=== PATIENT | female | born 1955 | race Caucasian/White ===

== ENCOUNTER 2020-03-01 07:48 | Outpatient (REF) | payer MEDICARE, MEDICAID, SELFPAY ==
--- NOTE | 2020-03-01 07:56 | FL_ITS ---
EXAMINATION: FL BARIUM SWALLOW CLINICAL INFORMATION: Dysphagia. COMPARISON: None. TECHNIQUE: Barium swallow examination is performed using fluoroscopic evaluation in addition to multiple fluoroscopic spot views. The patient is imaged both upright and prone and using both thick and thin sulfate along with effervescent granules. Fluoroscopy time: 1 minute DAP: 4.107 Gycm2 Images: 30 FINDINGS: Following oral administration of thin and thick barium in AP semi-upright view, there is normal propagation of bolus from the oral cavity through the pharynx and into a large hiatal hernia. No contrast is seen extending from the hiatal hernia/stomach into the duodenum. Esophagus is well distended without any intraluminal filling defect or narrowing. The pharynx and the cervical esophagus are widely patent. FL/FL barium swallow IMPRESSION: Large retrocardiac incarcerated hiatal hernia. Esophagus and the pharynx are widely patent.
== END 2020-03-01 07:49 | disposition home or self-care (01) ==
LOC: HO.XRAY 07:48
PROVIDERS: PCP Internal Medicine; Visit Provider Otolaryngology
DX: R13.10 Dysphagia, unspecified (principal)
CPT/HCPCS: 74220

== ENCOUNTER → 2020-04-13 13:54 | Outpatient (BNVA) | payer MEDICARE, MEDICAID, SELFPAY | PROVIDERS: PCP Internal Medicine; Visit Provider Urology | DX: Z13.89 Encounter for screening for other disorder (principal) | CPT/HCPCS: Q3014 ==

== ENCOUNTER 2020-04-19 14:14 | Outpatient (REF) | payer MEDICARE, MEDICAID, SELFPAY ==
--- NOTE | 2020-04-19 14:18 | FL_ITS ---
EXAMINATION: XR BARIUM SWALLOW CLINICAL INFORMATION: Oropharyngeal dysphagia. COMPARISON: Barium swallow 03/01/2020 TECHNIQUE: Modified barium swallow was performed in presence of speech therapist. FINDINGS: Following oral administration of thin, thick barium and various consistency solid and cystic-appearing coated with barium there is normal propagation of bolus from the oral cavity through the pharynx into the esophagus. There is no laryngeal penetration and aspiration. No retention of barium seen in the valleculae piriform sinuses. FLUOROSCOPY TIME: 2.3 minutes DOSE AREA PRODUCT: 1.996 uGy-m2 (microgray-meter squared) FL/FL barium swallow modified IMPRESSION: Normal modified barium swallow exam.
== END 2020-04-19 14:15 | disposition home or self-care (01) ==
LOC: HO.XRAY 14:14
PROVIDERS: Visit Provider Internal Medicine Gastroenterology
DX: R13.12 Dysphagia, oropharyngeal phase (principal)
CPT/HCPCS: 74230; 92611

== ENCOUNTER → 2020-05-03 11:06 | Outpatient (BNVA) | payer MEDICARE, MEDICAID, SELFPAY | PROVIDERS: PCP Internal Medicine; Visit Provider Internal Medicine | DX: R07.2 Precordial pain (principal) | CPT/HCPCS: 99212 ==

== ENCOUNTER 2020-06-05 11:00 | Emergency (ER) | payer MEDICARE, MEDICAID, SELFPAY ==
--- NOTE | ~2020-06-05 | XR_ITS ---
EXAMINATION: RIGHT HIP AND AP PELVIS, BILATERAL FOOT, LEFT SHOULDER, LEFT ELBOW AND CHEST. CLINICAL INFORMATION: Fall, pain. COMPARISON: None TECHNIQUE: AP pelvis and right hip 2 views. Right foot 2 views. Left foot 2 views. Left shoulder 3 views, left elbow 3 views and chest 2 views. FINDINGS: CHEST: The lungs are well-expanded and clear of acute process. Heart size and pulmonary vascularity is normal. No gross bony abnormality seen. LEFT ELBOW: There is no visible acute fracture, dislocation. There is moderate left upper extremity edema. No joint effusion seen. LEFT SHOULDER: There is no visible acute fracture, dislocation. There is moderate periarticular spurring. The left AC joint is reduced with periapical spurring. No fracture or lytic process seen. LEFT FOOT: There is mild hallux valgus deformity left foot. There is diffuse osteopenia. No visible fracture seen. Patient has pes planus deformity with candelario from intertarsal fusion. There is minimal dorsal midfoot soft tissue swelling. RIGHT FOOT: There is mild hallux valgus deformity first MTP joint. No visible acute fracture, dislocation or lytic process seen. There is diffuse osteopenia. There is a solitary fusion nail along the calcaneus and tarsal bones. There is mild dorsal foot soft tissue swelling. XR/XR foot RT 2V IMPRESSION: Diffuse osteopenia of both feet with hallux valgus deformity. Unremarkable AP pelvis. Unremarkable right hip: No visible acute fracture or dislocation. Unremarkable left shoulder and left elbow joint except for moderate degenerative arthritic changes in the left shoulder joint. There is moderate edema in the left upper extremity.
--- NOTE | ~2020-06-05 | XR_ITS ---
EXAMINATION: RIGHT HIP AND AP PELVIS, BILATERAL FOOT, LEFT SHOULDER, LEFT ELBOW AND CHEST. CLINICAL INFORMATION: Fall, pain. COMPARISON: None TECHNIQUE: AP pelvis and right hip 2 views. Right foot 2 views. Left foot 2 views. Left shoulder 3 views, left elbow 3 views and chest 2 views. FINDINGS: CHEST: The lungs are well-expanded and clear of acute process. Heart size and pulmonary vascularity is normal. No gross bony abnormality seen. LEFT ELBOW: There is no visible acute fracture, dislocation. There is moderate left upper extremity edema. No joint effusion seen. LEFT SHOULDER: There is no visible acute fracture, dislocation. There is moderate periarticular spurring. The left AC joint is reduced with periapical spurring. No fracture or lytic process seen. LEFT FOOT: There is mild hallux valgus deformity left foot. There is diffuse osteopenia. No visible fracture seen. Patient has pes planus deformity with candelario from intertarsal fusion. There is minimal dorsal midfoot soft tissue swelling. RIGHT FOOT: There is mild hallux valgus deformity first MTP joint. No visible acute fracture, dislocation or lytic process seen. There is diffuse osteopenia. There is a solitary fusion nail along the calcaneus and tarsal bones. There is mild dorsal foot soft tissue swelling. XR/XR shoulder LT min 2V IMPRESSION: Diffuse osteopenia of both feet with hallux valgus deformity. Unremarkable AP pelvis. Unremarkable right hip: No visible acute fracture or dislocation. Unremarkable left shoulder and left elbow joint except for moderate degenerative arthritic changes in the left shoulder joint. There is moderate edema in the left upper extremity.
--- NOTE | ~2020-06-05 | XR_ITS ---
EXAMINATION: RIGHT HIP AND AP PELVIS, BILATERAL FOOT, LEFT SHOULDER, LEFT ELBOW AND CHEST. CLINICAL INFORMATION: Fall, pain. COMPARISON: None TECHNIQUE: AP pelvis and right hip 2 views. Right foot 2 views. Left foot 2 views. Left shoulder 3 views, left elbow 3 views and chest 2 views. FINDINGS: CHEST: The lungs are well-expanded and clear of acute process. Heart size and pulmonary vascularity is normal. No gross bony abnormality seen. LEFT ELBOW: There is no visible acute fracture, dislocation. There is moderate left upper extremity edema. No joint effusion seen. LEFT SHOULDER: There is no visible acute fracture, dislocation. There is moderate periarticular spurring. The left AC joint is reduced with periapical spurring. No fracture or lytic process seen. LEFT FOOT: There is mild hallux valgus deformity left foot. There is diffuse osteopenia. No visible fracture seen. Patient has pes planus deformity with candelario from intertarsal fusion. There is minimal dorsal midfoot soft tissue swelling. RIGHT FOOT: There is mild hallux valgus deformity first MTP joint. No visible acute fracture, dislocation or lytic process seen. There is diffuse osteopenia. There is a solitary fusion nail along the calcaneus and tarsal bones. There is mild dorsal foot soft tissue swelling. XR/XR chest 2V IMPRESSION: Diffuse osteopenia of both feet with hallux valgus deformity. Unremarkable AP pelvis. Unremarkable right hip: No visible acute fracture or dislocation. Unremarkable left shoulder and left elbow joint except for moderate degenerative arthritic changes in the left shoulder joint. There is moderate edema in the left upper extremity.
--- NOTE | ~2020-06-05 | XR_ITS ---
EXAMINATION: RIGHT HIP AND AP PELVIS, BILATERAL FOOT, LEFT SHOULDER, LEFT ELBOW AND CHEST. CLINICAL INFORMATION: Fall, pain. COMPARISON: None TECHNIQUE: AP pelvis and right hip 2 views. Right foot 2 views. Left foot 2 views. Left shoulder 3 views, left elbow 3 views and chest 2 views. FINDINGS: CHEST: The lungs are well-expanded and clear of acute process. Heart size and pulmonary vascularity is normal. No gross bony abnormality seen. LEFT ELBOW: There is no visible acute fracture, dislocation. There is moderate left upper extremity edema. No joint effusion seen. LEFT SHOULDER: There is no visible acute fracture, dislocation. There is moderate periarticular spurring. The left AC joint is reduced with periapical spurring. No fracture or lytic process seen. LEFT FOOT: There is mild hallux valgus deformity left foot. There is diffuse osteopenia. No visible fracture seen. Patient has pes planus deformity with candelario from intertarsal fusion. There is minimal dorsal midfoot soft tissue swelling. RIGHT FOOT: There is mild hallux valgus deformity first MTP joint. No visible acute fracture, dislocation or lytic process seen. There is diffuse osteopenia. There is a solitary fusion nail along the calcaneus and tarsal bones. There is mild dorsal foot soft tissue swelling. XR/XR elbow LT 2V IMPRESSION: Diffuse osteopenia of both feet with hallux valgus deformity. Unremarkable AP pelvis. Unremarkable right hip: No visible acute fracture or dislocation. Unremarkable left shoulder and left elbow joint except for moderate degenerative arthritic changes in the left shoulder joint. There is moderate edema in the left upper extremity.
--- NOTE | ~2020-06-05 | XR_ITS ---
EXAMINATION: RIGHT HIP AND AP PELVIS, BILATERAL FOOT, LEFT SHOULDER, LEFT ELBOW AND CHEST. CLINICAL INFORMATION: Fall, pain. COMPARISON: None TECHNIQUE: AP pelvis and right hip 2 views. Right foot 2 views. Left foot 2 views. Left shoulder 3 views, left elbow 3 views and chest 2 views. FINDINGS: CHEST: The lungs are well-expanded and clear of acute process. Heart size and pulmonary vascularity is normal. No gross bony abnormality seen. LEFT ELBOW: There is no visible acute fracture, dislocation. There is moderate left upper extremity edema. No joint effusion seen. LEFT SHOULDER: There is no visible acute fracture, dislocation. There is moderate periarticular spurring. The left AC joint is reduced with periapical spurring. No fracture or lytic process seen. LEFT FOOT: There is mild hallux valgus deformity left foot. There is diffuse osteopenia. No visible fracture seen. Patient has pes planus deformity with candelario from intertarsal fusion. There is minimal dorsal midfoot soft tissue swelling. RIGHT FOOT: There is mild hallux valgus deformity first MTP joint. No visible acute fracture, dislocation or lytic process seen. There is diffuse osteopenia. There is a solitary fusion nail along the calcaneus and tarsal bones. There is mild dorsal foot soft tissue swelling. XR/XR hip RT w PEL1V IMPRESSION: Diffuse osteopenia of both feet with hallux valgus deformity. Unremarkable AP pelvis. Unremarkable right hip: No visible acute fracture or dislocation. Unremarkable left shoulder and left elbow joint except for moderate degenerative arthritic changes in the left shoulder joint. There is moderate edema in the left upper extremity.
[2020-06-05 11:15] VITALS: BP 147/81; PULSE 83; RESP 16; TEMP 36.6; O2SAT 93; BMI 25.7
[2020-06-05 11:37] VITALS: BP 127/78; PULSE 77; RESP 18; O2SAT 97
--- NOTE | 2020-06-05 11:43 | PC.NURSE ---
Frequent falls at home lately with recent injuries to her left elbow and bilateral feet which has caused perceived swelling to feet bilaterally. This has made it difficult to ambulate with a walker which is her baseline. She has been using her wheelchair instead and is now unable to bear weight on her legs due to pain in her feet. She fell out of bed this morning when attempting to transfer to her wheelchair which is a skill that she is typically able to do.
--- NOTE | 2020-06-05 12:29 | ECG_ITS ---
Test Reason : SYNCOPE Blood Pressure : / mmHG Vent. Rate : 076 BPM Atrial Rate : 076 BPM P-R Int : 140 ms QRS Dur : 078 ms QT Int : 384 ms P-R-T Axes : 050 012 039 degrees QTc Int : 432 ms Normal sinus rhythm cannot exclude old Septal infarct , age undetermined , but could also be from body habitus, lead placement Borderline ECG When compared with ECG of 05-OCT-2019 20:19, No significant change was found Referred By: Zahraa Reyes Electronically Signed By:SIMONE JACKMAN
--- NOTE | 2020-06-05 12:50 | ED.FALL ---
HPI - Fall General Chief Complaint: Fall Stated Complaint: fall multiple times,feet and elbow,back pain Time Seen by Provider: 06/05/20 12:02 Source: patient Mode of arrival: wheelchair Limitations: no limitations History of Present Illness HPI Narrative: 64-year-old female with a past medical history arthritis, cerebal palsy, hiatal hernia, urinary incontinence here with complaints of multiple falls at home. Patient is here with her sister whom she lives with. She tells me that for the last week she has had 3 falls. She tells me that she does have poor balance d/t her cerebral palsy and occasionally falls secondary to this. Her 1st fall was a trip this week in which she struck her left upper arm. She denies hitting her head or loss of consciousness. She tells me her additional falls have been due to her having pain in her left upper extremity. She tells me she uses her upper extremities to transfer and due to the pain she has been unable to transfer independently. On the right upper extremity she has weakness which is baseline for her. She denies any weakness, fevers, chills, chest pain, shortness of breath, vomiting, diarrhea, abdominal pain, urinary issues. The sister is concerned that she has had a subjective fever this week. Related Data Home Medications Medication Instructions Recorded Confirmed acetaminophen 500 mg tablet 500 mg PO QIDWMHS 04/13/20 06/05/20 amantadine HCl 100 mg capsule 200 mg PO BEDTIME 04/13/20 06/05/20 baclofen 10 mg tablet 5 mg PO QIDWMHS tab 04/13/20 06/05/20 omeprazole 20 mg capsule,delayed 20 mg PO BID@0630,1630 cap 04/13/20 06/05/20 release latanoprost 0.005 % eye drops 1 drp OPHTHALMIC (EYE) BEDTIME ml 05/03/20 06/05/20 amantadine HCl 100 mg PO DAILY 06/05/20 06/05/20 ascorbic acid (vitamin C) 500 mg PO DAILY@06/05/20 06/05/20 cholecalciferol (vitamin D3) 10 mcg PO DAILY@06/05/20 06/05/20 pyridoxine (vitamin B6) [Vitamin 50 mg PO DAILY@06/05/20 06/05/20 B-6] solifenacin [Vesicare] 10 mg PO BEDTIME 06/05/20 06/05/20 Allergies Allergy/AdvReac Type Severity Reaction Status Date / Time tetracycline [TETRACYCLINE] Allergy Intermediate ALTERED Verified 06/05/20 11:18 MENTAL STATUS Erythromycin AdvReac Unknown NAUSEA/VOMI Verified 06/05/20 11:18 TING polyester Allergy Unknown contact Uncoded 06/05/20 11:18 dermatitis Review of Systems Review of Systems: Yes all other systems are reviewed and are negative Constitutional: Constitutional: Reports no additional constitutional complaints, Denies body ache(s), Denies chills, Denies fever(s), Denies headache(s) and Denies weakness Eyes: Eyes: Reports no additional eye complaints and Denies change in vision ENT: Reports system reviewed and no additional complaints, except as documented, Denies dizziness, Denies headache(s), Denies nasal congestion, Denies nasal discharge and Denies neck pain Cardiovascular: Cardiovascular: Reports no additional cardiovascular complaints, Denies chest pain, Denies leg edema and Denies dyspnea Respiratory: Respiratory: Reports no additional respiratory complaints, Denies cough and Denies dyspnea Gastrointestinal: Gastrointestinal: Reports no additional gastrointestinal complaints, Denies abdominal pain, Denies diarrhea, Denies nausea and Denies vomiting Genitourinary: Genitourinary: Reports no additional female genitourinary complaints and Denies urinary incontinence Musculoskeletal: Musculoskeletal: Reports no additional musculoskeletal complaints, Denies back pain, Reports arthralgias, Reports joint swelling, Reports limited range of motion, Denies neck pain, Denies numbness and Denies tingling Integumentary/Breasts: Skin/Breast: Reports system reviewed and no additional complaints, except as docu and Denies rash Neurologic: Reports system reviewed and no additional complaints, except as documented, Denies Abnormal speech present, Denies dizziness, Denies headache(s), Denies numbness, Denies tingling and Denies weakness [facility] Past Medical History Attestation statement: The following information was validated with the patient. Source: old records reviewed and nursing notes reviewed Medical History Arthritis Cerebral palsy Hiatal hernia Urge incontinence Urgency incontinence Uterine benign neoplasm Family History Family History Father No problems noted. Mother No problems noted. Social History Social History Smoking Status: Never smoker Use of substances other than those prescribed or required for medical reasons: No Advance Directives: No Advance Directives Information Provided: No Physical Exam Vital Signs: Vital Signs: Last Vital Signs Temp 97.8 F 06/05/20 11:15 Pulse 79 06/05/20 17:29 Resp 18 06/05/20 17:29 BP 156/81 H 06/05/20 17:29 Pulse Ox 97 06/05/20 17:29 Body Mass Index 25.7 Const: General: cooperative, healthy appearing, comfortable and no acute distress Orientation/consciousness: patient oriented x3 Limitations: no limitations HENMT: Head: Yes normal to inspection Ears: hearing grossly normal bilaterally General nose exam: Normal external nose present Face and sinus: Yes normal facial exam Mouth: Normal oral and palatal mucosa present Throat: Yes posterior oropharynx normal Eyes: General: appearance normal, both eyes and all related structures Pupils: Equal, round and reactive pupils present Neck: Neck: Yes normal visual inspection Chest: Chest palpation & inspection: normal inspection of the chest Resp: Effort & Inspection: normal respiratory effort Auscultation: clear to auscultation bilaterally Cardio: Rate: regular rate Rhythm: regular rhythm Peripheral pulses: Peripheral pulses 2+ throughout GI: Inspection: Yes normal to inspection Palpation (GI): Soft to palpation and nontender Auscultation: normal bowel sounds Back/Spine/Pelvis: Thoracic/Lumbar Spine: thoracic and lumbar spine normal to inspection Skin: General skin exam: no rashes or lesions noted Neuro: Other: spasticity noted in the lower extremities Limited range of motion left upper extremity due to pain. Right upper extremity 4/5 strength-patient says this is baseline General: patient oriented x3, normal sensation to monofilament and Unable to assess gait Cranial nerves: Yes Equal, round and reactive pupils present, Yes Bilaterally intact EOM present and Yes Midline tongue present Cognition (Neuro): normal cognition Speech: No Abnormal speech present Gait exam (Neuro): Unable to assess gait Sensory Exam: Normal double simultaneous stimulation for sensation Extrem: Other: To the left upper arm on the inner aspect there is ecchymosis and tenderness over the elbow with flexion and extension of the elbow. There is no warmth or redness. Patient has tenderness to the bilateral dorsal feet with no obvious swelling, ecchymosis or deformity. Limited range of motion due to spasticity. Palpable pulses present. Ecchymosis over the right hip with no obvious deformity or swelling. Full range of motion with no difficulty. General: Yes normal to inspection Course Course Course Narrative: 64-year-old female here with multiple falls at home for the last week. They appear to be mechanical. The sister however is concerned the patient may have had some subjective fevers this week. Patient is complaining of multiple orthopedic complaints but no systemic signs or symptoms. Will check x-rays, EKG, labs and UA. Patient will likely need case management and physical therapy evaluation. 1340- k6.0. Normal renal function. Likely hemolysis. We will order repeat. 1530-repeat potassium normal. All other labs are unremarkable. EKG and imaging unremarkable. UA is pending. Physical therapy consultation and case management consultation placed and they are aware. 1700-unfortunately physical therapy is going home for the day and so patient will be in the emergency department overnight pending their evaluation in the morning. Family is aware and agreeable 1845-medications reviewed and ordered. Patient placed in physician observation at this time as she is pending CM/STR placement. MDM - Fall Medical Records Attestation: I reviewed the patient's medical records. Lab Data Attestation: I reviewed the patient's lab results. Result diagrams: 06/05/20 12:43 06/05/20 14:36 Labs: Lab Results 06/05/20 06/05/20 06/05/20 Range/Units 12:43 12:43 12:43 WBC 9.1 (4.8-10.8) X10*3/uL RBC 4.37 (4.20-5.50) X10*6/uL Hgb 12.6 (12.0-16.0) g/dl Hct 38.8 (37-47) % MCV 88.8 (80-98) fL MCH 28.8 (27.0-33.0) pg MCHC 32.5 (31.0-35.0) g/dl RDW 12.4 (11.0-16.0) % Plt Count 252 (160-400) X10*3/uL MPV 10.3 (9.4-12.3) fL Immature Gran % (Auto) 0.2 (0.0-0.4) % Neut % (Auto) 74.5 H (45-73) % Lymph % (Auto) 15.1 L (20-40) % [place] % (Auto) 7.9 (2-11) % Eos % (Auto) 1.8 (0-4) % Baso % (Auto) 0.5 (0-2) % Lymph # (Auto) 1.4 (1.2-4.9) X10*3/uL [place] # (Auto) 0.7 (0.1-1.2) X10*3/uL Eos # (Auto) 0.2 (0.0-0.4) X10*3/uL Baso # (Auto) 0.1 (0.0-0.2) X10*3/uL Abs Immat Gran (auto) 0.02 (0.00-0.03) X10*3/uL Absolute Neuts (auto) 6.8 (2.0-8.3) X10*3/uL Absolute Nucleated RBC 0.000 (0.0-0.012) X10*3/uL Nucleated RBC % (auto) 0.0 (0.0-0.2) /100WBC PT 13.0 (10.8-13.0) SEC INR 1.1 (0.9-1.1) Sodium 139 (135-145) mmol/L Potassium 6.0 H* (3.3-5.1) mmol/L Chloride 103 (96-108) mmol/L Carbon Dioxide 27 (22-29) mmol/L Anion Gap 15 (12-20) BUN 18 H (9-16) mg/dL Creatinine 0.66 (0.5-1.4) mg/dL Estim Creat Clear Calc 71.6 Estimated GFR > 60 Random Glucose 100 (60-115) mg/dL Calcium 9.4 (8.4-10.2) mg/dL Magnesium 2.3 (1.6-2.6) mg/dL Total Bilirubin 0.5 (0.0-1.0) mg/dL Direct Bilirubin 0.2 (0.0-0.5) mg/dL AST 36 H (5-31) U/L ALT 27 (0-31) U/L Alkaline Phosphatase 92 (39-117) U/L Total Protein 6.6 (6.5-8.0) g/dL Albumin 4.1 (3.5-5.0) g/dL Urine Color Urine Appearance Urine pH (5.0-8.0) Ur Specific [place] (1.005-1.025) Urine Protein (NEG-TRACE) MG/DL Urine Glucose (UA) (NEG) MG/DL Urine Ketones (NEG) MG/DL Urine Blood (NEG) Urine Nitrite (NEG) Ur Leukocyte Esterase (NEG) COVID-19 (CLARY) (Negative) COVID-19 Clin Com 06/05/20 06/05/20 06/05/20 Range/Units 14:36 15:59 17:28 WBC (4.8-10.8) X10*3/uL RBC (4.20-5.50) X10*6/uL Hgb (12.0-16.0) g/dl Hct (37-47) % MCV (80-98) fL MCH (27.0-33.0) pg MCHC (31.0-35.0) g/dl RDW (11.0-16.0) % Plt Count (160-400) X10*3/uL MPV (9.4-12.3) fL Immature Gran % (Auto) (0.0-0.4) % Neut % (Auto) (45-73) % Lymph % (Auto) (20-40) % [place] % (Auto) (2-11) % Eos % (Auto) (0-4) % Baso % (Auto) (0-2) % Lymph # (Auto) (1.2-4.9) X10*3/uL [place] # (Auto) (0.1-1.2) X10*3/uL Eos # (Auto) (0.0-0.4) X10*3/uL Baso # (Auto) (0.0-0.2) X10*3/uL Abs Immat Gran (auto) (0.00-0.03) X10*3/uL Absolute Neuts (auto) (2.0-8.3) X10*3/uL Absolute Nucleated RBC (0.0-0.012) X10*3/uL Nucleated RBC % (auto) (0.0-0.2) /100WBC PT (10.8-13.0) SEC INR (0.9-1.1) Sodium (135-145) mmol/L Potassium 4.2 D (3.3-5.1) mmol/L Chloride (96-108) mmol/L Carbon Dioxide (22-29) mmol/L Anion Gap (12-20) BUN (9-16) mg/dL Creatinine (0.5-1.4) mg/dL Estim Creat Clear Calc Estimated GFR Random Glucose (60-115) mg/dL Calcium (8.4-10.2) mg/dL Magnesium (1.6-2.6) mg/dL Total Bilirubin (0.0-1.0) mg/dL Direct Bilirubin (0.0-0.5) mg/dL AST (5-31) U/L ALT (0-31) U/L Alkaline Phosphatase (39-117) U/L Total Protein (6.5-8.0) g/dL Albumin (3.5-5.0) g/dL Urine Color YELLOW Urine Appearance CLEAR Urine pH 6.0 (5.0-8.0) Ur Specific [place] >= 1.030 H (1.005-1.025) Urine Protein NEG (NEG-TRACE) MG/DL Urine Glucose (UA) NEG (NEG) MG/DL Urine Ketones NEG (NEG) MG/DL Urine Blood NEG (NEG) Urine Nitrite NEG (NEG) Ur Leukocyte Esterase NEG (NEG) COVID-19 (CLARY) Negative (Negative) COVID-19 Clin Com See Note Imaging Data Chest x-ray: Attestation: I personally reviewed and interpreted this imaging study as follows: Radiologist's impression: CHEST: The lungs are well-expanded and clear of acute process. Heart size and pulmonary vascularity is normal. No gross bony abnormality seen. Left elbow/shoulder xray: Attestation: I personally reviewed and interpreted this imaging study as follows: Radiologist's impression: LEFT ELBOW: There is no visible acute fracture, dislocation. There is moderate left upper extremity edema. No joint effusion seen. LEFT SHOULDER: There is no visible acute fracture, dislocation. There is moderate periarticular spurring. The left AC joint is reduced with periapical spurring. No fracture or lytic process seen. bilateral foot xray: Attestation: I personally reviewed and interpreted this imaging study as follows: Radiologist's impression: LEFT FOOT: There is mild hallux valgus deformity left foot. There is diffuse osteopenia. No visible fracture seen. Patient has pes planus deformity with candelario from intertarsal fusion. There is minimal dorsal midfoot soft tissue swelling. RIGHT FOOT: There is mild hallux valgus deformity first MTP joint. No visible acute fracture, dislocation or lytic process seen. There is diffuse osteopenia. There is a solitary fusion nail along the calcaneus and tarsal bones. There is mild dorsal foot soft tissue swelling. hip right x-ray: Attestation: I personally reviewed and interpreted this imaging study as follows: Radiologist's impression: Unremarkable AP pelvis. Unremarkable right hip: No visible acute fracture or dislocation. ECG Data ECG interpretation date: 06/05/20 ECG interpretation time: 12:50 Interpretation: NSR, normal pr, normal qrs, normal qtc Discharge Plan Discharge Clinical Impression: Multiple falls, Contusion Patient Disposition: er [facility] Prescriptions: No Action amantadine HCl 100 mg Capsule 100 mg PO DAILY RF: 0 ascorbic acid (vitamin C) 500 mg Tablet 500 mg PO DAILY@12 RF: 0 cholecalciferol (vitamin D3) 10 mcg (400 unit) Tablet 10 mcg PO DAILY@12 RF: 0 Vitamin B-6 50 mg Capsule 50 mg PO DAILY@12 RF: 0 solifenacin [Vesicare] 10 mg tablet 10 mg PO BEDTIME RF: 0 baclofen 10 mg tablet 5 mg PO QIDWMHS RF: 0 omeprazole 20 mg capsule,delayed release(DR/EC) 20 mg PO BID@0630,1630 RF: 0 acetaminophen 500 mg tablet 500 mg PO QIDWMHS RF: 0 amantadine HCl 100 mg capsule 200 mg PO BEDTIME RF: 0 latanoprost 0.005 % drops 1 drp ophthalmic (eye) BEDTIME RF: 0
[2020-06-05 12:54] LABS: MANUAL DIFF FLAG NO
[2020-06-05 12:56] LABS: Basophils Absolute Auto 0.1 X10*3/uL (0.0-0.2); Basophils Percent Auto 0.5 % (0-2); Eosinophils Absolute Auto 0.2 X10*3/uL (0.0-0.4); Eosinophils Percent Auto 1.8 % (0-4); Hematocrit 38.8 % (37-47); Hemoglobin 12.6 g/dl (12.0-16.0); Imm Gran Abs Auto 0.02 X10*3/uL (0.00-0.03); Imm Gran Pct Auto 0.2 % (0.0-0.4); Lymphocytes Absolute Auto 1.4 X10*3/uL (1.2-4.9); Lymphocytes Percent Auto 15.1 % (20-40); Mean Corpuscular HGB Conc 32.5 g/dl (31.0-35.0); Mean Corpuscular Hemoglobin 28.8 pg (27.0-33.0); Mean Corpuscular Volume 88.8 fL (80-98); Mean Platelet Volume 10.3 fL (9.4-12.3); Monocytes Absolute Auto 0.7 X10*3/uL (0.1-1.2); Monocytes Percent Auto 7.9 % (2-11); Neutrophils Absolute Auto 6.8 X10*3/uL (2.0-8.3); Neutrophils Percent Auto 74.5 % (45-73); Platelet Count 252 X10*3/uL (160-400); Red Blood Count 4.37 X10*6/uL (4.20-5.50); Red Cell Distribution Width 12.4 % (11.0-16.0); White Blood Count 9.1 X10*3/uL (4.8-10.8)
[2020-06-05 13:11] LABS: INTERNATIONAL NORM RATIO 1.1 (0.9-1.1)
[2020-06-05 13:35] LABS: Alanine Aminotransferase 27 U/L (0-31); Albumin Level 4.1 g/dL (3.5-5.0); Alkaline Phosphatase 92 U/L (39-117); Anion Gap 15 (12-20); Aspartate Amino Transferase 36 U/L (5-31); Bilirubin Direct 0.2 mg/dL (0.0-0.5); Bilirubin Total 0.5 mg/dL (0.0-1.0); Blood Urea Nitrogen 18 mg/dL (9-16); Calcium 9.4 mg/dL (8.4-10.2); Carbon Dioxide 27 mmol/L (22-29); Chloride 103 mmol/L (96-108); Creatinine Clr Calc Pharmacy 71.6; Estimated Glomerular Filt Rate > 60; Glucose Random 100 mg/dL (60-115); Magnesium 2.3 mg/dL (1.6-2.6); Sodium 139 mmol/L (135-145); Total Protein 6.6 g/dL (6.5-8.0)
--- NOTE | 2020-06-05 14:41 | PC.NURSE ---
Plan to reassess potassium level as it is elevated per last result. Re-draw necessary to assess validity of last result
[2020-06-05 15:11] LABS: Potassium 4.2 mmol/L (3.3-5.1)
[2020-06-05 15:31] VITALS: BP 146/72; PULSE 74; RESP 16; O2SAT 96
[2020-06-05 16:17] LABS: Glucose Urine UA NEG (NEG); Leukocyte Esterase Urine NEG (NEG); Nitrite Urine NEG (NEG); Specific Gravity - Urine >= 1.030 (1.005-1.025); Urine Blood NEG (NEG); Urine Ketones NEG (NEG); Urine Protein NEG (NEG-TRACE)
[2020-06-05 16:27] LABS: Appearance Urine CLEAR; Color Urine YELLOW
[2020-06-05 17:29] VITALS: BP 156/81; PULSE 79; RESP 18; O2SAT 97
--- NOTE | 2020-06-05 17:30 | PC.NURSE ---
Pt aware of plan to stay overnight for pt eval in am. Pt placed in hospital bed and covid swab obtained.
[2020-06-05 17:55] LABS: COVID-19 Test Negative (Negative)
[2020-06-05] MEDS: amantadine HCL 100 MG CAPSULE 200 MG PO (20:10)
[2020-06-05] MEDS: Baclofen 10 MG TABLET 5 MG PO (20:10)
[2020-06-05] MEDS: Acetaminophen 325 MG TABLET 650 MG PO (20:10)
[2020-06-05] MEDS: Latanoprost 0.005 % Ophth Sol 2.5 ML DROPS 1 DROP EYE-BOTH (20:11)
--- NOTE | 2020-06-05 21:55 | MHC.CM.ED ---
Addendum entered by Alma Cote 06/05/20 22:16: HCP completed and uploaded into [facility] and to [facility]. Original Note: CM met with pt at the request of Franchesca PALACIOS. Pt with hx of cerebral palsy, who fell 3 times in the past week. Pt has balance issues secondary to C.P., but does not usually fall. Both pt and sister/HCP Thu Escalera ([phone]) state she uses her arms to transfer from bed to her walker and has had increasing pain to her Left dominant arm, causing her to fall. Pt lives with her sister and her aunt, who has dementia. Her sister helps her to bathe, but otherwise, pt is very independent. Pt usually uses a walker, has a cane and a wheelchair if needed. Has a ramp to enter her home and her bedroom and bathroom are handicapped accessible. Pt is overnight in the ED, awaiting PT evaluation in the am. Hope is to be able to rest her L arm, so she will be able to use her walker without pain. No referrals yet placed pending PT recommendation. CM to follow for d/c needs.
[2020-06-05 22:30] VITALS: BP 150/88; PULSE 79; RESP 16; O2SAT 96
[2020-06-06 06:55] VITALS: BP 135/71; PULSE 76; RESP 16; TEMP 37; O2SAT 94
[2020-06-06] MEDS: Omeprazole 20 MG CAPSULE.DR PO ×2 (06:57→16:27)
--- NOTE | 2020-06-06 07:17 | PC.NURSE ---
PT EATING BKFST.
--- NOTE | 2020-06-06 08:03 | PC.NURSE ---
PT IN WITH PATIENT
[2020-06-06 08:25] VITALS: BP 135/71; PULSE 76; O2SAT 94
[2020-06-06] MEDS: Acetaminophen 325 MG TABLET 650 MG PO ×3 (08:36→16:28)
[2020-06-06] MEDS: amantadine HCL 100 MG CAPSULE PO (08:37)
[2020-06-06] MEDS: Baclofen 10 MG TABLET 5 MG PO ×3 (08:37→16:26)
[2020-06-06 11:35] VITALS: BP 149/77; PULSE 68; RESP 16; O2SAT 93
--- NOTE | 2020-06-06 12:28 | PC.NURSE ---
daughter at bedside updated as to plan of care. daughter states that it was her understanding that staff at assisted living heard pt fall and that she was not on floor for extended period of time. c-collar was removed at apporx [address] report was available and read by md vo. pt reports 9/10 pain again, order obtained for fentanyl.
--- NOTE | 2020-06-06 12:37 | MHC.CM.ED ---
Patient remains in ER. Physical therapy recommendeding short term rehab. Met with patient and sister Thu in regards to discharge planning. List of facilities provided from [facility]. They will pick 2 choices. Continue to monitor for d/c needs.
[2020-06-06] MEDS: Ascorbic Acid 500 MG TABLET PO (12:48)
[2020-06-06] MEDS: Cholecalciferol (Vitamin D3) 10 MCG TABLET PO (12:49)
[2020-06-06] MEDS: Pyridoxine HCl (Vitamin B6) 50 MG TABLET PO (12:49)
--- NOTE | 2020-06-06 13:58 | PC.NURSE ---
pt tolerated 50% meal tray, case mgt is with pt currently. pt resting comfortably, offers no complaint.
--- NOTE | 2020-06-06 15:01 | MHC.CM.ED ---
Met with patient and sister. Facility choices: 1)[facility] 2)[facility] 3)[facility]. Referrals made via allscripts. [facility] is able to offer a bed. Patient can leave at 4pm. [facility] BLS booked. [facility] rosita with chart. Patient, Edith BARCENAS and Anna PALACIOS aware. Spoke with patient's sister/HCP Thu via telephone at [phone]. Thu verbalizes understanding. Continue to monitor for d/c needs.
[2020-06-06 15:03] VITALS: BP 141/75; PULSE 88; RESP 20; TEMP 36.6; O2SAT 93
--- NOTE | 2020-06-06 15:29 | PC.NURSE ---
Pt had large formed bowel movement. +urine incontinent.
== END 2020-06-06 17:13 | disposition skilled nursing facility (03) ==
PROVIDERS: Nurse Practitioner Family; Emergency Provider Emergency Medicine; PCP Internal Medicine
DX: S59.902A Unspecified injury of left elbow, initial encounter (principal); M25.522 Pain in left elbow; M79.672 Pain in left foot; M79.671 Pain in right foot; R60.0 Localized edema; M54.5 Low back pain; M25.552 Pain in left hip; M25.551 Pain in right hip; W01.0XXA Fall on same level from slipping, tripping and stumbling without subsequent striking against object, initial encounter; Y93.9 Activity, unspecified; Y92.099 Unspecified place in other non-institutional residence as the place of occurrence of the external cause; Y99.9 Unspecified external cause status; Z91.81 History of falling; Z20.822 Contact with and (suspected) exposure to COVID-19; M25.512 Pain in left shoulder; R07.81 Pleurodynia
CPT/HCPCS: 36415; 71046; 73030; 73070; 73502; 73620; 80048; 80076; 81003; 83735; 84132; 85025; 85610; 87635; 93005; 97162; 99284

== ENCOUNTER → 2020-08-22 13:04 | Outpatient (BNVA) | payer MEDICARE, MEDICAID, SELFPAY | PROVIDERS: PCP Internal Medicine; Visit Provider Orthopaedic Surgery | DX: M77.02 Medial epicondylitis, left elbow (principal) | CPT/HCPCS: 99202 ==

== ENCOUNTER 2020-10-11 11:30 | Outpatient (RCR) | payer MEDICARE, MEDICAID, SELFPAY ==
--- NOTE | 2020-11-14 15:19 | MHC.OT.DC ---
[address] [phone] F: [phone] Occupational Therapy Discharge Note Provider: Enedina Billy Diagnosis: Left medial epicondylitis Date of Evaluation: 09/01/20 Date of Discharge: 11/14/20 Treatments to Date: 13 Cancellations to Date: 0 No Shows to Date: 0 Discharge Status: Improved Function Discharge Summary: MS POP WAS PROVIDED WITH A CFB AND CUSTOM NIGHT WRIST SPLINT. SHE WAS IMPROVING HER INDEPENDENCE WITH PERFORMING BED MOBILITY AND W/C TRANSFER. Pt HAD SOME ASSISTANCE FROM HER CAREGIVER FOR HER HEP PROGRAM. IT WAS RECOMMENDED Pt CONTINUE TO WEAR SPLINTS AND PERFORM HER HEP WITH THE HELP OF HER CAREGIVER TO IMPROVE CARRYOVER. 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 Electronically Signed By: CLIFFORD MCCLELLAND OTR/Juan M Reviewed/agree with student documentation: N/A Therapist: Please Sign and return to therapist, thank you for your referral.
== END 2020-11-14 15:00 | disposition home or self-care (01) ==
LOC: HO.OT 11:30
PROVIDERS: Visit Provider Orthopaedic Surgery
DX: M77.02 Medial epicondylitis, left elbow (principal)
CPT/HCPCS: 29125; 97033; 97035; 97110; 97140; 97166; 97760

== ENCOUNTER 2021-04-06 08:19 | Outpatient (REF) | payer MEDICARE, MEDICAID, SELFPAY ==
[2021-04-06 11:20] LABS: MANUAL DIFF FLAG NO
[2021-04-06 11:31] LABS: Basophils Percent Auto 0.7 % (0-2); Eosinophils Absolute Auto 0.1 X10*3/uL (0.0-0.4); Hematocrit 43.6 % (37.0-47.0); Imm Gran Abs Auto 0.02 X10*3/uL (0.00-0.03); Imm Gran Pct Auto 0.3 % (0.0-0.4); Lymphocytes Absolute Auto 1.2 X10*3/uL (1.2-4.9); Lymphocytes Percent Auto 20.4 % (20-40); Mean Corpuscular HGB Conc 32.1 g/dl (31.0-35.0); Mean Corpuscular Hemoglobin 28.7 pg (27.0-33.0); Mean Corpuscular Volume 89.5 fL (80.0-98.0); Monocytes Absolute Auto 0.4 X10*3/uL (0.1-1.2); Monocytes Percent Auto 6.8 % (2-11); Neutrophils Absolute Auto 4.2 x10*3/uL (2.0-8.3); Neutrophils Percent Auto 69.8 % (45-73); Platelet Count 237 X10*3/uL (160-400); Red Blood Count 4.87 X10*6/uL (4.20-5.50); Red Cell Distribution Width 12.3 % (11.0-16.0)
[2021-04-06 11:53] LABS: Alanine Aminotransferase 11 U/L (0-31); Albumin Level 4.5 g/dL (3.5-5.0); Alkaline Phosphatase 121 U/L (39-117); Anion Gap 14 (12-20); Aspartate Amino Transferase 13 U/L (5-31); Bilirubin Total 0.4 mg/dL (0.0-1.0); Blood Urea Nitrogen 11 mg/dL (9-16); Calcium 9.7 mg/dL (8.4-10.2); Carbon Dioxide 26 mmol/L (22-29); Chloride 102 mmol/L (96-108); Cholesterol 264 mg/dL; Estimated Glomerular Filt Rate > 60; Glucose Fasting 97 mg/dL (60-99); HDL Cholesterol 73 mg/dL; LDL Cholesterol Calculated 161 mg/dl; Potassium 4.7 mmol/L (3.3-5.1); Sodium 137 mmol/L (135-145); Total Protein 7.2 g/dL (6.5-8.0); Triglycerides 153 mg/dL
[2021-04-06 12:18] LABS: Thyroid Stimulating Hormone 0.54 uIU/mL (0.32-4.0); Vitamin D 25-OH Total 17.4 ng/mL (>30)
== END 2021-04-06 08:20 | disposition home or self-care (01) ==
LOC: HO.HMGCLDS 08:19
PROVIDERS: Visit Provider Internal Medicine
DX: G80.1 Spastic diplegic cerebral palsy (principal); K21.9 Gastro-esophageal reflux disease without esophagitis
CPT/HCPCS: 36415; 80053; 80061; 82306; 84443; 85025

== ENCOUNTER → 2021-07-03 10:35 | Outpatient (BNVA) | payer MEDICARE, MEDICAID, SELFPAY | PROVIDERS: PCP Internal Medicine | DX: N39.41 Urge incontinence (principal); G80.9 Cerebral palsy, unspecified | CPT/HCPCS: 99212 ==

== ENCOUNTER → 2022-06-27 11:30 | Outpatient (BNVA) | payer MEDICARE, MEDICAID, SELFPAY | PROVIDERS: PCP Internal Medicine; Visit Provider Nurse Practitioner Family | DX: N39.41 Urge incontinence (principal); Z79.899 Other long term (current) drug therapy | CPT/HCPCS: 51798; 99212 ==

== ENCOUNTER 2023-02-19 11:07 | Outpatient (REF) | payer MEDICARE, MEDICAID, SELFPAY ==
[2023-02-19 13:08] LABS: MANUAL DIFF FLAG NO
[2023-02-19 13:37] LABS: Basophils Absolute Auto 0.1 X10*3/uL (0.0-0.2); Basophils Percent Auto 0.8 % (0-2); Eosinophils Absolute Auto 0.1 X10*3/uL (0.0-0.4); Hematocrit 43.5 % (37.0-47.0); Hemoglobin 14.5 g/dl (12.0-16.0); Imm Gran Abs Auto 0.03 X10*3/uL (0.00-0.03); Imm Gran Pct Auto 0.5 % (0.0-0.4); Lymphocytes Absolute Auto 1.3 X10*3/uL (1.2-4.9); Lymphocytes Percent Auto 19.8 % (20-40); Mean Corpuscular HGB Conc 33.3 g/dl (31.0-35.0); Mean Corpuscular Hemoglobin 29.6 pg (27.0-33.0); Mean Corpuscular Volume 88.8 fL (80.0-98.0); Mean Platelet Volume 10.6 fL (9.4-12.3); Monocytes Absolute Auto 0.6 X10*3/uL (0.1-1.2); Monocytes Percent Auto 8.4 % (2-11); Neutrophils Absolute Auto 4.6 x10*3/uL (2.0-8.3); Neutrophils Percent Auto 68.5 % (45-73); Platelet Count 263 X10*3/uL (160-400); Red Cell Distribution Width 11.9 % (11.0-16.0); White Blood Count 6.7 X10*3/uL (4.8-10.8)
[2023-02-19 14:05] LABS: Alanine Aminotransferase 15 U/L (0-31); Albumin Level 4.6 g/dL (3.5-5.0); Alkaline Phosphatase 117 U/L (39-117); Anion Gap 13 (12-20); Aspartate Amino Transferase 14 U/L (5-31); Bilirubin Total 0.5 mg/dL (0.0-1.0); Blood Urea Nitrogen 16 mg/dL (9-16); Calcium 9.8 mg/dL (8.4-10.2); Carbon Dioxide 28 mmol/L (22-29); Chloride 99 mmol/L (96-108); Cholesterol 255 mg/dL (<200); Estimated Glomerular Filt Rate > 60; Glucose Fasting 98 mg/dL (60-99); HDL Cholesterol 73 mg/dL (>40); LDL Cholesterol Calculated 151 mg/dL (<100); Potassium 3.8 mmol/L (3.3-5.1); Sodium 136 mmol/L (135-145); Thyroid Stimulating Hormone 0.46 uIU/mL (0.32-4.0); Total Protein 7.5 g/dL (6.5-8.0); Triglycerides 159 mg/dL (<150); Vitamin D 25-OH Total 79.3 ng/mL (>30)
== END 2023-02-19 11:08 | disposition home or self-care (01) ==
LOC: HO.HMGCLDS 11:07
PROVIDERS: PCP Internal Medicine; Visit Provider Internal Medicine
DX: G80.1 Spastic diplegic cerebral palsy (principal); K21.9 Gastro-esophageal reflux disease without esophagitis; E78.00 Pure hypercholesterolemia, unspecified; E55.9 Vitamin D deficiency, unspecified; I10 Essential (primary) hypertension
CPT/HCPCS: 36415; 80053; 80061; 82306; 84443; 85025

== ENCOUNTER → 2023-06-27 11:00 | Outpatient (BNVA) | payer MEDICARE, MEDICAID, SELFPAY | PROVIDERS: Visit Provider Nurse Practitioner Family | DX: N39.41 Urge incontinence (principal) | CPT/HCPCS: 51798; 81003; 99212 ==

== ENCOUNTER 2023-11-20 10:52 | Outpatient (REF) | payer MEDICARE, MEDICAID, SELFPAY ==
--- NOTE | ~2023-11-20 | MM_ITS ---
EXAMINATION: MM SCREENING DIGITAL BREAST TOMOSYNTHESIS, BILATERAL CLINICAL INFORMATION: Screening. Asymptomatic. COMPARISON: Mammography: Comparison is made with available priors TECHNIQUE: Digital breast mammography with tomosynthesis is performed in both the craniocaudal and mediolateral oblique views along with computer-aided detection (CAD). FINDINGS: The breasts are heterogeneously dense, which may obscure small masses (ACR BI-RADS breast composition Category c). Images are limited due to patient's movement limitations. Within these limitations: There are no significant masses, abnormal calcifications, or other abnormalities. MM/MM tomosynthesis screening BI IMPRESSION: No mammographic evidence of malignancy. ASSESSMENT: BI-RADS BI-RADS 1 - Negative RECOMMENDATION: Routine annual mammography screening. 1 year F/U This examination should not preclude the clinical evaluation of a suspicious palpable abnormality. This patient's information was entered into a reminder system with a target due date for their next mammogram. Electronically signed by: Lili De Luna DO 12/07/2023 02:21 PM EDT
== END 2023-11-20 10:53 | disposition home or self-care (01) ==
LOC: HO.MAMMO 10:52
PROVIDERS: PCP Internal Medicine; Visit Provider Internal Medicine
DX: Z12.31 Encounter for screening mammogram for malignant neoplasm of breast (principal)
CPT/HCPCS: 77063; 77067

== ENCOUNTER → 2023-11-20 11:00 | Outpatient (BNV) | payer MEDICARE, MEDICAID, SELFPAY | PROVIDERS: PCP Internal Medicine; Visit Provider Internal Medicine | DX: Z12.31 Encounter for screening mammogram for malignant neoplasm of breast (principal) | CPT/HCPCS: 77063; 77067 ==

== ENCOUNTER 2024-01-27 11:00 | Outpatient (RCR) | payer MEDICARE, MEDICAID, SELFPAY ==
--- NOTE | 2023-12-11 13:10 | MHC.PT.EP ---
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 She is fairly sedentary but does exercise daily to tolerance. Patient past medical history includes CP, osteoporosis and seizure disorder among other co-morbidities. Current impairments include pain, posture, ROM, strength, activity tolerance and functional mobility. Functional limitations include decreased ability to stand, walk, transfer, sit and be active during the day. Patient is motivated with good rehab potential. Skilled PT will address impairments and functional limitations in order to achieve goals. Frequency and Duration: The patient will be seen 2x/week for 5 weeks Short Term Goals: I with HEP - 2 weeks I with sit <> stand transfers - 3 weeks Proper breathing techniques with ex - 3 weeks Fundraising Consultant Goals: Able to walk 100 feet without need for rest - 5 weeks Able to sit one hour without sliding in seat - 5 weeks Able to maintain posture without cues for 2 minutes - 5 weeks Treatment Plan: Modalities to reduce pain, spasms and effusion. Manual therapy to restore motion and function. Therapeutic exercise to improve strength and flexibility. Neuromuscular re-education for posture and balance. Therapeutic activities to return to functional activities of daily living. Electronically signed by: Montana Sánchez, PT Please sign and return to therapist. Thank you for your referral.
--- NOTE | 2024-06-04 08:43 | MHC.PT.DC ---
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 pt still requires MaxA for transfers. 01/23/24: pt having difficulty maintaining upright posture without modA/maxA. able to stand unsupported 5 seconds in DLS. 01/20/24: pt progressed with // activities. no adverse reactions. increased standing activity with reduced HH assist as able. 01/16/24: pt progressing well overall. good response to skilled PT. continue to progress as tolerated. 01/13/24: pt progressing well. good response so far. no increased s/s. good carryover and less fatigue. 01/09/24: pt continues to respond well to current program. still requires significant assist with STS and reportedly at home in and out of shower. 01/06/24: pt progressing well with skilled PT. motivation continues. fatigue noted at conclusion. 12/31/23: pt progressing well with skilled PT. increased amb in clinic today. requires SBA/Stephen/modA depending on functional movements. 12/26/23: pt requires significant cuing for breathing techniques during ex. tends to valsalva. responds well to cues and motivated. Patient is a 68 year old L handed female who presents with s/s consistent with spastic diplegic cerebral palsy. She is fairly sedentary but does exercise daily to tolerance. Patient past medical history includes CP, osteoporosis and seizure disorder among other co-morbidities. Current impairments include pain, posture, ROM, strength, activity tolerance and functional mobility. Functional limitations include decreased ability to stand, walk, transfer, sit and be active during the day. Patient is motivated with good rehab potential. Skilled PT will address impairments and functional limitations in order to achieve goals. Electronically signed by: Montana Sánchez, PT Please sign and return to therapist. Thank you for your referral.
== END 2024-06-04 08:44 | disposition home or self-care (01) ==
LOC: HO.PTCHIC 11:00
PROVIDERS: PCP Internal Medicine; Visit Provider Internal Medicine
DX: G80.1 Spastic diplegic cerebral palsy (principal)
CPT/HCPCS: 97110; 97163

== ENCOUNTER 2024-01-30 09:57 | Inpatient (IN) | payer MEDICARE, MEDICAID, SELFPAY ==
--- NOTE | ~2024-01-30 | CT_ITS ---
EXAMINATION: CT ABDOMEN AND PELVIS WITHOUT AND WITH CONTRAST CLINICAL INFORMATION: History of upper GI bleed. Hematemesis. COMPARISON: None available. TECHNIQUE: Multidetector volumetric imaging was performed of the abdomen and pelvis before and after the IV administration of 80 mL of Omnipaque 350 intravenous contrast. Sagittal and coronal reformatted images were obtained on the technologist's workstation. This CT examination was performed using dose optimization techniques as appropriate, variously including the following: *Automated exposure control *Adjustment of mA and/or kV according to patient size (this includes techniques or standardized protocols for targeted exams where dose is matched to indication/reason for exam; i.e. extremities or head) *Use of iterative reconstruction technique DLP: 1056 mGy-cm FINDINGS: LUNG BASES: Mild bibasilar chronic interstitial fibrotic changes with a peripheral predominance. Mild bilateral lower lobe dependent bronchiectasis. 1.0 cm left lower lobe lung nodule (image 94, series 17), unchanged compared with October 05, 2019, therefore benign. No further dedicated follow-up imaging of this nodule is indicated, per Fleischner Society guidelines. Heart normal in size. Partially imaged coronary arterial calcification. No pericardial effusion. LIVER, GALLBLADDER, AND BILIARY TREE: Approximately 2 cm, peripheral, segment 7 hepatic lesion demonstrating bright, nodular, peripheral enhancement, consistent with a benign hemangioma (image 20, series 11). The liver otherwise appears unremarkable in size, shape, and attenuation. No particularly suspicious focal hepatic lesion or biliary ductal dilatation is appreciated. Unremarkable appearance of the gallbladder. PANCREAS: Unremarkable SPLEEN: Unremarkable ADRENAL GLANDS: Unremarkable KIDNEYS AND URETERS: The kidneys appear unremarkable in size, shape, and attenuation. No hydronephrosis, hydroureter, or calculi seen. BLADDER: Unremarkable GASTROINTESTINAL TRACT: Limited by paucity of intra-abdominal fat and by beam hardening artifact. No acute GI bleed identified. Large hiatus hernia containing a large portion of the stomach and a short segment of transverse colon. Cannot confirm or exclude abnormal thickening of the wall of intrathoracic stomach. ABDOMINAL WALL: No significant hernia is appreciated. LYMPH NODES: No evidence of adenopathy by size criteria. VASCULAR: Unremarkable PELVIC VISCERA: Uterus not visualized, suggesting prior surgical removal. OSSEOUS STRUCTURES: Mildly decreased bone mineral density. Degenerative changes of the spine with S-shaped spinal curvature. Mild osteoarthritis of the hips. CT/CT gi bleed abd pel wo/w IVcon IMPRESSION: No acute GI bleed identified. Large hiatus hernia containing a large portion of the stomach and a short segment of transverse colon. Cannot confirm or exclude abnormal thickening of the wall of intrathoracic stomach. Additional findings as above. Electronically signed by: Juanito Spence MD 01/30/2024 02:26 PM EST
[2024-01-30 10:06] VITALS: BP 146/92; BP 160/128; PULSE 78; PULSE 80; RESP 18; TEMP 36.7; O2SAT 97; O2SAT 98; BMI 29.3
--- NOTE | 2024-01-30 10:11 | ECG_ITS ---
Test Reason : abd pain Blood Pressure : / mmHG Vent. Rate : 077 BPM Atrial Rate : 077 BPM P-R Int : 128 ms QRS Dur : 084 ms QT Int : 406 ms P-R-T Axes : 035 -01 016 degrees QTc Int : 459 ms Normal sinus rhythm Nonspecific ST abnormality Abnormal ECG When compared with ECG of 05-JUN-2020 12:50, No significant change was found Referred By: Vicky Shepard Electronically Signed By:Javi Matos
--- NOTE | 2024-01-30 10:30 | ED_ITS ---
HPI - General Adult General Chief complaint: GI Bleed Stated complaint: ABD PAIN, VOMITED BLOOD YESTERDAY Time Seen by Provider: 01/30/24 10:01 Source: patient Mode of arrival: EMS History of Present Illness ED Provider: Devyn GRANDE narrative: 68-year-old female who states that she has had multiple episodes of nausea and vomiting since early in the morning, she states she has had a previous bleeding ulcer which Dr. De La Fuente intervened on, she denies any bloody bowel movements to include no dark stools noted, she denies any fevers or chills and denies any shortness of breath or chest pain. She does report that since the onset of her nausea and vomiting she has had epigastric discomfort. Related Data Home Medications ?Medication ?Instructions ?Recorded ?Confirmed amantadine HCl 100 mg capsule 200 mg PO BEDTIME 04/13/20 01/30/24 baclofen 10 mg tablet 5 mg PO QIDWMHS 04/13/20 01/30/24 omeprazole 20 mg capsule,delayed 20 mg PO BID@0630,1630 04/13/20 01/30/24 release latanoprost 0.005 % eye drops 1 drp ophthalmic (eye) BEDTIME 05/03/20 01/30/24 amantadine HCl 100 mg capsule 100 mg PO DAILY 06/05/20 01/30/24 ascorbic acid (vitamin C) 500 mg 500 mg PO DAILY@12 06/05/20 01/30/24 tablet cholecalciferol (vitamin D3) 10 10 mcg PO DAILY@12 06/05/20 01/30/24 mcg (400 unit) tablet pyridoxine (vitamin B6) 50 mg 50 mg PO DAILY@12 06/05/20 01/30/24 capsule (Vitamin B-6) hydrochlorothiazide 25 mg tablet 25 mg PO DAILY 06/27/22 01/30/24 losartan 25 mg tablet 25 mg PO DAILY 06/27/22 01/30/24 acetaminophen 325 mg tablet 325 mg PO TID PRN Pain/Headaches 01/30/24 01/30/24 docusate sodium 100 mg tablet 100 mg PO DAILY@1200 01/30/24 01/30/24 loratadine 10 mg tablet (Claritin) 10 mg PO DAILY 01/30/24 01/30/24 Previous Rx's ?Medication ?Instructions ?Recorded solifenacin 10 mg tablet (Vesicare) 10 mg PO BEDTIME 90 days #90 tabs 05/19/23 Allergies Allergy/AdvReac Type Severity Reaction Status Date / Time tetracycline [TETRACYCLINE] Allergy Intermediate Altered Verified 01/30/24 10:10 Mental Status polyester fibers Allergy Unknown Contact Verified 06/28/23 22:39 Dermatitis erythromycin base AdvReac Unknown Nausea and Verified 06/28/23 22:39 Vomiting Review of Systems 2 Review of Systems: Pertinent positives and negatives as stated in HPI [facility] Past Medical History Medical History Hiatal hernia Uterine benign neoplasm Urge incontinence Urgency incontinence Arthritis Cerebral palsy Family History Family History Father No problems noted. Mother No problems noted. Social History Social History Smoked in Last 30 Days: No Use of substances other than those prescribed or required for medical reasons: No Advance Directives: Yes Advance Directives on File: Yes Advance Directives Date on File: 06/05/20 Physical Exam ED Vital Signs: Vital Signs - 24 hr 01/30/24 10:06 01/30/24 12:37 Temperature 98.0 F Pulse Rate 80 88 Respiratory Rate 18 16 Blood Pressure 160/128 H 169/94 H Pulse Oximetry 98 98 Oxygen Delivery Method Room Air Room Air BMI result Body Mass Index 29.3 VITAL SIGNS: Reviewed. GENERAL: Well developed, well nourished, in no acute distress. HEAD: Normocephalic/atraumatic EYES: PERRLA, EOMI EARS: Ext canals without abnormality NOSE: Nares patent bilateral OROPHARYNX: no oral lesions noted, posterior pharynx clear NECK: Supple, no adenopathy LUNGS: Normal breath sounds. No adventitious sounds or accessory muscle use. SpO2<98> CARDIOVASCULAR: Regular rate and rhythm without noted murmurs ABDOMEN: Soft, non-tender, non-distended with bowel sounds. MUSCULOSKELETAL: No tenderness, deformities, or effusions noted on gross inspection. EXTREMITIES: No cyanosis, clubbing or edema. SKIN: Inspection of the skin reveals no rashes NEUROLOGIC: Alert and oriented x 4. Strength and sensation to light touch were grossly intact x 4. Medications Administered Discontinued Medications Generic Name Dose Route Start Last Admin Trade Name Mehnaz PRN Reason Stop Dose Admin Iohexol 80 ml 01/30/24 11:27 01/30/24 11:28 Iohexol 350 Mg/Ml 75 Ml Infus..Btl IV 01/30/24 11:28 80 ml ONCE ONE Administration Ondansetron HCl 4 mg 01/30/24 10:32 01/30/24 10:57 Ondansetron Hcl 4 Mg/2 Ml Vial IVPUSH 01/30/24 10:33 4 mg ONCE ONE Administration Ondansetron HCl 4 mg 01/30/24 13:05 01/30/24 13:08 Ondansetron Hcl 4 Mg/2 Ml Vial IVPUSH 01/30/24 13:06 4 mg ONCE ONE Administration Pantoprazole Sodium 80 mg 01/30/24 10:35 01/30/24 10:52 Pantoprazole Sodium 40 Mg/10 Ml Vial IVPUSH 01/30/24 10:36 80 mg ONCE ONE Administration Medical Decision Making Medical Decision Making MDM Narrative: 1034: 68-year-old female with history and clinical presentation, DX: Gastritis, gastric ulcer, upper GI bleed, low clinical suspicion for intra-abdominal infection at this time. EKG: Normal sinus rhythm, HR-77, no STEMI, RI/QRS/QTC is within normal limits. I reviewed and interpreted all investigations there is no evidence of acute infection, anemia, or thrombocytopenia. There is no demonstrate ANNABELLA/electrolyte or liver enzyme derangements and lipase is undetectable. Urinalysis negative for UTI or hematuria. 1440: CT scan demonstrates large hiatal hernia that contains a large portion of the stomach and a short segment of the transverse colon, there is some suggestion of possible thickening of the wall of the intrathoracic stomach. Given these clinical findings and patient is continued complaints of nausea though otherwise no further episodes of vomiting will bring the patient in for further evaluation by GI. Reached out to inpatient hospitalist for admission and further workup/evaluation for large hiatal hernia and persistent nausea. 1507: Dr. Mathew was contacted, Gastroenterology, who recommends barium swallow when patient is able to tolerate oral intake. This recommendation was communicated with the inpatient hospitalist. 1524: I discussed all the results and findings with the patient and family member, she states that the nausea has somewhat sided but she is still experiencing some epigastric pain. Family member states that the vomitus did not smell like regular vomit and she thinks it may have been blood as well. Differential Diagnosis Differential Diagnoses: The differential diagnosis associated with the presentation includes See above Admission/Observation Consideration of admission/observation: Escalation of care including admission/observation considered See above Consult Healthcare Provider Management of the patient was discussed with: Hospitalist See above Lab Data MDM Lab Attestation statement: I reviewed the patient's lab results. See above 01/30/24 10:43 01/30/24 10:43 Labs: Lab Results 01/30/24 01/30/24 Range/Units 10:43 12:38 WBC 10.4 (4.8-10.8) X10*3/uL RBC 5.06 (4.20-5.50) X10*6/uL Hgb 14.7 (12.0-16.0) g/dl Hct 43.1 (37.0-47.0) % MCV 85.2 (80.0-98.0) fL MCH 29.1 (27.0-33.0) pg MCHC 34.1 (31.0-35.0) g/dl RDW 12.4 (11.0-16.0) % Plt Count 281 (160-400) X10*3/uL MPV 10.3 (9.4-12.3) fL Immature Gran % (Auto) 0.2 (0.0-0.4) % Neut % (Auto) 81.2 H (45-73) % Lymph % (Auto) 11.5 L (20-40) % [place] % (Auto) 6.4 (2-11) % Eos % (Auto) 0.4 (0-4) % Baso % (Auto) 0.3 (0-2) % Lymph # (Auto) 1.2 (1.2-4.9) X10*3/uL [place] # (Auto) 0.7 (0.1-1.2) X10*3/uL Eos # (Auto) 0.0 (0.0-0.4) X10*3/uL Baso # (Auto) 0.0 (0.0-0.2) X10*3/uL Abs Immat Gran (auto) 0.02 (0.00-0.03) X10*3/uL Absolute Neuts (auto) 8.4 H (2.0-8.3) x10*3/uL Absolute Nucleated RBC 0.000 (0.0-0.012) X10*3/uL Nucleated RBC % (auto) 0.0 (0.0-0.2) /100WBC Sodium 134 L (135-145) mmol/L Potassium 4.0 (3.3-5.1) mmol/L Chloride 97 (96-108) mmol/L Carbon Dioxide 26 (22-29) mmol/L Anion Gap 15 (12-20) BUN 17 H (9-16) mg/dL Creatinine 0.57 (0.5-1.4) mg/dL Estim Creat Clear Calc 80.1 Estimated GFR > 60 Random Glucose 120 H (60-115) mg/dL Calcium 10.1 (8.4-10.2) mg/dL Total Bilirubin 0.7 (0.0-1.0) mg/dL AST 31 (5-31) U/L ALT 24 (0-31) U/L Alkaline Phosphatase 110 (39-117) U/L Total Protein 7.6 (6.5-8.0) g/dL Albumin 4.6 (3.5-5.0) g/dL Lipase 5 L (8-78) U/L Urine Color Yellow Urine Appearance Clear Urine pH 8.5 (5.0-9.0) Ur Specific [place] >= 1.030 H (1.005-1.025) Urine Protein Negative (Neg-Trace) mg/dL Urine Glucose (UA) Negative (Negative) mg/dL Urine Ketones 15 (Negative) mg/dL Urine Blood Negative (Negative) Urine Nitrite Negative (Negative) Ur Leukocyte Esterase Negative (Negative) Independent Interpretation I performed an independent interpretation of an: EKG Interpretation: See above Radiology Impression Discussion of test interpretation with radiology: I have reviewed the radiologist's reading. Radiologist Impression: See above External Record Review External record reviewed: Inpatient record, Outpatient record and Outside ED record Critical Care Time Critical Care Time Critical Care Time: Yes Total Critical Care Time: 30 Attestation: I personally attest to this time spent taking care of the patient. Discharge Plan Discharge Clinical Impression: Nausea, Epigastric pain, Large hiatal hernia Patient Disposition: Admitted As Inpatient Print Language: Citizen Of [place]
[2024-01-30 10:52] LABS: MANUAL DIFF FLAG NO
[2024-01-30] MEDS: Pantoprazole Sodium 40 MG/10 ML VIAL 80 MG IVPUSH (10:52)
[2024-01-30 10:55] LABS: Basophils Percent Auto 0.3 % (0-2); Eosinophils Percent Auto 0.4 % (0-4); Hematocrit 43.1 % (37.0-47.0); Hemoglobin 14.7 g/dl (12.0-16.0); Imm Gran Abs Auto 0.02 X10*3/uL (0.00-0.03); Imm Gran Pct Auto 0.2 % (0.0-0.4); Lymphocytes Absolute Auto 1.2 X10*3/uL (1.2-4.9); Lymphocytes Percent Auto 11.5 % (20-40); Mean Corpuscular HGB Conc 34.1 g/dl (31.0-35.0); Mean Corpuscular Hemoglobin 29.1 pg (27.0-33.0); Mean Corpuscular Volume 85.2 fL (80.0-98.0); Mean Platelet Volume 10.3 fL (9.4-12.3); Monocytes Absolute Auto 0.7 X10*3/uL (0.1-1.2); Monocytes Percent Auto 6.4 % (2-11); Neutrophils Absolute Auto 8.4 x10*3/uL (2.0-8.3); Neutrophils Percent Auto 81.2 % (45-73); Platelet Count 281 X10*3/uL (160-400); Red Blood Count 5.06 X10*6/uL (4.20-5.50); Red Cell Distribution Width 12.4 % (11.0-16.0); White Blood Count 10.4 X10*3/uL (4.8-10.8)
[2024-01-30] MEDS: ondansetron HCL 4 MG/2 ML VIAL IVPUSH ×2 (10:57→13:08)
[2024-01-30 11:09] LABS: Alanine Aminotransferase 24 U/L (0-31); Albumin Level 4.6 g/dL (3.5-5.0); Alkaline Phosphatase 110 U/L (39-117); Anion Gap 15 (12-20); Aspartate Amino Transferase 31 U/L (5-31); Bilirubin Total 0.7 mg/dL (0.0-1.0); Blood Urea Nitrogen 17 mg/dL (9-16); Calcium 10.1 mg/dL (8.4-10.2); Carbon Dioxide 26 mmol/L (22-29); Chloride 97 mmol/L (96-108); Creatinine Clr Calc Pharmacy 80.1; Estimated Glomerular Filt Rate > 60; Glucose Random 120 mg/dL (60-115); Lipase 5 U/L (8-78); Sodium 134 mmol/L (135-145); Total Protein 7.6 g/dL (6.5-8.0)
[2024-01-30] MEDS: iohexoL 350 MG/ML 75 ML INFUS..BTL 80 ML IV (11:28)
--- NOTE | 2024-01-30 12:01 | PC.NURSE ---
pt reports that she vomited last night at midnight and again this morning at 0500. Per EMS report is looked like coffee grounds. Pt has a hx of GI bleed. Zofran given (pt reported nausea) no vomiting while in ED.
[2024-01-30 12:37] VITALS: BP 169/94; PULSE 88; RESP 16; O2SAT 98
[2024-01-30 12:47] LABS: Appearance Urine Clear; Color Urine Yellow; Glucose Urine UA Negative (Negative); Leukocyte Esterase Urine Negative (Negative); Nitrite Urine Negative (Negative); PH 8.5 (5.0-9.0); Specific Gravity - Urine >= 1.030 (1.005-1.025); Urine Blood Negative (Negative); Urine Ketones 15 mg/dL (Negative); Urine Protein Negative (Neg-Trace)
--- NOTE | 2024-01-30 15:20 | PHA.MEDREC ---
Addendum entered by Jamal Gray sarah 01/30/24 15:28: med rec reviewed Original Note: Pharmacy Consult ? Medication Reconciliation Pharmacy has completed the medication reconciliation. Confirmed medications with patient family member at bedside, list and patient confirmed when she took her medication. The patient confirmed she was able to take her Omeprazole 20mg tablet this morning and states she has not taken anything else since supper last night.
[2024-01-30 15:30] VITALS: BP 130/70; PULSE 78; RESP 16; TEMP 36.8; O2SAT 98
--- NOTE | 2024-01-30 16:21 | HO.THORCON_ITS ---
History of Present Illness Consult details Consult date: 01/30/24 Narrative: Thoracic surgical consultation for evaluation of paraesophageal hernia with significant amount of stomach and transverse colon in the chest. Patient is being evaluated for mid abdominal symptoms and had CT scan demonstrating be the above-mentioned findings. No gross evidence of volvulus demonstrated. Patient was evaluated with her sister who has her filenet architect for this patient who has among other issues cerebral palsy. Chart was reviewed and patient evaluated. Patient has a history of gastritis/upper GI bleed in the past. [facility] Past Medical History Medical History Hiatal hernia Uterine benign neoplasm Urge incontinence Urgency incontinence Arthritis Cerebral palsy Family History Family History Father No problems noted. Mother No problems noted. Social History Social History Smoked in Last 30 Days: No Use of substances other than those prescribed or required for medical reasons: No Advance Directives: Yes Advance Directives on File: Yes Advance Directives Date on File: 06/05/20 Meds Allergies Allergy/AdvReac Type Severity Reaction Status Date / Time tetracycline [TETRACYCLINE] Allergy Intermediate Altered Verified 01/30/24 10:10 Mental Status polyester fibers Allergy Unknown Contact Verified 06/28/23 22:39 Dermatitis erythromycin base AdvReac Unknown Nausea and Verified 06/28/23 22:39 Vomiting Home Medications ?Medication ?Instructions ?Recorded ?Confirmed ?Last Taken ?Type amantadine HCl 100 mg capsule 200 mg PO BEDTIME 04/13/20 01/30/24 01/29/24 History baclofen 10 mg tablet 5 mg PO QIDWMHS 04/13/20 01/30/24 01/29/24 History omeprazole 20 mg capsule,delayed 20 mg PO BID@0630,1630 04/13/20 01/30/24 01/30/24 History release latanoprost 0.005 % eye drops 1 drp ophthalmic (eye) BEDTIME 05/03/20 01/30/24 01/29/24 History amantadine HCl 100 mg capsule 100 mg PO DAILY 06/05/20 01/30/24 01/29/24 History ascorbic acid (vitamin C) 500 mg 500 mg PO DAILY@12 06/05/20 01/30/24 01/29/24 History tablet cholecalciferol (vitamin D3) 10 10 mcg PO DAILY@06/05/20 01/30/24 01/29/24 History mcg (400 unit) tablet pyridoxine (vitamin B6) 50 mg 50 mg PO DAILY@06/05/20 01/30/24 01/29/24 History capsule (Vitamin B-6) hydrochlorothiazide 25 mg tablet 25 mg PO DAILY 06/27/22 01/30/24 01/29/24 History losartan 25 mg tablet 25 mg PO DAILY 06/27/22 01/30/24 01/29/24 History acetaminophen 325 mg tablet 325 mg PO TID PRN Pain/Headaches 01/30/24 01/30/24 01/29/24 History docusate sodium 100 mg tablet 100 mg PO DAILY@1200 01/30/24 01/30/24 01/29/24 History loratadine 10 mg tablet (Claritin) 10 mg PO DAILY 01/30/24 01/30/24 01/29/24 History Physical Exam 2 Vital Signs: Vital Signs: Last Vital Signs Temp 98.3 F 01/30/24 15:30 Pulse 78 01/30/24 15:30 Resp 16 01/30/24 15:30 BP 130/70 01/30/24 15:30 Pulse Ox 98 01/30/24 15:30 O2 Del Method Room Air 01/30/24 15:30 BMI result Body Mass Index 29.3 Const: Other: Patient was sitting up very communicative and conversant. Sister was also present who offered collateral history as well. Patient was in no acute abdominal distress. Chest: Other: Chest breath sounds bilaterally. GI: Other: Abdominal exam demonstrates some mild left mid abdominal tenderness but no evidence of any guarding, rebound, or rigidity. Results Labs 01/30/24 10:43 01/30/24 10:43 Labs: Abnormal lab results 01/30/24 01/30/24 Range/Units 10:43 12:38 Neut % (Auto) 81.2 H (45-73) % Lymph % (Auto) 11.5 L (20-40) % Absolute Neuts (auto) 8.4 H (2.0-8.3) x10*3/uL Sodium 134 L (135-145) mmol/L BUN 17 H (9-16) mg/dL Random Glucose 120 H (60-115) mg/dL Lipase 5 L (8-78) U/L Ur Specific [place] >= 1.030 H (1.005-1.025) Short CBC 01/30/24 Range/Units 10:43 WBC 10.4 (4.8-10.8) X10*3/uL Hgb 14.7 (12.0-16.0) g/dl Hct 43.1 (37.0-47.0) % Plt Count 281 (160-400) X10*3/uL BMP 01/30/24 10:43 Sodium 134 L Potassium 4.0 Chloride 97 Carbon Dioxide 26 BUN 17 H Creatinine 0.57 Calcium 10.1 Liver Function 01/30/24 Range/Units 10:43 Total Bilirubin 0.7 (0.0-1.0) mg/dL AST 31 (5-31) U/L ALT 24 (0-31) U/L Alkaline Phosphatase 110 (39-117) U/L Albumin 4.6 (3.5-5.0) g/dL Urine 01/30/24 Range/Units 12:38 Urine Color Yellow Urine Appearance Clear Urine pH 8.5 (5.0-9.0) Ur Specific [place] >= 1.030 H (1.005-1.025) Urine Protein Negative (Neg-Trace) mg/dL Urine Glucose (UA) Negative (Negative) mg/dL All other labs normal. Assessment and Plan (1) Paraesophageal hiatal hernia: Status: Acute Plan At present, no clinical evidence of gastric volvulus. I did discuss with the patient and her sister that she has a significant paraesophageal hernia with the above-mentioned stomach and transverse colon in the chest. Although at this time no urgency, consideration should be made for surgical repair were this in fact to avoid any such volvulus or incarcerated hernia issues. At present, patient will be treated conservatively and further interventions and studies will be directed by the patient's clinical course. All questions answered. Procedures Date of Service Date of Service: 01/30/24
--- NOTE | 2024-01-30 17:28 | P.HPHOSP_ITS ---
History of Present Illness Date of Service: 01/30/24 Attending physician on admission: Enedina Walters Chief Complaint: nausea and vomiting This is a 68-year-old female with history cerebral palsy who presents to the emergency department with nausea and vomiting. Patient states early this morning she began having numerous episodes of vomiting. At some point it was dark in color. She called her PCP and was concerned that there could be bleeding and recommended she come to the emergency department for evaluation. In the emergency department she received multiple doses of antiemetics. CBC obtained showed normal H/H. No active bleeding noted. Was initially unable to tolerate any p.o.. Had a CT scan of the abdomen and pelvis which showed large hiatal hernia containing a large portion of the stomach and short segment of the transverse colon. As well as the possibility of thickening of the wall of the stomach. She was evaluated by thoracic surgery who did not feel that there was any evidence of volvulus or incarcerated hernia at this time. At this time her nausea has improved somewhat. Review of Systems 2 Review of Systems: Yes all other systems are reviewed and are negative Constitutional: Constitutional: Denies chills and Denies fever(s) Cardiovascular: Cardiovascular: Denies chest pain, Denies palpitations and Denies dyspnea Respiratory: Respiratory: Denies cough and Denies dyspnea Gastrointestinal: Gastrointestinal: Denies abdominal pain, Reports nausea and Reports vomiting Endocrine: Endocrine: Denies palpitations [facility] Medical History Hiatal hernia Uterine benign neoplasm Urge incontinence Urgency incontinence Arthritis Cerebral palsy Family History Father No problems noted. Mother No problems noted. Social History Smoked in Last 30 Days: No Use of substances other than those prescribed or required for medical reasons: No Advance Directives: Yes Advance Directives on File: Yes Advance Directives Date on File: 06/05/20 Meds Allergies Allergy/AdvReac Type Severity Reaction Status Date / Time tetracycline [TETRACYCLINE] Allergy Intermediate Altered Verified 01/30/24 10:10 Mental Status polyester fibers Allergy Unknown Contact Verified 06/28/23 22:39 Dermatitis erythromycin base AdvReac Unknown Nausea and Verified 06/28/23 22:39 Vomiting Home Medications ?Medication ?Instructions ?Recorded ?Confirmed ?Last Taken ?Type amantadine HCl 100 mg capsule 200 mg PO BEDTIME 04/13/20 01/30/24 01/29/24 History baclofen 10 mg tablet 5 mg PO QIDWMHS 04/13/20 01/30/24 01/29/24 History omeprazole 20 mg capsule,delayed 20 mg PO BID@0630,1630 04/13/20 01/30/24 01/30/24 History release latanoprost 0.005 % eye drops 1 drp ophthalmic (eye) BEDTIME 05/03/20 01/30/24 01/29/24 History amantadine HCl 100 mg capsule 100 mg PO DAILY 06/05/20 01/30/24 01/29/24 History ascorbic acid (vitamin C) 500 mg 500 mg PO DAILY@12 06/05/20 01/30/24 01/29/24 History tablet cholecalciferol (vitamin D3) 10 10 mcg PO DAILY@12 06/05/20 01/30/24 01/29/24 History mcg (400 unit) tablet pyridoxine (vitamin B6) 50 mg 50 mg PO DAILY@12 06/05/20 01/30/24 01/29/24 History capsule (Vitamin B-6) hydrochlorothiazide 25 mg tablet 25 mg PO DAILY 06/27/22 01/30/24 01/29/24 History losartan 25 mg tablet 25 mg PO DAILY 06/27/22 01/30/24 01/29/24 History acetaminophen 325 mg tablet 325 mg PO TID PRN Pain/Headaches 01/30/24 01/30/24 01/29/24 History docusate sodium 100 mg tablet 100 mg PO DAILY@1200 01/30/24 01/30/24 01/29/24 History loratadine 10 mg tablet (Claritin) 10 mg PO DAILY 01/30/24 01/30/24 01/29/24 History Physical Exam 2 Vital Signs and Narrative: Vital Signs: Last Vital Signs Temp 98.3 F 01/30/24 15:30 Pulse 78 01/30/24 15:30 Resp 16 01/30/24 15:30 BP 130/70 01/30/24 15:30 Pulse Ox 98 01/30/24 15:30 O2 Del Method Room Air 01/30/24 15:30 BMI result Body Mass Index 29.3 Const: General: cooperative, comfortable, no acute distress, alert and awake Nutritional Appearance: average body habitus Orientation/consciousness: p atient oriented x3 Resp: Effort & Inspection: normal respiratory effort, able to speak in complete sentences, no respiratory distress and no use of accessory muscles A uscultation: clear to auscultation bilaterally Cardio: Rate: regular rate GI: Inspection: No distended Palpation (GI): Soft to palpation and nontender Neuro: General: patient oriented x3, moves all extremities and CN's II-XI intact bilaterally Extrem: General: Yes no pedal edema Results Labs 01/30/24 10:43 01/30/24 10:43 Labs: Laboratory Results - last 24 hr 01/30/24 01/30/24 10:43 12:38 MCV 85.2 MCH 29.1 MCHC 34.1 RDW 12.4 Plt Count 281 MPV 10.3 Immature Gran % (Auto) 0.2 Neut % (Auto) 81.2 H Lymph % (Auto) 11.5 L [place] % (Auto) 6.4 Eos % (Auto) 0.4 Baso % (Auto) 0.3 Lymph # (Auto) 1.2 [place] # (Auto) 0.7 Eos # (Auto) 0.0 Baso # (Auto) 0.0 Abs Immat Gran (auto) 0.02 Absolute Neuts (auto) 8.4 H Absolute Nucleated RBC 0.000 Nucleated RBC % (auto) 0.0 Anion Gap 15 Estim Creat Clear Calc 80.1 Estimated GFR > 60 Random Glucose 120 H Calcium 10.1 Total Bilirubin 0.7 AST 31 ALT 24 Alkaline Phosphatase 110 Total Protein 7.6 Albumin 4.6 Lipase 5 L Urine Color Yellow Urine Appearance Clear Urine pH 8.5 Ur Specific [place] >= 1.030 H Urine Protein Negative Urine Glucose (UA) Negative Urine Ketones 15 Urine Blood Negative Urine Nitrite Negative Ur Leukocyte Esterase Negative Imaging Radiologist's Impressions: Impressions Abdomen/Pelvis CT 01/30/24 11:23 IMPRESSION: No acute GI bleed identified. Large hiatus hernia containing a large portion of the stomach and a short segment of transverse colon. Cannot confirm or exclude abnormal thickening of the wall of intrathoracic stomach. Additional findings as above. Electronically signed by: Juanito Spence MD 01/30/2024 02:26 PM EST RP Assessment and Plan (1) Paraesophageal hiatal hernia: Status: Acute (2) Nausea: Status: Acute Plan This is a 68-year-old female with history of cerebral palsy, hiatal hernia, osteoarthritis who presents to the emergency department with nausea and vomiting found to have CT scan evidence of large hiatal hernia nausea and vomiting likely due to large hiatal hernia h/o gerd/esophagitis/PUD, no evidence of active bleeding at this time IV PPI clear liquid diet antiemetics as needed follow H/H GI consult pending seen by thoracic surgery - no evidence of volvulus, no need for surgery at this time, conservative management for now. Likely outpatient surgical follow-up for consideration of elective repair HTN hold HCTZ, losartan follow blood pressure Incontinence Continue VESIcare History of cerebral palsy Continue baclofen, amantadine DVT prophylaxis - mechanical devices code status - DNR/DNI Patient will likely require 2 midnight stay in the hospital for management of nausea and vomiting due to hiatal hernia and specialist evaluation, unable to tolerate p.o. at this time Quality Stroke Does the patient have a stroke diagnosis?: No VTE Prior VTE?: No VTE Risk Level:: Medical - moderate - high VTE Device Contraindication: N/A - Device Ordered VTE Drug Contraindication: N/A - Med Ordered
--- NOTE | 2024-01-30 17:30 | PC.NURSE ---
pt reports that nausea has subsided after two doses of zofran. she reports that she is feeling better. Water and applesauce provided. No vomiting while in ED Pt is a stand and pivot to commode with two assists.
[2024-01-30 18:02] VITALS: BP 110/61; PULSE 77; RESP 16; TEMP 36.8; O2SAT 98
[2024-01-30 20:14] VITALS: BP 102/72; PULSE 73; RESP 19; TEMP 36.8; O2SAT 95
[2024-01-30 20:56] VITALS: BMI 29.3
[2024-01-30] MEDS: Tolterodine Tartrate LA 4 MG CAP.ER.24H PO (21:14)
[2024-01-30] MEDS: Baclofen 10 MG TABLET 5 MG PO (21:14)
[2024-01-30] MEDS: amantadine HCL 100 MG CAPSULE 200 MG PO (21:15)
[2024-01-31] MEDS: Acetaminophen 325 MG TABLET 650 MG PO ×3 (00:17→19:24)
[2024-01-31] MEDS: 0.9 % Sodium Chloride Flush 3 ML SYRINGE IVFLUSH ×4 (00:53→22:01)
[2024-01-31 04:00] VITALS: BP 136/67; PULSE 72; RESP 16; TEMP 36.8; O2SAT 94
[2024-01-31 05:49] LABS: MANUAL DIFF FLAG NO
[2024-01-31 05:54] LABS: Basophils Absolute Auto 0.1 X10*3/uL (0.0-0.2); Basophils Percent Auto 0.7 % (0-2); Eosinophils Absolute Auto 0.2 X10*3/uL (0.0-0.4); Eosinophils Percent Auto 2.4 % (0-4); Hematocrit 38.1 % (37.0-47.0); Imm Gran Abs Auto 0.02 X10*3/uL (0.00-0.03); Imm Gran Pct Auto 0.3 % (0.0-0.4); Lymphocytes Absolute Auto 1.5 X10*3/uL (1.2-4.9); Lymphocytes Percent Auto 20.6 % (20-40); Mean Corpuscular HGB Conc 34.1 g/dl (31.0-35.0); Mean Corpuscular Hemoglobin 29.3 pg (27.0-33.0); Mean Platelet Volume 10.3 fL (9.4-12.3); Monocytes Absolute Auto 0.6 X10*3/uL (0.1-1.2); Monocytes Percent Auto 7.7 % (2-11); Neutrophils Absolute Auto 4.9 x10*3/uL (2.0-8.3); Neutrophils Percent Auto 68.3 % (45-73); Platelet Count 226 X10*3/uL (160-400); Red Blood Count 4.43 X10*6/uL (4.20-5.50); Red Cell Distribution Width 12.6 % (11.0-16.0); White Blood Count 7.1 X10*3/uL (4.8-10.8)
[2024-01-31 06:16] LABS: Anion Gap 14 (12-20); Blood Urea Nitrogen 17 mg/dL (9-16); Calcium 8.8 mg/dL (8.4-10.2); Carbon Dioxide 26 mmol/L (22-29); Chloride 101 mmol/L (96-108); Creatinine Clr Calc Pharmacy 74.9; Estimated Glomerular Filt Rate > 60; Glucose Random 111 mg/dL (60-115); Potassium 3.6 mmol/L (3.3-5.1); Sodium 137 mmol/L (135-145)
[2024-01-31] MEDS: Pantoprazole Sodium 40 MG/10 ML VIAL IVPUSH (06:33)
[2024-01-31 07:25] VITALS: BP 122/70; PULSE 72; RESP 18; TEMP 36.4; O2SAT 94
[2024-01-31] MEDS: Baclofen 10 MG TABLET 5 MG PO ×4 (08:03→19:26)
[2024-01-31] MEDS: amantadine HCL 100 MG CAPSULE PO (08:03)
--- NOTE | 2024-01-31 09:46 | PM.PNGS ---
Subjective Subjective Date of Service: 01/31/24 Interval history: says she feels well denies abdl pain or chest pain no N/V Physical Exam Vital Signs: Vital Signs: Last Vital Signs Temp 97.5 F 01/31/24 07:25 Pulse 72 01/31/24 07:25 Resp 18 01/31/24 07:25 BP 122/70 01/31/24 07:25 Pulse Ox 94 01/31/24 07:25 O2 Del Method Room Air 01/31/24 07:25 BMI result Body Mass Index 29.3 Const: Other: looks well General: comfortable and no acute distress Resp: Effort & Inspection: normal respiratory effort Cardio: Rate: regular rate GI: Palpation (GI): Soft to palpation, not firm, nontender and no guarding Objective Data Active Medications Acetaminophen (Acetaminophen 325 Mg Tablet) 650 mg PO Q6H PRN PRN Reason: Pain, Mild (Pain Scale 1-3), fever or headache Last Admin: 01/31/24 00:17 Dose: 650 mg Documented By: LEONARD Amantadine HCl (Amantadine Hcl 100 Mg Capsule) 100 mg PO DAILY [facility] Last Admin: 01/31/24 08:03 Dose: 100 mg Documented By: MARIA ISABEL Amantadine HCl (Amantadine Hcl 100 Mg Capsule) 200 mg PO BEDTIME [facility] Last Admin: 01/30/24 21:15 Dose: 200 mg Documented By: LADONNA Baclofen (Baclofen 10 Mg Tablet) 5 mg PO QIDWMHS [facility] Last Admin: 01/31/24 08:03 Dose: 5 mg Documented By: MARIA ISABEL Comments: [id number] Calcium Carbonate (Calcium Carbonate 750 Mg Tab.Chew) 750 mg PO Q4H PRN PRN Reason: Heartburn Docusate Sodium (Docusate Sodium 100 Mg Capsule) 100 mg PO DAILY@1200 ALANA Latanoprost (Latanoprost 0.005 % Ophth [place] 2.5 Ml Drops) 1 drop EYE-BOTH BEDTIME [facility] Last Admin: 01/30/24 21:15 Dose: Not Given Documented By: LADONNA Non-Admin Reason: Med Not Available Magnesium Hydroxide (Milk Of Magnesia 30 Ml Oral.Susp) 30 ml PO DAILY PRN PRN Reason: Constipation Melatonin (Melatonin 3 Mg Tablet) 6 mg PO BEDTIME PRN PRN Reason: Insomnia Ondansetron HCl (Ondansetron Hcl 4 Mg/2 Ml Vial) 4 mg IVPUSH Q8H PRN PRN Reason: Nausea and Vomiting Pantoprazole Sodium (Pantoprazole Sodium 40 Mg/10 Ml Vial) 40 mg IVPUSH DAILY@0630 [facility] Last Admin: 01/31/24 06:33 Dose: 40 mg Documented By: ANNAMARIE Sodium Chloride (0.9 % Sodium Chloride Flush 3 Ml Syringe) 3 ml IVFLUSH QSHIFT [facility] Last Admin: 01/31/24 08:04 Dose: 3 ml Documented By: MARIA ISABEL Tolterodine Tartrate (Tolterodine Tartrate [place] 4 Mg Cap.Er.24h) 4 mg PO BEDTIME [facility] Last Admin: 01/30/24 21:14 Dose: 4 mg Documented By: LADONNA Labs 01/31/24 05:22 01/31/24 05:22 Labs: Laboratory Results - last 24 hr 01/30/24 01/30/24 01/31/24 10:43 12:38 05:22 MCV 85.2 86.0 MCH 29.1 29.3 MCHC 34.1 34.1 RDW 12.4 12.6 Plt Count 281 226 MPV 10.3 10.3 Immature Gran % (Auto) 0.2 0.3 Neut % (Auto) 81.2 H 68.3 Lymph % (Auto) 11.5 L 20.6 [place] % (Auto) 6.4 7.7 Eos % (Auto) 0.4 2.4 Baso % (Auto) 0.3 0.7 Lymph # (Auto) 1.2 1.5 [place] # (Auto) 0.7 0.6 Eos # (Auto) 0.0 0.2 Baso # (Auto) 0.0 0.1 Abs Immat Gran (auto) 0.02 0.02 Absolute Neuts (auto) 8.4 H 4.9 Absolute Nucleated RBC 0.000 0.000 Nucleated RBC % (auto) 0.0 0.0 Anion Gap 15 14 Estim Creat Clear Calc 80.1 74.9 Estimated GFR > 60 > 60 Random Glucose 120 H 111 Calcium 10.1 8.8 D Total Bilirubin 0.7 AST 31 ALT 24 Alkaline Phosphatase 110 Total Protein 7.6 Albumin 4.6 Lipase 5 L Urine Color Yellow Urine Appearance Clear Urine pH 8.5 Ur Specific [place] >= 1.030 H Urine Protein Negative Urine Glucose (UA) Negative Urine Ketones 15 Urine Blood Negative Urine Nitrite Negative Ur Leukocyte Esterase Negative Procedures Date of Service Date of Service: 01/31/24 Progress Note: A&P Assessment and plan (1) Large hiatal hernia: Status: Acute Assessment and Plan: likely chronic no clinical signs of obstruction/volvulus at this time abd benign looks well ok to try to advance diet slowly Time Spent With Patient Time: Total time managing care of this patient today ____ minutes. Quality Stroke Does the patient have a stroke diagnosis?: No VTE Prior VTE?: No VTE Risk Level:: Medical - moderate - high VTE Device Contraindication: N/A - Device Ordered VTE Drug Contraindication: N/A - Med Ordered
[2024-01-31] MEDS: Docusate Sodium 100 MG CAPSULE PO (12:18)
--- NOTE | 2024-01-31 13:26 | P.PNIM_ITS ---
Subjective Subjective Date of Service: 01/31/24 Interval History: Seen and examined this morning Follow-up for nausea/vomiting Was initially able to tolerate clear liquids but now with some nausea. no abdominal pain Review of Systems Review of Systems: Yes all other systems are reviewed and are negative Constitutional Constitutional: Denies chills and Denies fever(s) ENT Ears, Nose, Mouth, and Throat: Denies dysphagia Cardiovascular Cardiovascular: Denies chest pain, Denies palpitations and Denies dyspnea Respiratory Respiratory: Denies cough and Denies dyspnea Gastrointestinal Gastrointestinal: Denies abdominal pain, Denies dysphagia, Reports nausea and Denies vomiting Endocrine Endocrine: Denies palpitations Physical Exam 2 Vital Signs: Vital Signs: Last Vital Signs Temp 97.5 F 01/31/24 07:25 Pulse 72 01/31/24 07:25 Resp 18 01/31/24 07:25 BP 122/70 01/31/24 07:25 Pulse Ox 94 01/31/24 07:25 O2 Del Method Room Air 01/31/24 07:25 BMI result Body Mass Index 29.3 Const: General: cooperative, comfortable, no acute distress, alert and awake Nutritional Appearance: average body habitus Orientation/consciousness: p atient oriented x3 Resp: Effort & Inspection: normal respiratory effort, able to speak in complete sentences, no respiratory distress and no use of accessory muscles A uscultation: clear to auscultation bilaterally Cardio: Rate: regular rate GI: Inspection: No distended Palpation (GI): Soft to palpation and nontender Neuro: General: patient oriented x3, moves all extremities and CN's II-XI intact bilaterally Extrem: General: Yes no pedal edema Objective Data Active Medications Acetaminophen (Acetaminophen 325 Mg Tablet) 650 mg PO Q6H PRN PRN Reason: Pain, Mild (Pain Scale 1-3), fever or headache Last Admin: 01/31/24 12:23 Dose: 650 mg Documented By: MARIA ISABEL Amantadine HCl (Amantadine Hcl 100 Mg Capsule) 100 mg PO DAILY [facility] Last Admin: 01/31/24 08:03 Dose: 100 mg Documented By: MARIA ISABEL Amantadine HCl (Amantadine Hcl 100 Mg Capsule) 200 mg PO BEDTIME [facility] Last Admin: 01/30/24 21:15 Dose: 200 mg Documented By: LADONNA Baclofen (Baclofen 10 Mg Tablet) 5 mg PO QIDWMHS [facility] Last Admin: 01/31/24 12:18 Dose: 5 mg Documented By: MARIA ISABEL Calcium Carbonate (Calcium Carbonate 750 Mg Tab.Chew) 750 mg PO Q4H PRN PRN Reason: Heartburn Docusate Sodium (Docusate Sodium 100 Mg Capsule) 100 mg PO DAILY@1200 [facility] Last Admin: 01/31/24 12:18 Dose: 100 mg Documented By: MARIA ISABEL Latanoprost (Latanoprost 0.005 % Ophth Carrie 2.5 Ml Drops) 1 drop EYE-BOTH BEDTIME [facility] Last Admin: 01/30/24 21:15 Dose: Not Given Documented By: LADONNA Non-Admin Reason: Med Not Available Magnesium Hydroxide (Milk Of Magnesia 30 Ml Oral.Susp) 30 ml PO DAILY PRN PRN Reason: Constipation Melatonin (Melatonin 3 Mg Tablet) 6 mg PO BEDTIME PRN PRN Reason: Insomnia Ondansetron HCl (Ondansetron Hcl 4 Mg/2 Ml Vial) 4 mg IVPUSH Q8H PRN PRN Reason: Nausea and Vomiting Pantoprazole Sodium (Pantoprazole Sodium 40 Mg/10 Ml Vial) 40 mg IVPUSH DAILY@0630 [facility] Last Admin: 01/31/24 06:33 Dose: 40 mg Documented By: ANNAMARIE Sodium Chloride (0.9 % Sodium Chloride Flush 3 Ml Syringe) 3 ml IVFLUSH QSHIFT [facility] Last Admin: 01/31/24 08:04 Dose: 3 ml Documented By: MARIA ISABEL Tolterodine Tartrate (Tolterodine Tartrate La 4 Mg Cap.Er.24h) 4 mg PO BEDTIME [facility] Last Admin: 01/30/24 21:14 Dose: 4 mg Documented By: LADONNA Labs 01/31/24 05:22 01/31/24 05:22 Labs: Laboratory Results - last 24 hr 01/31/24 05:22 MCV 86.0 MCH 29.3 MCHC 34.1 RDW 12.6 Plt Count 226 MPV 10.3 Immature Gran % (Auto) 0.3 Neut % (Auto) 68.3 Lymph % (Auto) 20.6 [place] % (Auto) 7.7 Eos % (Auto) 2.4 Baso % (Auto) 0.7 Lymph # (Auto) 1.5 [place] # (Auto) 0.6 Eos # (Auto) 0.2 Baso # (Auto) 0.1 Abs Immat Gran (auto) 0.02 Absolute Neuts (auto) 4.9 Absolute Nucleated RBC 0.000 Nucleated RBC % (auto) 0.0 Anion Gap 14 Estim Creat Clear Calc 74.9 Estimated GFR > 60 Random Glucose 111 Calcium 8.8 D Assessment and Plan (1) Paraesophageal hiatal hernia: Status: Acute (2) Nausea: Status: Acute Plan This is a 68-year-old female with history of cerebral palsy, hiatal hernia, osteoarthritis who presents to the emergency department with nausea and vomiting found to have CT scan evidence of large hiatal hernia nausea and vomiting likely due to large hiatal hernia h/o gerd/esophagitis/PUD, but no evidence of active bleeding at this time continue IV PPI clear liquid diet until GI evaluation antiemetics as needed H/H has remained normal GI consult pending seen by thoracic surgery - no evidence of volvulus, no need for surgery at this time, conservative management for now. Likely outpatient surgical follow-up for consideration of elective repair HTN hold HCTZ, losartan follow blood pressure Incontinence Continue VESIcare History of cerebral palsy Continue baclofen, amantadine DVT prophylaxis - mechanical devices code status - DNR/DNI Patient requires ongoing inpatient stay for management of nausea and vomiting due to hiatal hernia and specialist evaluation, unable to tolerate p.o. at this time Quality Stroke Does the patient have a stroke diagnosis?: No VTE Prior VTE?: No VTE Risk Level:: Medical - moderate - high VTE Device Contraindication: N/A - Device Ordered VTE Drug Contraindication: N/A - Med Ordered
[2024-01-31 15:15] VITALS: BP 124/69; PULSE 69; RESP 18; TEMP 36.4; O2SAT 96
--- NOTE | 2024-01-31 15:29 | P.CNGI_ITS ---
History of Present Illness Data of Consult Service Date: 01/31/24 Requesting physician: Anabelle Munson Primary Care Provider: DO HARJINDER Torres Reason for consult: N/V, paraesophageal hernia This is a 68-year-old female with history cerebral palsy who was brought to the ER on 01/29 for nausea and vomiting. History obtained from patient and her sister at bedside. Report 2-3 weeks of intermittent low grade nausea and abd discomfort that acutely worsened in the middle of the night on . Pt had 3-4 episodes of vomiting which progressively turned dark/coffee grounds. In the morning when they reached out to the PCP she was advised to go to ER for concern of GIB. Initial H/H was normal and the repeat this morning is stable as well. A GI bleed protocol scan of the abdomen and pelvis which showed large hiatal hernia containing a large portion of the stomach and short segment of the transverse colon. As well as the possibility of thickening of the wall of the stomach. Has been seen by thoracic surgery and has been recommended to follow up as outpatient to discuss surgical reduction of large paraesophageal hernia. For GI, she is established with the good Dr De La Fuente. EGD 2018 - erosive esophagitis, 8 cm hiatal hernia, antral gastritis without HP. At the time of assessment, feels much better than yest. Feels ready to progress diet. Review of Systems 2 Review of Systems: Yes all other systems are reviewed and are negative [facility] Past Medical History Medical History Hiatal hernia Uterine benign neoplasm Urge incontinence Urgency incontinence Arthritis Cerebral palsy Family History Family History Father No problems noted. Mother No problems noted. Social History Social History Household Members: Family Housing: House Do you presently have visiting nurse or other home services: No Patient Tobacco Use Status: Never used Tobacco Advance Directives Date on File: 06/05/20 service: No Meds Allergies Allergy/AdvReac Type Severity Reaction Status Date / Time tetracycline [TETRACYCLINE] Allergy Intermediate Altered Verified 01/30/24 10:10 Mental Status polyester fibers Allergy Unknown Contact Verified 06/28/23 22:39 Dermatitis erythromycin base AdvReac Unknown Nausea and Verified 06/28/23 22:39 Vomiting Active Medications: Current Medications Acetaminophen (Acetaminophen 325 Mg Tablet) 650 mg PO Q6H PRN PRN Reason: Pain, Mild (Pain Scale 1-3), fever or headache Last Admin: 01/31/24 12:23 Dose: 650 mg Amantadine HCl (Amantadine Hcl 100 Mg Capsule) 100 mg PO DAILY [facility] Last Admin: 01/31/24 08:03 Dose: 100 mg Amantadine HCl (Amantadine Hcl 100 Mg Capsule) 200 mg PO BEDTIME [facility] Last Admin: 01/30/24 21:15 Dose: 200 mg Baclofen (Baclofen 10 Mg Tablet) 5 mg PO QIDWMHS [facility] Last Admin: 01/31/24 12:18 Dose: 5 mg Calcium Carbonate (Calcium Carbonate 750 Mg Tab.Chew) 750 mg PO Q4H PRN PRN Reason: Heartburn Docusate Sodium (Docusate Sodium 100 Mg Capsule) 100 mg PO DAILY@1200 [facility] Last Admin: 01/31/24 12:18 Dose: 100 mg Latanoprost (Latanoprost 0.005 % Ophth Carrie 2.5 Ml Drops) 1 drop EYE-BOTH BEDTIME [facility] Last Admin: 01/30/24 21:15 Dose: Not Given Magnesium Hydroxide (Milk Of Magnesia 30 Ml Oral.Susp) 30 ml PO DAILY PRN PRN Reason: Constipation Melatonin (Melatonin 3 Mg Tablet) 6 mg PO BEDTIME PRN PRN Reason: Insomnia Ondansetron HCl (Ondansetron Hcl 4 Mg/2 Ml Vial) 4 mg IVPUSH Q8H PRN PRN Reason: Nausea and Vomiting Pantoprazole Sodium (Pantoprazole Sodium 40 Mg/10 Ml Vial) 40 mg IVPUSH DAILY@0630 [facility] Last Admin: 01/31/24 06:33 Dose: 40 mg Sodium Chloride (0.9 % Sodium Chloride Flush 3 Ml Syringe) 3 ml IVFLUSH QSHIFT [facility] Last Admin: 01/31/24 08:04 Dose: 3 ml Tolterodine Tartrate (Tolterodine Tartrate La 4 Mg Cap.Er.24h) 4 mg PO BEDTIME [facility] Last Admin: 01/30/24 21:14 Dose: 4 mg Home Medications ?Medication ?Instructions ?Recorded ?Confirmed ?Last Taken ?Type amantadine HCl 100 mg capsule 200 mg PO BEDTIME 04/13/20 01/30/24 01/29/24 History baclofen 10 mg tablet 5 mg PO QIDWMHS 04/13/20 01/30/24 01/29/24 History omeprazole 20 mg capsule,delayed 20 mg PO BID@0630,1630 04/13/20 01/30/24 01/30/24 History release latanoprost 0.005 % eye drops 1 drp ophthalmic (eye) BEDTIME 05/03/20 01/30/24 01/29/24 History amantadine HCl 100 mg capsule 100 mg PO DAILY 06/05/20 01/30/24 01/29/24 History ascorbic acid (vitamin C) 500 mg 500 mg PO DAILY@12 06/05/20 01/30/24 01/29/24 History tablet cholecalciferol (vitamin D3) 10 10 mcg PO DAILY@12 06/05/20 01/30/24 01/29/24 History mcg (400 unit) tablet pyridoxine (vitamin B6) 50 mg 50 mg PO DAILY@12 06/05/20 01/30/24 01/29/24 History capsule (Vitamin B-6) hydrochlorothiazide 25 mg tablet 25 mg PO DAILY 06/27/22 01/30/24 01/29/24 History losartan 25 mg tablet 25 mg PO DAILY 06/27/22 01/30/24 01/29/24 History acetaminophen 325 mg tablet 325 mg PO TID PRN Pain/Headaches 01/30/24 01/30/24 01/29/24 History docusate sodium 100 mg tablet 100 mg PO DAILY@1200 01/30/24 01/30/24 01/29/24 History loratadine 10 mg tablet (Claritin) 10 mg PO DAILY 01/30/24 01/30/24 01/29/24 History Physical Exam 2 Vital Signs: Vital Signs: Last Vital Signs Temp 97.5 F 01/31/24 15:15 Pulse 69 01/31/24 15:15 Resp 18 01/31/24 15:15 BP 124/69 01/31/24 15:15 Pulse Ox 96 01/31/24 15:15 O2 Del Method Room Air 01/31/24 15:15 BMI result Body Mass Index 29.3 Elderly female NAD Able to answer appropriately Abd soft, nontender, nondistended Bilateral lower extremity weakness Results Labs 01/31/24 05:22 01/31/24 05:22 Labs: Short CBC 01/31/24 Range/Units 05:22 WBC 7.1 (4.8-10.8) X10*3/uL Hgb 13.0 (12.0-16.0) g/dl Hct 38.1 (37.0-47.0) % Plt Count 226 (160-400) X10*3/uL BMP 01/31/24 05:22 Sodium 137 Potassium 3.6 Chloride 101 Carbon Dioxide 26 BUN 17 H Creatinine 0.61 Calcium 8.8 D Assessment and Plan (1) Paraesophageal hiatal hernia: Status: Acute (2) Epigastric pain: Status: Acute (3) Nausea: Status: Acute (4) Coffee ground emesis: Status: Acute Plan Based on presentation, does not have clinically significant GI bleed. Likely had small MW tear vs gastritis as noted on CT. In terms of acute onset of N/V which has now resolved, suspicious for intermittent/partial gastric volvulus - that may also explain the thickening noted only in intra-thoracic stomach. Plan: - Advance diet as tolerated - If able to advance to baseline PO, can be discharged to follow up with her GI as outpatient - If unable to progress diet, can plan for diagnostic EGD - Pt and sister aware to follow up with thoracic surg as OP for definitive mgmt of large paraesophageal hernia Thank you for allowing me to participate in her care. Pls do not hesitate to reach out for questions or concerns. Procedures Date of Service Date of Service: 01/31/24
--- NOTE | 2024-01-31 16:33 | MHC.CM.PN ---
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
[2024-01-31 19:07] VITALS: BP 140/74; PULSE 80; RESP 18; TEMP 36.6; O2SAT 94
[2024-01-31] MEDS: amantadine HCL 100 MG CAPSULE 200 MG PO (19:25)
[2024-01-31] MEDS: Tolterodine Tartrate LA 4 MG CAP.ER.24H PO (19:26)
[2024-01-31] MEDS: Latanoprost 0.005 % Ophth Sol 2.5 ML DROPS 1 DROP EYE-BOTH (19:35)
--- NOTE | 2024-02-01 | ECG_ITS ---
Test Reason : CHEST PAIN Blood Pressure : / mmHG Vent. Rate : 075 BPM Atrial Rate : 075 BPM P-R Int : 140 ms QRS Dur : 082 ms QT Int : 380 ms P-R-T Axes : 046 016 035 degrees QTc Int : 424 ms Normal sinus rhythm Normal ECG When compared with ECG of 30-JAN-2024 10:34, No significant change was found Referred By: Anabelle Munson Electronically Signed By:YOANNA ZIEGLER MD
[2024-02-01 02:34] VITALS: BP 137/73; PULSE 67; RESP 18; TEMP 36.4; O2SAT 95
[2024-02-01] MEDS: Pantoprazole Sodium 40 MG/10 ML VIAL IVPUSH (05:43)
[2024-02-01] MEDS: Acetaminophen 325 MG TABLET 650 MG PO ×2 (05:49→16:32)
[2024-02-01 07:35] VITALS: BP 142/66; PULSE 65; RESP 18; TEMP 36.2; O2SAT 95
[2024-02-01] MEDS: amantadine HCL 100 MG CAPSULE PO (08:01)
[2024-02-01] MEDS: Baclofen 10 MG TABLET 5 MG PO ×4 (08:01→21:43)
[2024-02-01] MEDS: 0.9 % Sodium Chloride Flush 3 ML SYRINGE IVFLUSH ×2 (08:04→21:41)
--- NOTE | 2024-02-01 10:36 | PM.PNGS ---
Subjective Subjective Date of Service: 02/01/24 Interval history: Feels well Good oral intake Denies abdominal pain or chest pain Physical Exam Vital Signs: Vital Signs: Last Vital Signs Temp 97.2 F 02/01/24 07:35 Pulse 65 02/01/24 07:35 Resp 18 02/01/24 07:35 BP 142/66 H 02/01/24 07:35 Pulse Ox 95 02/01/24 07:35 O2 Del Method Room Air 02/01/24 07:35 BMI result Body Mass Index 29.3 Const: General: comfortable and no acute distress Resp: Effort & Inspection: normal respiratory effort Cardio: Rate: regular rate GI: Palpation (GI): Soft to palpation, not firm and nontender Objective Data Active Medications Acetaminophen (Acetaminophen 325 Mg Tablet) 650 mg PO Q6H PRN PRN Reason: Pain, Mild (Pain Scale 1-3), fever or headache Last Admin: 02/01/24 05:49 Dose: 650 mg Documented By: LEONARD Amantadine HCl (Amantadine Hcl 100 Mg Capsule) 100 mg PO DAILY [facility] Last Admin: 02/01/24 08:01 Dose: 100 mg Documented By: JEANIE Amantadine HCl (Amantadine Hcl 100 Mg Capsule) 200 mg PO BEDTIME [facility] Last Admin: 01/31/24 19:25 Dose: 200 mg Documented By: LEONARD Baclofen (Baclofen 10 Mg Tablet) 5 mg PO QIDWMHS [facility] Last Admin: 02/01/24 08:01 Dose: 5 mg Documented By: JEANIE Calcium Carbonate (Calcium Carbonate 750 Mg Tab.Chew) 750 mg PO Q4H PRN PRN Reason: Heartburn Docusate Sodium (Docusate Sodium 100 Mg Capsule) 100 mg PO DAILY@1200 [facility] Last Admin: 01/31/24 12:18 Dose: 100 mg Documented By: MARIA ISABEL Latanoprost (Latanoprost 0.005 % Ophth Carrie 2.5 Ml Drops) 1 drop EYE-BOTH BEDTIME [facility] Last Admin: 01/31/24 19:35 Dose: 1 drop Documented By: LEONARD Magnesium Hydroxide (Milk Of Magnesia 30 Ml Oral.Susp) 30 ml PO DAILY PRN PRN Reason: Constipation Melatonin (Melatonin 3 Mg Tablet) 6 mg PO BEDTIME PRN PRN Reason: Insomnia Ondansetron HCl (Ondansetron Hcl 4 Mg/2 Ml Vial) 4 mg IVPUSH Q8H PRN PRN Reason: Nausea and Vomiting Pantoprazole Sodium (Pantoprazole Sodium 40 Mg/10 Ml Vial) 40 mg IVPUSH DAILY@0630 [facility] Last Admin: 02/01/24 05:43 Dose: 40 mg Documented By: LEONARD Sodium Chloride (0.9 % Sodium Chloride Flush 3 Ml Syringe) 3 ml IVFLUSH QSHIFT [facility] Last Admin: 02/01/24 08:04 Dose: 3 ml Documented By: JEANIE Tolterodine Tartrate (Tolterodine Tartrate La 4 Mg Cap.Er.24h) 4 mg PO BEDTIME [facility] Last Admin: 01/31/24 19:26 Dose: 4 mg Documented By: LEONARD Labs 01/31/24 05:22 01/31/24 05:22 Procedures Date of Service Date of Service: 02/01/24 Progress Note: A&P Assessment and plan (1) Paraesophageal hiatal hernia: Status: Acute Assessment and Plan: Likely chronic No evidence of obstruction/volvulus Diet as tolerated Looks well overall Good GI function Time Spent With Patient Time: Total time managing care of this patient today ____ minutes. Quality Stroke Does the patient have a stroke diagnosis?: No VTE Prior VTE?: No VTE Risk Level:: Medical - moderate - high VTE Device Contraindication: N/A - Device Ordered VTE Drug Contraindication: N/A - Med Ordered
[2024-02-01] MEDS: Docusate Sodium 100 MG CAPSULE PO (11:12)
--- NOTE | 2024-02-01 12:45 | PM.DS ---
DS: Providers Provider Date of Service: 02/01/24 Date of admission: 01/30/24 17:23 Date of discharge: 02/01/24 Primary care physician: Esau Pike DO Consults: 01/30/24 17:22 Consult to Gastroenterology Routine Consulting Provider: Madina Mathew Reason for consultation: nausea/vomiting; large hiatal hernia Has provider been notified: No [facility] Discharging clinician: Anabelle Munson DS: Diagnosis Discharge Diagnosis (1) Paraesophageal hiatal hernia: Status: Acute DS: Summary Hospital Course Hospital Course: from H&P on the day of admission This is a 68-year-old female with history cerebral palsy who presents to the emergency department with nausea and vomiting. Patient states early this morning she began having numerous episodes of vomiting. At some point it was dark in color. She called her PCP and was concerned that there could be bleeding and recommended she come to the emergency department for evaluation. In the emergency department she received multiple doses of antiemetics. CBC obtained showed normal H/H. No active bleeding noted. Was initially unable to tolerate any p.o.. Had a CT scan of the abdomen and pelvis which showed large hiatal hernia containing a large portion of the stomach and short segment of the transverse colon. As well as the possibility of thickening of the wall of the stomach. She was evaluated by thoracic surgery who did not feel that there was any evidence of volvulus or incarcerated hernia at this time. At this time her nausea has improved somewhat. nausea and vomiting likely due to large hiatal hernia. h/o gerd/esophagitis/PUD, but no evidence of active bleeding at this time; treated empirically with IV ppi. No active bleeding noted, H/H remained normal. Seen by GI, recommended to gradually advance diet. No need for inpatient EGD unless unable to tolerate diet. seen by thoracic surgery - no evidence of volvulus, no need for surgery at this time, conservative management for now. Recommend outpatient surgical follow-up for consideration of elective repair of hiatal hernia. Patient's diet was slowly advanced and she was able to tolerate without nausea or vomiting. Time Attestation Discharge Coordination Time (in mins): 36 Quality: Safe Use of Opioids Does Pt have an Active Cancer Diagnosis on the Problem List?: No Quality: Stroke Does the patient have a stroke diagnosis?: No Physical Exam Vital Signs: Vital Signs: Last Vital Signs Temp 97.2 F 02/01/24 07:35 Pulse 65 02/01/24 07:35 Resp 18 02/01/24 07:35 BP 142/66 H 02/01/24 07:35 Pulse Ox 95 02/01/24 07:35 O2 Del Method Room Air 02/01/24 07:35 BMI result Body Mass Index 29.3 Const: General: cooperative, comfortable, no acute distress, alert and awake Nutritional Appearance: average body habitus Orientation/consciousness: patient oriented x3 Resp: Effort & Inspection: normal respiratory effort, able to speak in complete sentences, no respiratory distress and no use of accessory muscles Auscultation: clear to auscultation bilaterally Cardio: Rate: regular rate GI: Inspection: No distended Palpation (GI): Soft to palpation and nontender Neuro: General: patient oriented x3, moves all extremities and CN's II-XI intact bilaterally Extrem: General: Yes no pedal edema Discharge Plan Discharge Patient Disposition: Home, Self-Care Discharge Diagnosis: nausea/vomiting large hiatal hernia Referrals: Esau Pike DO [Primary Care Provider] - 1 Week Ronak Dodson MD [Physician] - 1 Week Discharge Medications: Continued solifenacin [Vesicare] 10 mg tablet 10 mg PO BEDTIME 90 Days Qty: 90 3RF amantadine HCl 100 mg Capsule 100 mg PO DAILY ascorbic acid (vitamin C) 500 mg Tablet 500 mg PO DAILY@12 cholecalciferol (vitamin D3) 10 mcg (400 unit) Tablet 10 mcg PO DAILY@12 Vitamin B-6 50 mg Capsule 50 mg PO DAILY@12 acetaminophen 325 mg Tablet 325 mg PO TID PRN (Reason: Pain/Headaches) docusate sodium 100 mg Tablet 100 mg PO DAILY@1200 loratadine [Claritin] 10 mg Tablet 10 mg PO DAILY baclofen 10 mg tablet 5 mg PO QIDWMHS omeprazole 20 mg capsule,delayed release(DR/EC) 20 mg PO BID@0630,1630 amantadine HCl 100 mg capsule 200 mg PO BEDTIME latanoprost 0.005 % drops 1 drp ophthalmic (eye) BEDTIME losartan 25 mg tablet 25 mg PO DAILY hydrochlorothiazide 25 mg tablet 25 mg PO DAILY Activity on Discharge: As tolerated Stand Alone Forms: Patient Portal Discharge page Print Language: Albanian Care Plan Goals: see below Health Concerns: Large hiatal hernia Plan of Treatment: see discharge summary recommend to call and schedule a follow up appointment with thoracic surgery for evaluation of elective repair of large hiatal hernia recommend small meals and GERD precautions Assessment: See discharge summary Patient Instructions: Gastroesophageal Reflux Disease (GEN)
--- NOTE | 2024-02-01 14:03 | P.PNIM_ITS ---
Subjective Subjective Date of Service: 02/01/24 Interval History: Seen and examined this morning Follow-up for nausea/vomiting Symptoms have resolved, no abdominal pain Review of Systems Review of Systems: Yes all other systems are reviewed and are negative Constitutional Constitutional: Denies chills and Denies fever(s) Physical Exam 2 Vital Signs: Vital Signs: Last Vital Signs Temp 97.2 F 02/01/24 07:35 Pulse 65 02/01/24 07:35 Resp 18 02/01/24 07:35 BP 142/66 H 02/01/24 07:35 Pulse Ox 95 02/01/24 07:35 O2 Del Method Room Air 02/01/24 07:35 BMI result Body Mass Index 29.3 Const: General: cooperative, comfortable, no acute distress, alert and awake Nutritional Appearance: average body habitus Orientation/consciousness: p atient oriented x3 Resp: Effort & Inspection: normal respiratory effort, able to speak in complete sentences, no respiratory distress and no use of accessory muscles A uscultation: clear to auscultation bilaterally Cardio: Rate: regular rate GI: Inspection: No distended Palpation (GI): Soft to palpation and nontender Neuro: General: patient oriented x3, moves all extremities and CN's II-XI intact bilaterally Extrem: General: Yes no pedal edema Objective Data Active Medications Acetaminophen (Acetaminophen 325 Mg Tablet) 650 mg PO Q6H PRN PRN Reason: Pain, Mild (Pain Scale 1-3), fever or headache Last Admin: 02/01/24 05:49 Dose: 650 mg Documented By: LEONARD Amantadine HCl (Amantadine Hcl 100 Mg Capsule) 100 mg PO DAILY [facility] Last Admin: 02/01/24 08:01 Dose: 100 mg Documented By: JEANIE Amantadine HCl (Amantadine Hcl 100 Mg Capsule) 200 mg PO BEDTIME [facility] Last Admin: 01/31/24 19:25 Dose: 200 mg Documented By: LEONARD Baclofen (Baclofen 10 Mg Tablet) 5 mg PO QIDWMHS [facility] Last Admin: 02/01/24 11:13 Dose: 5 mg Documented By: JEANIE Calcium Carbonate (Calcium Carbonate 750 Mg Tab.Chew) 750 mg PO Q4H PRN PRN Reason: Heartburn Docusate Sodium (Docusate Sodium 100 Mg Capsule) 100 mg PO DAILY@1200 [facility] Last Admin: 02/01/24 11:12 Dose: 100 mg Documented By: JEANIE Latanoprost (Latanoprost 0.005 % Ophth Carrie 2.5 Ml Drops) 1 drop EYE-BOTH BEDTIME [facility] Last Admin: 01/31/24 19:35 Dose: 1 drop Documented By: LEONARD Magnesium Hydroxide (Milk Of Magnesia 30 Ml Oral.Susp) 30 ml PO DAILY PRN PRN Reason: Constipation Melatonin (Melatonin 3 Mg Tablet) 6 mg PO BEDTIME PRN PRN Reason: Insomnia Ondansetron HCl (Ondansetron Hcl 4 Mg/2 Ml Vial) 4 mg IVPUSH Q8H PRN PRN Reason: Nausea and Vomiting Pantoprazole Sodium (Pantoprazole Sodium 40 Mg/10 Ml Vial) 40 mg IVPUSH DAILY@0630 [facility] Last Admin: 02/01/24 05:43 Dose: 40 mg Documented By: LEONARD Sodium Chloride (0.9 % Sodium Chloride Flush 3 Ml Syringe) 3 ml IVFLUSH QSHIFT [facility] Last Admin: 02/01/24 08:04 Dose: 3 ml Documented By: JEANIE Tolterodine Tartrate (Tolterodine Tartrate La 4 Mg Cap.Er.24h) 4 mg PO BEDTIME [facility] Last Admin: 01/31/24 19:26 Dose: 4 mg Documented By: LEONARD Labs 01/31/24 05:22 01/31/24 05:22 Assessment and Plan (1) Paraesophageal hiatal hernia: Status: Acute Plan This is a 68-year-old female with history of cerebral palsy, hiatal hernia, osteoarthritis who presents to the emergency department with nausea and vomiting found to have CT scan evidence of large hiatal hernia nausea and vomiting likely due to large hiatal hernia h/o gerd/esophagitis/PUD, but no evidence of active bleeding at this time. some question about an episode of dark emesis - likely ángel garcia tear. seen by GI - no need for EGD unless unable to tolerate food. transition PPI back to PO H/H has remained normal seen by thoracic surgery - no evidence of volvulus, no need for surgery at this time, conservative management for now. Will need outpatient surgical follow-up for consideration of elective repair HTN hold HCTZ resume losartan follow blood pressure Incontinence Continue VESIcare History of cerebral palsy Continue baclofen, amantadine DVT prophylaxis - mechanical devices code status - DNR/DNI dispo - TBD, PT evaluation pending Requires ongoing inpatient stay for advancement of diet, safe disposition Quality Stroke Does the patient have a stroke diagnosis?: No VTE Prior VTE?: No VTE Risk Level:: Medical - moderate - high VTE Device Contraindication: N/A - Device Ordered VTE Drug Contraindication: N/A - Med Ordered
--- NOTE | 2024-02-01 16:26 | PC.NURSE ---
c/o midsternal pain, sharp, radiating to R jaw, 5/10. states she experiences this a lot, per pt not acute. informed
[2024-02-01] MEDS: Omeprazole 20 MG CAPSULE.DR PO (16:32)
[2024-02-01 17:27] LABS: Troponin-I High Sensitivity 2.8 ng/L (<3.5-17.0)
[2024-02-01 19:31] VITALS: BP 138/67; PULSE 77; RESP 18; TEMP 36.5; O2SAT 93
[2024-02-01] MEDS: amantadine HCL 100 MG CAPSULE 200 MG PO (21:42)
[2024-02-01] MEDS: Tolterodine Tartrate LA 4 MG CAP.ER.24H PO (21:43)
[2024-02-01] MEDS: Latanoprost 0.005 % Ophth Sol 2.5 ML DROPS 1 DROP EYE-BOTH (21:43)
[2024-02-02] VITALS (7 sets, daily range): BP systolic 135–154; BP diastolic 70–84; PULSE 68–85; RESP 14–18; TEMP 36.3–37.1; O2SAT 93–96
[2024-02-02] MEDS: Acetaminophen 325 MG TABLET 650 MG PO ×3 (02:40→23:39)
[2024-02-02] MEDS: Omeprazole 20 MG CAPSULE.DR PO ×2 (05:32→16:12)
[2024-02-02] MEDS: Baclofen 10 MG TABLET 5 MG PO ×4 (08:39→20:29)
[2024-02-02] MEDS: amantadine HCL 100 MG CAPSULE PO (08:39)
[2024-02-02] MEDS: Losartan Potassium 25 MG TABLET PO (08:39)
[2024-02-02] MEDS: 0.9 % Sodium Chloride Flush 3 ML SYRINGE IVFLUSH ×3 (08:42→20:30)
--- NOTE | 2024-02-02 10:23 | P.PNIM_ITS ---
Subjective Subjective Date of Service: 02/02/24 Interval History: Seen and examined this morning Follow-up for nausea/vomiting Symptoms have resolved, no abdominal pain Review of Systems Review of Systems: Yes all other systems are reviewed and are negative Constitutional Constitutional: Denies chills and Denies fever(s) Physical Exam 2 Vital Signs: Vital Signs: Last Vital Signs Temp 98.2 F 02/02/24 08:00 Pulse 70 02/02/24 08:00 Resp 14 02/02/24 08:00 BP 154/73 H 02/02/24 08:00 Pulse Ox 96 02/02/24 08:00 O2 Del Method Room Air 02/02/24 08:00 BMI result Body Mass Index 29.3 Appearing in no acute distress lung sounds are clear to auscultation heart regular rate rhythm, clear S1, S2 positive bowel sounds, abdomen is soft, nontender neuro patient is alert x3, no focal deficits Objective Data Active Medications Acetaminophen (Acetaminophen 325 Mg Tablet) 650 mg PO Q6H PRN PRN Reason: Pain, Mild (Pain Scale 1-3), fever or headache Last Admin: 02/02/24 02:40 Dose: 650 mg Documented By: LAZARUS Comments: per pt request Amantadine HCl (Amantadine Hcl 100 Mg Capsule) 100 mg PO DAILY [facility] Last Admin: 02/02/24 08:39 Dose: 100 mg Documented By: BRIGETTE Amantadine HCl (Amantadine Hcl 100 Mg Capsule) 200 mg PO BEDTIME [facility] Last Admin: 02/01/24 21:42 Dose: 200 mg Documented By: LAZARUS Baclofen (Baclofen 10 Mg Tablet) 5 mg PO QIDWMHS [facility] Last Admin: 02/02/24 08:39 Dose: 5 mg Documented By: BRIGETTE Calcium Carbonate (Calcium Carbonate 750 Mg Tab.Chew) 750 mg PO Q4H PRN PRN Reason: Heartburn Docusate Sodium (Docusate Sodium 100 Mg Capsule) 100 mg PO DAILY@1200 [facility] Last Admin: 02/01/24 11:12 Dose: 100 mg Documented By: JEANIE Latanoprost (Latanoprost 0.005 % Ophth Carrie 2.5 Ml Drops) 1 drop EYE-BOTH BEDTIME [facility] Last Admin: 02/01/24 21:43 Dose: 1 drop Documented By: LAZARUS Losartan Potassium (Losartan Potassium 25 Mg Tablet) 25 mg PO DAILY [facility]; Protocol Last Admin: 02/02/24 08:39 Dose: 25 mg Documented By: BRIGETTE Magnesium Hydroxide (Milk Of Magnesia 30 Ml Oral.Susp) 30 ml PO DAILY PRN PRN Reason: Constipation Melatonin (Melatonin 3 Mg Tablet) 6 mg PO BEDTIME PRN PRN Reason: Insomnia Omeprazole (Omeprazole 20 Mg Capsule.Dr) 20 mg PO BID@0630,1630 [facility] Last Admin: 02/02/24 05:32 Dose: 20 mg Documented By: LAZARUS Ondansetron HCl (Ondansetron Hcl 4 Mg/2 Ml Vial) 4 mg IVPUSH Q8H PRN PRN Reason: Nausea and Vomiting Sodium Chloride (0.9 % Sodium Chloride Flush 3 Ml Syringe) 3 ml IVFLUSH QSHIFT [facility] Last Admin: 02/02/24 08:42 Dose: 3 ml Documented By: BRIGETTE Tolterodine Tartrate (Tolterodine Tartrate La 4 Mg Cap.Er.24h) 4 mg PO BEDTIME [facility] Last Admin: 02/01/24 21:43 Dose: 4 mg Documented By: LAZARUS Labs 01/31/24 05:22 01/31/24 05:22 Labs: Laboratory Results - last 24 hr 02/01/24 16:47 Troponin I High Sens 2.8 Assessment and Plan (1) Paraesophageal hiatal hernia: Status: Acute Plan 68-year-old female with history of cerebral palsy, hiatal hernia, osteoarthritis who presents to the emergency department with nausea and vomiting found to have CT scan evidence of large hiatal hernia nausea and vomiting. Resolved likely due to large hiatal hernia h/o gerd/esophagitis/PUD, but no evidence of active bleeding at this time. some question about an episode of dark emesis - likely ángel garcia tear. seen by GI - no need for EGD unless unable to tolerate food. transition PPI back to PO H/H has remained normal seen by thoracic surgery - no evidence of volvulus, no need for surgery at this time, conservative management for now. Will need outpatient surgical follow-up for consideration of elective repair HTN hold HCTZ resume losartan follow blood pressure Incontinence Continue VESIcare History of cerebral palsy Continue baclofen, amantadine DVT prophylaxis - mechanical devices code status - DNR/DNI dispo - TBD, PT evaluation pending Requires ongoing inpatient stay for advancement of diet, safe disposition Quality Stroke Does the patient have a stroke diagnosis?: No VTE Prior VTE?: No VTE Risk Level:: Medical - moderate - high VTE Device Contraindication: N/A - Device Ordered VTE Drug Contraindication: N/A - Med Ordered
[2024-02-02] MEDS: Docusate Sodium 100 MG CAPSULE PO (12:26)
--- NOTE | 2024-02-02 16:14 | MHC.CM.PN ---
PT WILL NEED STR CM MET WITH PT AND SISTER, JOSE CARLOS. THEY PREFER [facility], FOLLOWED BY [facility], AND THEN [facility] LAST AWAITING RESPONSE FROM [facility], [facility] HAS DECLINED, [facility] ARE OFFERING
[2024-02-02] MEDS: amantadine HCL 100 MG CAPSULE 200 MG PO (20:28)
[2024-02-02] MEDS: Tolterodine Tartrate LA 4 MG CAP.ER.24H PO (20:28)
[2024-02-02] MEDS: Latanoprost 0.005 % Ophth Sol 2.5 ML DROPS 1 DROP EYE-BOTH (20:30)
[2024-02-03] MEDS: Omeprazole 20 MG CAPSULE.DR PO (06:21)
[2024-02-03 07:36] VITALS: BP 147/81; PULSE 78; RESP 16; TEMP 36.6; O2SAT 94
[2024-02-03] MEDS: Baclofen 10 MG TABLET 5 MG PO ×2 (08:36→11:43)
[2024-02-03] MEDS: Losartan Potassium 25 MG TABLET PO (08:37)
[2024-02-03] MEDS: amantadine HCL 100 MG CAPSULE PO (08:37)
[2024-02-03] MEDS: 0.9 % Sodium Chloride Flush 3 ML SYRINGE IVFLUSH (08:38)
--- NOTE | 2024-02-03 10:59 | P.DS_ITS ---
DS: Providers Provider Date of Service: 02/03/24 Date of admission: 01/30/24 17:23 Primary care physician: Esau Pike DO Consults: 01/30/24 17:22 Consult to Gastroenterology Routine Consulting Provider: Madina Mathew Reason for consultation: nausea/vomiting; large hiatal hernia Has provider been notified: No DS: Diagnosis Discharge Diagnosis (1) Paraesophageal hiatal hernia: Status: Acute DS: Summary Hospital Course Hospital Course: from H&P on the day of admission This is a 68-year-old female with history cerebral palsy who presents to the emergency department with nausea and vomiting. Patient states early this morning she began having numerous episodes of vomiting. At some point it was dark in color. She called her PCP and was concerned that there could be bleeding and recommended she come to the emergency department for evaluation. In the emergency department she received multiple doses of antiemetics. CBC obtained showed normal H/H. No active bleeding noted. Was initially unable to tolerate any p.o.. Had a CT scan of the abdomen and pelvis which showed large hiatal hernia containing a large portion of the stomach and short segment of the transverse colon. As well as the possibility of thickening of the wall of the stomach. She was evaluated by thoracic surgery who did not feel that there was any evidence of volvulus or incarcerated hernia at this time. At this time her nausea has improved somewhat. nausea and vomiting likely due to large hiatal hernia. h/o gerd/esophagitis/PUD, but no evidence of active bleeding at this time; treated empirically with IV ppi. No active bleeding noted, H/H remained normal. Seen by GI, recommended to gradually advance diet. No need for inpatient EGD unless unable to tolerate diet. seen by thoracic surgery - no evidence of volvulus, no need for surgery at this time, conservative management for now. Recommend outpatient surgical follow-up for consideration of elective repair of hiatal hernia. Patient's diet was slowly advanced and she was able to tolerate without nausea or vomiting. HTN Continue home medications follow blood pressure Incontinence Continue VESIcare History of cerebral palsy Continue baclofen, amantadine Time Attestation Discharge Coordination Time (in mins): 38 Quality: Safe Use of Opioids Does Pt have an Active Cancer Diagnosis on the Problem List?: No Quality: Stroke Does the patient have a stroke diagnosis?: No Physical Exam Vital Signs: Vital Signs: Last Vital Signs Temp 97.9 F 02/03/24 07:36 Pulse 78 02/03/24 07:36 Resp 16 02/03/24 07:36 BP 147/81 H 02/03/24 07:36 Pulse Ox 94 02/03/24 07:36 O2 Del Method Room Air 02/03/24 07:36 BMI result Body Mass Index 29.3 Appearing in no acute distress head is normocephalic atraumatic eyes pupils are PERRLA sclera is anicteric mouth throat mucous membranes are intact and moist neck is supple no lymphadenopathy, no JVD noted lung sounds are clear to auscultation heart regular rate rhythm, clear S1, S2 positive bowel sounds, abdomen is soft, nontender neuro patient is alert x3, no focal deficits Discharge Plan Discharge Anticipated Discharge Date/Time: 02/03/24 10:56 Patient Disposition: Xfer SNF Discharge Diagnosis: Large hiatal hernia Nausea and vomiting Sara-Hicks tear Referrals: John Vasquez At [] - 1 Week (TRANSFER FOR SHORT TERM REHAB) Esau Pike DO [Primary Care Provider] - 1 Week Ronak Dodson MD [Physician] - 1 Week Discharge Medications: Continued solifenacin [Vesicare] 10 mg tablet 10 mg PO BEDTIME 90 Days Qty: 90 3RF amantadine HCl 100 mg Capsule 100 mg PO DAILY ascorbic acid (vitamin C) 500 mg Tablet 500 mg PO DAILY@12 cholecalciferol (vitamin D3) 10 mcg (400 unit) Tablet 10 mcg PO DAILY@12 Vitamin B-6 50 mg Capsule 50 mg PO DAILY@12 acetaminophen 325 mg Tablet 325 mg PO TID PRN (Reason: Pain/Headaches) docusate sodium 100 mg Tablet 100 mg PO DAILY@1200 loratadine [Claritin] 10 mg Tablet 10 mg PO DAILY baclofen 10 mg tablet 5 mg PO QIDWMHS omeprazole 20 mg capsule,delayed release(DR/EC) 20 mg PO BID@0630,1630 amantadine HCl 100 mg capsule 200 mg PO BEDTIME latanoprost 0.005 % drops 1 drp ophthalmic (eye) BEDTIME losartan 25 mg tablet 25 mg PO DAILY hydrochlorothiazide 25 mg tablet 25 mg PO DAILY Discharge Orders: Discharge Order (Routine); Ordered 02/03/24 Ordered By: Ernestine Salmon Diet: Advance to usual diet Activity on Discharge: As tolerated Stand Alone Forms: Patient Portal Discharge page Print Language: Welsh Care Plan Goals: see below Health Concerns: Large hiatal hernia Nausea and vomiting Sara-Hicks tear Plan of Treatment: see discharge summary recommend to call and schedule a follow up appointment with thoracic surgery for evaluation of elective repair of large hiatal hernia recommend small meals and GERD precautions Assessment: See discharge summary Patient Instructions: Gastroesophageal Reflux Disease (GEN)
[2024-02-03] MEDS: Acetaminophen 325 MG TABLET 650 MG PO (11:23)
--- NOTE | 2024-02-03 11:25 | MHC.CM.PN ---
DP: PT HAS BEEN MEDICALLY CLEARED FOR DC TO [facility]. BLS TRANSPORT BOOKED FOR 3 PM [facility]IA [facility]. RN AWARE. HCP/SISTER JOSE CARLOS NOTIFIED. CENTER UPDATED ON DC TIME.
== END 2024-02-03 15:29 | disposition skilled nursing facility (03) | DRG 391 ==
LOC: HO.ED 14:46 → HO.EDOVER 17:39 → HO.S3 19:04
PROVIDERS: Admitting Provider Physician Assistant Medical; Emergency Provider Student in an Organized Health Care Education/Training Program; PCP Internal Medicine; Visit Provider Nurse Practitioner Acute Care
DX: K44.9 Diaphragmatic hernia without obstruction or gangrene (principal); K22.6 Gastro-esophageal laceration-hemorrhage syndrome; G80.9 Cerebral palsy, unspecified; Z66 Do not resuscitate; I10 Essential (primary) hypertension; N39.41 Urge incontinence; Z87.11 Personal history of peptic ulcer disease; Z79.899 Other long term (current) drug therapy
CPT/HCPCS: 36415; 74178; 80048; 80053; 81003; 83690; 84484; 85025; 93005; 97162; 99285; J2405; J2470; Q9967

== ENCOUNTER → 2024-01-30 10:11 | Outpatient (BNV) | payer MEDICARE, MEDICAID, SELFPAY | PROVIDERS: Admitting Provider Physician Assistant Medical; Emergency Provider Student in an Organized Health Care Education/Training Program; PCP Internal Medicine; Visit Provider Internal Medicine Cardiovascular Disease | DX: R10.9 Unspecified abdominal pain (principal) | CPT/HCPCS: 93010 ==

== ENCOUNTER → 2024-01-30 10:24 | Outpatient (BNV) | payer MEDICARE, MEDICAID, SELFPAY | PROVIDERS: Emergency Provider Student in an Organized Health Care Education/Training Program; PCP Internal Medicine; Visit Provider Surgery | DX: K44.9 Diaphragmatic hernia without obstruction or gangrene (principal) | CPT/HCPCS: 99232 ==

== ENCOUNTER 2024-01-30 17:23 | Outpatient (BNV) | payer MEDICARE, MEDICAID, SELFPAY | END 2024-02-01 16:34 | PROVIDERS: Admitting Provider Physician Assistant Medical; Emergency Provider Student in an Organized Health Care Education/Training Program; PCP Internal Medicine; Visit Provider Internal Medicine Cardiovascular Disease | DX: R07.9 Chest pain, unspecified (principal) | CPT/HCPCS: 93010 ==

== ENCOUNTER → 2024-01-30 17:23 | Outpatient (BNV) | payer MEDICARE, MEDICAID, SELFPAY | PROVIDERS: Admitting Provider Physician Assistant Medical; Emergency Provider Student in an Organized Health Care Education/Training Program; PCP Internal Medicine; Visit Provider Physician Assistant Medical | DX: K44.9 Diaphragmatic hernia without obstruction or gangrene (principal) | CPT/HCPCS: 99222; 99232; 99239 ==

== ENCOUNTER → 2024-01-30 17:23 | Outpatient (BNV) | payer MEDICARE, MEDICAID, SELFPAY | PROVIDERS: Admitting Provider Physician Assistant Medical; Emergency Provider Student in an Organized Health Care Education/Training Program; PCP Internal Medicine; Visit Provider Internal Medicine | DX: K44.9 Diaphragmatic hernia without obstruction or gangrene (principal); K92.0 Hematemesis | CPT/HCPCS: 99222 ==

== ENCOUNTER 2024-03-30 11:40 | Outpatient (AMB) | payer MEDICARE, MEDICAID, SELFPAY ==
--- NOTE | 2024-03-30 11:54 | MHC.PC.OV ---
Vital Signs 03/30/24 12:02 BP 140/60 H Blood Pressure Location Lt brachial Pulse 76 Pulse Source Pulse Oximeter Temp 97.5 F Pulse Oximetry (%) 99 Comment weight was taken at [facility] in [place] last week and it was 127 Intake Visit Reasons: follow up appointment Intake Note: here for follow up after hospital stay and they suggest surgery and would like to discuss that, and also needs a referral to Dr. De La Fuente Allergies tetracycline [TETRACYCLINE] Allergy (Intermediate, Verified 03/30/24 12:49) Altered Mental Status polyester fibers Allergy (Unknown, Verified 03/30/24 12:49) Contact Dermatitis erythromycin base Adverse Reaction (Unknown, Verified 03/30/24 12:49) Nausea and Vomiting Medication List - Last Reconciled 03/30/24 by Yuni Justice PA-C acetaminophen 325 mg PO TID PRN amantadine HCl 100 mg PO DAILY amantadine HCl 200 mg PO BEDTIME ascorbic acid (vitamin C) 500 mg PO DAILY@12 baclofen 10 mg PO .daily 800 1000 90 days baclofen 5 mg PO .daily 1200 cholecalciferol (vitamin D3) 10 mcg PO DAILY@12 docusate sodium 100 mg PO DAILY@1200 hydrochlorothiazide 25 mg PO DAILY latanoprost 0.005% 1 drp ophthalmic (eye) BEDTIME loratadine (Claritin) 10 mg PO DAILY losartan 25 mg PO DAILY omeprazole 20 mg PO BID@0630,1630 pyridoxine (vitamin B6) (Vitamin B-6) 50 mg PO DAILY@12 solifenacin (Vesicare) 10 mg PO BEDTIME [address] [facility] Medical History Hiatal hernia Uterine benign neoplasm Urge incontinence Urgency incontinence Arthritis Cerebral palsy Surgical History History of hysterectomy Family History Father No problems noted. Mother No problems noted. Social History Household Members: Family Housing: House Do you presently have visiting nurse or other home services: No Patient Tobacco Use Status: Never used Tobacco Advance Directives Date on File: 06/05/20 service: No Questionnaire Thrive Questionnaire Date Thrive assessed: 01/31/24 Review of Systems Const All systems reviewed & are unremarkable except as noted in HPI and below Physical exam (Primary Care) Vital Signs: Last Vital Signs Temp 97.5 F 03/30/24 12:02 Pulse 76 03/30/24 12:02 BP 140/60 H 03/30/24 12:02 Pulse Ox 99 03/30/24 12:02 Tobacco/Smoking Status: Tobacco use Status Patient Tobacco Use Status Never used Tobacco 03/30/24 11:55 Thrive Assessment: Date of Thrive Assessment Date Thrive assessed 01/31/24 03/30/24 11:55 Coding Level of Care Code New Pt Level 4 (84257) Complex EM visit Add On G2211 Diagnoses Hospital discharge follow-up Z09 Cerebral palsy G80.9 Nausea R11.0 Paraesophageal hiatal hernia K44.9 Passage of loose stools R19.5 Colon cancer screening Z12.11 Assessment & Plan Assessment & Plan (1) Hospital discharge follow-up: Code(s): Z09 - Encounter for follow-up examination after completed treatment for conditions other than malignant neoplasm Category: Medical Plan: Patient was discharged to [facility] facility in January of 2024 and discharged from [facility] facility 03/08/2024. Currently residing with sister who is healthcare proxy and caregiver. Here for follow-up and referral to GI Dr. De La Fuente. (2) Cerebral palsy: Code(s): G80.9 - Cerebral palsy, unspecified Category: Medical Plan: This condition is chronic and stable. Patient has all medical needs that she needs at her house. Her house is handicap accessible. Her sister is her healthcare proxy. Patient is DNR should be in our system. Will continue to monitor. (3) Nausea: Code(s): R11.0 - Nausea Category: Medical Plan: This condition has resolved. Will continue to monitor. (4) Paraesophageal hiatal hernia: Code(s): K44.9 - Diaphragmatic hernia without obstruction or gangrene Category: Medical Plan: This condition is chronic and stable. Patient denies any nausea, vomiting or any abdominal pain at this time. Condition is stable. Patient will be referred to Dr. De La Fuente Gastroenterology. (5) Passage of loose stools: Code(s): R19.5 - Other fecal abnormalities Category: Medical Plan: Condition has improved. Patient will be referred to Dr. De La Fuente Gastroenterology. (6) Colon cancer screening: Code(s): Z12.11 - Encounter for screening for malignant neoplasm of colon Category: Medical Plan: Patient had a endoscopy and colonoscopy in 2011 will need repeat will refer to gastroenterology. Plan Plan - Evaluate potential anemia with a complete blood count to assess blood loss via stools. - Refer to GI to assess stool occult blood test to identify any undetected bleeding as a cause of dark stool color. - Renew the prescription for baclofen: 10 mg AM, 5 mg noon, 10 mg PM for symptomatic control. - Recommend specialist consultation with Dr. De La Fuente for further assessment of the hiatal hernia. - Plan follow-up visit in 3 months for monitoring of gastrointestinal and systemic health, ensuring any preoperative requirements are met. - Examine stool collection options based on practicality for the patient?s condition and coordination with specialist recommendations. Orders: Orders Comprehensive [facility]. Panel Fast Today G80.9 - Cerebral palsy, unspecified, K44.9 - Diaphragmatic hernia without obstruction or gangrene, R11.0 - Nausea, R19.5 - Other fecal abnormalities, Z09 - Encounter for follow-up examination after completed treatment for conditions other than malignant neoplasm, Z12.11 - Encounter for screening for malignant neoplasm of colon Liver Panel Today G80.9 - Cerebral palsy, unspecified, K44.9 - Diaphragmatic hernia without obstruction or gangrene, R11.0 - Nausea, R19.5 - Other fecal abnormalities, Z09 - Encounter for follow-up examination after completed treatment for conditions other than malignant neoplasm, Z12.11 - Encounter for screening for malignant neoplasm of colon Lipid Panel Today G80.9 - Cerebral palsy, unspecified, K44.9 - Diaphragmatic hernia without obstruction or gangrene, R11.0 - Nausea, R19.5 - Other fecal abnormalities, Z09 - Encounter for follow-up examination after completed treatment for conditions other than malignant neoplasm, Z12.11 - Encounter for screening for malignant neoplasm of colon TSH reflex Free T4 Today G80.9 - Cerebral palsy, unspecified, K44.9 - Diaphragmatic hernia without obstruction or gangrene, R11.0 - Nausea, R19.5 - Other fecal abnormalities, Z09 - Encounter for follow-up examination after completed treatment for conditions other than malignant neoplasm, Z12.11 - Encounter for screening for malignant neoplasm of colon Vitamin B12 and Folate Today G80.9 - Cerebral palsy, unspecified, K44.9 - Diaphragmatic hernia without obstruction or gangrene, R11.0 - Nausea, R19.5 - Other fecal abnormalities, Z09 - Encounter for follow-up examination after completed treatment for conditions other than malignant neoplasm, Z12.11 - Encounter for screening for malignant neoplasm of colon Complete Blood Count Auto Diff Today G80.9 - Cerebral palsy, unspecified, K44.9 - Diaphragmatic hernia without obstruction or gangrene, R11.0 - Nausea, R19.5 - Other fecal abnormalities, Z09 - Encounter for follow-up examination after completed treatment for conditions other than malignant neoplasm, Z12.11 - Encounter for screening for malignant neoplasm of colon Hemoglobin A1c Today G80.9 - Cerebral palsy, unspecified, K44.9 - Diaphragmatic hernia without obstruction or gangrene, R11.0 - Nausea, R19.5 - Other fecal abnormalities, Z09 - Encounter for follow-up examination after completed treatment for conditions other than malignant neoplasm, Z12.11 - Encounter for screening for malignant neoplasm of colon Vitamin D 25-OH Total Today G80.9 - Cerebral palsy, unspecified, K44.9 - Diaphragmatic hernia without obstruction or gangrene, R11.0 - Nausea, R19.5 - Other fecal abnormalities, Z09 - Encounter for follow-up examination after completed treatment for conditions other than malignant neoplasm, Z12.11 - Encounter for screening for malignant neoplasm of colon Magnesium Today G80.9 - Cerebral palsy, unspecified, K44.9 - Diaphragmatic hernia without obstruction or gangrene, R11.0 - Nausea, R19.5 - Other fecal abnormalities, Z09 - Encounter for follow-up examination after completed treatment for conditions other than malignant neoplasm, Z12.11 - Encounter for screening for malignant neoplasm of colon Referrals Gastroenterology Referral G80.9 - Cerebral palsy, unspecified, K44.9 - Diaphragmatic hernia without obstruction or gangrene, R11.0 - Nausea, R19.5 - Other fecal abnormalities, Z09 - Encounter for follow-up examination after completed treatment for conditions other than malignant neoplasm, Z12.11 - Encounter for screening for malignant neoplasm of colon Medications: New baclofen 10 mg PO .daily 800 1000 180 tabs 1RF 90 days baclofen 5 mg PO .daily 1200 90 tabs 1RF Patient Instructions: Patient Instructions - Attend laboratory for stool blood test and complete blood count as advised. - Maintain follow-up appointments with Dr. De La Fuente for potential surgical or endoscopic evaluation. - Report any new or worsening symptoms, such as increased fatigue, paleness, or gastrointestinal discomfort. - Continue with adapted home care routines and prescribed therapies. - Monitor and record stool changes to provide details at the next consultation. Scribe Plan - Not visible on output: History of Present Illness The patient is a 68-year-old female presenting with issues related to gastrointestinal symptoms post-hospitalization. She was previously evaluated in the ER at [place] in January of 2024 for gastrointestinal bleeding, identified by coffee ground emesis, and a hiatal hernia was detected via CAT scan. The patient was weak and required outpatient treatment in a fdc facility. She was then discharged from the fdc facility on March 08 and is currently living with her sister who is her highway safety engineer and healthcare proxy. Patient is wheelchair-bound with a history of cerebral palsy. Post-discharge, she experienced persistent loose stools with a dark blackish-brown coloration, concerning since it began on March 08. Originally described as diarrhea, her stools are now softer than normal. Though nausea resolved, she continues to monitor symptoms closely. Past medical history is significant for a serious gastrointestinal bleed in 2010 that required three blood transfusions. She also has a known history of a hiatal hernia, discovered 20 years ago, which exacerbated to involve both stomach and colon in the chest cavity leading to persistent nausea. No current vomiting, shortness of breath, chest pains, or similar symptoms are reported since the hospital discharge. Nausea has resolved sufficiently to allow normal eating patterns again. While she was recently hospitalized for her hiatal hernia and possible GI bleed she was seen by gastroenterology and they recommended outpatient surgery if patient decided on this. Patient is now deciding that she would like outpatient surgery and would like a referral to Dr. De La Fuente the executive administrative assistant. Sister at bedside reports she had endoscopy and colonoscopy in 2010 when she had a prior GI bleed and received blood transfusions. Her sister is her main caregiver and she lives with her sister. They have OT and PT coming to the house. The patient has a commode, a hospital bed, a bath Lift and all handicap accessible apartment/house. Her sister and patient are not interested in any [employer] services at this time. Her sister reports that patient is taking all her medications as prescribed. They deny any recent falls. They report they do not any need any outpatient services. She will need a medication update for baclofen she has been giving her 10 mg in the a.m., 5 mg at noon and 10 mg at night. This was discussed with Dr. Pike in a prior visit and prescription was never updated to represent what the patient was given. Otherwise they deny any other complaints or concerns at this time. Sister reports that the patient is DNR and we should have the records in our system. Social History - The patient lives with her sister, who is her healthcare proxy and caregiver at home. - The house is wheelchair-accessible, with adaptations such as a bath lift, hospital bed, and Komodo over the toilet. - Occupational and physical therapy services are utilized at home, which are sufficient for her needs. Review of Systems - Gastrointestinal: Reports loose stools, denies ongoing nausea or vomiting. - General: Denies recent falls. - Cardiology: Denies chest pains or shortness of breath. - Neurology: Denial of sustained immobility. Physical Exam Appearance: Alert. Oriented X3. No acute distress. Appears slightly pale. Head: Normal external exam. Normocephalic. Atraumatic. Eyes: Pupils are equal, round, and reactive to light. Extraocular movements intact. Conjunctiva and sclera normal. Eyelids normal. Ears: External auditory canal normal. Throat: Pharynx normal. Uvula midline. Moist mucous membranes. Neck: Normal inspection. Neck supple. Full range of motion. No meningeal signs. Cardiovascular: Normal heart rate and rhythm. Heart sound normal. No murmurs noted. Pulses normal throughout. Respiratory: No respiratory distress. Painless inspiration. Breath sounds normal. No wheezes/rales/rhonchi noted. Chest nontender. No accessory muscle usage noted or decreased air movement noted. Abdomen: Soft and nontender. Bowel sounds present but slightly slow. No distention noted. No organomegaly noted. No visible injury noted. Skin: Skin warm and dry. Normal skin color. Normal skin turgor. No rashes/lesions/lacerations noted. Extremities: No lower extremity edema. Extremities nontender. Neuro: History of cerebral palsy at baseline. Sitting in wheelchair. Moving upper extremities without any difficulties. No obvious joint swelling. Good range of motion to extremities. Plan - Evaluate potential anemia with a complete blood count to assess blood loss via stools. - Refer to GI to assess stool occult blood test to identify any undetected bleeding as a cause of dark stool color. - Renew the prescription for baclofen: 10 mg AM, 5 mg noon, 10 mg PM for symptomatic control. - Recommend specialist consultation with Dr. De La Fuente for further assessment of the hiatal hernia. - Plan follow-up visit in 3 months for monitoring of gastrointestinal and systemic health, ensuring any preoperative requirements are met. - Examine stool collection options based on practicality for the patient?s condition and coordination with specialist recommendations. Patient was informed and verbally consented to the use of an ambient scribe for clinic note documentation during this visit. Discussion Notes I discussed with the patient and her healthcare proxy the concern of potential anemia due to ongoing dark stools since returning home in February. The possibility of gastrointestinal bleeding warrants stool occult blood testing; a complete blood count will verify if anemia is present. The importance of reassessment with the executive administrative assistant, Dr. De La Fuente, was highlighted, especially given the historical variability in hernia status and prioritized consultation options. For medication management, we agreed on the current adjustment for baclofen dosing, acknowledging prior usage guidance. Patient Instructions - Attend laboratory for stool blood test and complete blood count as advised. - Maintain follow-up appointments with Dr. De La Fuente for potential surgical or endoscopic evaluation. - Report any new or worsening symptoms, such as increased fatigue, paleness, or gastrointestinal discomfort. - Continue with adapted home care routines and prescribed therapies. - Monitor and record stool changes to provide details at the next consultation.
[2024-03-30 12:02] VITALS: BP 140/60; PULSE 76; TEMP 36.4; O2SAT 99
--- OUTSIDE RECORDS SUMMARY | 2024-03-30 13:54 | XMS_ITS | Data Portability ---
Author Organization [facility] [employer] [facility], Main Office Address [address], [address] [place] [address] Care Team Providers Care Benefits Coordinator Name Role Phone [facility] OTHER Assessment No assessment recorded. Plan of Treatment Reminders Order Date Submit Date Provider Last Modified By Organization Details Last Modified Time Details Appointments None record ed. Lab None record ed. Referral None record ed. Procedures None record ed. Surgeries None record ed. Imaging None record ed. Medication Orders None record ed. Patient TargetsNo targets recorded. Patient InstructionsNo instructions recorded. Reason for Referral None Reported. Problems Name Problem SNOMED Code Status Onset Date Resolution Date Notes Provider Name and Address Organization Details Recorded Time Hiatal hernia 41765812 Active 2023 A_Salbadora guero-Aroldo [address], [address], [place], [address], [facility] [employer] 4 10:12:27 Benign neoplasm of uterus 96778535 Active 2023 A_Salbadora guero-Aroldo [address], [address], [place], [address], [facility] [employer] 4 10:12:35 Urge incontinence of urine 89884094 Active 2023 A_Tremannemariea y-Aroldo [address], [address], [place], [address], [facility] [employer] 4 10:12:41 Arthritis 0891266 Active 2023 A_Trembla y-Aroldo [address], [address], [place], [address], [employer] 4 10:12:49 Cerebral palsy 221121217 Active 2023 A_Trembla y-Aroldo [address], [address], [place], [address], [facility] 4 10:12:59 Glaucoma 50406394 Active 2023 Cisco White [address], [address], [place], [address], [facility] 4 12:10:34 Essential hypertension 97065487 Active 2023 Jarek Valenzuela MD [address], [address], [place], [address], [facility] 4 13:57:05 Problem Notes None recorded. Procedures Surgical History Date Name Laterality Status Provider Name and Address Organization Details Recorded Time total hysterectomy with removal of both tubes and ovaries completed Yves rolle [address], [address], [place], [address], [facility] 02/04/2024 12:14:37 Imaging Results None recorded. Procedure Notes None recorded. Medical Equipment None Reported. Allergies Allergen ID Allergen Name Allergen Category Reaction Reaction Severity Criticality Documentation Date Start Date Code Code System Note Provider Name and Address Organization Details Recorded Time [id number] 2824e polyester fibers Not available Not available Not available Not available 02/04/2024 18960 UNK Not Available Not Available Not Available [id number] 2824e tetracycl ine medicatio n Not available Not available Not available 02/04/2024 76053 RxNorm Not Available Not Available Not Available [id number] 2824e erythromy sonia medicatio n Not available Not available Not available 02/04/2024 4053 RxNorm Not Available Not Available Not Available Medications Not known to be on any medication Vitals None Recorded Social History Question Answer Notes LastModified by Organizat ion Details LastModified Time Tobacco Smoking Status Never Smoker Shaun [address], [address], [place], [address], [facility] 02/04/2024 12:14:11 What Is Your Level Of Alcohol Consumption? None Information not available 02/04/2024 What Is Your Level Of Caffeine Consumption? None Information not available 02/04/2024 What Was The Date Of Your Most Recent Tobacco Screening? 02/04/2024 Information not available 02/04/2024 Do You Use Any Illicit Or Recreational Drugs? No Information not available 02/04/2024 Sex: Unknown Functional Status None recorded. Mental Status None recorded. Family History Nothing Reported Notes:N/C Medical History No medical history recorded. Gynecological HistoryNo gynecological history recorded. Obstetrics History GPAL:G 0 P 0 0 0 0 Immunizations Vaccine Type Date Status Note Provider Nam e and Address Organization Details Recorded Time SARS-COV-2 (COVID-19) vaccine, UNSPECIFIED 06/22/2020 completed Miriam Lynch [facility] 02/04/2024 12:23:21 SARS-COV-2 (COVID-19) vaccine, UNSPECIFIED 01/23/2021 completed Miriam Lynch [facility] 02/04/2024 12:23:28 Past Encounters Encounter ID Performer Location Encounter Start Date Encounter Closed Date Diagnosis/Indication Diagnosis SNOMED-CT Code Diagnosis ICD10 Code Diagnosis Note [id number] Rivka_Makayla Alarcon [facility] [address] [address] 02/04/2024 10:11:58 02/05/2024 14:13:21 Urge incontinence of urine 46886615 N39.41 continue solifenaci n 10mg qHS Cerebral palsy 492848325 G80.9 very deconditio nedcontinu e baclofen 5mg QID and amantadine 100mg qd and 200mg qHSAdmit to services for PT/OT for strengthen ing, balance, gait training, safety and function.C ontinue fall precaution s.Monitor for safety. 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 Moderate c ognitive impairment 233853192 R41.9 BIMS 10monitor insight and need to invoke HCP [id number] Jarek Valenzuela MD [place] [facility] [address] [address] 02/05/2024 13:51:35 02/06/2024 10:41:38 Asthenia 74304200 R53.1 PT OT eval and treatmonit or fall risk and need for increased support in community Essential hypertension 04596061 I10 HCTZ 25 mg qdlosartan 25 mg qdmonitor bp and need to titrate Urge incon tinence of urine 84225070 N39.41 vesicare 10 mg qdmonitor for sx relief Cerebral palsy 868794232 G80.9 maintained onbaclofen and amantadine monitor for change in conditioni ng with above therapy Hiatal hernia 69822519 K 44.9 see HPIN/V secondary to hiatal herniato f/u with surgery out patient to consider surgical repairmoni tor for sxomeprazo le 20 mg bid Hypertensive disorder 38 349673 I10 continue losartan 25mg qd and HCTZ 25mg qdmonitor BP and labs Arthritis 4849085 M19.90 Continue APAP 325mg TID prn Benign dona plasm of uterus 57788722 D26.9 carrying dx Nausea and vomiting 1693 1999 R11.2 start zofran 4mg q6h prn Glaucoma 60901332 H40.9 Continue latanopros t 0.005% both eyes qhs 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 Moderate c ognitive impairment 909229915 R41.9 BIMS 10monitor insight and need to invoke HCP [id number] Gucci SALGAD[facility] AT [address] [address] 02/09/2024 07:27:03 02/10/2024 10:19:01 Hiatal hernia 84309476 K44.9 no need for EGD inpatientf /u thoracic today to discuss elective repaircont inue omeprazole 20mg BIDmonitor for recurrent N/V Cerebral palsy 610058131 G80.9 very deconditio nedcontinu e baclofen 5mg QID and amantadine 100mg qd and 200mg qHSContinu e PT/OT for strengthen ing, balance, gait training, safety and function.C ontinue fall precaution s.Monitor for safety. [id number] Gucci SALGADO AT [address] [address] 02/11/2024 07:20:07 02/16/2024 14:42:52 Hiatal hernia 97277267 K44.9 no need for EGD inpatients ister to reschedule thoracic surgery f/ucontinu e omeprazole 20mg BIDmonitor for recurrent N/V Cerebral palsy 407706429 G80.9 very deconditio nedcontinu e baclofen 5mg QID and amantadine 100mg qd and 200mg qHSschedul e APAP 975mg TIDContinu e PT/OT for strengthen ing, balance, gait training, safety and function.C ontinue fall precaution s.Monitor for safety. Near syncope 519500688 R 55 high risk of orthostati c intoleranc e, which can begin to appear within 3-4 days of commencing bed rest and is likely to appear more rapidly in individual s with underlying cardiovasc ular disease and in the elderlyAdv ising rising from seated position slowly and report any recurrent sxs to staff [id number] Gucci [facility] AT [address] [address] 02/17/2024 07:18:09 02/18/2024 11:11:46 Hiatal hernia 80662260 K44.9 no N/Vsister to reschedule thoracic surgery f/ucontinu e omeprazole 20mg BID Cerebral palsy 865689539 G80.9 very deconditio nedcontinu e baclofen 5mg QID and amantadine 100mg qd and 200mg qhs, APAP 975mg TIDContinu e PT/OT for strengthen ing, balance, gait training, safety and function.C ontinue fall precaution s.Monitor for safety. Near syncope 718735950 R 55 no acute sxsAdvisin g rising from seated position slowly and report any recurrent sxs to staff Constipation 13630636 K5 9.00 LBM 02/06start miralax 17g BID and senna 8.6mg qdgive MOM x 1 nowmonitor bowels [id number] Gucci SALG[facility] AT [address] [place] [address] 02/19/2024 07:36:51 02/20/2024 11:20:35 Constipation 41833484 K59.00 LBM 12/4Contin ue miralax 17g BID and senna 8.6mg qdmonitor bowels Hiatal hernia 98625014 K 44.9 no N/Vsister to reschedule thoracic surgery f/ucontinu e omeprazole 20mg BID [id number] Gucci [facility] [address] [place] [address] 02/24/2024 07:33:59 02/25/2024 12:23:01 Constipation 15875829 K59.00 LBM 12/9Contin ue miralax 17g BID and senna 8.6mg qdmonitor bowels Hiatal hernia 82143213 K 44.9 no N/V reportedsi ster to reschedule thoracic surgery f/u once discharged continue omeprazole 20mg BID Cerebral palsy 765628187 G80.9 very deconditio nedcontinu e baclofen 5mg QID and amantadine 100mg qd and 200mg qhs, APAP 975mg TIDContinu e PT/OT for strengthen ing, balance, gait training, safety and function.C ontinue fall precaution s.Monitor for safety. Near syncope 368535770 R 55 no acute sxsAdvisin g rising from seated position slowly and report any recurrent sxs to staff Urge incon tinence of urine 18109680 N39.41 continue solifenaci n 10mg qHS Hypertensive disorder 38 081258 I10 Well-contr olledconti nue losartan 25mg qd and HCTZ 25mg qdmonitor BP and labs Arthritis 8807364 M19.90 Continue APAP 325mg TID prn Nausea and vomiting 1693 2000 R11.2 no reported episodesco ntinue zofran 4mg q6h prn Glaucoma 67299485 H40.9 Continue latanopros t 0.005% both eyes qhs [id number] Gucci SALGADO AT [address] [address] 02/27/2024 07:31:04 03/01/2024 14:17:51 Constipation 86047953 K59.00 IMprovedCo ntinue miralax 17g BID and senna 8.6mg qdmonitor bowels Hiatal hernia 18518510 K 44.9 no N/V reportedsi ster to reschedule thoracic surgery f/u once discharged continue omeprazole 20mg BID Cerebral palsy 142408411 G80.9 very deconditio nedcontinu e baclofen 5mg QID and amantadine 100mg qd and 200mg qhs, APAP 975mg TIDContinu e PT/OT for strengthen ing, balance, gait training, safety and function.C ontinue fall precaution s.Monitor for safety. [id number] Gucci [facility] AT [address] [address] 03/08/2024 07:34:44 03/09/2024 10:28:50 Constipation 88867667 K59.00 Continue miralax 17g BID and senna 8.6mg qdmonitor bowels Hiatal hernia 59493951 K 44.9 no N/V reportedsi ster to reschedule thoracic surgery f/u once discharged continue omeprazole 20mg BID Cerebral palsy 451962740 G80.9 Continue baclofen 5mg QID and amantadine 100mg qd and 200mg qhs, APAP 975mg TIDComplet ed PT/OT for strengthen ing, balance, gait training, safety and function.C ontinue fall precaution s.Monitor for safety. Near syncope 771951184 R 55 resolved Urge incon tinence of urine 65363112 N39.41 continue solifenaci n 10mg qHS Hypertensive disorder 38 707898 I10 Well-contr olledconti nue losartan 25mg qd and HCTZ 25mg qdmonitor BP and labs Arthritis 4797218 M19.90 Continue APAP 325mg TID prn Nausea and vomiting 1693 2000 R11.2 no reported episodesco ntinue zofran 4mg q6h prn Glaucoma 39741561 H40.9 Continue latanopros t 0.005% both eyes qhs Health Concerns Section Related Observation LastModified by Organization Detai ls LastModified Time None Recorded Concern Status LastModified by Organization Details LastModified Time None Recorded Advance Directives Directive None Recorded Payers Encounter Date Sequence Insurance Name Policy Number Policy Rod Covered Member ID Rod Member ID Guarantor Name 02/17/2024 1 [place] [employer] Nereyda Gagei [id number] Nereyda Hodnicki 02/17/2024 2 [place] [facility] Nereydarivka Gagei [id number] Nereyda Hodnicki 02/19/2024 1 [place] [employer] Nereyda M Hodnicki [id number] Nereyda Hodnicki 02/19/2024 2 [place] [facility] Nereydarivka Gagei [id number] Nereyda Hodnicki 02/24/2024 1 [place] [employer] Nereyda M Hodnicki [id number] Nereyda Hodnicki 02/24/2024 2 [place] [facility] Nereyda Gagei [id number] Nereyda Hodnicki 02/27/2024 1 [place] [employer] Nereyda M Hodnicki [id number] Nereyda Hodnicki 02/27/2024 2 [place] [facility] Nereyda Hodnicki [id number] Nereyda Hodnicki 03/08/2024 1 [place] [employer] Nereyda M Hodnicki [id number] Nereyda Hodnicki 03/08/2024 2 [place] [facility] Nereyda Hodnicki [id number] Nereyda Hodnicki Notes Date Note Type Note Provider Name and Address Organization Details Recorded Time 02/17/2024 text/html Patient is a 68 yo female who presents for acute rounding visit PMH remarkable for hiatal hernia, cerebral palsy, urge incontinence, arthritis and benign uterine neoplasm Patient is actively participating in therapycurrent modA assist x 2 for most tasksNo acute nursing concernsShe tells me her LBM was close to 2 weeks ago. Chart review reveals LBM 02/06She reports dark chocolate and cashews help her to go A_Tremblay-Da vis [address], [address], [place], [address], [facility] 02/17/2024 11:14:56 02/19/2024 text/html Patient is a 68 yo female who presents for telehealth acute rounding visit PMH remarkable for hiatal hernia, cerebral palsy, urge incontinence, arthritis and benign uterine neoplasm Bowel regimen started this week for no documented BM in 11 dayseffective with medium stool yesterday A_Tremblay-Da vis [address], [address], [place], [address], [facility] 02/19/2024 13:18:19 02/24/2024 text/html Patient is a 68 yo female who presents for [employer] 30 day routine rounding visit PMH remarkable for hiatal hernia, cerebral palsy, urge incontinence, arthritis and benign uterine neoplasm Patient adjusting well to facilityActively participating in therapySister/HCP cancelled f/u thoracic surgery apt. She plans to reschedule once discharged homeShe was seen by Dr. Kahn with PMR 02/15 with recs to monitor for constipation, sleep hygiene, signs of UTIHer bowel regimen was adjusted last week for constipation with improvement. LBM 02/22 Patient seen sitting in w/c working with therapy in [facility]. She denies any complaints today A_Tremblay-Da vis [address], [address], [place], [address], [facility] 02/24/2024 10:16:50 02/27/2024 text/html Patient is a 68 yo female who presents for acute rounding visit PMH remarkable for hiatal hernia, cerebral palsy, urge incontinence, arthritis and benign uterine neoplasm Actively participating in therapyIMprovement in bowels with med adjustmentNursing denies any acute concerns Patient seen sitting in w/c in room in [facility]. She denies any concerns today A_Tremblay-Da vis [address], [address], [place], [address], [facility] 02/27/2024 11:15:20 03/08/2024 text/html Patient is a 68 yo female who presents for discharge summary visit PMH remarkable for hiatal hernia, cerebral palsy, urge incontinence, arthritis and benign uterine neoplasm Presented to ED with N/V and found to be likely due to hiatal hernia. No evidence of active bleeding and treated with IV PPI. H/H remained normalEval by GI with no need for inpatient EGD unless unable to tolerate diet which can be gradually advanced as toleratedCT abdomen large hiatal hernia containing a large portion of the stomach and short segment of the transverse colon. As well as the possibility of thickening of xiomy wall of the stomach. Evaluated by thoracic surgery who felt no evidence of volvulus or incarcerated hernia at that time.Recs outpatient surgical f/u for consideration of elective repair of hiatal hernia.She has tolerated advancement of dietShe was transferred to SNF for rehab services Patient adjusted well to facilityActively participated in therapySister/HCP cancelled f/u thoracic surgery apt. She plans to reschedule once discharged homeShe was seen by Dr. Kahn with PMR 02/15 with recs to monitor for constipation, sleep hygiene, signs of UTIHer bowel regimen was adjusted last week for constipation with improvement.She has been medically stable and okay for discharge home today with meds and services Patient seen lying in bed in [facility]. She tells me she is excited to be going home today. She denies any concerns or complaints today [facility] [address], [place], [address], [facility] 03/08/2024 09:42:08 OBGyn Episode No OBEpisode recorded.
--- OUTSIDE RECORDS SUMMARY | 2024-03-30 13:55 | XMS_ITS ---
Author Organization [facility] Address [address] [place] [address] Care Team Providers Care Visor Installer Name Role Phone Esau Pike MD Primary Care Provider Unavail able May [place] Unavailable [phone] Petrona Aguila Unavailable [phone] Allergies Allergen (clinical drug ingredient) Drug/Non Drug Allergy documented on EMR Reaction Allergy Type Onset Date Status tetracycline Tetracycline HCl Unknown Drug Allergy Active erythromycin Erythromycin Stomach Upsets Drug Allergy Active REASON FOR VISIT At Risk Footcare Medications Medication SIG (Take, Route, Frequency, Duration) Notes Start Date End Date Status Jennifer PRN Active Claritin PRN Active Latanoprost Active Amantadine HCl 100 MG Orally Active Baclofen 10 MG Orally Activ e Docusate Sodium Acti ve Claritin Not-Taking ZyrTEC 10 MG Orally Not-Mac ing hydrochlorothiazide once a day Active Losartan Potassium A ctive Tylenol 500 MG/15ML Orally Active VESIcare 10 MG Orally Activ e ZyrTEC Allergy PRN Activ e Jennifer Not-Taking Omeprazole 20 MG Orally Act larry Social History Tobacco Use: Social History Observation Description Date Details (start date - stop date) Never Smoker NA - NA Tobacco Use/Smoking Question Answer Notes Are you a: nonsmoker Additional Findings: Tobacco Non-User Current no n-smoker Tobacco use other than smoking: Question Answer Notes Are you an other tobacco user? 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 ; Pain in toe of right foot M79.674 ; Tinea unguium B35.1 and Pain in toe of left foot M79.675 Assessments Encounter Date Diagnosis (ICD Code) Assessment Notes Treatment Notes Treatment Clinical Notes Section Notes 12/02/2023 Neuropathy associated with hereditary ataxia (ICD-10 - 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) 12/02/2023 Pain in toe of right foot (ICD-10 - M79.674) 12/02/2023 Tinea unguium (ICD-10 - B35.1) 12/02/2023 Pain in toe of left foot (ICD-10 - M79.675) Plan Of Treatment Next Appt Details Follow Up: 2 Months, Reason: Provider Name:Petrona tineo, 04/20/2024 03:30:00 PM, [address] [place] [address], [address], Procedure Notes * Category Sub-Category Detail Notes Debride Nails 1-5 Procedure: Nail debrideme nt performed extensively to reduce/remove overall nail length and girth, subungual debris, and necrotic tissue, by manual and electrical means by use of a nail nipper and/or dremel, to more viable healthy nail plate or bed tissue 1-5. Silver nitrate used for any petechial bleeding as necessary. Patient chooses, no pharmaceutical tx (10065) Nail Reduction Nail Reduction Trimming of non- dystrophic nails performed to reduce/remove overall nail length and girth, by manual and electrical means with use of a nail nipper and/or dremel, to more viable healthy nail plate or bed tissue 6-10 (96429) Progress Notes * Nereyda POP MDOB:[birth year] (68 yo F)Acc No.[id number]:12/02/2023 Progress Note Patient:?Nereyda Pop Provider:?Petrona Aguila DPM :1955???Age:68 Y???Sex:Female D ate:12/02/2023 Address:[address] [place], [place] [id number] Pcp:Esau Pike MD Subjective: * Chief Complaints: * ???At Risk Footcare * HPI: ???At Risk footcare:?Pt States Last PCP Visit:?Date?11/19/2023 * ROS:?General/Constitutional:?Nausea?denies, denies, denies.?Vomiting?denies, denies, denies.?Hunger Thirst?denies, denies, denies.?Loss appetite?denies, denies, denies.?Chills?denies, denies, denies.?Fatigue?denies, denies, denies.?Fever?denies, denies, denies.?Night Sweats?denies, denies, denies.?Unexplained weight loss?denies, denies, denies.?Unexplained weight gain?denies, denies, denies.?HEENTM:?Dentures?denies, denies, denies.?Dizziness?denies, denies, denies.?Glasses/contacts?admits, admits, admits.?Retinopathy?denies, denies, denies.?Blurred/double vision?denies, denies, denies.?TMJ?denies, denies, denies.?Discharge/drainage?denies, denies, denies.?Implants?denies, denies, denies.?Sore throat?denies, denies, denies.?Dental implants?denies, denies, denies.?Hard of hearing ?denies, denies, denies.?Difficulty chewing/swallowing/speaking denies, denies, denies.?Nose bleeds?denies, denies, denies.?Sore mouth?denies, denies, denies.?Respiratory:?On Oxygen?denies, denies, denies.?Pneumonia/pleurisy?denies, denies, denies.?Bronchitis?denies, denies, denies.?Emphysema?denies, denies, denies.?Coughing?denies, denies, denies.?Cough blood?denies, denies, denies.?Shortness of breath?denies, denies, denies.?Wheezing?denies, denies, denies.?Cardiovascular:?Pacemaker?denies, denies, denies.?MVP?denies, denies, denies.?WPW?denies, denies, denies.?CHF?denies, denies, denies.?Heart attack?denies, denies, denies.?Septal defect?denies, denies, denies.?Rapid beat denies, denies, denies.?Chest pain ?denies, denies, denies.?Atrial Fib.?denies, denies, denies.?Murmur/Palpitations?denies, denies, denies.?Gastrointestinal:?Hemorrhoids?denies, denies, denies.?Stomach/Abdominal pain?denies, denies, denies.?Dark blood stool?denies, denies, denies.?Irritable bowel ?denies, denies, denies.?Constipation?denies, denies, denies.?Diarrhea?denies, denies, denies.?Hematology:?Swelling?denies, denies, denies.?Clots?denies, denies, denies.?Varicose Veins?denies, denies, denies.?Bruising?denies, denies, denies.?Bleeding problem?denies, denies, denies.?Genitourinary:?Blood urine?denies, denies, denies.?Frequent/Painfu/urination/bladder control?denies, denies, denies.?Kidney stones?denies, denies, denies.?Infection (UTI)?denies, denies, denies.?Nephropathy?denies, denies, denies. sex trans dis (STD)?denies, denies, denies.?Prostate?denies, denies, denies.?Musculoskeletal:?Hammertoes?denies, denies, denies.?Bunions?denies, denies, denies.?Back Pain?admits, admits, admits.?Muscle Cramps/ Resting?denies, denies, denies.?Muscle cramps / walking?denies, denies, denies.?Generalized aches and pains?admits, admits, admits.?Weakness?denies, denies, denies.?Integ.:?Benson?denies, denies, denies.?Scars?denies, denies, denies.?Corns/calluses?admits, admits, admits.?Ingrown nails?denies, denies, denies.?Painful nails?denies, denies, denies.?Open Sores?denies, denies, denies.?Rashes?denies, denies, denies.?Neurologic:?Difficulty sleeping?denies, denies, denies.?Brain disorder?denies, denies, denies.?Numbness?denies, denies, denies.?Balance trouble?denies, denies, denies.?Confusion?denies, denies, denies.?Fainting/blackouts?denies, denies, denies.?Tingling?denies, denies, denies.?Tremors?denies, denies, denies.? * Medical History:? * Surgical History:?bone surge ry 1961,1963,1966,1971wisdom teeth extraction 1979oral surgery 2008hysterectomy 01/12/21 * Hospitalization/Major Diagno stic Procedure:?[facility]- Unresponsive for five minutes 09/2019[facility]- fell 4 x in three days then 30 days in rehab [facility] after hysterectomy 01/12/21 * Family History:?Mother: dece ased, diagnosed with Unspecified heart disease.?Father: .?Siblings: diagnosed with Unspecified essential hypertension.? * Social History:?Tobacco Use:?Tobacco Use/Smoking?Are you a:?nonsmoker ?Additional Findings: Tobacco Non-User?Current non-smoker ?Tobacco use other than smoking?Are you an other tobacco user??No ???Miscellaneous:?Caffeine: yes, 1-2 cups per day. ?no Children. ?Exercise: yes, walking, physcial therapy. ?Marital status: single. 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 * Medications:?Takinghydrochlo rothiazide , Notes: once a dayLosartan Potassium Docusate Sodium Jennifer , Notes: PRNAmantadine HCl 100 MG Capsule Orally Baclofen 10 MG Tablet Orally Claritin , Notes: PRNLatanoprost Omeprazole 20 MG Capsule Delayed Release Orally Tylenol 500 MG/15ML Liquid Orally VESIcare 10 MG Tablet Orally ZyrTEC Allergy , Notes: PRNTaking hydrochlorothiazide , Notes: once a dayTaking Losartan Potassium Taking Docusate Sodium Taking Jennifer , Notes: PRNTaking Amantadine HCl 100 MG Capsule Orally Taking Baclofen 10 MG Tablet Orally Taking Claritin , Notes: PRNTaking Latanoprost Taking Omeprazole 20 MG Capsule Delayed Release Orally Taking Tylenol 500 MG/15ML Liquid Orally Taking VESIcare 10 MG Tablet Orally Taking ZyrTEC Allergy , Notes: PRNNot-Taking/PRNAllegra Claritin ZyrTEC 10 MG Tablet Orally Medication List reviewed and reconciled with the patientNot-Taking/PRN Jennifer Not-Taking/PRN Claritin Not-Taking/PRN ZyrTEC 10 MG Tablet Orally Medication List reviewed and reconciled with the patient * Allergies:?Tetracycline HClE rythromycin: Stomach Upsetsyes[Allergies Verified] Objective: * Vitals:?Ht: 5ft, Wt:126, BMI :24.61, Shoe size: 7, BP:134/68 mm Hg, Ht-cm: 152.4 cm, Wt-k.15 kg. * Examination: ???Vascular: ?DP PULSES(B):?2/4, B/L.?PT PULSES(B):?2/4, B/L.?CAPILLARY FILL TIME:?3 secs. per digit, B/L.?TROPHIC CONDITION-TEXTURE/ELASTICITY/TURGOR/HAIR GROWTH(B):?normal, B/L.?TEMPERTURE GRADIENT(C):?warm to cool, proximal to distal, B/L.?PIGMENTATION:?normal, B/L.?EDEMA(C):?absent, B/L.?Neurological: ?SENSORY:?Neurological exam demonstrates, reduced sharp/dull discrimination , reduced proprioception sensation, 5.07 monofilament test performed at plantar aspects of 5 varied sites per foot shows sensation, reduced, at Forefoot, at Midfoot, at Rearfoot, B/L, Pt relates, CONT. anesthesia, burning, pins and needles sensation.?Nails: ?NAILS are:?Elongated, overgrown, nondystrophic, 1-4 B/L, Elongated, overgrown, dystrophic, lytic, greater than 3mm thick, discolored and friable with crumbly malodorous subungual debris, with pain on palpation, T4, T9.? 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 Plan: * Treatment: * Procedures:?Debride Nails 1-5:?Procedure:?Nail debridement performed extensively to reduce/remove overall nail length and girth, subungual debris, and necrotic tissue, by manual and electrical means by use of a nail nipper and/or dremel, to more viable healthy nail plate or bed tissue 1-5. Silver nitrate used for any petechial bleeding as necessary. Patient chooses, no pharmaceutical tx (00080).?Nail Reduction:?Nail Reduction?Trimming of non-dystrophic nails performed to reduce/remove overall nail length and girth, by manual and electrical means with use of a nail nipper and/or dremel, to more viable healthy nail plate or bed tissue 6-10 (28550).? * Procedure Codes:?G0127 JENNIFER ING DYSTROPHIC NAILS ANY #, Modifiers: XS 81787 DEBRIDE NAIL, 1-5, Modifiers: XS * Follow Up:?2 Months * Images: * Sign off status: Completed true * Provider:?Petrona Aguila DPM Date:? Generated for Vale benítez/Juliette/Lissettitting on:?03/30/2024 01:55 PM EST History and Physical Notes * HPI (History of Present Illness) Category Sub-Category Detail Notes Category Not es At Risk footcare Pt States Last PCP Visit: Date: 4 Examination Category Sub-Category Detail Notes Category Not es Neurological SENSORY: Neurological exa m demonstrates, reduced sharp/dull discrimination , reduced proprioception sensation, 5.07 monofilament test performed at plantar aspects of 5 varied sites per foot shows sensation, reduced, at Forefoot, at Midfoot, at Rearfoot, B/L, Pt relates, CONT. anesthesia, burning, pins and needles sensation Vascular DP PULSES (B): 2/4, B/L PT PULSES (B): 2/4, B/L CAPILLARY FILL TIME: 3 secs. per digit, B/L TEMPERTURE GRADIENT (C): warm to cool, p roximal to distal, B/L TROPHIC CONDITION-TEXTURE/ELASTICITY/TURGOR/HAIR GROWTH (B): normal, B/L EDEMA (C): absent, B/L PIGMENTATION: normal, B/L Nails NAILS are: Elongated, overg rown, nondystrophic, 1-4 B/L, Elongated, overgrown, dystrophic, lytic, greater than 3mm thick, discolored and friable with crumbly malodorous subungual debris, with pain on palpation, T4, T9
--- OUTSIDE RECORDS SUMMARY | 2024-03-30 13:55 | XMS_ITS | Continuity of Care Document ---
Author Organization [facility] Address [address] [place] [address] Care Team Providers Care Cryogenics Repairer Name Role Phone [facility] OTHER Assessment No assessment recorded. Plan [...] Address Organization Details Recorded Time Hiatal hernia 14778275 Active 2023 A_Salbadora guero-Aroldo [address], [address], [place], [address], [facility] Invarium [facility] 4 10:12:27 Benign neoplasm of uterus 79098239 Active 2023 A_Salbadora guero-Aroldo [address], [address], [place], [address], [facility] [employer] 4 10:12:35 Urge incontinence of urine 00785149 Active 2023 A_Trembla y-Aroldo [address], [address], [place], [address], [employer] 4 10:12:41 Arthritis 8261751 Active 2023 A_Trembla y-Aroldo [address], [address], [place], [address], [facility] [employer] 4 10:12:49 Cerebral palsy 339833550 Active 2023 A_Trembla y-Aroldo [address], [address], [place], [address], [facility] 4 10:12:59 Glaucoma 13656569 Active 2023 Cisco White [address] [facility], [address], [place], [address], [facility] 4 12:10:34 Essential hypertension 44651909 Active 2023 Jarek Valenzuela MD [address] [facility], [address], [place], [address], [facility] 4 13:57:05 Problem Notes None recorded. Procedures Surgical History Date Name Laterality Status Provider Name and Address Organization Details Recorded Time total hysterectomy with removal of both tubes and ovaries completed Yves rolle [address] [facility], [address], [place], [address], [facility] 02/04/2024 12:14:37 Imaging Results None recorded. Procedure Notes None recorded. Medical Equipment None Reported. Allergies Allergen ID Allergen Name Allergen Category Reaction Reaction Severity Criticality Documentation Date Start Date Code Code System Note Provider Name and Address Organization Details Recorded Time [id number] 2824e polyester fibers Not available Not available Not available Not available 02/04/2024 52906 UNK Not Available Not Available Not Available [id number] 2824e tetracycl ine medicatio n Not available Not available Not available 02/04/2024 59544 RxNorm Not Available Not Available Not Available [id number] 2824e erythromy sonia medicatio n Not available Not available Not available 02/04/2024 4053 RxNorm Not Available Not Available Not Available Medications Not known to be on any medication Vitals None Recorded Social History Question Answer Notes LastModified by Organizat ion Details LastModified Time Tobacco Smoking Status Never Smoker Shaun [address] [facility], [address], [place], [address], [facility] 02/04/2024 12:14:11 What Is Your Level [...] Time SARS-COV-2 (COVID-19) vaccine, UNSPECIFIED 06/22/2020 completed Miriammarko [facility] 02/04/2024 12:23:21 SARS-COV-2 (COVID-19) vaccine, UNSPECIFIED 01/23/2021 completed Miriam [facility] 02/04/2024 12:23:28 Past Encounters Encounter ID Performer Location Encounter Start Date Encounter Closed Date Diagnosis/Indication Diagnosis SNOMED-CT Code Diagnosis ICD10 Code Diagnosis Note [id number] Iván_Makayla Alarcon [facility] [address] [address] 02/04/2024 10:11:58 02/05/2024 14:13:21 Urge incontinence of urine 97334851 N39.41 continue solifenaci n 10mg qHS Cerebral palsy 954201555 G80.9 very deconditio nedcontinu e baclofen 5mg QID and amantadine 100mg qd and 200mg qHSAdmit to services for PT/OT for strengthen ing, balance, gait training, safety and function.C ontinue fall precaution s.Monitor for safety. 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 Moderate c ognitive impairment 361035746 R41.9 BIMS 10monitor insight and need to invoke [facility] [id number] Jarek Valenzuela MD [place] [facility] [facility] [address] [address] 02/05/2024 13:51:35 02/06/2024 10:41:38 Asthenia 20325315 R53.1 PT OT eval and treatmonit or fall risk and need for increased support in community Essential hypertension 40661614 I10 HCTZ 25 mg qdlosartan 25 mg qdmonitor bp and need to titrate Urge incon tinence of urine 91461011 N39.41 vesicare 10 mg qdmonitor for sx relief Cerebral palsy 316178588 G80.9 maintained onbaclofen and amantadine monitor for change in conditioni ng with above therapy Hiatal hernia 97610910 K 44.9 see HPIN/V secondary to hiatal herniato f/u with surgery out patient to consider surgical repairmoni tor for sxomeprazo le 20 mg bid Hypertensive disorder 38 281986 I10 continue losartan 25mg qd and HCTZ 25mg qdmonitor BP and labs Arthritis 0063727 M19.90 Continue APAP 325mg TID prn Benign dona plasm of uterus 88359636 D26.9 carrying dx Nausea and vomiting 1693 1999 R11.2 start zofran 4mg q6h prn Glaucoma 14022486 H40.9 Continue latanopros t 0.005% both eyes qhs Asthenia d ue to disease 9790094871 106 R53.1 Admit to services for PT/OT for strengthen ing, balance, gait training, safety and function.C ontinue fall precaution s.Monitor for safety. Moderate c ognitive impairment 711304054 R41.9 BIMS 10monitor insight and need to invoke HCP [id number] [facility] [address] [address] 02/09/2024 07:27:03 02/10/2024 10:19:01 Hiatal hernia 30381547 K44.9 no need for EGD inpatientf /u thoracic today to discuss elective repaircont inue omeprazole 20mg BIDmonitor for recurrent N/V Cerebral palsy 496571503 G80.9 very deconditio nedcontinu e baclofen 5mg QID and amantadine 100mg qd and 200mg qHSContinu e PT/OT for strengthen ing, balance, gait training, safety and function.C ontinue fall precaution s.Monitor for safety. [id number] [facility] AT [address] [address] 02/11/2024 07:20:07 02/16/2024 14:42:52 Hiatal hernia 16494001 K44.9 no need for EGD inpatients ister to reschedule thoracic surgery f/ucontinu e omeprazole 20mg BIDmonitor for recurrent N/V Cerebral palsy 366490366 G80.9 very deconditio nedcontinu e baclofen 5mg QID and amantadine 100mg qd and 200mg qHSschedul e APAP 975mg TIDContinu e PT/OT for strengthen ing, balance, gait training, safety and function.C ontinue fall precaution s.Monitor for safety. Near syncope 849680386 R 55 high risk of orthostati c intoleranc e, which can begin to appear within 3-4 days of commencing bed rest and is likely to appear more rapidly in individual s with underlying cardiovasc ular disease and in the elderlyAdv ising rising from seated position slowly and report any recurrent sxs to staff [id number] [facility] AT [address] [address] 02/17/2024 07:18:09 02/18/2024 11:11:46 Hiatal hernia 04573309 K44.9 no N/Vsister to reschedule thoracic surgery f/ucontinu e omeprazole 20mg BID Cerebral palsy 637808615 G80.9 very deconditio nedcontinu e baclofen 5mg QID and amantadine 100mg qd and 200mg qhs, APAP 975mg TIDContinu e PT/OT for strengthen ing, balance, gait training, safety and function.C ontinue fall precaution s.Monitor for safety. Near syncope 415216266 R 55 no acute sxsAdvisin g rising from seated position slowly and report any recurrent sxs to staff Constipation 30338663 K5 9.00 LBM 02/06start miralax 17g BID and senna 8.6mg qdgive MOM x 1 nowmullins bowels Health Concerns Section Related Observation LastModified by Organization Detai ls LastModified Time None Recorded Concern Status LastModified by Organization Details LastModified Time None Recorded Payers Encounter Date Sequence Insurance Name Policy Number Policy Rod Covered Member ID Rod Member ID Guarantor Name 02/17/2024 1 [place] [employer] Nereyda Escalera [id number] Nereyda Escalera 02/17/2024 2 [place] [employer] Nereyda Escalera [id number] Nereyda Escalera Notes Date Note Type Note Provider Name [...] chocolate and cashews help her to go A_Tremblay-Justin is [address] [facility], [address], [place], [address], [facility] 02/17/2024 11:14:56 OBGyn Episode No OBEpisode recorded.
--- OUTSIDE RECORDS SUMMARY | 2024-03-30 13:55 | XMS_ITS ---
Author Organization [facility] Address [address] [place] [address] Care Team Providers Care Diaphragm Builder Name Role Phone Shahzad BARRAZA, Esau Primary Care Provider Unavail able Black, May Unavailable [phone] REASON FOR VISIT rs from 02/06/24 Encounters Encounter Location Date Provider Diagnosis [address] [address] 02/04/2024 [place] Plan Of Treatment Next Appt Details Provider Name:Petrona tineo, 04/20/2024 03:30:00 PM, [address] [place], [address], Progress Notes * Nereyda POP MDOB:[birth year] (68 yo F)Acc No.[id number]:02/04/2024 Patient:?Nereyda POP :1955???Age:68 Y???Sex:Female Address:[address] [place] [address], [address] * true * Date:? Generated for Printi jeyson/Juliette/eTransmitting on:?03/30/2024 01:55 PM EST
--- OUTSIDE RECORDS SUMMARY | 2024-03-30 13:55 | XMS_ITS | Continuity of Care Document ---
Author Organization [facility] [place] Address [address] [place] [address] Care Team Providers Care Millinery Designer Name Role Phone [facility] [facility] OTHER Assessment No assessment recorded. Plan [...] Address Organization Details Recorded Time Hiatal hernia 03301884 Active 2023 A_Salbadora guero-Aroldo [address], [address], [place], [address], [facility] [employer] [facility] 4 10:12:27 Benign neoplasm of uterus 09762956 Active 2023 A_Salbadora guero-Aroldo [address], [address], [place], [address], [facility] [employer] 4 10:12:35 Urge incontinence of urine 51824277 Active 2023 A_Trembla y-Raoldo [address], [address], [place], [address], [employer] 4 10:12:41 Arthritis 5465420 Active 2023 A_Trembla y-Aroldo [address], [address], [place], [address], [facility] [employer] 4 10:12:49 Cerebral palsy 692303174 Active 2023 A_Trembla y-Aroldo [address], [address], [place], [address], [facility] [employer] [facility] 4 10:12:59 Glaucoma 12220617 Active 2023 Cisco White [address] [facility] [address] [facility], [address], [place], [address], [facility] [employer] 4 12:10:34 Essential hypertension 25880644 Active 2023 Jarek Valenzuela MD [address] [facility], [address], [place], [address], [facility] 4 13:57:05 Problem Notes None recorded. Procedures Surgical History Date Name Laterality Status Provider Name and Address Organization Details Recorded Time total hysterectomy with removal of both tubes and ovaries completed Yves rolle [address] [facility], [address], [place], [address], [facility] [employer] [facility] 02/04/2024 12:14:37 Imaging Results None recorded. Procedure Notes None recorded. Medical Equipment None Reported. Allergies Allergen ID Allergen Name Allergen Category Reaction Reaction Severity Criticality Documentation Date Start Date Code Code System Note Provider Name and Address Organization Details Recorded Time [id number] 2824e polyester fibers Not available Not available Not available Not available 02/04/2024 95276 UNK Not Available Not Available Not Available [id number] 2824e tetracycl ine medicatio n Not available Not available Not available 02/04/2024 80845 RxNorm Not Available Not Available Not Available [id number] 2824e erythromy sonia medicatio n Not available Not available Not available 02/04/2024 4053 RxNorm Not Available Not Available Not Available Medications Not known to be on any medication Vitals None Recorded Social History Question Answer Notes LastModified by Organizat ion Details LastModified Time Tobacco Smoking Status Never Smoker Shaun [address] [facility] [address] [facility], [address], [place], [address], [facility] [facility] 02/04/2024 12:14:11 What Is Your Level [...] (COVID-19) vaccine, UNSPECIFIED 06/22/2020 completed Miriammarko [facility] 02/04/2024 12:23:21 SARS-COV-2 (COVID-19) vaccine, UNSPECIFIED 01/23/2021 completed Miriam [facility] 02/04/2024 12:23:28 Past Encounters Encounter ID Performer Location Encounter Start Date Encounter Closed Date Diagnosis/Indication Diagnosis SNOMED-CT Code Diagnosis ICD10 Code Diagnosis Note [id number] Iván_Makayla Alarcon [place] AT [address] [address] 02/04/2024 10:11:58 02/05/2024 14:13:21 Urge incontinence of urine 96242571 N39.41 continue solifenaci n 10mg qHS Cerebral palsy 342939680 G80.9 very deconditio nedcontinu e baclofen 5mg QID and amantadine 100mg qd and 200mg qHSAdmit to services for PT/OT for strengthen ing, balance, gait training, safety and function.C ontinue fall precaution s.Monitor for safety. 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 Moderate c ognitive impairment 119091902 R41.9 BIMS 10monitor insight and need to invoke [facility] [id number] Jarek Valenzuela MD [place] [facility] [address] [address] 02/05/2024 13:51:35 02/06/2024 10:41:38 Asthenia 04119228 R53.1 PT OT eval and treatmonit or fall risk and need for increased support in community Essential hypertension 39103000 I10 HCTZ 25 mg qdlosartan 25 mg qdmonitor bp and need to titrate Urge incon tinence of urine 63237623 N39.41 vesicare 10 mg qdmonitor for sx relief Cerebral palsy 931869871 G80.9 maintained onbaclofen and amantadine monitor for change in conditioni ng with above therapy Hiatal hernia 06912082 K 44.9 see HPIN/V secondary to hiatal herniato f/u with surgery out patient to consider surgical repairmoni tor for sxomeprazo le 20 mg bid Hypertensive disorder 38 748884 I10 continue losartan 25mg qd and HCTZ 25mg qdmonitor BP and labs Arthritis 5583414 M19.90 Continue APAP 325mg TID prn Benign dona plasm of uterus 19130738 D26.9 carrying dx Nausea and vomiting 1693 1999 R11.2 start zofran 4mg q6h prn Glaucoma 77559022 H40.9 Continue latanopros t 0.005% both eyes qhs 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 Moderate c ognitive impairment 368648665 R41.9 BIMS 10monitor insight and need to invoke HCP [id number] Gucci [place]G[facility] AT [address] [address] 02/09/2024 07:27:03 02/10/2024 10:19:01 Hiatal hernia 77304414 K44.9 no need for EGD inpatientf /u thoracic today to discuss elective repaircont inue omeprazole 20mg BIDmonitor for recurrent N/V Cerebral palsy 599378173 G80.9 very deconditio nedcontinu e baclofen 5mg QID and amantadine 100mg qd and 200mg qHSContinu e PT/OT for strengthen ing, balance, gait training, safety and function.C ontinue fall precaution s.Monitor for safety. [id number] Gucci SALGADO AT [address] [address] 02/11/2024 07:20:07 02/16/2024 14:42:52 Hiatal hernia 02708859 K44.9 no need for EGD inpatients ister to reschedule thoracic surgery f/ucontinu e omeprazole 20mg BIDmonitor for recurrent N/V Cerebral palsy 698471229 G80.9 very deconditio nedcontinu e baclofen 5mg QID and amantadine 100mg qd and 200mg qHSschedul e APAP 975mg TIDContinu e PT/OT for strengthen ing, balance, gait training, safety and function.C ontinue fall precaution s.Monitor for safety. Near syncope 926022071 R 55 high risk of orthostati c intoleranc e, which can begin to appear within 3-4 days of commencing bed rest and is likely to appear more rapidly in individual s with underlying cardiovasc ular disease and in the elderlyAdv ising rising from seated position slowly and report any recurrent sxs to staff [id number] Gucci SALGADO AT [address] [address] 02/17/2024 07:18:09 02/18/2024 11:11:46 Hiatal hernia 17101491 K44.9 no N/Vsister to reschedule thoracic surgery f/ucontinu e omeprazole 20mg BID Cerebral palsy 494026643 G80.9 very deconditio nedcontinu e baclofen 5mg QID and amantadine 100mg qd and 200mg qhs, APAP 975mg TIDContinu e PT/OT for strengthen ing, balance, gait training, safety and function.C ontinue fall precaution s.Monitor for safety. Near syncope 061671576 R 55 no acute sxsAdvisin g rising from seated position slowly and report any recurrent sxs to staff Constipation 46012495 K5 9.00 LBM 02/06start miralax 17g BID and senna 8.6mg qdgive MOM x 1 nowmonitor bowels [id number] [facility] [place] [address] [place] [address] 02/19/2024 07:36:51 02/20/2024 11:20:35 Constipation 39140007 K59.00 LBM 12/4Contin ue miralax 17g BID and senna 8.6mg qdmonitor bowels Hiatal hernia 93388625 K 44.9 no N/Vsister to reschedule thoracic surgery f/ucontinu e omeprazole 20mg BID [id number] [facility] [place] [address] [place] [address] 02/24/2024 07:33:59 02/25/2024 12:23:01 Constipation 11649075 K59.00 LBM 12/9Contin ue miralax 17g BID and senna 8.6mg qdmonitor bowels Hiatal hernia 29214549 K 44.9 no N/V reportedsi ster to reschedule thoracic surgery f/u once discharged continue omeprazole 20mg BID Cerebral palsy 340024030 G80.9 very deconditio nedcontinu e baclofen 5mg QID and amantadine 100mg qd and 200mg qhs, APAP 975mg TIDContinu e PT/OT for strengthen ing, balance, gait training, safety and function.C ontinue fall precaution s.Monitor for safety. Near syncope 901425191 R 55 no acute sxsAdvisin g rising from seated position slowly and report any recurrent sxs to staff Urge incon tinence of urine 63476339 N39.41 continue solifenaci n 10mg qHS Hypertensive disorder 38 999786 I10 Well-contr olledconti nue losartan 25mg qd and HCTZ 25mg qdmonitor BP and labs Arthritis 5513195 M19.90 Continue APAP 325mg TID prn Nausea and vomiting 1693 2000 R11.2 no reported episodesco ntinue zofran 4mg q6h prn Glaucoma 24532919 H40.9 Continue latanopros t 0.005% both eyes qhs Health Concerns Section Related Observation LastModified by Organization Detai ls LastModified Time None Recorded Concern Status LastModified by Organization Details LastModified Time None Recorded Payers Encounter Date Sequence Insurance Name Policy Number Policy Rod Covered Member ID Rod Member ID Guarantor Name 02/24/2024 1 [place] [employer] Nereyda Escalera [id number] Nereyda Escalera 02/24/2024 2 [place] [facility] Nereyda Escalera [id number] Nereyda Escalera Notes Date Note Type Note Provider Name and Address Organization Details Recorded Time 02/24/2024 text/html Patient is a 68 yo female who presents for 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 She denies any complaints today A_Tremblay-Da vis [address] [facility] [address] [facility], [address], [place], [address], [facility] 02/24/2024 10:16:50 OBGyn Episode No OBEpisode recorded.
--- OUTSIDE RECORDS SUMMARY | 2024-03-30 13:55 | XMS_ITS | Continuity of Care Document ---
Author Organization [facility] [place] Address [address] [place] [address] Care Team Providers Care Eye Specialist Name Role Phone [facility] [facility] OTHER Assessment No assessment recorded. Plan [...] Address Organization Details Recorded Time Hiatal hernia 92776131 Active 2023 A_Salbadora guero-Aroldo [address], [address], [place], [address], [facility] [employer] [facility] 4 10:12:27 Benign neoplasm of uterus 16484918 Active 2023 A_Salbadora guero-Aroldo [address], [address], [place], [address], [facility] [employer] 4 10:12:35 Urge incontinence of urine 43940627 Active 2023 A_Trembla y-Aroldo [address], [address], [place], [address], [employer] 4 10:12:41 Arthritis 7219472 Active 2023 A_Trembla y-Aroldo [address], [address], [place], [address], [facility] [employer] 4 10:12:49 Cerebral palsy 144516224 Active 2023 A_Trembla y-Aroldo [address], [address], [place], [address], [facility] [employer] [facility] 4 10:12:59 Glaucoma 95075048 Active 2023 Cisco White [address] [facility], [address], [place], [address], [facility] [employer] [facility] 4 12:10:34 Essential hypertension 84150148 Active 2023 Jarek Valeznuela MD [address] [facility], [address], [place], [address], [facility] [employer] [facility] 4 13:57:05 Problem Notes None recorded. Procedures Surgical History Date Name Laterality Status Provider Name and Address Organization Details Recorded Time total hysterectomy with removal of both tubes and ovaries completed Yves rolle [address] [facility], [address], [place], [address], [facility] [employer] [facility] 02/04/2024 12:14:37 Imaging Results None recorded. Procedure Notes None recorded. Medical Equipment None Reported. Allergies Allergen ID Allergen Name Allergen Category Reaction Reaction Severity Criticality Documentation Date Start Date Code Code System Note Provider Name and Address Organization Details Recorded Time [id number] 4358767u8 2824e polyester fibers Not available Not available Not available Not available 02/04/2024 08900 UNK Not Available Not Available Not Available [id number] 464274491 [id number] 2824e tetracycl ine medicatio n Not available Not available Not available 02/04/2024 80945 RxNorm Not Available Not Available Not Available [id number] [id number] 2824e erythromy sonia medicatio n Not available Not available Not available 02/04/2024 4053 RxNorm Not Available Not Available Not Available Medications Not known to be on any medication Vitals None Recorded Social History Question Answer Notes LastModified by Organizat ion Details LastModified Time Tobacco Smoking Status Never Smoker Shaun [address] [facility], [address], [place], [address], [facility] [employer] [facility] 02/04/2024 12:14:11 What Is Your Level [...] (COVID-19) vaccine, UNSPECIFIED 06/22/2020 completed Miriammarko [facility] 02/04/2024 12:23:21 SARS-COV-2 (COVID-19) vaccine, UNSPECIFIED 01/23/2021 completed Miriam [facility] 02/04/2024 12:23:28 Past Encounters Encounter ID Performer Location Encounter Start Date Encounter Closed Date Diagnosis/Indication Diagnosis SNOMED-CT Code Diagnosis ICD10 Code Diagnosis Note [id number] Iván_Makayla Alarcon [place] AT [address] [address] 02/04/2024 10:11:58 02/05/2024 14:13:21 Urge incontinence of urine 58728955 N39.41 continue solifenaci n 10mg qHS Cerebral palsy 399230162 G80.9 very deconditio nedcontinu e baclofen 5mg QID and amantadine 100mg qd and 200mg qHSAdmit to services for PT/OT for strengthen ing, balance, gait training, safety and function.C ontinue fall precaution s.Monitor for safety. 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 Moderate c ognitive impairment 179111265 R41.9 BIMS 10monitor insight and need to invoke [facility] [id number] Jarek Valenzuela MD [place] AT [address] [address] 02/05/2024 13:51:35 02/06/2024 10:41:38 Asthenia 74875999 R53.1 PT OT eval and treatmonit or fall risk and need for increased support in community Essential hypertension 32948630 I10 HCTZ 25 mg qdlosartan 25 mg qdmonitor bp and need to titrate Urge incon tinence of urine 73245921 N39.41 vesicare 10 mg qdmonitor for sx relief Cerebral palsy 076638339 G80.9 maintained onbaclofen and amantadine monitor for change in conditioni ng with above therapy Hiatal hernia 89007376 K 44.9 see HPIN/V secondary to hiatal herniato f/u with surgery out patient to consider surgical repairmoni tor for sxomeprazo le 20 mg bid Hypertensive disorder 38 334628 I10 continue losartan 25mg qd and HCTZ 25mg qdmonitor BP and labs Arthritis 0340249 M19.90 Continue APAP 325mg TID prn Benign dona plasm of uterus 07155241 D26.9 carrying dx Nausea and vomiting 1693 1999 R11.2 start zofran 4mg q6h prn Glaucoma 90717524 H40.9 Continue latanopros t 0.005% both eyes qhs 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 Moderate c ognitive impairment 100373481 R41.9 BIMS 10monitor insight and need to invoke HCP [id number] Gucci SALGADO AT [address] [address] 02/09/2024 07:27:03 02/10/2024 10:19:01 Hiatal hernia 50220936 K44.9 no need for EGD inpatientf /u thoracic today to discuss elective repaircont inue omeprazole 20mg BIDmonitor for recurrent N/V Cerebral palsy 338541366 G80.9 very deconditio nedcontinu e baclofen 5mg QID and amantadine 100mg qd and 200mg qHSContinu e PT/OT for strengthen ing, balance, gait training, safety and function.C ontinue fall precaution s.Monitor for safety. [id number] Gucci SALGADO AT [address] [address] 02/11/2024 07:20:07 02/16/2024 14:42:52 Hiatal hernia 38644098 K44.9 no need for EGD inpatients ister to reschedule thoracic surgery f/ucontinu e omeprazole 20mg BIDmonitor for recurrent N/V Cerebral palsy 678773728 G80.9 very deconditio nedcontinu e baclofen 5mg QID and amantadine 100mg qd and 200mg qHSschedul e APAP 975mg TIDContinu e PT/OT for strengthen ing, balance, gait training, safety and function.C ontinue fall precaution s.Monitor for safety. Near syncope 063427199 R 55 high risk of orthostati c intoleranc e, which can begin to appear within 3-4 days of commencing bed rest and is likely to appear more rapidly in individual s with underlying cardiovasc ular disease and in the elderlyAdv ising rising from seated position slowly and report any recurrent sxs to staff [id number] Gucci SALGADO AT [address] [address] 02/17/2024 07:18:09 02/18/2024 11:11:46 Hiatal hernia 21596378 K44.9 no N/Vsister to reschedule thoracic surgery f/ucontinu e omeprazole 20mg BID Cerebral palsy 994165933 G80.9 very deconditio nedcontinu e baclofen 5mg QID and amantadine 100mg qd and 200mg qhs, APAP 975mg TIDContinu e PT/OT for strengthen ing, balance, gait training, safety and function.C ontinue fall precaution s.Monitor for safety. Near syncope 075414957 R 55 no acute sxsAdvisin g rising from seated position slowly and report any recurrent sxs to staff Constipation 82980826 K5 9.00 LBM 02/06start miralax 17g BID and senna 8.6mg qdgive MOM x 1 nowmonitor bowels [id number] [facility] [place] [address] [place] [address] 02/19/2024 07:36:51 02/20/2024 11:20:35 Constipation 00923557 K59.00 LBM 12/4Contin ue miralax 17g BID and senna 8.6mg qdmonitor bowels Hiatal hernia 28443210 K 44.9 no N/Vsister to reschedule thoracic surgery f/ucontinu e omeprazole 20mg BID [id number] [facility] [place] [address] [place] [address] 02/24/2024 07:33:59 02/25/2024 12:23:01 Constipation 58367307 K59.00 LBM 12/9Contin ue miralax 17g BID and senna 8.6mg qdmonitor bowels Hiatal hernia 63328744 K 44.9 no N/V reportedsi ster to reschedule thoracic surgery f/u once discharged continue omeprazole 20mg BID Cerebral palsy 408180566 G80.9 very deconditio nedcontinu e baclofen 5mg QID and amantadine 100mg qd and 200mg qhs, APAP 975mg TIDContinu e PT/OT for strengthen ing, balance, gait training, safety and function.C ontinue fall precaution s.Monitor for safety. Near syncope 742684324 R 55 no acute sxsAdvisin g rising from seated position slowly and report any recurrent sxs to staff Urge incon tinence of urine 62478524 N39.41 continue solifenaci n 10mg qHS Hypertensive disorder 38 933906 I10 Well-contr olledconti nue losartan 25mg qd and HCTZ 25mg qdmonitor BP and labs Arthritis 4336599 M19.90 Continue APAP 325mg TID prn Nausea and vomiting 1693 2000 R11.2 no reported episodesco ntinue zofran 4mg q6h prn Glaucoma 03781764 H40.9 Continue latanopros t 0.005% both eyes qhs [id number] Iván_Makayla [place] [facility] [place] [address] [place] [address] 02/27/2024 07:31:04 03/01/2024 14:17:51 Constipation 78930454 K59.00 [employer] ntinue miralax 17g BID and senna 8.6mg qdmonitor bowels Hiatal hernia 85914350 K 44.9 no N/V reportedsi ster to reschedule thoracic surgery f/u once discharged continue omeprazole 20mg BID Cerebral palsy 905888957 G80.9 very deconditio nedcontinu e baclofen 5mg QID and amantadine 100mg qd and 200mg qhs, APAP 975mg TIDContinu e PT/OT for strengthen ing, balance, gait training, safety and function.C ontinue fall precaution s.Monitor for safety. Health Concerns Section Related Observation LastModified by Organization Detai ls LastModified Time None Recorded Concern Status LastModified by Organization Details LastModified Time None Recorded Payers Encounter Date Sequence Insurance Name Policy Number Policy Rod Covered Member ID Rod Member ID Guarantor Name 02/27/2024 1 [place] [employer] Nereyda Escalera [id number] Nereyda Escalera 02/27/2024 2 [place] [facility] Nereyda Escalera [id number] Nereyda Escalera Notes Date Note Type Note Provider Name and Address Organization Details Recorded Time 02/27/2024 text/html Patient is a 68 yo female who presents for acute rounding visit PMH remarkable for hiatal hernia, cerebral palsy, urge incontinence, arthritis and benign uterine neoplasm Actively participating in therapyIMprovement in bowels with med adjustmentNursing denies any acute concerns Patient seen sitting in w/c in room in [facility]. She denies any concerns today A_Parris vis [address], [address], [place], [address], [facility] [employer] 02/27/2024 11:15:20 OBGyn Episode No OBEpisode recorded.
--- OUTSIDE RECORDS SUMMARY | 2024-03-30 13:55 | XMS_ITS | Continuity of Care Document ---
Author Organization [facility] [address] [facility] Address [address] [place] [address] Care Team Providers Care Water Plumber Name Role Phone [facility] OTHER Assessment No assessment recorded. 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 [employer] 4 10:12:49 Cerebral palsy 339749836 Active 2023 A_Trembla y-Aroldo [address], [address], [place], [address], [facility] [employer] 4 10:12:59 Glaucoma 33050284 Active 2023 Cisco White [address] [facility], [address], [place], [address], [facility] [employer] 4 12:10:34 Essential hypertension 68134561 Active 2023 Jarek Valenzuela MD [address] [facility], [address], [place], [address], [facility] [employer] 4 13:57:05 Problem Notes None recorded. Procedures Surgical History Date Name Laterality Status Provider Name and Address Organization Details Recorded Time total hysterectomy with removal of both tubes and ovaries completed Yves rolle [address] [facility], [address], [place], [address], [facility] [employer] 02/04/2024 12:14:37 Imaging Results None recorded. Procedure Notes None recorded. Medical Equipment None Reported. Allergies Allergen ID Allergen Name Allergen Category Reaction Reaction Severity Criticality Documentation Date Start Date Code Code System Note Provider Name and Address Organization Details Recorded Time [id number] [id number] 2824e polyester fibers Not available Not available Not available Not available 02/04/2024 37503 UNK Not Available Not Available Not Available [id number] 4203281s0 2824e tetracycl ine medicatio n Not available Not available Not available 02/04/2024 28108 RxNorm Not Available Not Available Not Available [id number] [id number] 2824e erythromy sonia medicatio n Not available Not available Not available 02/04/2024 4053 RxNorm Not Available Not Available Not Available Medications Not known to be on any medication Vitals None Recorded Social History Question Answer Notes LastModified by Organizat ion Details LastModified Time Tobacco Smoking Status Never Smoker Shaun [address] [facility], [address], [place], [address], [facility] [employer] 02/04/2024 12:14:11 What Is Your Level [...] (COVID-19) vaccine, UNSPECIFIED 06/22/2020 completed Miriam Lynch [facility] 02/04/2024 12:23:21 SARS-COV-2 (COVID-19) vaccine, UNSPECIFIED 01/23/2021 completed Miriam Lynch [facility] 02/04/2024 12:23:28 Past Encounters Encounter ID Performer Location Encounter Start Date Encounter Closed Date Diagnosis/Indication Diagnosis SNOMED-CT Code Diagnosis ICD10 Code Diagnosis Note [id number] ErnieMakayla SALGADO AT [address] [address] 02/09/2024 07:27:03 02/10/2024 10:19:01 Hiatal hernia 84226710 K44.9 no need for EGD inpatientf /u thoracic today to discuss elective repaircont inue omeprazole 20mg BIDmonitor for recurrent N/V Cerebral palsy 441028184 G80.9 very deconditio nedcontinu e baclofen 5mg QID and amantadine 100mg qd and 200mg qHSContinu e PT/OT for strengthen ing, balance, gait training, safety and function.C ontinue fall precaution s.Monitor for safety. [id number] ErnieMakayla SALGADO AT [address] [address] 02/11/2024 07:20:07 02/16/2024 14:42:52 Hiatal hernia 25250000 K44.9 no need for EGD inpatients ister to reschedule thoracic surgery f/ucontinu e omeprazole 20mg BIDmonitor for recurrent N/V Cerebral palsy 043360820 G80.9 very deconditio nedcontinu e baclofen 5mg QID and amantadine 100mg qd and 200mg qHSschedul e APAP 975mg TIDContinu e PT/OT for strengthen ing, balance, gait training, safety and function.C ontinue fall precaution s.Monitor for safety. Near syncope 752513443 R 55 high risk of orthostati c intoleranc e, which can begin to appear within 3-4 days of commencing bed rest and is likely to appear more rapidly in individual s with underlying cardiovasc ular disease and in the elderlyAdv ising rising from seated position slowly and report any recurrent sxs to staff [id number] Gucci Alarcon NAOMI AT [address] [address] 02/17/2024 07:18:09 02/18/2024 11:11:46 Hiatal hernia 18816028 K44.9 no N/Vsister to reschedule thoracic surgery f/ucontinu e omeprazole 20mg BID Cerebral palsy 863994649 G80.9 very deconditio nedcontinu e baclofen 5mg QID and amantadine 100mg qd and 200mg qhs, APAP 975mg TIDContinu e PT/OT for strengthen ing, balance, gait training, safety and function.C ontinue fall precaution s.Monitor for safety. Near syncope 307904457 R 55 no acute sxsAdvisin g rising from seated position slowly and report any recurrent sxs to staff Constipation 60845705 K5 9.00 LBM 02/06start miralax 17g BID and senna 8.6mg qdgive MOM x 1 nowmonitor bowels [id number] Gucci Alarcon NAOMI AT [address] [address] 02/19/2024 07:36:51 02/20/2024 11:20:35 Constipation 58908072 K59.00 LBM ontin ue miralax 17g BID and senna 8.6mg qdmonitor bowels Hiatal hernia 02027238 K 44.9 no N/Vsister to reschedule thoracic surgery f/ucontinu e omeprazole 20mg BID [id number] Gucci SALGADO AT [address] [address] 02/24/2024 07:33:59 02/25/2024 12:23:01 Constipation 25544343 K59.00 LBM 12/9Contin ue miralax 17g BID and senna 8.6mg qdmonitor bowels Hiatal hernia 20751231 K 44.9 no N/V reportedsi ster to reschedule thoracic surgery f/u once discharged continue omeprazole 20mg BID Cerebral palsy 390207253 G80.9 very deconditio nedcontinu e baclofen 5mg QID and amantadine 100mg qd and 200mg qhs, APAP 975mg TIDContinu e PT/OT for strengthen ing, balance, gait training, safety and function.C ontinue fall precaution s.Monitor for safety. Near syncope 972739436 R 55 no acute sxsAdvisin g rising from seated position slowly and report any recurrent sxs to staff Urge incon tinence of urine 37597784 N39.41 continue solifenaci n 10mg qHS Hypertensive disorder 38 845452 I10 Well-contr olledconti nue losartan 25mg qd and HCTZ 25mg qdmonitor BP and labs Arthritis 4843633 M19.90 Continue APAP 325mg TID prn Nausea and vomiting 1693 2000 R11.2 no reported episodesco ntinue zofran 4mg q6h prn Glaucoma 34977459 H40.9 Continue latanopros t 0.005% both eyes qhs [id number] Gucci SALGADO AT [address] [address] 02/27/2024 07:31:04 03/01/2024 14:17:51 Constipation 19198457 K59.00 IMprovedCo ntinue miralax 17g BID and senna 8.6mg qdmonitor bowels Hiatal hernia 43045392 K 44.9 no N/V reportedsi ster to reschedule thoracic surgery f/u once discharged continue omeprazole 20mg BID Cerebral palsy 064473907 G80.9 very deconditio nedcontinu e baclofen 5mg QID and amantadine 100mg qd and 200mg qhs, APAP 975mg TIDContinu e PT/OT for strengthen ing, balance, gait training, safety and function.C prateekinue fall precaution s.Monitor for safety. [id number] Gucci SALGADO AT [facility] [address] [place] [address] 03/08/2024 07:34:44 03/09/2024 10:28:50 Constipation 69608550 K59.00 Continue miralax 17g BID and senna 8.6mg qdmonitor bowels Hiatal hernia 77339084 K 44.9 no N/V reportedsi ster to reschedule thoracic surgery f/u once discharged continue omeprazole 20mg BID Cerebral palsy 644785974 G80.9 Continue baclofen 5mg QID and amantadine 100mg qd and 200mg qhs, APAP 975mg TIDComplet ed PT/OT for strengthen ing, balance, gait training, safety and function.C prateekinue fall precaution s.Monitor for safety. Near syncope 569008402 R 55 resolved Urge incon tinence of urine 04233458 N39.41 continue solifenaci n 10mg qHS Hypertensive disorder 38 727343 I10 Well-contr olledconti nue losartan 25mg qd and HCTZ 25mg qdmonitor BP and labs Arthritis 9655231 M19.90 Continue APAP 325mg TID prn Nausea and vomiting 1693 2000 R11.2 no reported episodesco ntinue zofran 4mg q6h prn Glaucoma 64222308 H40.9 Continue latanopros t 0.005% both eyes qhs Health Concerns Section Related Observation LastModified by Organization Detai ls LastModified Time None Recorded Concern Status LastModified by Organization Details LastModified Time None Recorded Payers Encounter Date Sequence Insurance Name Policy Number Policy Rod Covered Member ID Rod Member ID Guarantor Name 03/08/2024 1 [place] [employer] Nereyda Escalera [id number] Nereyda Escalera 03/08/2024 2 [place] [facility] Nereyda Ecsalera [id number] Nereyda Escalera Notes Date Note Type Note Provider Name and Address Organization Details Recorded Time 03/08/2024 text/html Patient is a 68 yo [...] services Patient seen lying in bed in [facility]. She tells me she is excited to be going home today. She denies any concerns or complaints today A_Makayla-Da vis [address] [facility], [address], [place], [address], [facility] [employer] 03/08/2024 09:42:08 OBGyn Episode No OBEpisode recorded.
--- OUTSIDE RECORDS SUMMARY | 2024-03-30 13:55 | XMS_ITS | Continuity of Care Document ---
Author Organization [facility] Address [address] [place] [address] Care Team Providers Care Dining Host Name Role Phone [facility] [facility] OTHER Assessment No assessment recorded. Plan [...] Address Organization Details Recorded Time Hiatal hernia 55590539 Active 2023 A_Salbadora guero-Aroldo [address], [address], [place], [address], [facility] [employer] [facility] 4 10:12:27 Benign neoplasm of uterus 82440737 Active 2023 A_Salbadora guero-Aroldo [address], [address], [place], [address], [facility] [employer] 4 10:12:35 Urge incontinence of urine 09004989 Active 2023 A_Trembla y-Aroldo [address], [address], [place], [address], [employer] 4 10:12:41 Arthritis 0735267 Active 2023 A_Trembla y-Aroldo [address], [address], [place], [address], [facility] [employer] 4 10:12:49 Cerebral palsy 075289022 Active 2023 A_Trembla y-Aroldo [address], [address], [place], [address], [facility] [employer] 4 10:12:59 Glaucoma 39499135 Active 2023 Cisco White [address] [facility], [address], [place], [address], [facility] [employer] [facility] 4 12:10:34 Essential hypertension 18577816 Active 2023 Jarek Valenzuela MD [address] [facility], [address], [place], [address], [facility] [employer] [facility] 4 13:57:05 Problem Notes None recorded. Procedures Surgical History Date Name Laterality Status Provider Name and Address Organization Details Recorded Time total hysterectomy with removal of both tubes and ovaries completed Yves rolle [address] [facility], [address], [place], [address], [facility] [employer] 02/04/2024 12:14:37 Imaging Results None recorded. Procedure Notes None recorded. Medical Equipment None Reported. Allergies Allergen ID Allergen Name Allergen Category Reaction Reaction Severity Criticality Documentation Date Start Date Code Code System Note Provider Name and Address Organization Details Recorded Time [id number] 7056413d0 2824e polyester fibers Not available Not available Not available Not available 02/04/2024 40975 UNK Not Available Not Available Not Available [id number] 236830832 5773739v2 2824e tetracycl ine medicatio n Not available Not available Not available 02/04/2024 04970 RxNorm Not Available Not Available Not Available [id number] 201998805 9901227d8 2824e erythromy sonia medicatio n Not available Not available Not available 02/04/2024 4053 RxNorm Not Available Not Available Not Available Medications Not known to be on any medication Vitals None Recorded Social History Question Answer Notes LastModified by Organizat ion Details LastModified Time Tobacco Smoking Status Never Smoker Shaun [address] [facility], [address], [place], [address], [facility] [employer] 02/04/2024 12:14:11 What Is Your Level [...] (COVID-19) vaccine, UNSPECIFIED 06/22/2020 completed Miriammarko Lynch [facility] 02/04/2024 12:23:21 SARS-COV-2 (COVID-19) vaccine, UNSPECIFIED 01/23/2021 completed Miriam Lynch [facility] 02/04/2024 12:23:28 Past Encounters Encounter ID Performer Location Encounter Start Date Encounter Closed Date Diagnosis/Indication Diagnosis SNOMED-CT Code Diagnosis ICD10 Code Diagnosis Note [id number] Iván_Makayla Alarcon [place] AT [address] [address] 02/04/2024 10:11:58 02/05/2024 14:13:21 Urge incontinence of urine 09449485 N39.41 continue solifenaci n 10mg qHS Cerebral palsy 444778061 G80.9 very deconditio nedcontinu e baclofen 5mg QID and amantadine 100mg qd and 200mg qHSAdmit to services for PT/OT for strengthen ing, balance, gait training, safety and function.C ontinue fall precaution s.Monitor for safety. 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 Moderate c ognitive impairment 007612544 R41.9 BIMS 10monitor insight and need to invoke [facility] [id number] Jarek Valenzuela MD [place] AT [address] [address] 02/05/2024 13:51:35 02/06/2024 10:41:38 Asthenia 45952299 R53.1 PT OT eval and treatmonit or fall risk and need for increased support in community Essential hypertension 97795624 I10 HCTZ 25 mg qdlosartan 25 mg qdmonitor bp and need to titrate Urge incon tinence of urine 04484638 N39.41 vesicare 10 mg qdmonitor for sx relief Cerebral palsy 379105907 G80.9 maintained onbaclofen and amantadine monitor for change in conditioni ng with above therapy Hiatal hernia 35653211 K 44.9 see HPIN/V secondary to hiatal herniato f/u with surgery out patient to consider surgical repairmoni tor for sxomeprazo le 20 mg bid Hypertensive disorder 38 593340 I10 continue losartan 25mg qd and HCTZ 25mg qdmonitor BP and labs Arthritis 3189626 M19.90 Continue APAP 325mg TID prn Benign dona plasm of uterus 83454195 D26.9 carrying dx Nausea and vomiting 1693 1999 R11.2 start zofran 4mg q6h prn Glaucoma 16859756 H40.9 Continue latanopros t 0.005% both eyes qhs 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 Moderate c ognitive impairment 898481882 R41.9 BIMS 10monitor insight and need to invoke HCP [id number] Gucci SALGADO AT [address] [address] 02/09/2024 07:27:03 02/10/2024 10:19:01 Hiatal hernia 51267385 K44.9 no need for EGD inpatientf /u thoracic today to discuss elective repaircont inue omeprazole 20mg BIDmonitor for recurrent N/V Cerebral palsy 834442196 G80.9 very deconditio nedcontinu e baclofen 5mg QID and amantadine 100mg qd and 200mg qHSContinu e PT/OT for strengthen ing, balance, gait training, safety and function.C ontinue fall precaution s.Monitor for safety. [id number] Gucci SALGADO AT [address] [address] 02/11/2024 07:20:07 02/16/2024 14:42:52 Hiatal hernia 20893857 K44.9 no need for EGD inpatients ister to reschedule thoracic surgery f/ucontinu e omeprazole 20mg BIDmonitor for recurrent N/V Cerebral palsy 678743704 G80.9 very deconditio nedcontinu e baclofen 5mg QID and amantadine 100mg qd and 200mg qHSschedul e APAP 975mg TIDContinu e PT/OT for strengthen ing, balance, gait training, safety and function.C ontinue fall precaution s.Monitor for safety. Near syncope 545780473 R 55 high risk of orthostati c intoleranc e, which can begin to appear within 3-4 days of commencing bed rest and is likely to appear more rapidly in individual s with underlying cardiovasc ular disease and in the elderlyAdv ising rising from seated position slowly and report any recurrent sxs to staff Health Concerns Section Related Observation LastModified by Organization Detai ls LastModified Time None Recorded Concern Status LastModified by Organization Details LastModified Time None Recorded Payers Encounter Date Sequence Insurance Name Policy Number Policy Rod Covered Member ID Rod Member ID Guarantor Name 02/11/2024 1 [place] [employer] Nereyda Escalera [id number] Nereyda Escalera 02/11/2024 2 [place] [facility] Nereyda Gagenura [id number] Nereyda Camar[employer] Notes Date Note Type Note Provider Name and Address Organization Details Recorded Time 02/11/2024 text/html Patient is a 68 yo female who presents for acute rounding visit PMH remarkable for hiatal hernia, cerebral palsy, urge incontinence, arthritis and benign uterine neoplasm No N/V reported over the weekend. She has f/u thoracic surgery this week to discuss elective repair but sister cancelled with plans to reschedule visit She was seen by Dr. Kahn with PMR yesterday with recs to monitor for constipation, sleep hygiene, signs of UTI Patient seen sitting in w/c in room in [facility]/ She tells me she felt like she was going to pass out while getting OOB. She has pain and spastic LE. She reports taking tylenol TID at home and would like that started here. She otherwise denies N/V/D Iván_Zac s [address] [facility], [address], [place], [address], [facility] [employer] 02/11/2024 10:20:30 OBGyn Episode No OBEpisode recorded.
--- OUTSIDE RECORDS SUMMARY | 2024-03-30 13:55 | XMS_ITS | Continuity of Care Document ---
Author Organization [facility] Address [address] [place] [address] Care Team Providers Care Ground Crew Linesman Name Role Phone [facility] OTHER Assessment No assessment recorded. Plan [...] Address Organization Details Recorded Time Hiatal hernia 00607502 Active 2023 A_Salbadora guero-Aroldo [address], [address], [place], [address], [facility] 4 10:12:27 Benign neoplasm of uterus 72506655 Active 2023 A_Salbadora guero-Aroldo [address], [address], [place], [address], [facility] [employer] 4 10:12:35 Urge incontinence of urine 21411846 Active 2023 A_Trembla y-Aroldo [address], [address], [place], [address], [facility] 4 10:12:41 Arthritis 8564420 Active 2023 A_Trembla y-Aroldo [address], [address], [place], [address], [facility] [employer] 4 10:12:49 Cerebral palsy 027604725 Active 2023 A_Trembla y-Aroldo [address], [address], [place], [address], [facility] 4 10:12:59 Glaucoma 79651360 Active 2023 Cisco White [address] [facility], [address], [place], [address], [facility] 4 12:10:34 Essential hypertension 71966933 Active 2023 Jarek Valenzuela MD [address] [facility], [address], [place], [address], [facility] 4 13:57:05 Problem Notes None recorded. Procedures Surgical History Date Name Laterality Status Provider Name and Address Organization Details Recorded Time total hysterectomy with removal of both tubes and ovaries completed Yves rolle [address] [facility], [address], [place], [address], [facility] 02/04/2024 12:14:37 Imaging Results None recorded. Procedure Notes None recorded. Medical Equipment None Reported. Allergies Allergen ID Allergen Name Allergen Category Reaction Reaction Severity Criticality Documentation Date Start Date Code Code System Note Provider Name and Address Organization Details Recorded Time [id number] 2824e polyester fibers Not available Not available Not available Not available 02/04/2024 91265 UNK Not Available Not Available Not Available [id number] 4827020f0 2824e tetracycl ine medicatio n Not available Not available Not available 02/04/2024 52074 RxNorm Not Available Not Available Not Available [id number] 1405918q2 2824e erythromy sonia medicatio n Not available Not available Not available 02/04/2024 4053 RxNorm Not Available Not Available Not Available Medications Not known to be on any medication Vitals Date Recorded Systolic blood pressure Diastolic blood pressure Provider Name and Address Organization Details Last Updated DateTime 02/05/2024 120 mm[Hg] 72 mm[Hg] Jarek Valenzuela MD [address] [facility], [address], [place], [address], [employer] [facility] 02/05/2024 13:52:16 Social History Question Answer Notes LastModified by Organizat ion Details LastModified Time Tobacco Smoking Status Never Smoker A_Tremblay-Aroldo [address] [facility], [address], [place], [address], [facility] [employer] 02/04/2024 12:14:11 What Is Your Level Of [...] SARS-COV-2 (COVID-19) vaccine, UNSPECIFIED 06/22/2020 [facility] 02/04/2024 12:23:21 SARS-COV-2 (COVID-19) vaccine, UNSPECIFIED 01/23/2021 [facility] 02/04/2024 12:23:28 Past Encounters Encounter ID Performer Location Encounter Start Date Encounter Closed Date Diagnosis/Indication Diagnosis SNOMED-CT Code Diagnosis ICD10 Code Diagnosis Note [id number] [facility] [address] [place] [address] 02/04/2024 10:11:58 02/05/2024 14:13:21 Urge incontinence of urine 84473758 N39.41 continue solifenaci n 10mg qHS Cerebral palsy 191471352 G80.9 very deconditio nedcontinu e baclofen 5mg QID and amantadine 100mg qd and 200mg qHSAdmit to services for PT/OT for strengthen ing, balance, gait training, safety and function.C ontinue fall precaution s.Monitor for safety. Hiatal hernia 24532826 K 44.9 no need for EGD inpatientc onsider surgical f/u for elective repaircont inue omeprazole 20mg BIDmonitor for recurrent N/Vschedul e f/u thoracic surgery for elective repair Hypertensive disorder 38 976809 I10 continue losartan 25mg qd and HCTZ 25mg qdmonitor BP and labs Arthritis 0751031 M19.90 Continue APAP 325mg TID prn Benign dona plasm of uterus 31326087 D26.9 carrying dx Nausea and vomiting 1693 1999 R11.2 start zofran 4mg q6h prn Glaucoma 18234011 H40.9 Continue latanopros t 0.005% both eyes qhs Asthenia d ue to disease 5029526037 106 R53.1 Admit to services for PT/OT for strengthen ing, balance, gait training, safety and function.C ontinue fall precaution s.Monitor for safety. Moderate c ognitive impairment 368466450 R41.9 BIMS 10monitor insight and need to invoke HCP [id number] Jarek Valenzuela MD [place] [facility] [address] [address] 02/05/2024 13:51:35 02/06/2024 10:41:38 Asthenia 30704560 R53.1 PT OT eval and treatmonit or fall risk and need for increased support in community Essential hypertension 77304322 I10 HCTZ 25 mg qdlosartan 25 mg qdmonitor bp and need to titrate Urge incon tinence of urine 07422898 N39.41 vesicare 10 mg qdmonitor for sx relief Cerebral palsy 178036588 G80.9 maintained onbaclofen and amantadine monitor for change in conditioni ng with above therapy Hiatal hernia 48372540 K 44.9 see HPIN/V secondary to hiatal herniato f/u with surgery out patient to consider surgical repairmoni tor for sxomeprazo le 20 mg bid Hypertensive disorder 38 621380 I10 continue losartan 25mg qd and HCTZ 25mg qdmonitor BP and labs Arthritis 5412686 M19.90 Continue APAP 325mg TID prn Benign dona plasm of uterus 84269512 D26.9 carrying dx Nausea and vomiting 1693 1999 R11.2 start zofran 4mg q6h prn Glaucoma 40213695 H40.9 Continue latanopros t 0.005% both eyes qhs Asthenia d ue to disease 5463561215 106 R53.1 Admit to services for PT/OT for strengthen ing, balance, gait training, safety and function.C ontinue fall precaution s.Monitor for safety. Moderate c ognitive impairment 852571951 R41.9 BIMS 10monitor insight and need to invoke HCP Health Concerns Section Related Observation LastModified by Organization Detai ls LastModified Time None Recorded Concern Status LastModified by Organization Details LastModified Time None Recorded Payers Encounter Date Sequence Insurance Name Policy Number Policy Rod Covered Member ID Rod Member ID Guarantor Name 02/05/2024 1 [place] [employer] Nereyda Escalera [id number] Nereyda Escalera 02/05/2024 2 [place] [facility] Nereyda Escalera [id number] Nereyda Escalera Notes Date Note Type Note Provider Name and Address Organization Details Recorded Time 02/05/2024 text/html Patient is a 68 yo female admit from hospital after presenting with nausea and vomiting. Eval by GI felt to be secondary to hiatal hernia. CT abd positive for this hernia was eval by surgery to f/u out patient to consider surgical repair. Patient not felt safe to return home at that time PMH significant forcerebral palsyurinary incontinenceOAhtn admit to facility for continued care and therapy Jarek Valenzuela MD [address] [place] [address], [address], [place], [address], [facility] [employer] 02/05/2024 14:08:30 OBGyn Episode No OBEpisode recorded.
--- OUTSIDE RECORDS SUMMARY | 2024-03-30 13:55 | XMS_ITS ---
Author Organization [facility] Address [address] [place] [address] Care Team Providers Care Flavorer Name Role Phone Shahzad BARRAZA, Esau Primary Care Provider Unavail able Black, May Unavailable [phone] Petrona Aguila [phone] Encounters Encounter Location Date Provider Diagnosis [address] [address] 02/06/2024 Petrona Aguila Plan Of Treatment Next Appt Details Provider Name:Petrona tineo, 04/20/2024 03:30:00 PM, [address] [place] [address], [address], Progress Notes * Nereyda POP MDOB:[birth year] (68 yo F)Acc No.[id number]:02/06/2024 Progress Note Patient:?Nereyda POP Provider:?Petrona Aguila DPM :1955???Age:68 Y???Sex:Female D ate:02/06/2024 Address:[address] [place] [address] Pcp:Esau Pike MD Subjective: * Chief Complaints: * ??? * Medical History:? Objective: * Vitals:? Assessment: Plan: * Treatment: * Images: * The named appointment provid er may or may not be the originator of this progress note, and it is not deemed complete until electronically signed by the appointment provider. Sign off status: Pending * Provider:?Petrona Aguila DPM Date:? Generated for Vale benítez/Juliette/Zulema on:?03/30/2024 01:55 PM EST
--- OUTSIDE RECORDS SUMMARY | 2024-03-30 13:56 | XMS_ITS | Patient Health Record ---
Author Organization [facility] Address [address] [place] [address] Care Team Providers Care Runner Worker Name Role Phone Esau Pike MD Primary Care Provider Unavail able May Carolina Unavailable [phone] BarryPetrona tineo Unavailable [phone] Allergies Allergen (clinical drug ingredient) Drug/Non Drug Allergy documented on EMR Reaction Allergy Type Onset Date Status tetracycline Tetracycline HCl Unknown Drug Allergy Active erythromycin Erythromycin Stomach Upsets Drug Allergy Active Reason For Referral No Information Medications Medication SIG (Take, Route, Frequency, Duration) Notes Start Date End Date Status Tylenol 500 MG/15ML Orally Active VESIcare 10 MG Orally Activ e Docusate Sodium Acti ve Claritin Not-Taking Jennifer PRN Active ZyrTEC 10 MG Orally Not-Mac ing hydrochlorothiazide once a day Active ZyrTEC Allergy PRN Activ e Losartan Potassium A ctive Jennifer Not-Taking Claritin PRN Active Latanoprost Active Amantadine HCl 100 MG Orally Active Baclofen 10 MG Orally Activ e Omeprazole 20 MG Orally Act larry Immunizations Vaccine Route Administration Date Status Comme nts COVID-19 Cl & Cl/Jacob Unknown 01/23/2021 Administered First Dose:06/22/20 Second Dose:01/23/21 Social History Tobacco Use: Social History Observation Description Date Details (start date - stop date) Never Smoker NA - NA Tobacco Use/Smoking Question Answer Notes Are you a: nonsmoker Additional Findings: Tobacco Non-User Current no n-smoker Alcohol Screen Question Answer Notes Did you have a drink contain ing alcohol in the past year? Yes How often did you have a dri nk containing alcohol in the past year? Monthly or less (1 point) Points 1 Interpretation Negative Tobacco use other than smoking: Question Answer Notes Are you an other tobacco user? 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 Vital Signs Blood pressure diastolic 68 mm Hg 12/02/2023 Height 5ft in 12/02/2023 Blood pressure systolic 134 mm Hg 12/02/2023 Weight 126 lbs 12/02/2023 BMI 24.61 kg/m2 12/02/2023 Encounters Encounter Location Date Provider Diagnosis [address] [address] 05/07/2023 Petrona Perica Neuropathy associated with hereditary ataxia G60.2 ; Pain in toe of right foot M79.674 ; Tinea unguium B35.1 and Pain in toe of left foot M79.[address] [address] 07/09/2023 Petrona Perica Neuropathy associated with hereditary ataxia G60.2 ; Pain in toe of right foot M79.674 ; Tinea unguium B35.1 and Pain in toe of left foot M79.[address] [address] 12/02/2023 Petrona Perica Neuropathy associated with hereditary ataxia G60.2 ; Pain in toe of right foot M79.674 ; Tinea unguium B35.1 and Pain in toe of left foot M79.[address] [address] 07/09/2023 May Carolina [address] [address] 02/04/2024 May Carolina Assessments Encounter Date Diagnosis (ICD Code) Assessment Notes Treatment Notes Treatment Clinical Notes Section Notes 05/07/2023 Neuropathy associated with hereditary ataxia (ICD-10 - G60.2) 07/09/2023 Neuropathy associated with hereditary ataxia (ICD-10 - G60.2) 12/02/2023 Neuropathy associated with hereditary ataxia (ICD-10 - G60.2) 12/02/2023 Pain in toe of right foot (ICD-10 - M79.674) 05/07/2023 Pain in toe of right foot (ICD-10 - M79.674) 07/09/2023 Pain in toe of right foot (ICD-10 - M79.674) 12/02/2023 Tinea unguium (ICD-10 - B35.1) 07/09/2023 Tinea unguium (ICD-10 - B35.1) 05/07/2023 Tinea unguium (ICD-10 - B35.1) 05/07/2023 Pain in toe of left foot (ICD-10 - M79.675) 07/09/2023 Pain in toe of left foot (ICD-10 - M79.675) 12/02/2023 Pain in toe of left foot (ICD-10 - M79.675) Plan Of Treatment Pending Test Test Name Order Date 13259-Arvkevyk Plate 08/22/2016 65076-Rlzguceq Plate 07/07/2017 67641-Llpsoaew Plate 01/05/2018 70047-Hqmjksna Plate 05/18/2018 38290-Oamgwchs Plate 01/07/2019 76771- Debride <25 sq cm 01/05/2018 45866-PBBZ SKIN LESIONS, 2 TO 4 01/06/20 18 60679-FLAR SKIN LESIONS, 2 TO 4 10/07/19 18 96560-NZBW SKIN LESIONS, 2 TO 4 05/19/19 19 24083-EYGQ SKIN LESIONS, 2 TO 4 07/28/19 19 48367-FGJS SKIN LESIONS, 2 TO 4 10/16/19 19 27932-LFYY SKIN LESIONS, 2 TO 4 01/08/20 19 63573-LUOR SKIN LESIONS, 2 TO 4 11/15/19 17 31719-SNBS SKIN LESIONS, 2 TO 4 01/24/20 17 32412-KMOJ SKIN LESIONS, 2 TO 4 04/14/19 18 46545-AJBV SKIN LESIONS, 2 TO 4 07/08/19 18 72116-VPMA SKIN LESIONS, 2 TO 4 08/23/19 17 24433-ETEI SKIN LESIONS, 2 TO 4 04/01/19 37963-XLZY SKIN LESION 05/23/2016 21450-RPUC SKIN LESION 12/04/2015 40080-ZRKM SKIN LESION 02/22/2016 26286-IPIZ NAIL(S) 02/22/2016 38498-TKOI NAIL(S) 12/04/2015 07304-IJWH NAIL(S) 05/23/2016 26076-RNYJ NAIL(S) 08/22/2016 72478-PWPA NAIL(S) 07/07/2017 06267-NTEN NAIL(S) 04/14/2017 42847-HEZF NAIL(S) 01/23/2017 70615-DHYG NAIL(S) 11/14/2016 29516-WCNJ NAIL(S) 01/07/2019 38314-HJCL NAIL(S) 10/15/2018 78700-KZKG NAIL(S) 07/27/2018 41858-LQYO NAIL(S) 05/18/2018 50804-NMYL NAIL(S) 09/11/2015 33025-QKYK NAIL(S) 01/05/2018 83823-YRVJ NAIL(S) 10/06/2017 38848-GKZC NAIL(S) 04/01/2019 Next Appt Details Provider Name:Petrona tineo, 04/20/2024 03:30:00 PM, [address] [facility], [place], [address], Insurance Providers Payer Name Payer Address Payer Phone Subscriber Number Group Number Insured Name Patient Relationship to Insured Coverage Start Date Coverage End Date Medicare National [employer] [address] [place] [address] [id number] Nereyda Escalera Self - patient is the insured Medical (General) History Medical History History ICD Code Arthritis Back,Hip,and Knee pain Broken bones Cholesterol Epilepsy Seizures Hiatal hernia Neuropathy Osteoporosis Poor circulation Psoriasis Psoriasis/eczema Reflux Sciatica chronic sinusitis Measles Mumps Chicken pox Bone implants/screws Transfusions Cerebral palsy Surgical History Surgery Date(Month/Year) bone surgery 1961,1963,1966,1971 wisdom teeth extraction 1979 oral surgery 2007 hysterectomy 01/12/21 Hospitalization History Reason Date(Month/Year) [facility] after hysterectomy 01/12 [facility]- fell 4 x in three days then 30 days in rehab 05/2020 [facility]- Unresponsive for five minutes
--- OUTSIDE RECORDS SUMMARY | 2024-03-30 13:56 | XMS_ITS ---
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 Referral Priority Routine REASON FOR VISIT 6 month f/u, Follow up cerebral palsy, spastic paraparesis MEDICATIONS Medication SIG (Take, Route, Frequency, Duration) Notes Start Date End Date Status ZyrTEC Allergy 10 MG 1 tablet Orally Onc e a day Active Vitamin D 1000 UNIT 2 capsules Orally On ce a day Active Vitron-C 200-125 MG 1 tablet Orally Once a day 03/20/2011 Active Amantadine HCl 100 MG 1 capsule Orally T hree times a day Active VESIcare 10 MG 1 tablet Orally Once a day Active Losartan Potassium 25 MG 1 tablet Orally Once a day Active hydroCHLOROthiazide 25 MG 1 tablet in th e morning Orally Once a day Active Docusate Sodium 100 MG 1 capsule Orally Once a day Active Omeprazole 20 MG 1 capsule Orally Twi ce a day 03/04/2011 Active Baclofen 10 MG 0.5 tablet Orally Fo ur times a day Active Latanoprost 0.005 % 1 drop into affected eye in the evening Ophthalmic Once a day Active Acetaminophen 500 MG 1 capsule as needed Orally Four times a day Active Fluocinolone Acetonide 0.01 % 5 applicat ions into affected ear Externally Once a day as needed Active SOCIAL HISTORY Tobacco Use: Social History Observation Description Date Details (start date - stop date) Never Smoker NA - NA Sex Assigned At : Social History Observation Description Sex Assigned At Unknown Tobacco Use/Smoking Question Answer Notes Patient is a nonsmoker Additional Findings: Tobacco Non-User Cu rrent non-smoker, currently using no form of tobacco Alcohol Screen Question Answer Notes Did you have a drink contain ing alcohol in the past year? Yes How often did you have a dri nk containing alcohol in the past year? Monthly or less (1 point) How many drinks did you have on a typical day when you were drinking in the past year? 1 or 2 drinks (0 point) How often did you have 6 or more drinks on one occasion in the past year? Never (0 point) Points 1 Interpretation Negative VITAL SIGNS Blood pressure systolic 132 mm Hg 11/19/19 24 Blood pressure diastolic 68 mm Hg 024 Height 61 in 11/19/2023 Encounters Encounter Location Date Provider Diagnosis Esau Pike DO, [address] [phone] 11/19/2023 Esau Thomsonman Cerebral palsy with spastic/ataxic diplegia G80.1 ; Primary hypertension I10 ; Gastroesophageal reflux disease without esophagitis K21.9 and Vitamin D deficiency E55.9 ASSESSMENTS Encounter Date Diagnosis Assessment Notes Treatment Notes Treatment Clinical Notes 11/19/2023 Cerebral palsy with spastic/ataxic diplegia (ICD-10 - G80.1) 11/19/2023 Primary hypertension (ICD-10 - I10) 11/19/2023 Gastroesophageal ref lux disease without esophagitis (ICD-10 - K21.9) 11/19/2023 Vitamin D deficiency (ICD-10 - E55.9) PLAN OF TREATMENT Medication Medication Name Sig Start Date Stop Date Notes ZyrTEC Allergy 10 MG 1 tablet Orally Once a day Vitamin D 1000 UNIT 2 capsules Orally Once a day Vitron-C 200-125 MG 1 tablet Orally Once a day 03/20/2011 Amantadine HCl 100 MG 1 capsule Orally T hree times a day VESIcare 10 MG 1 tablet Orally Once a day Losartan Potassium 25 MG 1 tablet Orally Once a day hydroCHLOROthiazide 25 MG 1 tablet in th e morning Orally Once a day Docusate Sodium 100 MG 1 capsule Orally Once a day Omeprazole 20 MG 1 capsule Orally Twice a day 03/04/2011 Baclofen 10 MG 0.5 tablet Orally Fo ur times a day Latanoprost 0.005 % 1 drop into affected eye in the evening Ophthalmic Once a day Acetaminophen 500 MG 1 capsule as needed Orally Four times a day Fluocinolone Acetonide 0.01 % 5 applicat ions into affected ear Externally Once a day as needed Referrals Referral Date Details Cerebral palsy/spast ic paraparesis, Physical Therapy [facility] Next Appt Details Follow Up: 6 Months, Reason: follow up visit Progress Notes * Examination Category Sub-Category Detail Notes General Examination GENERAL APPEARANCE: in no ac te-moak distress, well developed, well nourished HEAD: normocephalic, atrau matic HEART: no murmurs, regular rate and rhythm, S1, S2 normal LUNGS: clear to auscultatio n bilaterally ABDOMEN: normal, bowel sounds present, soft, nontender, nondistended SKIN: warm and dry EXTREMITIES: no edema PSYCH: alert, oriented, cog nitive function intact Consultation Request Notes Referral Date Referring Provider Referred Provider Not shailesh 11/19/2023 Esau Pike [facility], Physical Therapy Cer ebral palsy/spastic paraparesis
--- OUTSIDE RECORDS SUMMARY | 2024-03-30 13:56 | XMS_ITS ---
Author Organization Esau Pike DO, FACP Address [address] [place], [place] [id number] Care Team Providers Care Seismology Technical Officer Name Role Phone Esau Pike Primary Care Provider REASON FOR VISIT FYI Encounters Encounter Location Date Provider Diagnosis Esau Pike DO, FACP [address] [place] [phone] 01/30/2024 Esau Pike PLAN OF TREATMENT No Information
--- OUTSIDE RECORDS SUMMARY | 2024-03-30 13:56 | XMS_ITS ---
Author Organization Esau Pike DO, FACP Address [address] [place], [place] [id number] Care Team Providers Care Whanau Support Worker Name Role Phone Esau Pike Primary Care Provider Encounters Encounter Location Date Provider Diagnosis Esau Pike DO, [facility] [address] [place] [phone] 03/30/2024 Esau Pike PLAN OF TREATMENT No Information
--- OUTSIDE RECORDS SUMMARY | 2024-03-30 13:57 | XMS_ITS | Patient Health Record ---
Author Organization [facility] Address [address] [place] [address] Care Team Providers Care Metal Fitters And Machinists Name Role Phone Esau Pike DO Primary Care Provider Unavail able Idris De La Fuente Jr Unavailable ALLERGIES Allergen (clinical drug ingredient) Drug/Non Drug Allergy documented on EMR Reaction Allergy Type Onset Date Status tetracycline Tetracycline HCl Unknown Drug Allergy Active erythromycin Erythromycin Unknown Drug Allergy A ctive REASON FOR REFERRAL No Information MEDICATIONS Medication SIG (Take, Route, Frequency, Duration) Notes Start Date End Date Status VESIcare 10 MG 1 tablet Orally Once a day Active Amantadine HCl 100 MG 1 tablet am/2 in p m Orally daily Active Tylenol 500 MG/15ML 1 tablet as needed Orally 3-4 x daily/prn Active Vitron-C 65-125 MG 1 tablet Orally Once a day for 30 day(s) Active Latanoprost Not-Taki ng Vitamin D-3 25 MCG (1000 UT) 1 capsule O rally Once a day for 30 day(s) Active Claritin PRN Active Docusate Sodium 100 MG 1 capsule as need ed Orally Once a day for 30 day(s) Active Baclofen 10 MG 1 tablet with food or milk Orally 3-4 times a day Active Losartan Potassium 25 MG 1 tablet Orally Once a day for 30 day(s) Active Omeprazole 20 MG TAKE 1 CAPSULE BY MOUTH TWICE DAILY for 30 Active hydroCHLOROthiazide 25 MG 1 tablet in th e morning Orally Once a day for 30 day(s) Active IMMUNIZATIONS Vaccine Route Administration Date Status Comme nts Influenza Unknown 08/06/2018 Refused Influenza Unknown 04/14/2019 Refused Influenza Unknown 04/12/2020 Refused Influenza Unknown 03/26/2023 Refused SOCIAL HISTORY Sex Assigned At : Social History Observation Description Sex Assigned At Unknown PROBLEMS Problem Type ICD Code Onset Dates Problem Status W/U Status Risk SNOMED Code Notes Problem Colon cancer screening (Z12.11) Active confirmed 898743570 Problem Gastroesophageal reflux disease with esophagitis (K21.0) Active confirmed 807372747 Problem Hiatal hernia (K44.9) Active confirmed 54299254 Problem Oropharyngeal dysphagia (R13.12) Active confirmed 84586274 Problem Hypertension, unspecified type (I10) Active confirmed 64296757 Problem Gastroesophageal reflux disease with esophagitis, unspecified whether hemorrhage (K21.00) Active confirmed Gastroes ophageal reflux disease with esophagitis (disorder) (263535757) Encounters Encounter Location Date Provider Diagnosis [facility] [address] [place] [address] 03/30/2024 Idris De La Fuente Jr PLAN OF TREATMENT Future Test Test Name Order Date UPPER GI ENDOSCOPY 08/06/2018 Insurance Providers Payer Name Payer Address Payer Phone Subscriber Number Group Number Insured Name Patient Relationship to Insured Coverage Start Date Coverage End Date MEDICARE OF [place] [address] [place] [address] [id number] LUDIN POP Self - patient is the insured MEDICAID OF [facility] [address] [place] [address] [id number] LUDIN POP Self - patient is the insured MEDICAL (GENERAL) HISTORY Medical History History ICD Code hemorrhoids gerd cerebral palsy with spasticity degenerative joint disease glaucoma Colonoscopy February 2011. Ten-year foll owup, deferred per patient wishes EGD 01/08/19 distal esophagitis Ovarian cysts Surgical History Surgery Date(Month/Year) multiple tendon and joint sherman rgeries including ankle fixations secondary to cerebral palsy. oral surgery Benign skin lesions resected hysterectomy, endometrial carcinoma 12/16 1
--- OUTSIDE RECORDS SUMMARY | 2024-03-30 13:57 | XMS_ITS ---
Author Organization [facility] Address [address] [place] [address] Care Team Providers Care Thermostat Mechanic Name Role Phone Esau Pike DO Primary Care Provider Unavail able Idris De La Fuente Jr Unavailable [phone] REASON FOR VISIT f/u hiatal hernia. soon appt? Encounters Encounter Location Date Provider Diagnosis [facility] [address] [place] [address] 03/30/2024 Idris De La Fuente Jr PLAN OF TREATMENT No Information
--- OUTSIDE RECORDS SUMMARY | 2024-03-30 13:57 | XMS_ITS | Patient Health Record ---
Author Organization Esau Pike DO, FACP Address [address], [place] [id number] Care Team Providers Care Lubrication Worker Name Role Phone Esau Pike Primary Care Provider ALLERGIES Allergen (clinical drug ingredient) Drug/Non Drug Allergy documented on EMR Reaction Allergy Type Onset Date Status tetracycline Tetracycline HCl nausea, mental status changes Drug Allergy Active erythromycin Erythromycin vomiting Drug Allergy A ctive lisinopril Lisinopril cough Drug Allergy Activ e RESULTS Component Value Reference Range Notes MM tomosynthesis screening B I Reviewed date:12/08/2023 10:55:41 AM Interpretation:Negative Performing Lab: Notes/Report: [facility] [address] [place] [address] Mammography Report Signed Patient: Nereyda Escalera MR#: [id number] 173 : 1955 Acct:[id number] Age/Sex: 68 / F ADM Date: 11/20/23 Loc: HO.MAMMO Attending Dr: Esau Pike DO Ordering Physician: Esau Pike DO Results: 1Negat larry Date of Service: 11/20/23 Follow Up: 1 Year From Orig ina Mammogram Procedure(s): MM tomosynthesis screening BI Accession Number(s): [id number] cc: Esau Pike DO EXAMINATION: MM SCREENING DIGITAL BREAST TOMOSYNTHESIS, BILATERAL CLINICAL INFORMATION: Screening. Asymptomatic. COMPARISON: Mammography: Comparison is made with available priors TECHNIQUE: Digital breast mammography with tomosynthesis is performed in both the craniocaudal and mediolateral oblique views along with computer-aided detection (CAD). FINDINGS: The breasts are heterogeneously dense, which may obscure small masses (ACR BI-RADS breast composition Category c). Images are limited due to patient's movement limitations. Within these limitations: There are no significant masses, abnormal calcifications, or other abnormalities. MM/MM tomosynthesis screening BI IMPRESSION: No mammographic evidence of malignancy. ASSESSMENT: BI-RADS BI-RADS 1 - Negative RECOMMENDATION: Routine annual mammography screening. 1 year F/U This examination should not preclude the clinical evaluation of a suspicious palpable abnormality. This patient's information was entered into a reminder system with a target due date for their next mammogram. Electronically signed by: Lili De Luna DO 12/07/2023 02:21 PM EDT Dictated By: Lili De Luna DO Signed By: <Electronically signed by Lili De Luna DO in OV> 12/07/23 1421 DD/ 1100 TD/TT: 11/20/23 1140 Traffic Engineer: IVORY MONTES DE OCA w/rflx Micro + Cult Reviewed date:01/30/2024 01:10:17 PM Interpretation:Abnormal Performing Lab:[facility], [address] [place] [phone] Notes/Report: Urine, Clean Catch Color Urine Yellow Appearance Urine Clear PH 8.5 5.0-9.0 Glucose Urine UA Negative Negative mg/dL Urine Blood Negative Negative Specific [place] - Urine >= 1.030 1.005-1.025 Urine Protein Negative Neg-Trace mg/dL Urine Ketones 15 Negative mg/dL Nitrite Urine Negative Negative Leukocyte Esterase Urine Negative Negative CT gi bleed abd pel wo/w con Reviewed date:01/30/2024 04:54:01 PM Interpretation:Abnormal Performing Lab: Notes/Report: [address] [address] [address] Scan Report Signed Patient: Nereyda Escalera MR#: [id number] 173 : 1955 Acct:[id number] Age/Sex: 68 / F ADM Date: 01/30/24 Loc: .ED Attending Dr: Ordering Physician: Vicky Shepard MD Date of Service: 01/30/24 Procedure(s): CT gi bleed abd pel wo/w IVcon Accession Number(s): [id number] cc: Vicky Shepard MD; Esau Pike DO EXAMINATION: CT ABDOMEN AND PELVIS WITHOUT AND WITH CONTRAST CLINICAL INFORMATION: History of upper GI bleed. Hematemesis. COMPARISON: None available. TECHNIQUE: Multidetector volumetric imaging was performed of the abdomen and pelvis before and after the IV administration of 80 mL of Omnipaque 350 intravenous contrast. Sagittal and coronal reformatted images were obtained on the technologist's workstation. This CT examination was performed using dose optimization techniques as appropriate, variously including the following: *Automated exposure control *Adjustment of mA and/or kV according to patient size (this includes techniques or standardized protocols for targeted exams where dose is matched to indication/reason for exam; i.e. extremities or head) *Use of iterative reconstruction technique DLP: 1056 mGy-cm FINDINGS: LUNG BASES: Mild bibasilar chronic interstitial fibrotic changes with a peripheral predominance. Mild bilateral lower lobe dependent bronchiectasis. 1.0 cm left lower lobe lung nodule (image 94, series 17), unchanged compared with October 05, 2019, therefore benign. No further dedicated follow-up imaging of this nodule is indicated, per Fleischner Society guidelines. Heart normal in size. Partially imaged coronary arterial calcification. No pericardial effusion. LIVER, GALLBLADDER, AND BILIARY TREE: Approximately 2 cm, peripheral, segment 7 hepatic lesion demonstrating bright, nodular, peripheral enhancement, consistent with a benign hemangioma (image 20, series 11). The liver otherwise appears unremarkable in size, shape, and attenuation. No particularly suspicious focal hepatic lesion or biliary ductal dilatation is appreciated. Unremarkable appearance of the gallbladder. PANCREAS: Unremarkable SPLEEN: Unremarkable ADRENAL GLANDS: Unremarkable KIDNEYS AND URETERS: The kidneys appear unremarkable in size, shape, and attenuation. No hydronephrosis, hydroureter, or calculi seen. BLADDER: Unremarkable GASTROINTESTINAL TRACT: Limited by paucity of intra-abdominal fat and by beam hardening artifact. No acute GI bleed identified. Large hiatus hernia containing a large portion of the stomach and a short segment of transverse colon. Cannot confirm or exclude abnormal thickening of the wall of intrathoracic stomach. ABDOMINAL WALL: No significant hernia is appreciated. LYMPH NODES: No evidence of adenopathy by size criteria. VASCULAR: Unremarkable PELVIC VISCERA: Uterus not visualized, suggesting prior surgical removal. OSSEOUS STRUCTURES: Mildly decreased bone mineral density. Degenerative changes of the spine with S-shaped spinal curvature. Mild osteoarthritis of the hips. CT/CT gi bleed abd pel wo/w IVcon IMPRESSION: No acute GI bleed identified. Large hiatus hernia containing a large portion of the stomach and a short segment of transverse colon. Cannot confirm or exclude abnormal thickening of the wall of intrathoracic stomach. Additional findings as above. Electronically signed by: Juanito Spence MD 01/30/2024 02:26 PM [facility] Dictated By: Juanito Spence Signed By: <Electronically signed by Juanito Spence in OV> 01/30/24 1426 DD/ 1123 TD/TT: 01/30/24 1205 Traffic Engineer: Complete Blood Count Auto Di ff Reviewed date:01/31/2024 11:28:58 AM Interpretation:Normal Performing Lab:[facility], [address] [place] [phone] Notes/Report: White Blood Count 7.1 4.8-10.8 X10*3/uL Red Blood Count 4.43 4.20-5.50 X10*6/uL Hemoglobin 13.0 12.0-16.0 g/dl Hematocrit 38.1 37.0-47.0 % Mean Corpuscular Volume 86.0 80.0-98.0 fL Mean Corpuscular Hemoglobin 29.3 27.0-33.0 pg Mean Corpuscular HGB Conc 34.1 31.0-35.0 g/dl Red Cell Distribution Width 12.6 11.0-16.0 % Platelet Count 226 160-400 X10*3/uL Mean Platelet Volume 10.3 9.4-12.3 fL Neutrophils Percent Auto 68.3 45-73 % Imm Gran Pct Auto 0.3 0.0-0.4 % Lymphocytes Percent Auto 20.6 20-40 % Monocytes Percent Auto 7.7 2-11 % Eosinophils Percent Auto 2.4 0-4 % Basophils Percent Auto 0.7 0-2 % NRBC Pct Auto 0.0 0.0-0.2 /100WBC Neutrophils Absolute Auto 4.9 2.0-8.3 x10*3/u L Imm Gran Abs Auto 0.02 0.00-0.03 X10*3/uL Lymphocytes Absolute Auto 1.5 1.2-4.9 X10*3/u L Monocytes Absolute Auto 0.6 0.1-1.2 X10*3/uL Eosinophils Absolute Auto 0.2 0.0-0.4 X10*3/u L Basophils Absolute Auto 0.1 0.0-0.2 X10*3/uL NRBC Abs Auto 0.000 0.0-0.012 X10*3/uL Basic Metabolic Panel Reviewed date:01/31/2024 11:29:45 AM Interpretation:Normal Performing Lab:[facility], [address] [place] [phone] Notes/Report: Sodium 137 135-145 mmol/L Potassium 3.6 3.3-5.1 mmol/L Chloride 101 96-108 mmol/L Carbon Dioxide 26 22-29 mmol/L Anion Gap 14 12-20 Blood Urea Nitrogen 17 9-16 mg/dL Creatinine 0.61 0.5-1.4 mg/dL Creatinine Clr Calc Pharmacy 74.9 Provided height and weight: 152.4 cm, 68 kg. eGFR (calculated from the MDRD study equation) and eCrCl (calculated from the Cockcroft-Gault equation) are based on different parameters and may not yield comparable results. If eCrCl result is absurd, please check patient's height/weight. Estimated Glomerular Filt Rate > 60 Chronic Kidney Disease: Estimated GFR < 60 mL/min/1.73m2 Severe Kidney Disease: Estimated GFR < 15 mL/min/1.73m2 Glucose Random 111 60-115 mg/dL Calcium 8.8 8.4-10.2 mg/dL Troponin-I High Sensitivity Reviewed date:02/01/2024 06:23:25 PM Interpretation:Normal Performing Lab:[facility], [address] [place] [phone] Notes/Report: Troponin-I High Sensitivity 2.8 <3.5-17.0 ng/ L The Blue high sensitivity Troponin-I results should be used in conjunction with other diagnostic information such as ECG, clinical observations and information, and patient symptoms to aid in the diagnosis of [place]. REASON FOR REFERRAL Reason Cerebral palsy/spast ic [...] schedule appointment; patient aware. Referral Priority Routine MEDICATIONS Medication SIG (Take, Route, Frequency, Duration) Notes Start Date End Date Status Docusate Sodium 100 MG 1 capsule Orally Once a day Active Latanoprost 0.005 % 1 drop into affected eye in the evening Ophthalmic Once a day Active Acetaminophen 500 MG 1 capsule as needed Orally Four times a day Active Amantadine HCl 100 MG 1 capsule Orally T hree times a day for 90 days Active hydroCHLOROthiazide 25 MG 1 tablet in th e morning Orally Once a day for 90 days Active Losartan Potassium 25 MG 1 tablet Orally Once a day Active ZyrTEC Allergy 10 MG 1 tablet Orally Onc e a day Active Fluocinolone Acetonide 0.01 % 5 applicat ions into affected ear Externally Once a day as needed Active Vitamin D 1000 UNIT 2 capsules Orally On ce a day Active Vitron-C 200-125 MG 1 tablet Orally Once a day 03/20/2011 Active VESIcare 10 MG 1 tablet Orally Once a day Active Omeprazole 20 MG 1 capsule Orally Twi ce a day 03/04/2011 Active Baclofen 10 MG 0.5 tablet Orally Fo ur times a day Active IMMUNIZATIONS Vaccine Route Administration Date Status Comme nts DECLINE: Pneumococcal Unknown 08/26/2012 Administered DECLINE: Influenza Unknown 02/16/2013 Administered COVID-19 Moderna Vaccine Unknown 01/23/2021 Administere d COVID-19 Jacob (J/J) Unknown 06/22/2020 Administered Influenza Unknown 02/15/2014 Refused Pneumococcal - PPSV23 Unknown 02/15/2014 Refused Influenza Unknown 03/03/2015 Refused Pneumococcal - PPSV23 Unknown 03/03/2015 Refused Influenza Unknown 12/05/2015 Refused Pneumococcal - PPSV23 Unknown 12/05/2015 Refused Influenza Unknown 01/06/2018 Refused Influenza Unknown 01/06/2019 Refused Pneumococcal - PPSV23 Unknown 01/04/2020 Refused Influenza Unknown 01/04/2020 Refused Influenza Unknown 12/12/2020 Refused Influenza Unknown 02/06/2021 Refused Influenza Unknown 11/20/2021 Refused Influenza Unknown 11/19/2022 Refused SOCIAL HISTORY Tobacco Use: Social History Observation [...] Never (0 point) Points 1 Interpretation Negative PROBLEMS Problem Type ICD Code Onset Dates Problem Status W/U Status Risk SNOMED Code Notes Problem Vitamin D deficiency (E55.9) Active confirmed 45854292 Problem Gastroesophageal reflux disease without esophagitis (K21.9) Active confirmed 323361557 Problem Multiple thyroid nodules (E04.2) Active confirmed 502883383 Problem 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) Active confirmed 250183789 Problem Hypercholesterolemia (E78.00) Active confirmed 32166816 Problem Adnexal cyst (N94.9) Active confirmed 9 [id number] Problem Primary hypertension (I10) Active confirmed 91534215 Problem Malignant neoplasm o f body of uterus, unspecified site (C54.9) Active confirmed 078928161 VITAL SIGNS Blood pressure diastolic 68 mm Hg 11/19/2023 Height 61 in 11/19/2023 Blood pressure systolic 132 mm Hg 11/19/2023 Weight 122 lbs 05/28/2023 BMI 23.05 kg/m2 05/28/2023 Encounters Encounter Location Date Provider Diagnosis Esau Pike DO [facility] [address], [place] [phone] 05/21/2023 Esau Pike DO, [facility] [address], [place] [phone] 05/28/2023 Esau Pike Cerebral palsy with spastic/ataxic diplegia G80.1 ; Primary hypertension I10 ; Hypercholesterolemia E78.00 ; Vitamin D deficiency E55.9 ; Gastroesophageal reflux disease without esophagitis K21.9 and Encounter for screening mammogram for malignant neoplasm of breast Z12.31 Esau Pike DO, [facility] [address], [place] [phone] 11/19/2023 Esau Pike Cerebral palsy with spastic/ataxic diplegia G80.1 ; Primary hypertension I10 ; Gastroesophageal reflux disease without esophagitis K21.9 and Vitamin D deficiency E55.9 Esau Pike , [facility] [address], [place] [phone] 03/30/2024 Esau Thomsonman Esau Pike , [facility] [address], [place] [phone] 01/30/2024 Esau Shahzad ASSESSMENTS Encounter Date Diagnosis Assessment Notes Treatment Notes Treatment Clinical Notes 05/28/2023 Cerebral palsy with spastic/ataxic diplegia (ICD-10 - G80.1) 05/28/2023 Primary hypertension (ICD-10 - I10) 11/19/2023 Cerebral palsy with spastic/ataxic diplegia (ICD-10 - G80.1) 11/19/2023 Primary hypertension (ICD-10 - I10) 05/28/2023 Hypercholesterolemia (ICD-10 - E78.00) 11/19/2023 Gastroesophageal ref lux disease without esophagitis (ICD-10 - K21.9) 05/28/2023 Vitamin D deficiency (ICD-10 - E55.9) 11/19/2023 Vitamin D deficiency (ICD-10 - E55.9) 05/28/2023 Gastroesophageal ref lux disease without esophagitis (ICD-10 - K21.9) 05/28/2023 Encounter for screen ing mammogram for malignant neoplasm of breast (ICD-10 - Z12.31) PLAN OF TREATMENT Pending Test Test Name Order Date MAMMOGRAM DIGITAL BILATERAL SCREEN G0202 12/12/2020 MAMMOGRAM DIGITAL BILATERAL SCREEN G0202 05/21/2022 MAMMOGRAM DIGITAL BILATERAL SCREEN G0202 05/28/2023 COLOGUARD 05/21/2022 Insurance Providers Payer Name Payer Address Payer Phone Subscriber Number Group Number Insured Name Patient Relationship to Insured Coverage Start Date Coverage End Date MEDICARE [address] [place] [phone] [id number] Nereyda Escalera Self - patient is the insured [facility] [address] [place], [place] [phone] [id number] Nereyda Escalera Self - patient is the insured [address] [address] [id number] Nereyda Escalera Self - patient is the insured 8 9 MEDICAL (GENERAL) HISTORY Medical History History ICD Code cerebral palsy spastic paraparesis hypercholesterolemia osteoporosis arthritis glaucoma urinary incontinence upper GI bleed secondary to erosive esop hagitis hiatal hernia seizure disorder Multiple thyroid nodules Chest pain, unspecified type R07.9 Gastroesophageal reflux disease without esophagitis K21.9 uterine cancer Malignant neoplasm of body of uterus, un specified site C54.9 Primary hypertension I10 Surgical History Surgery Date(Month/Year) hysterectomy, total with bilateral salpi alilson-oophorectomy (BSO) 12/2020
--- OUTSIDE RECORDS SUMMARY | 2024-03-30 13:57 | XMS_ITS ---
Author Organization [facility] Address [address] [place] [address] Care Team Providers Care Dimpling Machine Operator Name Role Phone Esau Pike DO Primary Care Provider Unavail able Idris De La Fuente Jr Unavailable REASON FOR VISIT report request Encounters Encounter Location Date Provider Diagnosis [facility] [address] [place] [address] 03/26/2023 Idris De La Fuente Jr PLAN OF TREATMENT No Information
--- OUTSIDE RECORDS SUMMARY | 2024-03-30 13:57 | XMS_ITS | Clinical Summary ---
Author Organization Unknown Care Team Providers Care Software Programmer Name Role Phone DELISA MARKS, RODNEY Unavailable Unavailable WILFRIDO BARCENAS, EMRE RALPH Unavailable Unava ilable SPAFFORD OT, DORENE Unavailable Unavailable CHENCHO PT, CAROLINE Unavailable Unavailable LUIPPOLD POLISHING PAD MOUNTER, MERY Unavailable Unavailable PENDRISS POLISHING PAD MOUNTER, FLORY Unavailable Unavailable KEANU SEARCH ENGINE OPTIMIZATION MANAGER, MELY Unavailable Unavailable CONDINO CAITLIN/FLORES, DAISY Unavailable Unav ailable Payers Payer Name Policy Type Policy Number Effective Date Expira tion Date MEDICARE.NGS.PDGM [id number] Problems Condition Name Condition Details Condition Category Status Onset Date Resolution Date Last Treatment Date Treating Clinician Comments ENCOUNTER FOR SURGICAL AFTCR FOLLOWING SURGERY ON THE S Active 2020-03 00:00: 00 CEREBRAL PALSY, UNSPECIFIED Active 2020-03 00:00: 00 GASTRO-ESOPH AGEAL REFLUX DISEASE WITHOUT ESOPHAGITIS Active 03-17 00:00: 00 CONSTIPATION , UNSPECIFIED Active 2020-03 00:00: 00 OVERACTIVE BLADDER Active 03-17 00:00: 00 UNSPECIFIED VISUAL LOSS Active 03-17 00:00: 00 Allergies, Adverse Reactions, Alerts Allergy Name Allergy Type Status Severity Reaction(s) Onset Date Inactive Date Treating Clinician Comments TAPE ADHESIVES Propensity to adverse reactions Active 2020-03 13:15: 09 AZITHROMYCIN Propensity to adverse reactions Active 2020-03 13:15: 19 TETRACYCLINE ..... Propensity to adverse reactions Active 2020-03 13:15: 32 POLYESTER Propensity to adverse reactions Active 2020-03 13:15: 42 STRAWBERRY Propensity to adverse reactions Active 2020-03 13:15: 53 EDEN Propensity to adverse reactions Active 2020-03 13:16: 01 Medications Ordered Medication Name Filled Medication Name Start Date Stop Date Current Medication? Ordering Clinician Indication Dosage Frequency Signature (SIG) Comments Components solifenacin 10 mg tablet 07-06 00:00: 00 01-24 23:59 :00 No [id number] BLADDER CONTROL 1 tablet BEDTIME 1 tablet BEDTIME (route: oral) Med Classific ation: Genitouri nary Therapy amantadine HCl 100 mg capsule 07-06 00:00: 00 01-24 23:59 :00 No [id number] CERBRAL PALSEY Per instruc tions DIRECTED Per instructio ns DIRECTED (route: oral) Med Classific ation: Central Nervous System Agents omeprazole 20 mg capsule,del ayed release 07-06 00:00: 00 01-24 23:59 :00 No [id number] GERD 1 capsule 2 TIMES DAILY 1 capsule 2 TIMES DAILY (route: oral) Med Classific ation: Gastroint estinal Therapy Agents baclofen 10 mg tablet 07-06 00:00: 00 01-24 23:59 :00 No [id number] CERBRAL PALSE Per instruc tions DIRECTED Per instructio ns DIRECTED (route: oral) Med Classific ation: Locomotor System Jennifer Allergy 180 mg tablet 07-06 00:00: 00 01-24 23:59 :00 No [id number] EAR PAIN 1 tablet DAILY 1 tablet DAILY (route: oral) Med Classific ation: Respirato ry Therapy Agents latanoprost (PF) 0.005 % eye drops 07-06 00:00: 00 01-24 23:59 :00 No [id number] . Per instruc tions BEDTIME Per instructio ns BEDTIME (route: ophthalmic (eye)) Med Classific ation: Ophthalmi c Agents pyridoxine (vitamin B6) 50 mg tablet 07-06 00:00: 00 01-24 23:59 :00 No [id number] LOW LEVELS 1 tablet DAILY 1 tablet DAILY (route: oral) Med Classific ation: Electroly te Balance-N utritiona l Products Tylenol Extra Strength 500 mg tablet 07-06 00:00: 00 01-24 23:59 :00 No [id number] PAIN 1 tablet 4 TIMES DAILY 1 tablet 4 TIMES DAILY (route: oral) Med Classific ation: Analgesic , Anti-infl ammatory or Antipyret ic Vitamin D3 10 mcg (400 unit) tablet 07-06 00:00: 00 01-24 23:59 :00 No [id number] BONES 1 tablet DAILY 1 tablet DAILY (route: oral) Med Classific ation: Electroly te Balance-N utritiona l Products Vitron-C 65 mg iron-125 mg tablet,vivian yed release 07-06 00:00: 00 01-24 23:59 :00 No [id number] HX OF BLEED 1 tablet DAILY 1 tablet DAILY (route: oral) Med Classific ation: Electroly te Balance-N utritiona l Products latanoprost 0.005 % eye drops 2020-03 0-15 00:00: 00 Yes [id number] GLAUCOMA 1 drops DAILY 1 drops DAILY (route: ophthalmic (eye)) Med Classific ation: Ophthalmi c Agents ibuprofen 400 mg tablet 2020-03 0-28 00:00: 00 01-27 00:00 :00 No [id number] PAIN MANAGEMENT 1 tablet EVERY 6 HOURS 1 tablet EVERY 6 HOURS (route: oral) Med Classific ation: Analgesic , Anti-infl ammatory or Antipyret ic amantadine HCl 100 mg capsule 2020-03 0-08 00:00: 00 Yes [id number] CEREBRAL PALSY 2 capsule BEDTIME 2 capsule BEDTIME (route: oral) Med Classific ation: Central Nervous System Agents omeprazole 20 mg capsule,del ayed release 2020-03 0-06 00:00: 00 Yes [id number] GERD 1 capsule DAILY 1 capsule DAILY (route: oral) Med Classific ation: Gastroint estinal Therapy Agents baclofen 10 mg tablet 2020-03 0-06 00:00: 00 Yes [id number] MUSCLE SPASM 0.5 tablet 4 TIMES DAILY 0.5 tablet 4 TIMES DAILY (route: oral) Med Classific ation: Locomotor System oxycodone 5 mg tablet 2020-03 0-29 00:00: 00 2021- 11-13 00:00 :00 No [id number] Per instruc tions Per instructio ns (route: oral) Med Classific ation: Analgesic , Anti-infl ammatory or Antipyret ic docusate sodium 100 mg capsule 2020-03 0- 00:00: 00 Yes [id number] BOWEL MANAGEMENT 1 capsule 2 TIMES DAILY 1 capsule 2 TIMES DAILY (route: oral) Med Classific ation: Gastroint estinal Therapy Agents amantadine HCl 100 mg capsule 2020-03 0-08 00:00: 00 Yes [id number] CEREBRAL PALSY 1 capsule DAILY 1 capsule DAILY (route: oral) Med Classific ation: Central Nervous System Agents solifenacin 10 mg tablet 2020-03 1- 00:00: 00 Yes [id number] BLADDER MANAGEMENT 1 tablet DAILY 1 tablet DAILY (route: oral) Med Classific ation: Genitouri nary Therapy acetaminoph en 325 mg tablet 2020-03 00:00: 00 Yes [id number] NEEDED FOR PAIN 3 tablet EVERY 8 HOURS 3 tablet EVERY 8 HOURS (route: oral) Med Classific ation: Analgesic , Anti-infl ammatory or Antipyret ic bisacodyl 5 mg tablet,vivian yed release 2020-03 00:00: 00 Yes [id number] BOWEL MANAGEMENT 1 tablet DAILY 1 tablet DAILY (route: oral) Med Classific ation: Gastroint estinal Therapy Agents loratadine 10 mg capsule 2020-03 00:00: 00 Yes [id number] ANTIHISTAMI NE 1 capsule DAILY 1 capsule DAILY (route: oral) Med Classific ation: Respirato ry Therapy Agents ondansetron 4 mg disintegrat ing tablet 2020-03 00:00: 00 Yes [id number] NAUSEA 1 tablet 4 TIMES DAILY 1 tablet 4 TIMES DAILY (route: oral) Med Classific ation: Gastroint estinal Therapy Agents polyethylen e glycol 3350 17 gram/dose oral powder 2020-03 00:00: 00 Yes [id number] BOWEL MANAGEMENT 17 gram DAILY 17 gram DAILY (route: oral) Med Classific ation: Gastroint estinal Therapy Agents senna 8.6 mg tablet 2020-03 00:00: 00 Yes [id number] BOWEL MANAGEMENT 1 tablet DAILY 1 tablet DAILY (route: oral) Med Classific ation: Gastroint estinal Therapy Agents lisinopril 5 mg tablet 2020-03 00:00: 00 02-28 23:59 :00 No [id number] HYPERTENSIO N 1 tablet DAILY 1 tablet DAILY (route: oral) Med Classific ation: Cardiovas cular Therapy Agents tramadol 50 mg tablet 2020-03 00:00: 00 Yes [id number] PAIN MANAGEMENT 1 tablet EVERY 6 HOURS 1 tablet EVERY 6 HOURS (route: oral) Med Classific ation: Analgesic , Anti-infl ammatory or Antipyret ic losartan 25 mg tablet 2020-03 00:00: 00 Yes [id number] HTN 1 tablet DAILY 1 tablet DAILY (route: oral) Med Classific ation: Cardiovas cular Therapy Agents Immunizations Ordered Immunization Name Filled Immunization Name Date Status Comments Refusal Reason BOOSTER -COVID-19 VACCINE, COVID-19 VACCINE 2021-01-19 00:00:00 Vital Signs Vital Name Observation Time Observation Value Commen ts Temperature 2021-03-26 11:01:00.000 97.5 [degF] Temperature 2021-03-22 14:09:00.000 97.2 [degF] Temperature 2021-03-21 13:52:00.000 97.8 [degF] Temperature 2021-03-14 11:24:00.000 98.6 [degF] Temperature 2021-03-13 14:23:00.000 96.9 [degF] Temperature 2021-03-07 09:25:00.000 97.4 [degF] Temperature 2021-03-06 08:58:00.000 97.6 [degF] Temperature 2021-02-28 13:34:00.000 97.3 [degF] Temperature 2021-02-28 09:21:00.000 97.7 [degF] Temperature 2021-02-26 08:59:00.000 98.2 [degF] Temperature 2021-02-22 15:05:00.000 98.7 [degF] Temperature 2021-02-21 12:42:00.000 97.9 [degF] Temperature 2021-02-19 09:41:00.000 97.1 [degF] Temperature 2021-02-14 12:32:00.000 96.6 [degF] Temperature 2021-02-14 10:50:00.000 97.7 [degF] Temperature 2021-02-13 09:30:00.000 97.1 [degF] Temperature 2021-02-12 14:44:00.000 98.6 [degF] Temperature 2021-02-09 12:36:00.000 97.4 [degF] Temperature 2021-02-09 09:55:00.000 97.1 [degF] Temperature 2021-02-05 14:00:00.000 98.2 [degF] Temperature 2021-02-02 10:52:00.000 97.9 [degF] Temperature 2021-01-31 11:54:00.000 97.7 [degF] Temperature 2021-01-30 14:33:00.000 97.5 [degF] Temperature 2021-01-29 09:32:00.000 97.7 [degF] Temperature 2021-01-27 12:52:00.000 98.3 [degF] Height 2021-01-27 12:52:00.000 61 [in_us] Pulse 2021-03-26 11:01:00.000 64 /min Pulse 2021-03-22 14:09:00.000 76 /min Pulse 2021-03-21 13:52:00.000 64 /min Pulse 2021-03-14 11:24:00.000 72 /min Pulse 2021-03-13 14:23:00.000 71 /min Pulse 2021-03-07 09:25:00.000 81 /min Pulse 2021-03-06 08:58:00.000 85 /min Pulse 2021-02-28 13:34:00.000 87 /min Pulse 2021-02-28 09:21:00.000 81 /min Pulse 2021-02-26 08:59:00.000 82 /min Pulse 2021-02-22 15:05:00.000 82 /min Pulse 2021-02-21 12:42:00.000 69 /min Pulse 2021-02-19 09:41:00.000 70 /min Pulse 2021-02-14 12:32:00.000 72 /min Pulse 2021-02-14 10:50:00.000 74 /min Pulse 2021-02-13 09:30:00.000 70 /min Pulse 2021-02-12 14:44:00.000 82 /min Pulse 2021-02-09 12:36:00.000 72 /min Pulse 2021-02-09 09:55:00.000 80 /min Pulse 2021-02-05 14:00:00.000 85 /min Pulse 2021-02-02 10:52:00.000 70 /min Pulse 2021-01-31 11:54:00.000 71 /min Pulse 2021-01-30 14:33:00.000 73 /min Pulse 2021-01-29 09:32:00.000 83 /min O2 Saturation (%) 2021-03-22 14:09:00.000 98 % O2 Saturation (%) 2021-03-14 11:24:00.000 96 % O2 Saturation (%) 2021-03-13 14:23:00.000 97 % O2 Saturation (%) 2021-03-07 09:25:00.000 97 % O2 Saturation (%) 2021-02-28 13:34:00.000 97 % O2 Saturation (%) 2021-02-21 12:47:00.000 96 % O2 Saturation (%) 2021-02-14 12:32:00.000 98 % O2 Saturation (%) 2021-02-09 12:36:00.000 98 % O2 Saturation (%) 2021-02-02 10:52:00.000 98 % O2 Saturation (%) 2021-01-31 11:54:00.000 94 % O2 Saturation (%) 2021-01-30 14:33:00.000 93 % O2 Saturation (%) 2021-01-27 12:52:00.000 94 % Respirations 2021-03-26 11:01:00.000 18 /min Respirations 2021-03-22 14:09:00.000 20 /min Respirations 2021-03-21 13:52:00.000 18 /min Respirations 2021-03-14 11:24:00.000 18 /min Respirations 2021-03-13 14:23:00.000 18 /min Respirations 2021-03-07 09:25:00.000 18 /min Respirations 2021-03-06 08:58:00.000 18 /min Respirations 2021-02-28 13:34:00.000 20 /min Respirations 2021-02-28 09:21:00.000 18 /min Respirations 2021-02-26 08:59:00.000 18 /min Respirations 2021-02-22 15:05:00.000 18 /min Respirations 2021-02-21 12:42:00.000 18 /min Respirations 2021-02-19 09:41:00.000 18 /min Respirations 2021-02-14 12:32:00.000 18 /min Respirations 2021-02-14 10:50:00.000 18 /min Respirations 2021-02-13 09:30:00.000 18 /min Respirations 2021-02-12 14:44:00.000 18 /min Respirations 2021-02-09 12:36:00.000 18 /min Respirations 2021-02-09 09:55:00.000 18 /min Respirations 2021-02-05 14:00:00.000 18 /min Respirations 2021-02-02 10:52:00.000 18 /min Respirations 2021-01-31 11:54:00.000 18 /min Respirations 2021-01-30 14:33:00.000 18 /min Respirations 2021-01-29 09:32:00.000 18 /min Respirations 2021-01-27 12:52:00.000 17 /min Systolic Blood Pressure 2021-03-26 11:01:00.000 132 mm [Hg] Systolic Blood Pressure 2021-03-22 14:09:00.000 138 mm [Hg] Systolic Blood Pressure 2021-03-21 13:52:00.000 148 mm [Hg] Systolic Blood Pressure 2021-03-14 11:24:00.000 144 mm [Hg] Systolic Blood Pressure 2021-03-13 14:23:00.000 135 mm [Hg] Systolic Blood Pressure 2021-03-07 09:25:00.000 124 mm [Hg] Systolic Blood Pressure 2021-03-06 08:58:00.000 138 mm [Hg] Systolic Blood Pressure 2021-02-28 13:34:00.000 132 mm [Hg] Systolic Blood Pressure 2021-02-28 09:21:00.000 160 mm [Hg] Systolic Blood Pressure 2021-02-26 08:59:00.000 136 mm [Hg] Systolic Blood Pressure 2021-02-22 15:05:00.000 142 mm [Hg] Systolic Blood Pressure 2021-02-21 12:42:00.000 124 mm [Hg] Systolic Blood Pressure 2021-02-19 09:41:00.000 150 mm [Hg] Systolic Blood Pressure 2021-02-14 12:32:00.000 130 mm [Hg] Systolic Blood Pressure 2021-02-13 09:30:00.000 120 mm [Hg] Systolic Blood Pressure 2021-02-12 14:44:00.000 162 mm [Hg] Systolic Blood Pressure 2021-02-09 12:36:00.000 130 mm [Hg] Systolic Blood Pressure 2021-02-09 09:55:00.000 138 mm [Hg] Systolic Blood Pressure 2021-02-05 14:00:00.000 150 mm [Hg] Systolic Blood Pressure 2021-02-02 10:52:00.000 120 mm [Hg] Systolic Blood Pressure 2021-01-31 11:54:00.000 120 mm [Hg] Systolic Blood Pressure 2021-01-30 14:33:00.000 146 mm [Hg] Systolic Blood Pressure 2021-01-29 09:32:00.000 160 mm [Hg] Systolic Blood Pressure 2021-01-27 12:52:00.000 132 mm [Hg] Diastolic Blood Pressure 2021-03-26 11:01:00.000 70 mm [Hg] Diastolic Blood Pressure 2021-03-22 14:09:00.000 76 mm [Hg] Diastolic Blood Pressure 2021-03-21 13:52:00.000 84 mm [Hg] Diastolic Blood Pressure 2021-03-14 11:24:00.000 82 mm [Hg] Diastolic Blood Pressure 2021-03-13 14:23:00.000 78 mm [Hg] Diastolic Blood Pressure 2021-03-07 09:25:00.000 68 mm [Hg] Diastolic Blood Pressure 2021-03-06 08:58:00.000 74 mm [Hg] Diastolic Blood Pressure 2021-02-28 13:34:00.000 70 mm [Hg] Diastolic Blood Pressure 2021-02-28 09:21:00.000 82 mm [Hg] Diastolic Blood Pressure 2021-02-26 08:59:00.000 74 mm [Hg] Diastolic Blood Pressure 2021-02-22 15:05:00.000 70 mm [Hg] Diastolic Blood Pressure 2021-02-21 12:42:00.000 79 mm [Hg] Diastolic Blood Pressure 2021-02-19 09:41:00.000 72 mm [Hg] Diastolic Blood Pressure 2021-02-14 12:32:00.000 70 mm [Hg] Diastolic Blood Pressure 2021-02-13 09:30:00.000 68 mm [Hg] Diastolic Blood Pressure 2021-02-12 14:44:00.000 80 mm [Hg] Diastolic Blood Pressure 2021-02-09 12:36:00.000 70 mm [Hg] Diastolic Blood Pressure 2021-02-09 09:55:00.000 72 mm [Hg] Diastolic Blood Pressure 2021-02-05 14:00:00.000 80 mm [Hg] Diastolic Blood Pressure 2021-02-02 10:52:00.000 70 mm [Hg] Diastolic Blood Pressure 2021-01-31 11:54:00.000 80 mm [Hg] Diastolic Blood Pressure 2021-01-30 14:33:00.000 86 mm [Hg] Diastolic Blood Pressure 2021-01-29 09:32:00.000 76 mm [Hg] Diastolic Blood Pressure 2021-01-27 12:52:00.000 62 mm [Hg] Plan of Treatment Planned Activity Planned Date Details Comments Future Scheduled Test SKILLED NU RSE TO ASSESS, EVALUATE, AND DEVELOP AN INDIVIDUALIZED PLAN OF CARE. AGENCY MAY ACCEPT ORDERS FROM CONSULTING PHYSICIANS DR GHAZAL CASTANO TO OBSERVE/ASSESS RISK FOR FALLS AND INSTRUCT IN FALL PREVENTION, HOME SAFETY, MEDICATION MANAGEMENT, INFECTION PREVENTION, AND NUTRITION MANAGEMENT. SN MAY PERFORM O2 SATURATION LEVEL ON ADMISSION AND AT EACH SN VISIT TO ASSESS PATIENT, WITH NOTIFICATION TO THE PHYSICIAN IF SATURATION IS 90% IN THE ABSENCE OF MORE SPECIFIC PARAMETERS FROM THE PHYSICIAN. AGENCY MAY PERFORM A RESUMPTION OF CARE VISIT FOLLOWING ANY HOSPITAL ADMISSION. SKILLED NURSE TO ASSESS/EVALUATE CO-MORBID CONDITIONS AND ANY NEW CONDITIONS THAT PRESENT THEMSELVES DURING THIS EPISODE TO IDENTIFY CHANGES AND INTERVENE TO MINIMIZE COMPLICATIONS. [code = SKILLED NURSE TO ASSESS, EVALUATE, AND DEVELOP AN INDIVIDUALIZED PLAN OF CARE. AGENCY MAY ACCEPT ORDERS FROM CONSULTING PHYSICIANS DR DUVALL, DR HARMAN SN TO OBSERVE/ASSESS RISK FOR FALLS AND INSTRUCT IN FALL PREVENTION, HOME SAFETY, MEDICATION MANAGEMENT, INFECTION PREVENTION, AND NUTRITION MANAGEMENT. SN MAY PERFORM O2 SATURATION LEVEL ON ADMISSION AND AT EACH SN VISIT TO ASSESS PATIENT, WITH NOTIFICATION TO THE PHYSICIAN IF SATURATION IS 90% IN THE ABSENCE OF MORE SPECIFIC PARAMETERS FROM THE PHYSICIAN. AGENCY MAY PERFORM A RESUMPTION OF CARE VISIT FOLLOWING ANY HOSPITAL ADMISSION. SKILLED NURSE TO ASSESS/EVALUATE CO-MORBID CONDITIONS AND ANY NEW CONDITIONS THAT PRESENT THEMSELVES DURING THIS EPISODE TO IDENTIFY CHANGES AND INTERVENE TO MINIMIZE COMPLICATIONS.] Future Scheduled Test MEDICATION MANAGEMENT; SKILLED NURSE TO REVIEW MEDICATIONS FOR INTERACTIONS, EFFECTIVENESS OF DRUG THERAPY, AND SIGNS/SYMPTOMS OF ADVERSE REACTIONS. MAY INSTRUCT AND REINFORCE MEDICATION TEACHING RELATED TO THE USE OF MEDICATIONS, DOSAGE, FREQUENCY, PURPOSE, SIDE EFFECTS, AND TO REPORT COMPLICATIONS. [code = MEDICATION MANAGEMENT; SKILLED NURSE TO REVIEW MEDICATIONS FOR INTERACTIONS, EFFECTIVENESS OF DRUG THERAPY, AND SIGNS/SYMPTOMS OF ADVERSE REACTIONS. MAY INSTRUCT AND REINFORCE MEDICATION TEACHING RELATED TO THE USE OF MEDICATIONS, DOSAGE, FREQUENCY, PURPOSE, SIDE EFFECTS, AND TO REPORT COMPLICATIONS.] Future Scheduled Test RISK FOR H OSPITALIZATION; SKILLED NURSE TO INSTRUCT PATIENT/CAREGIVER ON RISK FOR HOSPITALIZATION, TEACH SIGNS AND SYMPTOMS THAT PUT PATIENT AT RISK, WHEN TO NOTIFY NURSE OF COMPLICATIONS/DECLINE, AND WHEN TO CALL 911. SKILLED NURSE TO INSTRUCT PATIENT/CAREGIVER ON: SIGNS AND SYMPTOMS TO BE ON ALERT FOR EARLY INTERVENTION, PRIOR TO NEEDING EMERGENCY SERVICES CALL [facility] NURSE TO KEEP MACHINE WIPER SYMPTOM REPORT FOR VISIBLE REFERENCE NOTIFY SKILLED NURSE/PHYSICIAN FOR DECLINE IN STATS WHEN AND HOW TO CALL HOME HEALTH AGENCY FACILITATE PHYSICIAN FOLLOW UP APPOINTMENT IDENTIFY SOCIOECONOMIC CONCERNS AND MAKE APPROPRIATE REFERRAL NEEDED [code = RISK FOR HOSPITALIZATION; SKILLED NURSE TO INSTRUCT PATIENT/CAREGIVER ON RISK FOR HOSPITALIZATION, TEACH SIGNS AND SYMPTOMS THAT PUT PATIENT AT RISK, WHEN TO NOTIFY NURSE OF COMPLICATIONS/DECLINE, AND WHEN TO CALL 911. SKILLED NURSE TO INSTRUCT PATIENT/CAREGIVER ON: SIGNS AND SYMPTOMS TO BE ON ALERT FOR EARLY INTERVENTION, PRIOR TO NEEDING EMERGENCY SERVICES CALL [facility] NURSE TO KEEP MACHINE WIPER SYMPTOM REPORT FOR VISIBLE REFERENCE NOTIFY SKILLED NURSE/PHYSICIAN FOR DECLINE IN STATS WHEN AND HOW TO CALL HOME HEALTH AGENCY FACILITATE PHYSICIAN FOLLOW UP APPOINTMENT IDENTIFY SOCIOECONOMIC CONCERNS AND MAKE APPROPRIATE REFERRAL NEEDED] Future Scheduled Test SKIN INTEG RITY - SN OBSERVE AND ASSESS INTEGUMENTARY STATUS TO IDENTIFY CHANGES AND INTERVENE TO MINIMIZE COMPLICATIONS. PROVIDE SKILLED TEACHING OF GENERAL WOUND AND SKIN CARE AND PREVENTION RELATED TO POTENTIAL FOR OR ACTUAL ALTERED SKIN INTEGRITY [code = SKIN INTEGRITY - SN OBSERVE AND ASSESS INTEGUMENTARY STATUS TO IDENTIFY CHANGES AND INTERVENE TO MINIMIZE COMPLICATIONS. PROVIDE SKILLED TEACHING OF GENERAL WOUND AND SKIN CARE AND PREVENTION RELATED TO POTENTIAL FOR OR ACTUAL ALTERED SKIN INTEGRITY ] Future Scheduled Test SKILLED NU RSE TO PERFORM/TEACH INCISION CARE/REPORTABLE SIGNS AND SYMPTOMS OF INFECTION TO ABDOMEN AREA: INCISIONS HAVE STERI-STRIPS IN PLACE AND ARE TO REMAIN IN PLACE UNTIL THEY FALL OFF ON THEIR OWN. PATIENT/LONG TERM TO MONITOR FOR, REDNESS, SWELLING, DRAINAGE, BLEEDING AND NOTIFY PHYSICIAN OF ANY CHANGES [code = SKILLED NURSE TO PERFORM/TEACH INCISION CARE/REPORTABLE SIGNS AND SYMPTOMS OF INFECTION TO ABDOMEN AREA: INCISIONS HAVE STERI-STRIPS IN PLACE AND ARE TO REMAIN IN PLACE UNTIL THEY FALL OFF ON THEIR OWN. PATIENT/LONG TERM TO MONITOR FOR, REDNESS, SWELLING, DRAINAGE, BLEEDING AND NOTIFY PHYSICIAN OF ANY CHANGES] Future Scheduled Test PAIN MANAG EMENT; SKILLED NURSE TO OBSERVE, ASSESS, AND PROVIDE EDUCATION ON PAIN MANAGEMENT TECHNIQUES. [code = PAIN MANAGEMENT; SKILLED NURSE TO OBSERVE, ASSESS, AND PROVIDE EDUCATION ON PAIN MANAGEMENT TECHNIQUES.] Future Scheduled Test FALL REDUC TION MANAGEMENT; NURSING TO PROVIDE SKILLED ASSESSMENT, EDUCATION, AND INTERVENTION TO IDENTIFY FALL RISK FACTORS SUCH MEDICATIONS THAT MAY CAUSE DIZZINESS, CHRONIC DISEASES, PSYCHOLOGICAL FACTORS, AND EMPOWER/EDUCATE PATIENT/CAREGIVER TO MINIMIZE FALL RISK. [code = FALL REDUCTION MANAGEMENT; NURSING TO PROVIDE SKILLED ASSESSMENT, EDUCATION, AND INTERVENTION TO IDENTIFY FALL RISK FACTORS SUCH MEDICATIONS THAT MAY CAUSE DIZZINESS, CHRONIC DISEASES, PSYCHOLOGICAL FACTORS, AND EMPOWER/EDUCATE PATIENT/CAREGIVER TO MINIMIZE FALL RISK.] Future Scheduled Test PHYSICAL T HERAPIST TO EVALUATE FOR STRENGTH, BALANCE, MOBILITY AND SAFETY [code = PHYSICAL THERAPIST TO EVALUATE FOR STRENGTH, BALANCE, MOBILITY AND SAFETY ] Future Scheduled Test OCCUPATION AL THERAPIST TO EVALUATE FOR FUNCTIONAL MOBILITY AND SAFETY [code = OCCUPATIONAL THERAPIST TO EVALUATE FOR FUNCTIONAL MOBILITY AND SAFETY ] Future Scheduled Test PRN VISITS ; PATIENT REQUIRES 3 PRN LONG TERM VISITS FOR COMPLICATIONS RELATED TO WOUND STATUS [code = PRN VISITS; PATIENT REQUIRES 3 PRN LONG TERM VISITS FOR COMPLICATIONS RELATED TO WOUND STATUS ] Future Scheduled Test AGENCY MAY PERFORM A RESUMPTION OF CARE VISIT FOLLOWING ANY HOSPITAL ADMISSION. PHYSICAL THERAPY TO EVALUATE, ASSESS AND MONITOR, PROVIDE SKILLED THERAPEUTIC INTERVENTION, ACTIVITY, EDUCATION, AND TRAINING TO ADDRESS: TRANSFER TRAINING (PT) GAIT TRAINING (PT) NEUROMUSCULAR RE-EDUCATION / BALANCE RETRAINING (PT) PAIN MANAGEMENT (PT) IDENTIFY FALL RISK FACTORS AND ESTABLISH HOME EXERCISE PROGRAM TO MINIMIZE FALL RISK (PT) [code = AGENCY MAY PERFORM A RESUMPTION OF CARE VISIT FOLLOWING ANY HOSPITAL ADMISSION. PHYSICAL THERAPY TO EVALUATE, ASSESS AND MONITOR, PROVIDE SKILLED THERAPEUTIC INTERVENTION, ACTIVITY, EDUCATION, AND TRAINING TO ADDRESS: TRANSFER TRAINING (PT) GAIT TRAINING (PT) NEUROMUSCULAR RE-EDUCATION / BALANCE RETRAINING (PT) PAIN MANAGEMENT (PT) IDENTIFY FALL RISK FACTORS AND ESTABLISH HOME EXERCISE PROGRAM TO MINIMIZE FALL RISK (PT)] Future Scheduled Test AGENCY MAY PERFORM A RESUMPTION OF CARE VISIT FOLLOWING ANY HOSPITAL ADMISSION. OCCUPATIONAL THERAPY TO EVALUATE, ASSESS, AND MONITOR, PROVIDE SKILLED THERAPEUTIC INTERVENTION, ACTIVITY, EDUCATION, AND TRAINING TO ADDRESS; DECLINE IN ADLS AND FUNCTIONAL MOBILITY, FALL PREVENTION MANAGEMENT, PAIN MANAGEMENT. BATHING/SHOWERING (OT) TOILETING (OT) BED POSITIONING (OT) PAIN MANAGEMENT (OT) FALL REDUCTION (OT) [code = AGENCY MAY PERFORM A RESUMPTION OF CARE VISIT FOLLOWING ANY HOSPITAL ADMISSION. OCCUPATIONAL THERAPY TO EVALUATE, ASSESS, AND MONITOR, PROVIDE SKILLED THERAPEUTIC INTERVENTION, ACTIVITY, EDUCATION, AND TRAINING TO ADDRESS; DECLINE IN ADLS AND FUNCTIONAL MOBILITY, FALL PREVENTION MANAGEMENT, PAIN MANAGEMENT. BATHING/SHOWERING (OT) TOILETING (OT) BED POSITIONING (OT) PAIN MANAGEMENT (OT) FALL REDUCTION (OT)] Goal 2021-03-26 Patient Goal - T 0 BE ABLE TO GET OUT OF BED INDEPENDENTLY Goal Provider Goal - A PLAN OF CARE WILL BE ESTABLISHED THAT MEETS THE PATIENTS NEEDS. PATIENT WILL DEMONSTRATE OXYGEN SATURATION WITHIN NORMAL LIMITS OR PATIENTS OPTIMAL LEVEL ESTABLISHED BY THE PHYSICIAN THROUGHOUT CARE. CHANGES TO CO-MORBID CONDITIONS AND ANY NEW CONDITIONS WILL BE IDENTIFIED AND REPORTED TO THE PHYSICIAN. Goal Provider Goal - PATIENT/CAREGIVER TO VERBALIZE, AND CONSISTENTLY DEMONSTRATE EFFECTIVE, SAFE MANAGEMENT OF MEDICATION INCLUDING KNOWLEDGE OF EFFECTIVENESS, POTENTIAL SIDE EFFECTS AND DRUG REACTIONS AND WHEN TO CONTACT THE APPROPRIATE CARE PROVIDER. PATIENT/CAREGIVER WILL BE ABLE TO VERBALIZE UNDERSTANDING OF MEDICATION REGIMEN AND ACCURATELY TAKE MEDICATIONS PRESCRIBED WITHOUT ADVERSE EFFECTS BY 03/27/21 Goal Provider Goal - PATIENT/CAREGIVER WILL VERBALIZE UNDERSTANDING OF SIGNS AND SYMPTOMS THAT PUT THE PATIENT AT RISK FOR HOSPITALIZATION, WHEN TO NOTIFY SN OF COMPLICATIONS/DECLINE AND WHEN TO CALL 911. Goal Provider Goal - CHANGES IN SKIN INTEGRITY STATUS WILL BE IDENTIFIED AND REPORTED TO THE PHYSICIAN FOR PROMPT INTERVENTION. PATIENT / CAREGIVER WILL VERBALIZE/DEMONSTRATE ADEQUATE KNOWLEDGE OF INTEGUMENTARY STATUS AND APPROPRIATE MEASURES TO PROMOTE SKIN INTEGRITY AND PREVENT INJURY BY 03/27/21 Goal Provider Goal - PATIENT / CAREGIVER WILL VERBALIZE / DEMONSTRATE ABILITY TO PERFORM WOUND CARE. WOUND STATUS WILL IMPROVE EVIDENCED BY A DECREASE IN SIZE, DRAINAGE, ABSENCE OF INFECTION, AND DECREASED PAIN BY 03/27/21 Goal Provider Goal - PATIENT / CAREGIVER WILL VERBALIZE / DEMONSTRATE UNDERSTANDING OF PAIN CONTROL MEASURES BY 03/27/21 Goal Provider Goal - PATIENT/CAREGIVER ABLE TO IDENTIFY FALL RISK FACTORS AND IMPLEMENT STRATEGIES TO MINIMIZE FALL RISK. PATIENT/CAREGIVER WILL VERBALIZE/DEMONSTRATE AN ABILITY TO ADHERE TO FALL REDUCTION SELF MANAGEMENT AND LIFE-STYLE CHANGES AT DISCHARGE. PERSONAL GOAL(S) STATED BY PATIENT/CAREGIVER WILL BE MET BY 03/27/21. Goal Provider Goal - Goal Provider Goal - Goal Provider Goal - Goal Provider Goal - PT STG: PATIENT WILL DEMONSTRATE INDEPENDENCE WITH SIT TO AND FROM SUPINE TRANSFERS WITHIN 3 WEEKS PT LTG: PATIENT WILL DEMONSTRATE IMPROVED STAND PIVOT TRANSFERS TO/FROM EDGE OF BED TO WHEELCHAIR FROM MOD ASSIST TO INDEPENDENT WITHIN 5 WEEKS PT STG: PATIENT WILL DEMONSTRATE IMPROVED POSTURE AND POSITIONING WITHIN WALKER BASE AND CONTINUOUS STEPPING IN ORDER TO IMPROVE GAIT PATTERN WITHIN 4 WEEKS PT LTG: PATIENT WILL DEMONSTRATE IMPROVED AMBULATION FROM MIN ASSIST TO INDEPENDENT WITH STANDARD WALKER WITHIN 9 WEEKS PT LTG: PATIENT WILL DEMONSTRATE IMPROVED SAFETY NEGOTIATING RAMP FROM NT TO SUP WITH STANDARD WALKER WITHIN 9 WEEKS PT LTG: PATIENT WILL DEMONSTRATE ABILITY TO STAND UNSUPPORTED ON FIRM SURFACE WITH BILATERAL UE MOVEMENT X 3 MINUTES WITHOUT LOB IN ORDER TO DEMO IMPROVED SAFETY WITH STANDING ACTIVITIES WITHIN 6 WEEKS PT GOAL: PATIENT/CAREGIVER WILL VERBALIZE UNDERSTANDING OF PAIN MANAGEMENT BY DISCHARGE. PATIENT/CAREGIVER WILL DEMONSTRATE ADHERENCE TO FALL REDUCTION SELF MANAGEMENT TO MINIMIZE FALL RISK BY DISCHARGE. Goal Provider Goal - OT STG: PATIENT WILL DEMONSTRATE IMPROVED SHOWER TRANSFERS WITH CGA WITHIN 2 WEEKS. OT LTG: PATIENT WILL DEMONSTRATE IMPROVED ABILITY TO PERFORM BATH/SHOWER TRANSFER FROM MIN ASSIST TO SBA WITHIN 5 WEEKS. OT STG: PATIENT WILL DEMONSTRATE IMPROVED TOILET TRANSFERS WITH SBA WITHIN 2 WEEKS. OT LTG: PATIENT WILL DEMONSTRATE IMPROVED ABILITY TO PERFORM TOILET TRANSFER FROM CGA TO INDEPENDENT WITHIN 5 WEEKS. OT STG: PATIENT WILL DEMONSTRATE IMPROVED BED POSITIONING WITH MIN ASSIST WITHIN 2 WEEKS. OT LTG: PATIENT WILL DEMONSTRATE IMPROVED ABILITY TO PERFORM BED POSITIONING FROM MOD ASSIST TO INDEPENDENT WITHIN 5 WEEKS. PATIENT WILL VERBALIZE UNDERSTANDING OF PAIN MANAGEMENT TECHNIQUES BY DISCHARGE. PATIENT/CAREGIVER WILL BE ABLE TO IMPLEMENT OCCUPATIONAL THERAPY EDUCATION RECOMMENDATIONS SPECIFIC TO FALL REDUCTION FOR IMPROVED ADL/IADL COMPLETION AND HOME SAFETY BY DISCHARGE. Reason for Visit INDEPENDENT WITH USE OF ASSISTIVE DEVICE Encounters Start Date/Time End Date/Time Encounter Type Admission Type Attending [facility] Department Encounter ID Discharge Date Discharge Status Discharge Condition Discharge Reason Percent Goals Met 2021-01-27 00:00:00 2021-03-26 00:00:00 Outpatient EMRE PATEL [facility] [id number] 2021-03-26 00:00:00 DISCHARGE TO HOME OR SELF CARE INDEPENDEN T WITH USE OF ASSISTIVE DEVICE HH OR PAL- GOALS MET 92.59
--- OUTSIDE RECORDS SUMMARY | 2024-03-30 13:57 | XMS_ITS ---
Author Organization [facility] Address [address] [place] [address] Care Team Providers Care Construction Equipment Overhauler Name Role Phone Esau Pike DO Primary Care Provider Unavail able Idris De La Fuente Jr Unavailable ALLERGIES Allergen (clinical drug ingredient) Drug/Non Drug Allergy documented on EMR Reaction Allergy Type Onset Date Status tetracycline Tetracycline HCl Unknown Drug Allergy Active erythromycin Erythromycin Unknown Drug Allergy A ctive REASON FOR VISIT Patient presents today for office recall visit gerd MEDICATIONS Medication SIG (Take, Route, Frequency, Duration) Notes Start Date End Date Status VESIcare 10 MG 1 tablet Orally Once a day Active Amantadine HCl 100 MG 1 tablet am/2 in p m Orally daily Active Latanoprost Not-Taki ng Claritin PRN Active Omeprazole 20 MG TAKE 1 CAPSULE BY MOUTH TWICE DAILY for 30 days Active Tylenol 500 MG/15ML 1 tablet as needed Orally 3-4 x daily/prn Active Docusate Sodium 100 MG 1 capsule as need ed Orally Once a day for 30 day(s) Active Baclofen 10 MG 1 tablet with food or milk Orally 3-4 times a day Active Losartan Potassium 25 MG 1 tablet Orally Once a day for 30 day(s) Active hydroCHLOROthiazide 25 MG 1 tablet in th e morning Orally Once a day for 30 day(s) Active Vitron-C 65-125 MG 1 tablet Orally Once a day for 30 day(s) Active Vitamin D-3 25 MCG (1000 UT) 1 capsule O rally Once a day for 30 day(s) Active IMMUNIZATIONS Vaccine Route Administration Date Status Comme nts Influenza Unknown 03/26/2023 Refused PROBLEMS Problem Type ICD Code Onset Dates Problem Status W/U Status Risk SNOMED Code Notes Problem Gastroesophageal reflux disease with esophagitis, unspecified whether hemorrhage (K21.00) Active confirmed Gastroes ophageal reflux disease with esophagitis (disorder) (871979418) VITAL SIGNS BMI 23.99 kg/m2 03/26/2023 Blood pressure systolic 000 mm Hg 03/26/19 24 Blood pressure diastolic 00 mm Hg 024 Height 61 in 03/26/2023 Temperature 97.7 degrees Fahrenheit 03/26/19 24 Weight 127 lbs 03/26/2023 Encounters Encounter Location Date Provider Diagnosis [facility] [address] [place] [address] 03/26/2023 Idris De La Fuente Jr Gastroesophageal reflux disease with esophagitis K21.0 ; Oropharyngeal dysphagia R13.12 and Colon cancer screening Z12.11 ASSESSMENTS Encounter Date Diagnosis Assessment Notes Treatment Notes Treatment Clinical Notes 03/26/2023 Gastroesophageal reflux disease with esophagitis (ICD-10 - K21.0) Gastroesophageal reflux disease material was printed 03/26/2023 Oropharyngeal dysphagia (ICD-10 - R13.12) 03/26/2023 Colon cancer screening (ICD-10 - Z12.11) PLAN OF TREATMENT Treatment Notes Assessment Notes Gastroesophageal reflux dise ase with esophagitis Gastroesophageal reflux disease material was printed Next Appt Details Follow Up: 2 Years, Reason:
== END 2024-03-30 12:31 | disposition home or self-care (01) ==
LOC: HO.HMCSH 11:40
PROVIDERS: PCP Internal Medicine; Visit Provider Physician Assistant Medical
DX: Z09 Encounter for follow-up examination after completed treatment for conditions other than malignant neoplasm (principal); G80.9 Cerebral palsy, unspecified; R11.0 Nausea; K44.9 Diaphragmatic hernia without obstruction or gangrene; R19.5 Other fecal abnormalities; Z12.11 Encounter for screening for malignant neoplasm of colon

== ENCOUNTER → 2024-03-30 11:40 | Outpatient (BNVA) | payer MEDICARE, MEDICAID, SELFPAY | PROVIDERS: PCP Internal Medicine; Visit Provider Physician Assistant Medical | DX: G80.9 Cerebral palsy, unspecified (principal); R19.5 Other fecal abnormalities; K44.9 Diaphragmatic hernia without obstruction or gangrene; R11.0 Nausea; Z09 Encounter for follow-up examination after completed treatment for conditions other than malignant neoplasm | CPT/HCPCS: 99202 ==

== ENCOUNTER 2024-06-24 12:25 | Outpatient (AMB) | payer MEDICARE, MEDICAID, SELFPAY ==
--- NOTE | 2024-06-24 13:00 | A.OFFVIS_ITS ---
Intake Visit Reasons: 1yr/PVR Intake Note: Patient is present for 1yr follow up incontinence Urology Medications: vesicare Blood Thinner: none PVR: 0ml's Gameplay Programmer Required: No Accompanied by: Sister Allergies tetracycline [TETRACYCLINE] Allergy (Intermediate, Verified 06/25/24 11:22) Altered Mental Status polyester fibers Allergy (Unknown, Verified 06/25/24 11:22) Contact Dermatitis erythromycin base Adverse Reaction (Unknown, Verified 06/25/24 11:22) Nausea and Vomiting Medication List - Last Reconciled 06/25/24 by HECTOR Weaver acetaminophen 325 mg PO TID PRN amantadine HCl 100 mg PO DAILY amantadine HCl 200 mg PO BEDTIME ascorbic acid (vitamin C) 500 mg PO DAILY@12 baclofen 10 mg PO .daily 800 1000 90 days baclofen 5 mg PO .daily 1200 cholecalciferol (vitamin D3) 10 mcg PO DAILY@12 docusate sodium 100 mg PO DAILY@1200 hydrochlorothiazide 25 mg PO DAILY latanoprost 0.005% 1 drp ophthalmic (eye) BEDTIME loratadine (Claritin) 10 mg PO DAILY losartan 25 mg PO DAILY mirabegron ER (Myrbetriq) 25 mg PO DAILY 30 days omeprazole 20 mg PO BID@0630,1630 pyridoxine (vitamin B6) (Vitamin B-6) 50 mg PO DAILY@12 solifenacin (Vesicare) 10 mg PO BEDTIME 90 days HPI Comments Details: Nereyda is a pleasant 68-year-old female patient of Dr. Gamboa who was accompanied by her sister Thu at today's visit. She has a past medical history of arthritis, cerebral palsy, uterine benign neoplasm, hiatal hernia, and urge incontinence.She presents to the office today for follow-up of her urge incontinence. In discussion with the patient today she discusses her admission to the hospital late last year for strangulated hiatal hernia she had been experiencing. She discusses having been discharged from the hospital and attending rehab at which time she felt lower urinary tract symptoms were most bothersome however had not been receiving VESIcare as ordered at the rehab. She reports since she has been home she has been performing timed/scheduled voiding and has been compliant with VESIcare and feels this is helpful however she does continue to experience episodes of urge and at times urge incontinence given her decreased mobility with her cerebral palsy unable to obtain urine for urinalysis today as patient unable to void however PVR 0 mL. She otherwise denies hematuria, dysuria, foul smelling urine, changes to urinary stream, flank pain, fever, and or chills. She maintains a schedule to manage her incontinence issues but faces challenges at night, using Depends as an aid. Plan Today, we focus on treating the patient's urinary symptoms using a combination of solifenacin and mirabegron to address her overactive bladder and urge incontinence effectively. She understands the potential benefits, risks, and the need for careful monitoring of any resultant symptomatic relief or side effects from this combination therapy. We aim for significant symptom control to enhancing her quality of life. The patient has consented to this approach after discussing alternative options available. Follow-up will be scheduled within three months to closely monitor her response to the new regimen. Patient was informed and verbally consented to the use of an ambient scribe for clinic note documentation during this visit. Discussion Notes During our discussion, I detailed the management strategies for her overactive bladder and urge incontinence, including a combined medication regime of solifenacin and mirabegron. I emphasized the benefits of dual therapy while explaining potential risks and side effects. I addressed the patient's concerns regarding nighttime incontinence and the impact of her symptoms on daily activities and assured her about monitoring her response to treatment, which might involve adjustments in the future. We discussed that she would see me again within three months, wherein her symptoms and medication efficacy would be reassessed. The patient was advised about possible side effects, such as dry mouth or constipation, and consent was obtained to commence the treatment plan. [facility]LY [facility] Medical History Hiatal hernia Uterine benign neoplasm Urge incontinence Urgency incontinence Arthritis Cerebral palsy Surgical History History of hysterectomy Family History Father No problems noted. Mother No problems noted. Social History Household Members: Family Housing: House Do you presently have visiting nurse or other home services: No Patient Tobacco Use Status: Never used Tobacco Advance Directives Date on File: 06/05/20 service: No Review of Systems Const All systems reviewed & are unremarkable except as noted in HPI and below Reports no additional complaints Eyes Reports no additional complaints ENT Reports no additional complaints Card Reports no additional complaints Resp Reports no additional complaints GI Reports no additional complaints Reports as per HPI Musc Reports as per HPI Neuro Reports as per HPI Psych Reports no additional complaints Endo Reports no additional complaints Rubens/Lymph Reports no additional complaints Aller/Immun Reports no additional complaints Physical Exam Const General: cooperative, comfortable, no acute distress, well developed, alert and awake Orientation/consciousness: patient oriented x3 Limitations: wheelchair HEENT Head: Yes normal to inspection, Yes normocephalic and Yes atraumatic Ears: hearing grossly normal bilaterally Eyes General: appearance normal, both eyes and all related structures Neck Neck: Yes normal visual inspection and Yes trachea midline Chest Chest palpation & inspection: normal inspection of the chest Resp Effort & Inspection: normal respiratory effort and able to speak in complete sentences Cardio Rate: regular rate GI Inspection: Yes normal to inspection General: Yes no CVA tenderness Back/Spine/Pelvis Back: no CVA tenderness Skin General skin exam: no rashes or lesions noted Neuro General: patient oriented x3 Extrem General: Yes normal to inspection Psych Appearance: well kempt Mental Status: mental status grossly normal Speech and movement: Clear speech present (slow to respond) Affect: normal affect Attitude: cooperative Insight: Fair insight present (Psych) Judgement: Fair judgement present (Psych) Office Procedures Post Void Residual Post Residual Void Post Void Residual (PVR): 0 55206-Xyjc Void Residual by ultrasound Assessment & Plan Assessment & Plan (1) Urge incontinence: Code(s): N39.41 - Urge incontinence Category: Medical Plan Unable to obtain urine for urinalysis as patient unable to void however PVR 0 mL. Continue VESIcare as discussed and prescribed. Start Myrbetriq as discussed and prescribed. Continue with timed/scheduled voiding. Discussed potential near future in office cystoscopy and or urodynamics for further assessment evaluation. Follow-up in 3 months with PVR; or sooner with any issues, concerns, and or questions. Orders: Orders AMB Post Void Residual by ultrasound 06/24/24 N39.41 - Urge incontinence Medications: New mirabegron ER (Myrbetriq) 25 mg PO DAILY 30 tabs 3RF 30 days N30.10 - Interstitial cystitis (chronic) without hematuria, N32.81 - Overactive bladder, R35.1 - Nocturia, R39.15 - Urgency of urination Patient Instructions: The patient had an opportunity to ask questions regarding the treatment plan. All questions were answered. Physical exam, labs, and imaging were discussed and reviewed in detail. As well as risks, benefits, and discussion of treatment choices. No major barriers to understanding were identified. The patient expressed understanding and agreement with the above treatment plan. The patient was made aware they should contact our office by phone for worsening of their current condition, the appearance of new symptoms, or with any questions or concerns. Compliance is encouraged with any medications and follow up testing that is ordered. It is a privilege to be allowed the opportunity to participate in? your urological care.? Again, if you have any questions or concerns If you have any questions or concerns please do not hesitate to contact me. The office is [phone]. This note is constructed using voice recognition software. While every effort has been made to ensure accuracy clay grinder errors may have been included. Yours sincerely, HECTOR Weaver Coding Level of Care Code Est Pt Level 4 (47833) Complex EM visit Add On G2211 Diagnoses Urge incontinence N39.41 CPT Codes Post Residual Void - PVR CPT Code: 25751-Ndop Void Residual by ultrasound ([id number])
--- OUTSIDE RECORDS SUMMARY | 2024-06-24 14:54 | XMS_ITS ---
Author Organization [facility] Care Team Providers Care Lithographic Photographer Name Role Phone Addie Newton Unavailable Unavailable Lizzette Coyle Unavailable Unavailable Andie Sullivan Unavailable Unavailable Samina Spicer Unavailable Unavailable Alejandra Yuan Unavailable Unavailable Josette PLUSH WEAVER, Kymberly Lema Unavailable Unavailable Greg, Raya Unavailable Unavailable Maingi, Shadrack Unavailable Unavailable Allergies and adverse reactions Code CodeSystem Substance Reaction Severity StartDate Concern Status 110939747 SNOMED CT Tetracyclines & Related Unknown 06/06/2020 active POLYESTER Unknown 06/06/2020 active 4053 RXNORM Erythromycin Unknown 06/06/2020 active Care Team Name Role Address Phone Organization Cristobal Coyle PCP [address] [place] [address], [facility] (Office): : [facility] 06/06/2020 - 07/05/2020 Addie Newton Attending Physician [address] [place] [address], [facility] (Office): : [phone] [facility] 06/06/2020 - 07/05/2020 Andie Sullivan Attending Physician [address] [place] [address], [facility] (Office): : [facility] 06/06/2020 - 07/05/2020 Samina Spicer Attending Physician [address] [place] [address], [facility] (Office): : [phone] [facility] 06/06/2020 - 07/05/2020 Alejandra Yuan Attending Physician [address] [facility] [address], [place], [address], [facility] (Office): : [facility] 06/06/2020 - 07/05/2020 Kymberly Finch NP Attending Physician [address] [facility] [address], [place] [address], [facility] (Office): [facility] 06/06/2020 - 07/05/2020 Raya Garza Attending Physician [address] [place] [address] 1, [place], [place], [address] [place] [address] (Office): : [facility] 06/06/2020 - 07/05/2020 Neetu Abernathy Attending Physician [address] [facility], [place], [address], [facility] (Office): : [facility] 06/06/2020 - 07/05/2020 Goals Section Description Status Target Date I will enjoy participating i n a satisfying activity program through the next review date. Active 09/10/2020 Will have intake >75% of navya ls W ill have stable weights W ill tolerate diet S kin intact W ill have no s/sx of dehydration Active 09/10/2020 Immunizations Immunization Status Vaccine Details Vaccine Code CodeSystem Date Notes Jacob COVID-19 Vaccine (Cl & Lango) 1 Dose completed SARS-COV-2 (COVID-19) vaccine, vector non-replicating, recombinant spike protein-Ad26, preservative free, 0.5 mL lotNumber: [id number] CVX created date: 07/17/2020 consent date: 07/17/2020 administer ed date: 06/22/2020 Educated by Mine Hitchcock on 06/22/2020 Mental Status Section Date Assessment Total Score Description 07/05/2020 BIMS 15 cognitively int act CAM 0 No delirium ind icated PHQ-9 00 06/12/2020 BIMS 15 cognitively int act CAM 0 No delirium ind icated PHQ-9 00 Problems Problem # Description Date of onset Resolved Date Code CodeSystem Concern Status 1 CEREBRAL PALSY, UNSPECIFIED 06/06/[address] active 2 DIAPHRAGMATIC HERNIA WITHOUT OBSTRUCTION OR GANGRENE 06/06/[address] active 3 MUSCLE WEAKNESS (GENERALIZED) 06/06/[address] active 4 OTHER MALAISE 06/06/[address] act larry 5 OTHER SPECIFIED ARTHRITIS, MULTIPLE SITES 06/06/[address] active 6 REPEATED FALLS 06/06/[address] ac tive 7 UNSPECIFIED OSTEOARTHRITIS, UNSPECIFIED SITE 06/06/[address] active 8 WEAKNESS 06/06/[address] active Reason for Referral No Reasons for Referral Entered Social History Social History Observation Description Start Date End Date Code Code System Current Smoking Status Tobacco smoking consumption unknown 535104262 SNOMED CT Sex Assigned At Female 1955 [address]15[address]-0 [facility] Vital Signs Code Code System Vitals Name Values and Units Timing Information 9279-1 [facility] Respiratory Rate Value=18.0 Units=/m in 07/06/2020 8462-4 [facility] Blood Pressure-Diastolic Value=66 Un its=mmHg 07/06/2020 8480-6 [facility] Blood Pressure-Systolic Doepp=395 Un its=mmHg 07/06/2020 8310-5 [facility] Body Temperature Value=97.4 Units=?? F 07/06/2020 8867-4 [facility] Heart rate Value=68.0 Units=/min 17319-1 [facility] O2 % BldC Oximetry Value=96.0 Units= % 07/06/2020 89461-5 [facility] Weight Qzmop=228.6 Units=Lbs 03599-0 [facility] Pain Level Value=0.0 06/07/2020
== END 2024-06-24 13:34 | disposition home or self-care (01) ==
LOC: HO.HUSH 12:25
PROVIDERS: PCP Internal Medicine; Visit Provider Nurse Practitioner Family
DX: N39.41 Urge incontinence (principal)
CPT/HCPCS: 99214; G2211

== ENCOUNTER → 2024-06-24 12:25 | Outpatient (BNVA) | payer MEDICARE, MEDICAID, SELFPAY | PROVIDERS: PCP Internal Medicine; Visit Provider Nurse Practitioner Family | DX: N39.41 Urge incontinence (principal); N30.10 Interstitial cystitis (chronic) without hematuria; N32.81 Overactive bladder; R35.1 Nocturia | CPT/HCPCS: 51798; 99212 ==

== ENCOUNTER 2024-09-22 12:40 | Outpatient (AMB) | payer MEDICARE, MEDICAID, SELFPAY ==
--- NOTE | 2024-09-22 12:56 | A.OFFVIS_ITS ---
Intake Visit Reasons: 3m/PVR Intake Note: Patient presents today for follow up on: incontinence Urology Medications: vesicare and myrbetriq Blood Thinner: none PVR: 0ml's Loss Prevention Lead Required: No Accompanied by: Sister Allergies tetracycline (TETRACYCLINE) Allergy (Intermediate, Verified 09/22/24 15:24) Altered Mental Status polyester fibers Allergy (Unknown, Verified 09/22/24 15:24) Contact Dermatitis erythromycin base Adverse Reaction (Unknown, Verified 09/22/24 15:24) Nausea and Vomiting Medication List - Last Reconciled 09/22/24 by HECTOR Weaver acetaminophen 325 mg PO TID PRN amantadine HCl 100 mg PO TID 90 days ascorbic acid (vitamin C) 500 mg PO DAILY@12 baclofen 5 mg PO DAILY baclofen 10 mg PO .daily 800 1000 90 days cholecalciferol (vitamin D3) 10 mcg PO DAILY@12 docusate sodium 100 mg PO DAILY@1200 hydrochlorothiazide 25 mg PO QAM loratadine (Claritin) 10 mg PO DAILY losartan 25 mg PO DAILY mirabegron ER (Myrbetriq) 25 mg PO DAILY 30 days omeprazole 20 mg PO BID@0630,1630 pyridoxine (vitamin B6) (Vitamin B-6) 50 mg PO DAILY@12 solifenacin (Vesicare) 10 mg PO BEDTIME 90 days HPI Comments Details: Nereyda is a pleasant 69-year-old female patient of Dr. Gamboa who was accompanied by her sister Thu at today's visit. She has a past medical history of arthritis, cerebral palsy, uterine benign neoplasm, hiatal hernia, a nd urge incontinence.She presents to the office today for follow-up of her urge incontinence. In discussion with the patient today she reports to be happy with her current voiding parameters on Myrbetriq and VESIcare as prescribed. She discusses how significantly helpful this has been. She currently denies any bothersome urinary issues or concerns. Unable to obtain urine for urinalysis today however PVR 0 mL. She reports having recently celebrated her 69th birthday and is undergoing preoperative clearance for her upcoming surgical procedure for her strangulated hiatal hernia. She denies hematuria, dysuria, foul smelling urine, changes to urinary stream, flank pain, fever, and or chills. She maintains a schedule to manage her incontinence issues but faces challenges at night, using Depends as an aid. [facility] Medical History Hiatal hernia Uterine benign neoplasm Urge incontinence Urgency incontinence Arthritis Cerebral palsy Surgical History History of hysterectomy Family History Father No problems noted. Mother No problems noted. Social History Household Members: Family Housing: House Do you presently have visiting nurse or other home services: No Patient Tobacco Use Status: Never used Tobacco Advance Directives Date on File: 06/05/20 service: No Review of Systems Const All systems reviewed & are unremarkable except as noted in HPI and below Reports no additional complaints Eyes Reports no additional complaints ENT Reports no additional complaints Card Reports no additional complaints Resp Reports no additional complaints GI Reports no additional complaints Reports as per HPI Musc Reports as per HPI Neuro Reports as per HPI Psych Reports no additional complaints Endo Reports no additional complaints Rubens/Lymph Reports no additional complaints Aller/Immun Reports no additional complaints Physical Exam Const General: cooperative, comfortable, no acute distress, well developed, alert and awake Orientation/consciousness: patient oriented x3 Limitations: wheelchair HEENT Head: Yes normal to inspection, Yes normocephalic and Yes atraumatic Ears: hearing grossly normal bilaterally Eyes General: appearance normal, both eyes and all related structures Neck Neck: Yes normal visual inspection and Yes trachea midline Chest Chest palpation & inspection: normal inspection of the chest Resp Effort & Inspection: normal respiratory effort and able to speak in complete sentences Cardio Rate: regular rate GI Inspection: Yes normal to inspection General: Yes no CVA tenderness Back/Spine/Pelvis Back: no CVA tenderness Skin General skin exam: no rashes or lesions noted Neuro General: patient oriented x3 Extrem General: Yes normal to inspection Psych Appearance: well kempt Mental Status: mental status grossly normal Speech and movement: Clear speech present (slow to respond) Affect: normal affect Attitude: cooperative Insight: Fair insight present (Psych) Judgement: Fair judgement present (Psych) Office Procedures Post Void Residual Post Residual Void Post Void Residual (PVR): 0 [id number] Void Residual by ultrasound Assessment & Plan Assessment & Plan (1) Urge incontinence: Code(s): N39.41 - Urge incontinence Category: Medical Plan In office urinalysis results with the patient today; as noted above. PVR 0 mL. Continue Myrbetriq and VESIcare as prescribed. She currently denies any bothersome urinary issues or concerns. She reports be happy with current voiding parameters on Myrbetriq and VESIcare; will continue. All questions were answered. Continue with timed/scheduled voiding given decreased mobility. Follow-up in 6 months with PVR; or sooner with any issues, concerns, and or questions. Orders: Orders AMB Post Void Residual by ultrasound Today N39.41 - Urge incontinence Patient Instructions: The patient had an opportunity to ask questions regarding the treatment plan. All questions were answered. Physical exam, labs, and imaging were discussed and reviewed in detail. As well as risks, benefits, and discussion of treatment choices. No major barriers to understanding were identified. The patient expressed understanding and agreement with the above treatment plan. The patient was made aware they should contact our office by phone for worsening of their current condition, the appearance of new symptoms, or with any questions or concerns. Compliance is encouraged with any medications and follow up testing that is ordered. It is a privilege to be allowed the opportunity to participate in? your urological care.? Again, if you have any questions or concerns If you have any questions or concerns please do not hesitate to contact me. The office is [phone]. This note is constructed using voice recognition software. While every effort has been made to ensure accuracy environmental monitoring technician errors may have been included. Yours sincerely, HECTOR Weaver Coding Level of Care Code Est Pt Level 3 (58311) Complex EM visit Add On G2211 Diagnoses Urge incontinence N39.41 CPT Codes Post Residual Void - PVR CPT Code: 85361-Zase Void Residual by ultrasound ([id number])
== END 2024-09-22 13:30 | disposition home or self-care (01) ==
LOC: HO.HUSH 12:40
PROVIDERS: PCP Physician Assistant Medical; Visit Provider Nurse Practitioner Family
DX: N39.41 Urge incontinence (principal)
CPT/HCPCS: 99213; G2211

== ENCOUNTER → 2024-09-22 12:40 | Outpatient (BNVA) | payer MEDICARE, MEDICAID, SELFPAY | PROVIDERS: PCP Physician Assistant Medical; Visit Provider Nurse Practitioner Family | DX: N39.41 Urge incontinence (principal) | CPT/HCPCS: 51798; 99212 ==

== ENCOUNTER 2024-11-10 09:56 | Outpatient (REF) | payer MEDICARE, MEDICAID, SELFPAY ==
--- OUTSIDE RECORDS SUMMARY | 2024-11-10 10:41 | XMS_ITS | Clinical Summary ---
Author Organization [employer] [facility] Address [address] [place], [place] [id number] Phone Care Team Providers Care Lead Caster Name Role Phone ShahzadEsau DO Primary Care Provider Social History Tobacco Use Types Packs/Day Years Used Date Smoking Tobacco: Never Assessed Education Answer Date Recorded Are you interested in more education? Not on felix e 02/04/2024 Are you concerned about learning? Not on file 02/04/2024 No 02/04/2024 No 02/04/2024 Digital Access Answer Date Recorded No 02/04/2024 No 02/04/2024 Reliable internet access at home? Not on file 02/04/2024 Device with a working camera? Not on file Comments Unknown Sex and Gender Information Value Date Recorded Sex Assigned at Not on file Legal Sex Female 1:08 PM EST Gender Identity Not on file Sexual Orientation Not on file Plan of Treatment Not on file Medical Devices Not on file Insurance [employer] MEDICARE PART A [place] MEDICARE PART A & B HEALTH MEDICARE PART A & B [facility] MEDICARE PART A & B Care Teams Lead Caster Relationship Specialty Start Date End Date Esau Pike DO [address] [place] [id number] PCP - General Internal Medicine 03/05/24 Additional Source Comments The information contained in this document represents components of the legal health record. It is not the complete legal health record.[facility]
[2024-11-10 13:50] LABS: MANUAL DIFF FLAG NO
[2024-11-10 14:06] LABS: Hematocrit 44.6 % (37.0-47.0); Hemoglobin 14.7 g/dl (12.0-16.0); Imm Gran Abs Auto 0.02 X10*3/uL (0.00-0.03); Imm Gran Pct Auto 0.3 % (0.0-0.4); Lymphocytes Absolute Auto 1.0 X10*3/uL (1.2-4.9); Mean Corpuscular HGB Conc 33.0 g/dl (31.0-35.0); Mean Corpuscular Hemoglobin 29.5 pg (27.0-33.0); Mean Corpuscular Volume 89.6 fL (80.0-98.0); NRBC Abs Auto 0.000 X10*3/uL (0.0-0.012); NRBC Pct Auto 0.0 /100WBC (0.0-0.2); Platelet Count 254 X10*3/uL (160-400); Red Blood Count 4.98 X10*6/uL (4.20-5.50); White Blood Count 7.4 X10*3/uL (4.8-10.8)
[2024-11-10 14:25] LABS: Hemoglobin A1C 158.2535 umol/L; Total Hemoglobin (HGBA1C) 3803.7098 umol/L
[2024-11-10 14:31] LABS: Alanine Aminotransferase 21 U/L (0-31); Albumin Level 4.7 g/dL (3.5-5.0); Alkaline Phosphatase 114 U/L (39-117); Anion Gap 16 (12-20); Aspartate Amino Transferase 21 U/L (5-31); Blood Urea Nitrogen 18 mg/dL (9-16); Calcium 9.9 mg/dL (8.4-10.2); Carbon Dioxide 27 mmol/L (22-29); Chloride 99 mmol/L (96-108); Cholesterol 251 mg/dL (<200); Estimated Glomerular Filt Rate > 60; HDL Cholesterol 69 mg/dL (>40); Magnesium 2.1 mg/dL (1.6-2.6); Potassium 4.2 mmol/L (3.3-5.1); Sodium 138 mmol/L (135-145); Total Protein 7.4 g/dL (6.5-8.0); Triglycerides 188 mg/dL (<150)
[2024-11-10 14:53] LABS: Folate 5.4 ng/mL (> or = 4.0); Vitamin B12 386 pg/mL (200-900)
== END 2024-11-10 09:57 | disposition home or self-care (01) ==
LOC: HO.HMGCLDS 09:56
PROVIDERS: PCP Physician Assistant Medical; Visit Provider Physician Assistant Medical
DX: Z12.11 Encounter for screening for malignant neoplasm of colon (principal); Z09 Encounter for follow-up examination after completed treatment for conditions other than malignant neoplasm; G80.9 Cerebral palsy, unspecified; R19.5 Other fecal abnormalities; K44.9 Diaphragmatic hernia without obstruction or gangrene; R11.0 Nausea; Z13.6 Encounter for screening for cardiovascular disorders; Z13.29 Encounter for screening for other suspected endocrine disorder
CPT/HCPCS: 36415; 80053; 80061; 80076; 82248; 82306; 82607; 82746; 83036; 83735; 84443; 85025

== ENCOUNTER 2024-11-16 11:17 | Outpatient (AMB) | payer MEDICARE, MEDICAID, SELFPAY ==
--- NOTE | 2024-11-16 11:15 | MHC.PC.OV ---
Vital Signs 11/16/24 11:21 Weight 129 lb BP 156/88 H Respiration 14 Pulse 78 Pulse Source Pulse Oximeter Temp 98.1 F Temp Source Temporal Artery Scan Pulse Oximetry (%) 97 Oxygen Delivery Method Room Air Intake Visit Reasons: follow up Animal Care Giver Required: No Accompanied by: sister Allergies tetracycline (TETRACYCLINE) Allergy (Intermediate, Verified 11/16/24 11:17) Altered Mental Status polyester fibers Allergy (Unknown, Verified 11/16/24 11:17) Contact Dermatitis erythromycin base Adverse Reaction (Unknown, Verified 11/16/24 11:17) Nausea and Vomiting Tobacco use date assessed: 11/16/24 Fall risk assessment: No Falls in past year Last assessed Fall Risk: 11/16/24 Dental Screening Dental Screen Date: 11/16/24 Did you have a dental visit in the last 12 months?: Yes Did you have a dental problem in the last 6 months where you did not have access to dental care?: No Was dental information given to patient?: Patient has dentist HPI follow up HPI Details 69-year-old female presents to the office after recent discharge from a correction. Patient at baseline has cerebral palsy and is wheelchair-bound. She has marked kyphoscoliosis also at baseline. Patient was admitted 6 months ago to the hospital with symptoms of abdominal pain, nausea and vomiting. During the workup a large hiatal hernia with a large segment of the stomach in the thorax was discovered through a CAT scan. She later went to the correction for rehabilitation. Patient would now like to get the hernia fixed surgically if possible. She complains of regurgitation and aspiration at times. [facility] Medical History Hiatal hernia Uterine benign neoplasm Urge incontinence Urgency incontinence Arthritis Cerebral palsy Surgical History History of colonoscopy (~03/07/11) History of hysterectomy Family History Father No problems noted. Mother No problems noted. Social History Household Members: Family Housing: House Do you presently have visiting nurse or other home services: No Alcohol intake: current Alcohol intake frequency: holidays/special occasions only Patient Tobacco Use Status: Never used Tobacco Advance Directives Date on File: 06/05/20 service: No Current occupational status: retired Cognitive needs: Yes (wheelchair) Hearing needs: No Vision needs: Yes (rx glasses) Questionnaire PHQ-9 Over the last 2 weeks, how often have you been bothered by any of the following problems? 1. Little interest or pleasure in doing things: not at all 2. Feeling down, depressed, or hopeless: not at all 3. Trouble falling or staying asleep, or sleeping too much: not at all 4. Feeling tired or having little energy: not at all 5. Poor appetite or overeating: not at all 6. Feeling bad about yourself - or that you are a failure or have let yourself or your family down: not at all 7. Trouble concentrating on things, such as reading the newspaper or watching television: not at all 8. Moving or speaking so slowly that other people could have noticed. Or the opposite - being so fidgety or restless that you have been moving around a lot more than usual: not at all 9. Thoughts that you would be better off or of hurting yourself in some way: not at all Total score: 0 Source: Developed by Drs. Esau Martinez, Bryanna Linton, Charles Garcia and colleagues, with an educational reg from [employer]. Thrive Questionnaire Date Thrive assessed: 11/16/24 I am a: Patient What is your living situation today?: I have a steady place to live Within the past 12 months, did the food you bought not last and you didn't have the money to get more?: Never true Within the past 12 months, did you worry whether your food would run out before you got money to buy more?: Never true Do you have trouble paying for medicines?: No Do you have trouble getting transportation to medical appointments?: No Do you have trouble paying your heating and electricity bill?: No Do you have trouble taking care of your child, family member or friend?: No Do you have trouble with day-to-day activities such as bathing, preparing meals, shopping, managing finances, etc.?: Yes Are you currently unemployed and looking for a job?: No Are you interested in more education?: No Please select the resources that you would like help with: None THRIVE Score: 0 AUDIT C Alcohol Use Questionnaire (AUDIT-C) 1. How often do you have a drink containing alcohol?: Monthly or less 2. How many drinks containing alcohol do you have on a typical day when you are drinking?: 1 or 2 3. How often do you have six or more drinks on one occasion?: Never Total Score: 1 POOJA-7 AMB Questionnaire POOJA-7 Date POOJA - 7 assessed: 11/16/24 Feeling nervous, anxious, or on edge: 0 = Not at all Not being able to stop or control worryin = Not at all Worrying too much about different things: 0 = Not at all Trouble relaxin = Not at all Being so restless that it is hard to sit still: 0 = Not at all Becoming easily annoyed or irritable: 0 = Not at all Feeling afraid as if something awful might happen: 0 = Not at all Total POOJA-7 score (0-4 normal; 5-9 mild; 10-14 moderate; 15-21 severe): 0 Source: Developed by Drs. Esau Martinez, Bryanna Linton, Charles Garcia and colleagues, with an educational reg from [employer]. Physical exam (Primary Care) Vital Signs: Last Vital Signs Temp 98.1 F 11/16/24 11:21 Pulse 78 11/16/24 11:21 Resp 14 11/16/24 11:21 BP 156/88 H 11/16/24 11:21 Pulse Ox 97 11/16/24 11:21 Oxygen Delivery Method Room Air 11/16/24 11:21 Tobacco/Smoking Status: Tobacco use Status Tobacco use date assessed 11/16/24 11/16/24 11:29 Patient Tobacco Use Status Never used Tobacco 11/16/24 11:29 PHQ-9: PHQ-9 Score PHQ-9: Total score 0 11/16/24 11:47 Thrive Assessment: Date of Thrive Assessment Date Thrive assessed 11/16/24 11/16/24 11:29 Const General: cooperative and healthy appearing Nutritional Appearance: well nourished Orientation/consciousness: patient oriented x3 Limitations: no limitations HENMT Head: Yes normal to inspection Eyes General: appearance normal, both eyes and all related structures Neck Neck: Yes normal visual inspection Resp Effort & Inspection: normal respiratory effort Neuro General: patient oriented x3 Coding Level of Care Code Est Pt Level 3 (57452) Complex EM visit Add On G2211 Diagnoses Hiatal hernia K44.9 Assessment & Plan Assessment & Plan (1) Hiatal hernia: Code(s): K44.9 - Diaphragmatic hernia without obstruction or gangrene Category: Medical Plan: Surgical opinion requested Orders: Referrals General Surgery Referral K44.9 - Diaphragmatic hernia without obstruction or gangrene
[2024-11-16 11:21] VITALS: BP 156/88; PULSE 78; RESP 14; TEMP 36.7; O2SAT 97
--- OUTSIDE RECORDS SUMMARY | 2024-11-16 12:51 | XMS_ITS | Clinical Summary ---
Author Organization [facility] Address [address] [place], [place] [phone] Phone Care Team Providers Care Chronograph Operator Name Role Phone ShahzadEsau DO Primary Care [...] file Medical Devices Not on file Insurance [employer] MEDICARE PART A & B [place] MEDICARE PART A & B HEALTH MEDICARE PART A & B [facility] MEDICARE PART A & B Care Teams Chronograph Operator Relationship Specialty Start Date End Date Esau Pike DO [address] [place] [id number] PCP - General Internal Medicine 03/05/24 Additional Source Comments The information contained in this document represents components of the legal health record. It is not the complete legal health record.[facility]
== END 2024-11-16 11:49 | disposition home or self-care (01) ==
LOC: HO.HMCSH 11:17
PROVIDERS: PCP Physician Assistant Medical; Visit Provider Internal Medicine
DX: K44.9 Diaphragmatic hernia without obstruction or gangrene (principal)

== ENCOUNTER → 2024-11-16 11:17 | Outpatient (BNVA) | payer MEDICARE, MEDICAID, SELFPAY | PROVIDERS: PCP Physician Assistant Medical; Visit Provider Internal Medicine | DX: K44.9 Diaphragmatic hernia without obstruction or gangrene (principal); R10.9 Unspecified abdominal pain; R11.2 Nausea with vomiting, unspecified; Z99.3 Dependence on wheelchair | CPT/HCPCS: 96127; 99212 ==

== ENCOUNTER 2024-12-08 10:57 | Outpatient (AMB) | payer MEDICARE, MEDICAID, SELFPAY ==
--- OUTSIDE RECORDS SUMMARY | 2024-12-06 15:00 | XMS_ITS | Encounter Summary ---
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 Procedures XR Esophagram Gregg Oleary MD [address] [address] Phone: tel: fax: [address] [phone] Phone: tel: Referral ID Status Reason Start Date Expiration Date V isits Requested Visits Authorized [id number] Authorized 12/07/2024 12/07/2025 1 1 * Imaging (Routine) - Authorized Specialty Diagnoses / Procedures Referred By Contac t Referred To Contact Radiology Diagnoses 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 Procedures CT Chest wo Contrast Gregg Oleary MD [address] [address] Phone: tel: fax: [address] [address] Phone: tel: Referral ID Status Reason Start Date Expiration Date V isits Requested Visits Authorized [id number] Authorized 12/07/2024 12/07/2025 1 1 Reason for Visit * Reason Comments Hernia * Consultation (Routine) - Authorized Specialty Diagnoses / Procedures Referred By Contreva t Referred To Contact Thoracic Surgery Diagnoses Diaphragmatic hernia without obstruction or gangrene Procedures AL CONSULTATION OFFICE NEW/ESTAB PATIENT 30 MIN Thaddeus Gamboa MD [address] [place] [address] Phone: tel: fax: Gregg Oleary MD 299 [facility] [address] [place] [address] Phone: tel: fax: Referral ID Status Reason Start Date Expiration Date V isits Requested Visits Authorized [id number] Authorized 11/30/2024 11/30/2025 1 1 Encounter Details Date Type Department Care Team (Late st Contact Info) Description 12/06/2024 3:00 PM EDT Consult Thoracic Surgery - [place] [address] [place] [phone] Gregg Oleary MD 299 [facility] [place] [address] [place] [id number] 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 (Primary Dx); Cerebral palsy, unspecified type (CMS/HCC V24, CMS/HCC V28); Neoplasm Social History Tobacco Use Types Packs/Day Years Used Date Smoking Tobacco: Never Smokeless Tobacco: Never Tobacco Cessation:Counseling Given: Not Answered Comments Unknown Sex and Gender Information Value Date Recorded Sex Assigned at Not on file Legal Sex Female 7:46 PM EST Gender Identity Not on file Sexual Orientation Not on file documented as of this encounter Last Filed Vital Signs Vital Sign Reading Time Taken Comments Blood Pressure 137/97 12/06/2024 3:15 PM EDT Pulse 76 12/06/2024 3:15 PM EDT Temperature 36.3 C (97.3 F) 12/06/2024 3:15 PM EDT Respiratory Rate 18 12/06/2024 3:15 PM EDT Oxygen Saturation 96% 12/06/2024 3:15 PM EDT Inhaled Oxygen Concentration - - Weight 58.5 kg (129 lb) 12/06/2024 3:15 PM EDT Height - - Body Mass Index - - documented in this encounter Progress Notes * Gregg Oleary MD - 12/06/2024 3:00 PM EDT NEW PATIENT CONSULTATION I have obtained verbal consent from Nereyda Escalera prior to the recording. I have advised Nereyda Escalera that she may refuse the recording and require the recording to be turned off at any time during this encounter. Name: Nereyda Escalera : 1955 Date of Visit: 12/07/2024 Referring Physician: Thaddeus Gamboa MD Primary Care Physician: Thaddeus Gamboa MD Chief Complaint Patient presents with Hernia HPI Ms. Escalera is a 69 y.o. female who presents for outpatient consultation regarding the management of right paraesophageal hernia. 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 She is accompanied by an adult female her sister and healthcare proxy. In 01/2024, she experienced nausea, vomiting, and abdominal pain. A CT scan of the chest on 01/30/2024 at [facility] revealed a giant paraesophageal hernia with most of the stomach in thechest and some transverse colon. A barium study from 2021 also showed a large hiatal hernia and mild reflux. Following the episode, she was hospitalized for 6 weeks due to weakness. She reported difficulty in supporting herself, getting out of bed, and using the toilet. She also experienced coffee ground-like vomiting but did not undergo an upper endoscopy at that time. Her last scope was in 2010, which showed no changes. However, a recent scan revealed a larger hole and more contents in her chest cavity. She is unable to lie flat without becoming pale and experiencing pain. Since the episode, she has been eating smaller meals and maintaining good nutrition, and her condition has stabilized. She consulted Dr. De La Fuente in 05/2024 and her regular physician in 11/2024. She is not currently on any blood thinners and is only on HCTZ for swelling in her leg. In 2010, she was severely anemic and required 3 transfusions. An upper and lower endoscopy were performed, revealing a large hiatal hernia. This has been monitored since then. She also has severe GERD, requiring her to sleep upright in a hospital bed. Her diet is carefully controlled, and she takesomeprazole. She underwent a laparoscopic hysterectomy. She was doing a lot of physical therapy in 01/2024 because she was getting much stiffer and having more difficulty moving around. She does well with a rest period and then moving to something else. She had constipation issues in the past, but now she is having bowel movements every other day. PAST SURGICAL HISTORY: Laparoscopic hysterectomy. SOCIAL HISTORY Diet: Smaller meals, yogurt, and good nutrition. Results Imaging - CT scan of the chest: 01/30/2024, Giant paraesophageal hernia with most of the stomach in the chest as well as some transverse colon. - Barium study: 2021, Large hiatal hernia and mild reflux. Past Medical History: Diagnosis Date Arthritis Cerebral palsy ([facility] V24, CMS/[facility] V28) Hiatal hernia Urge incontinence Uterine benign neoplasm @ALL@ Current Outpatient Medications Medication Sig Dispense Refill solifenacin (VESICARE) 10 mg tablet amantadine (SYMMETREL) 100 mg capsule baclofen (LIORESAL) 10 mg tablet hydroCHLOROthiazide (HYDRODIURIL) 25 mg tablet losartan (COZAAR) 25 mg tablet Myrbetriq 25 mg 24 hr tablet omeprazole (PriLOSEC) [address] capsule No current facility-administered medications for this visit. Social History Tobacco Use Smoking status: Never Smokeless tobacco: Never Social History Social History Narrative Not on file No family history on file. Review of Systems General - Negative for: weight loss/gain, fatigue, fever, chills, weakness, difficulty sleeping Head - Negative for: headache, trauma Eyes - Negative for: acute vision change, blurred vision, double vision, eye pain, conjunctival erythema, eyelid pain/swelling/erythema Ears - Negative for: acute change in hearing, tinnitus, ear pain, ear drainage Nose - Negative for: nasal discharge, nosebleed, itching, sinus pain Mouth/Throat - Negative for: sore throat, swollen throat, dry mouth, hoarseness, dysphagia, odynophagia, oral lesions Neck - Negative for: pain, stiffness, swelling, mass/lumps, swollen glands Cardiovascular - Negative for: chest pain/pressure, exertional chest pain, palpitations, lightheadedness, dizziness, orthopnea, extremity edema Respiratory -as above Gastrointestinal - Negative for: abdominal pain, abdominal distention, bloating, nausea, vomiting, early satiety, diarrhea, constipation, BRBPR, melena, poor appetite Genitourinary - Negative for: dysuria, hematura, urinary frequency, urinary urgency, incontinence Musculoskeletal - Negative for: muscle or joint pain, stiffness, back pain, joint swelling or erythema Neurologic - Negative for: dizziness, seizures, weakness, numbness, tingling, tremor, dysarthria, facial droop Hematologic - Negative for: easy bruising, easy bleeding, ecchymosis, petechiae Endocrine - Negative for: polyuriua, polydipsia, heat or cold intolerance Lymphatic - Negative for: swollen nodes, unexplained lumps/bumps in neck/axillae/groin Skin - Negative for: rashes, lumps, itching, dryness, color change, hair/nail changes Psychiatric - Negative for: depression, anxiety, nervousness, stress, memory change, SI/HI Physical Exam Vitals: 12/06/24 1515 BP: (!) 137/97 BP Location: Left arm Patient Position: Sitting BP Cuff Size: Adult Pulse: 76 Resp: 18 Temp: 36.3 ??C (97.3 ??F) TempSrc: Temporal SpO2: 96% Weight: 58.5 kg (129 lb) General: Patient is sitting comfortably in no acute distress, well developed, well nourished Head: Normocephalic, atraumatic, symmetric Eyes: Sclera anicteric, eyelids without edema or erythema, +EOMS intact ENT: Oral mucosa and tongue are moist without lesions or exudates Neck: Soft, supple, symmetric, trachea midline, no crepitus, no mass visualized or palpated Cardiovascular: Regular rate and rhythm, no murmur/rubs/gallops, BUE and BLE without edema, no calftenderness bilaterally Respiratory: Lungs CTAB, breathing nonlabored, speaking in full sentences, on room air. No use of accessory muscles. No obvious chest wall abnormality or deformity Gastrointestinal: Soft, non-tender, non-distended, +normoactive bowel sounds. Lymphatic: no cervical, supraclavicular, infraclavicular, or other lymphadenopathy noted Neurological: Alert and oriented x 3, neurologic exam is grossly normal Psychiatric: No agitation, appropriate affect Pathology None Micro / Labs Reviewed Radiology Reviewed and interpreted by me directly as above I personally viewed the following imaging studies, in addition to reviewing the dictated report from the reading radiologist Assessment/Plan Problem List Items Addressed This Visit 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 - Primary Relevant Orders Case Request Operating Room: Da Antolin paraesophageal hernia repair with mesh and fundoplication (Completed) NPO Instructions Prior to Day of Procedure Basic metabolic panel CBC and differential Prothrombin time with INR Activated partial thromboplastin time Type and screen ECG 12 lead - Procedural (No Charge) CT Chest wo Contrast XR Esophagram Cerebral palsy (CMS/HCC V24, CMS/HCC V28) Other Visit Diagnoses Neoplasm Relevant Orders Prothrombin time with INR Activated partial thromboplastin time Assessment & Plan 1. Paraesophageal hernia. A large paraesophageal hernia was confirmed by a CT scan in 01/2024 and a barium study from 2021. The patient experienced severe nausea, vomiting, and abdominal pain in 01/2024, leading to a 6-week hospitalization. The hernia includes most of the stomach and some transverse colon in the chest cavity. Surgical repair is recommended due to the size of the hernia and associated risks, including poten tial stomach twisting, ulcers, and necrosis. The surgical procedure will involve four small incisions across the top of the abdomen and one smaller incision under the breastbone. The stomach and transverse colon will be pulled down from the chest to below the diaphragm. The diaphragm will be repaired with stitches, and a permanent mesh will be added for support. The stomach will be sutured to theundersurface of the diaphragm to prevent recurrence. Post-surgery, the patient will need to avoid lifting, pushing, or pulling more than 10 pounds for 8 weeks and may require rehabilitation. A CT scan, barium esophagram, and EGD by Dr. De La Fuente are planned before scheduling the surgery. Standard labs and EKG will be done prior to surgery. Post-surgery, the patient will follow a diet of liquids for 2 weeks, then soft foods for 2 weeks, followed by a swallow test. 2. Gastroesophageal reflux disease (GERD). The patient has a history of severe GERD, managed with omeprazole and dietary modifications. She sleeps upright in a hospital bed to alleviate symptoms. Post- surgery, she will need to continue avoiding carbonated beverages, straws, and eating or drinking within 3 hours of lying down. 3. Anemia. The patient had severe anemia in 2010, requiring three transfusions and an upper and lower endoscopy. No recent episodes of anemia have been reported. 4. Constipation. The patient experiences constipation, which is currently managed with MiraLAX as needed. She reports regular bowel movements every other day. Total time spent on date of this encounter: 67 minutes. Reviewing patient's chart, Independently reviewing current/past imaging, Visit with the patient, Counseling and educating patient/family on diagnosis, Discussion of ongoing management, Documenting clinical information in the patient's medical record, and Discussion of surgical intervention and/or biopsy Gregg Oleary MD on 12/07/2024 at 10:44 AM EDT CC: Thaddeus Gamboa MD Kartik Viswanathan, MD documented in this encounter Plan of Treatment Upcoming Encounters Date Type Department Care Team (Late st Contact Info) Description 12/20/2024 1:30 PM EDT Appointment [facility] CT Scan [address] [place] [address] 12/22/2024 10:00 AM EDT Pre-Admission Testing [facility] Pre-Admission Testing [address] [place] [address] 12/29/2024 7:30 AM EDT Hospital Encounter [facility] Main OR [address] [place] [address] Gregg Oleary MD [address] [address] 12/29/2024 7:30 AM EDT - 12/29/2024 11:00 AM EDT Surgery [facility] Main OR [address] [place] [address] Gregg Oleary MD [address] [address] Teresitainci paraesophageal hernia repair w/mesh & fundoplication [52691 (CPT ) +2 more] 01/12/2025 10:15 AM EDT Office Visit Thoracic Surgery - [address] [phone] Wilbert March PA [address] [address] 01/26/2025 11:00 AM EST Office Visit Thoracic Surgery - [address] [phone] Wilbert March PA [address] [address] Scheduled Orders Name Type Priority Associated Diagnoses Orde r Schedule Basic metabolic panel Lab Routine 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 1 Occurrences starting 12/07/2024 until 12/07/2025 CBC and differential Lab Routine 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 1 Occurrences starting 12/07/2024 until 12/07/2025 Prothrombin time with INR Lab Routine 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 Neoplasm 1 Occurrences starting 12/07/2024 until 12/07/2025 Activated partial thromboplastin time Lab Routine 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 Neoplasm 1 Occurrences starting 12/07/2024 until 12/07/2025 Type and screen Lab Routine 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 1 Occurrences starting 12/07/2024 until 12/07/2025 ECG 12 lead - Procedural (No Charge) ECG Routine 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 1 Occurrences starting 12/07/2024 until 12/07/2025 CT Chest wo Contrast Imaging Routine 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 Expected: 12/07/2024, Expires: 12/07/2025 XR Esophagram Imaging Routine 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 Expected: 12/07/2024, Expires: 12/07/2025 Scheduled Procedures Name Priority Associated Diagnoses Date/Ti me REPAIR HERNIA HIATAL ROBOT TWO 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 12/29/2024 7:30 AM EDT documented as of this encounter Visit Diagnoses Diagnosis 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- Primary Diaphragmatic hernia with obstruction Cerebral palsy, unspecified type (CMS/HCC V24, CMS/HCC V28) Neoplasm Neoplasm of unspecified nature, site unspecified 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 Diaphragmatic hernia with obstruction documented in this encounter Historical Medications * This list may reflect changes made after this encounter. Medication Sig Dispense Quantity Refills Last Filled Start D ate End Date solifenacin (VESICARE) 10 mg tablet 09/13/2024 added in this encounter Orders Nursing Count Last Ordered Date First Orde red Date DIET INSTRUCTIONS TO NURSING 1 12/07/2024 Case Request Count Last Ordered Date First Orde red Date CASE REQUEST OPERATING ROOM 1 12/07/2024 documented in this encounter Care Teams Blacksmith Supervisor Relationship Specialty Start Date End Date Thaddeus Gamboa MD [place] [address] [place] [address] PCP - General Internal Medicine 11/30/24 documented as of this encounter
[2024-12-08 10:48] VITALS: BP 131/68; PULSE 77; RESP 14; TEMP 36.7; O2SAT 94
--- NOTE | 2024-12-08 10:48 | A.OFFPC_ITS ---
Vital Signs 12/08/24 10:48 BMI Reason not done Patient refused/unable BP 131/68 Blood Pressure Location Lt brachial Position Sitting Respiration 14 Pulse 77 Pulse Source Pulse Oximeter Temp 98.1 F Temp Source Temporal Artery Scan Pulse Oximetry (%) 94 Oxygen Delivery Method Room Air Comment pt in wheelchair Intake Visit Reasons: Right ear pain Patient Registration Specialist Required: No Accompanied by: caregiver Allergies tetracycline (TETRACYCLINE) Allergy (Intermediate, Verified 12/08/24 13:05) Altered Mental Status polyester fibers Allergy (Unknown, Verified 12/08/24 13:05) Contact Dermatitis erythromycin base Adverse Reaction (Unknown, Verified 12/08/24 13:05) Nausea and Vomiting Medication List - Last Reconciled 12/08/24 by Yuni Justice PA-C acetaminophen 325 mg PO TID PRN amantadine HCl 100 mg PO TID 90 days amoxicillin-pot clavulanate 875-125 mg 1 tab PO BID 10 days ascorbic acid (vitamin C) 500 mg PO DAILY@12 baclofen 5 mg PO DAILY baclofen 10 mg PO BID 90 days cholecalciferol (vitamin D3) 10 mcg PO DAILY@12 ciprofloxacin HCl 0.2% 5 drps otic (ears) Q12H 7 days docusate sodium 100 mg PO DAILY@1200 hydrochlorothiazide 25 mg PO QAM loratadine (Claritin) 10 mg PO DAILY losartan 25 mg PO DAILY mirabegron ER (Myrbetriq) 25 mg PO DAILY 30 days omeprazole 20 mg PO BID@0630,1630 pyridoxine (vitamin B6) (Vitamin B-6) 50 mg PO DAILY@12 solifenacin (Vesicare) 10 mg PO BEDTIME 90 days Tobacco use date assessed: 11/16/24 Dental Screening Dental Screen Date: 11/16/24 HPI Right ear pain HPI Details The patient is a 69-year-old female presenting with Right ear pain and blockage. The issue began suddenly in the middle of the afternoon when she experienced a blockage and pain in her ear, accompanied by a popping sound. She removed her hearing aid, suspecting it might be contributing to the problem, and noticed fluid drainage, which was initially thought to be blood. Upon examination, it was determined that the tympanic membrane was intact, but there was a significant infection in both the outer and inner ear. The patient has not experienced any recent falls, air travel, or use of Q-tips that could have contributed to the condition. She is allergic to tetracycline, which was considered when prescribing antibiotics. [facility] Medical History (Updated 12/08/24 @ 13:09 by Yuni Justice PA-C) Right otitis externa Acute right otitis media Hiatal hernia Uterine benign neoplasm Urge incontinence Urgency incontinence Arthritis Cerebral palsy Surgical History History of colonoscopy (~03/07/11) History of hysterectomy Family History Father No problems noted. Mother No problems noted. Social History Household Members: Family Housing: House Do you presently have visiting nurse or other home services: No Alcohol intake: current Alcohol intake frequency: holidays/special occasions only Patient Tobacco Use Status: Never used Tobacco Advance Directives Date on File: 06/05/20 service: No Current occupational status: retired Cognitive needs: Yes (wheelchair) Hearing needs: No Vision needs: Yes (rx glasses) Questionnaire PHQ-9 Over the last 2 weeks, how often have you been bothered by any of the following problems? 1. Little interest or pleasure in doing things: not at all 2. Feeling down, depressed, or hopeless: not at all 3. Trouble falling or staying asleep, or sleeping too much: not at all 4. Feeling tired or having little energy: not at all 5. Poor appetite or overeating: not at all 6. Feeling bad about yourself - or that you are a failure or have let yourself or your family down: not at all 7. Trouble concentrating on things, such as reading the newspaper or watching television: not at all 8. Moving or speaking so slowly that other people could have noticed. Or the opposite - being so fidgety or restless that you have been moving around a lot more than usual: not at all 9. Thoughts that you would be better off or of hurting yourself in some way: not at all Total score: 0 Depression Screening Interpretation: Negative Depression Screening Done: Yes 02028 - PHQ-9 Billing: Yes Source: Developed by Drs. Esau LBryanna Tsang Kurt Kroenke and colleagues, with an educational reg from [employer]. Thrive Questionnaire Date Thrive assessed: 11/16/24 I am a: Patient What is your living situation today?: I have a steady place to live Within the past 12 months, did the food you bought not last and you didn't have the money to get more?: Never true Within the past 12 months, did you worry whether your food would run out before you got money to buy more?: Never true Do you have trouble paying for medicines?: No Do you have trouble getting transportation to medical appointments?: No Do you have trouble paying your heating and electricity bill?: No Do you have trouble taking care of your child, family member or friend?: No Do you have trouble with day-to-day activities such as bathing, preparing meals, shopping, managing finances, etc.?: Yes Are you currently unemployed and looking for a job?: No Are you interested in more education?: No Please select the resources that you would like help with: None THRIVE Score: 0 AUDIT C Alcohol Use Questionnaire (AUDIT-C) 1. How often do you have a drink containing alcohol?: Monthly or less 2. How many drinks containing alcohol do you have on a typical day when you are drinking?: 1 or 2 3. How often do you have six or more drinks on one occasion?: Never Total Score: 1 Score Reviewed/Action Taken: No POOJA-7 AMB Questionnaire POOJA-7 Date POOJA - 7 assessed: 11/16/24 Feeling nervous, anxious, or on edge: 0 = Not at all Not being able to stop or control worryin = Not at all Worrying too much about different things: 0 = Not at all Trouble relaxin = Not at all Being so restless that it is hard to sit still: 0 = Not at all Becoming easily annoyed or irritable: 0 = Not at all Feeling afraid as if something awful might happen: 0 = Not at all Total POOJA-7 score (0-4 normal; 5-9 mild; 10-14 moderate; 15-21 severe): 0 Source: Developed by Bryanna Campos Kurt Kroenke and colleagues, with an educational reg from [employer]. POOJA-7 Assessment Billing POOJA-7 Assessment Tool: POOJA-7 Assessment 89261 Review of Systems Const Details: - Ears: Reports sudden ear pain, blockage, and fluid drainage. Denies recent falls or air travel. All systems reviewed & are unremarkable except as noted in HPI and below Physical exam (Primary Care) Vital Signs: Last Vital Signs Temp 98.1 F 12/08/24 10:48 Pulse 77 12/08/24 10:48 Resp 14 12/08/24 10:48 BP 131/68 12/08/24 10:48 Pulse Ox 94 12/08/24 10:48 Oxygen Delivery Method Room Air 12/08/24 10:48 Care Plan Goal for BP management: <140/90 at Goal Tobacco/Smoking Status: Tobacco use Status Tobacco use date assessed 11/16/24 12/08/24 10:51 Patient Tobacco Use Status Never used Tobacco 12/08/24 10:51 PHQ-9: PHQ-9 Score PHQ-9: Total score 0 12/08/24 11:11 Depression Screening Interpretation: Negative Thrive Assessment: Date of Thrive Assessment Date Thrive assessed 11/16/24 12/08/24 10:51 Const Other: Appearance: Alert. Oriented X3. No acute distress. Head: Normal external exam. Normocephalic. Atraumatic. Eyes: Pupils are equal, round, and reactive to light. Extraocular movements intact. Conjunctiva and sclera normal. Eyelids normal. Ears: Right External auditory canal shows signs of outer and inner ear infection. Right Tympanic membranes intact but with signs of infection. Left tympanic membrane and external ear canal within normal limits. No tenderness over the mastoid bilaterally. There is no erythema over the mastoids or soft tissue swelling. Not consistent with mastoiditis. Not consistent with tympanic membrane rupture bilaterally. Throat: Pharynx normal. Uvula midline. Moist mucous membranes. Neck: Normal inspection. Neck supple. Full range of motion. No adenopathy. No meningeal signs. No neck mass noted. Cardiovascular: Normal heart rate and rhythm. Respiratory: No respiratory distress. Painless inspiration. Back: Full range of motion noted. Skin: Skin warm and dry. Normal skin color. Normal skin turgor. No rashes/lesions/lacerations noted. Extremities:Extremities exhibit normal range of motion. Neuro: Oriented X 3. No motor deficit. No sensory deficit. Reflexes normal. Coding Level of Care Code Est Pt Level 4 (92217) Complex EM visit Add On G2211 Diagnoses Acute right otitis media H66.91 Right otitis externa H60.91 Additional Codes PHQ-9 - 76757 - PHQ-9 Billing: Yes ([id number]) POOJA-7 Assessment Billing - POOJA-7 Assessment Tool: POOJA-7 Assessment 68249 ([id number]) Assessment & Plan Assessment & Plan (1) Acute right otitis media: Code(s): H66.91 - Otitis media, unspecified, right ear Category: Medical Plan: The patient was diagnosed with an outer ear infection, confirmed by the presence of infection upon examination. Treatment includes topical antibiotics and oral antibiotics, considering her allergy to tetracycline. A follow-up appointment is scheduled in two weeks to assess the response to treatment. (2) Right otitis externa: Code(s): H60.91 - Unspecified otitis externa, right ear Category: Medical Plan: The patient was diagnosed with an inner ear infection, confirmed by the presence of infection upon examination. Treatment includes topical antibiotics and oral antibiotics, considering her allergy to tetracycline. A follow-up appointment is scheduled in two weeks to assess the response to treatment. Plan Plan Patient was informed and verbally consented to the use of an ambient scribe for clinic note documentation during this visit. 1. Outer Ear Infection The patient was diagnosed with an outer ear infection, confirmed by the presence of infection upon examination. Treatment includes topical antibiotics and oral antibiotics, considering her allergy to tetracycline. A follow-up appointment is scheduled in two weeks to assess the response to treatment. 2. Inner Ear Infection The patient was diagnosed with an inner ear infection, confirmed by the presence of infection upon examination. Treatment includes topical antibiotics and oral antibiotics, considering her allergy to tetracycline. A follow-up appointment is scheduled in two weeks to assess the response to treatment. I discussed with the patient that she has both an outer and inner ear infection, which will be treated with topical and oral antibiotics. Given her allergy to tetracycline, alternative antibiotics were selected. A follow-up visit in two weeks was recommended to ensure the infection is resolving. Medications: New amoxicillin-pot clavulanate 875-125 mg 1 tab PO BID 20 tabs 0RF 10 days ciprofloxacin HCl 0.2% 5 drps otic (ears) Q12H 14 ea 1RF 7 days Patient Instructions: - Take prescribed antibiotics as directed. - Avoid inserting Q-tips or any objects into the ears. - Return for a follow-up appointment in two weeks.
--- OUTSIDE RECORDS SUMMARY | 2024-12-08 14:03 | XMS_ITS | Clinical Summary ---
Author Organization [facility] [address] [facility] Address [address] [place] [address] Phone Care Team Providers Care Catering Staff Member Name Role Phone Thaddeus Gamboa MD Primary Care Provider [phone] Allergies Active Allergy Reactions Criticality Noted Date Comments Erythromycin 12/06/2024 Polyester Fibers 12/06/2024 Tetracycline 12/06/2024 Medications amantadine (SYMMETREL) 100 mg capsule 11/11/2024 Active baclofen (LIORESAL) 10 mg tablet 12/02/2024 Active hydroCHLOROthiazid e (HYDRODIURIL) 25 mg tablet 11/29/2024 Active losartan (COZAAR) 25 mg tablet 11/11/2024 Active Myrbetriq 25 mg 24 hr tablet 12/01/2024 Active omeprazole (PriLOSEC) [address] capsule 11/11/2024 Active solifenacin (VESICARE) 10 mg tablet 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 12/06/2024 Cerebral palsy (CMS/HCC V24, CMS/HCC V28) 2024 Encounters Date Type Department Care Team Description 12/06/2024 3:00 PM EDT Consult Thoracic Surgery - [address] [place] [phone] Gregg Oleary MD 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 V24, [facility] V28) Family History Relation Name Status Comments Father Mother Social History Tobacco Use Types Packs/Day Years Used Date Smoking Tobacco: Never Smokeless Tobacco: Never Tobacco Cessation:Counseling Given: Not Answered Comments Unknown Sex and Gender Information Value Date Recorded Sex Assigned at Not on file Legal Sex Female 7:46 PM EST Gender Identity Not on file Sexual Orientation Not on file Obstetrics History Last Filed Vital Signs Vital Sign Reading [...] - - Body Mass Index - - Plan of Treatment Upcoming Encounters Date Type Department Care Team (Late st Contact Info) Description 12/20/2024 1:30 PM EDT Appointment [facility] CT Scan [address] [place] [phone] 12/22/2024 10:00 AM EDT Pre-Admission Testing [facility] Pre-Admission Testing [address] [place] [address] 12/29/2024 7:30 AM EDT Hospital Encounter [facility] Main OR [address] [place] [address] Gregg Oleary MD [address] [address] 12/29/2024 7:30 AM EDT - 12/29/2024 11:00 AM EDT Surgery [facility] Main OR [address] [place] [address] Gregg Oleary MD [address] [address] DaVinci paraesophageal hernia repair w/mesh & fundoplication [49191 (CPT ) +2 more] 01/12/2025 10:15 AM EDT Office Visit Thoracic Surgery - [place] 299 [facility] [address] [place] [phone] Wilbert March PA 299 [facility] [address] [place] [phone] 01/26/2025 11:00 AM EST Office Visit Thoracic Surgery - [place] 299 [facility] [address] [place] [phone] Wilbert March PA [address] [address] Scheduled Procedures Name Priority Associated Diagnoses Date/Ti me REPAIR HERNIA HIATAL ROBOT TWO 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 12/29/2024 7:30 AM EDT Health Maintenance Due Date Last Done Comments Breast Cancer Screening 1955 DTaP,Tdap,and Td Vaccines (1 - Tdap) 1973 Pneumococcal Vaccine: 50+ Ye ars (1 of 1 - PCV) 2004 Zoster Vaccines (1 of 2) 2004 Depression Screening 03/17/2024 COVID-19 Vaccine (1 - 2023-2 5 season) 2024 Influenza Vaccine (#1) 2024 Colorectal Cancer Screening: Colonoscopy 11/29/2024 Falls Risk Assessment 11/29/2024 Hepatitis C Screening 11/29/2024 Medicare Annual Wellness Visit 11/29/2024 Osteoporosis Screening (Bone Density Screening) 11/29/2024 Social Influencers of Health Screening 11/29/2024 RSV Immunization Adult Patie nts (1 - 1-dose 75+ series) 2029 HIB Vaccines Aged Out No longer eligi ble based on patient's age to complete this topic HPV Vaccines Aged Out No longer eligi ble based on patient's age to complete this topic Hepatitis A Vaccines Aged Out No long er eligible based on patient's age to complete this topic Hepatitis B Vaccines Aged Out No long er eligible based on patient's age to complete this topic IPV Vaccines Aged Out No longer eligi ble based on patient's age to complete this topic MMR Vaccines Aged Out No longer eligi ble based on patient's age to complete this topic Meningococcal ACWY Vaccine Aged Out N o longer eligible based on patient's age to complete this topic Meningococcal B Vaccine Aged Out No l onger eligible based on patient's age to complete this topic RSV Immunization Patients Un derrick 20 months Aged Out No longer eligible b ased on patient's age to complete this topic Varicella Vaccines Aged Out No longer eligible based on patient's age to complete this topic Insurance MEDICARE Care Teams Catering Staff Member Relationship Specialty Start Date End Date Thaddeus Gamboa MD [facility] [address] [place] [address] [address] [place] [id number] PCP - General Internal Medicine 11/30/24
--- OUTSIDE RECORDS SUMMARY | 2024-12-08 14:03 | XMS_ITS | Clinical Summary ---
Author Organization [facility] Address [address] [place], [place] [id number] Phone Care Team Providers Care Tank Inspector Name Role Phone ShahzadEsau DO Primary Care Provider [phone] Social History Tobacco Use Types Packs/Day Years [...] file Medical Devices Not on file Insurance [place] MEDICARE PART A & B [place] PART A & B MEDICARE PART A & B HEALTH MEDICARE PART A & B [facility] MEDICARE PART A & B Care Teams Tank Inspector Relationship Specialty Start Date End Date Esau Pike DO [address] [place] [phone] PCP - General Internal Medicine 03/05/24 Additional Source Comments The information contained in this document represents components of the legal health record. It is not the complete legal health record.[facility]
== END 2024-12-08 11:20 | disposition home or self-care (01) ==
LOC: HO.HMCSH 10:57
PROVIDERS: PCP Physician Assistant Medical; Visit Provider Physician Assistant Medical
DX: H66.91 Otitis media, unspecified, right ear (principal); H60.91 Unspecified otitis externa, right ear

== ENCOUNTER → 2024-12-08 10:57 | Outpatient (BNVA) | payer MEDICARE, MEDICAID, SELFPAY | PROVIDERS: PCP Physician Assistant Medical; Visit Provider Physician Assistant Medical | DX: H92.01 Otalgia, right ear (principal); H66.91 Otitis media, unspecified, right ear; H60.91 Unspecified otitis externa, right ear | CPT/HCPCS: 96127; 99212 ==

== ENCOUNTER 2024-12-14 10:24 | Day surgery (SDC) | payer MEDICARE, MEDICAID, SELFPAY ==
--- OUTSIDE RECORDS SUMMARY | 2024-12-09 19:05 | XMS_ITS | Clinical Summary ---
Author Organization [facility] Address [address] [place], [place] [id number] Phone Care Team Providers Care Loss Control Representative Name Role Phone ShahzadEsau DO Primary Care Provider [phone] Social History Tobacco Use Types Packs/Day Years [...] file Medical Devices Not on file Insurance [employer] MEDICARE PART A & B Member Subscriber Plan / Payer (Ef fective 1977-Present) Name:Nereyda Escalera Member ID:[id number] Relation to Subscriber:Self Name:Nereyda Escalera Subscriber ID:[id number] Payer ID:[id number] Group ID:Not on file Type:Medicare Address: My 1% [facility] [address] [place] [address] [place] MEDICARE PART A & B HEALTH MEDICARE PART A & B [facility] MEDICARE PART A & B Care Teams Loss Control Representative Relationship Specialty Start Date End Date Esau Pike DO [address] [place] [phone] PCP - General Internal Medicine 03/05/24 Additional Source Comments The information contained in this document represents components of the legal health record. It is not the complete legal health record.[facility]
--- NOTE | 2024-12-13 09:13 | HO.ANESPROP2 ---
Documented by User: Lory Chacon NP 12/13/24 09:15 HPI - Anesthesia Eval Consult details Narrative: 69yo F for Upper Endoscopy Per chart review: cerebral palsy and is wheelchair-bound. She has marked kyphoscoliosis also at baseline. Rx for inner and outer ear infection 12/08/24 [facility] Active Problems Active Problems: All Active Problems Right otitis externa (Acute) Acute right otitis media (Acute) Hiatal hernia (Acute) Colon cancer screening (Acute) Cerebral palsy (Acute) Passage of loose stools (Acute) Hospital discharge follow-up (Acute) Paraesophageal hiatal hernia (Acute) Nausea (Acute) Medial epicondylitis, left elbow (Acute) Precordial chest pain (Acute) Urge incontinence (Acute) Past Medical History Medical History Right otitis externa Acute right otitis media Hiatal hernia Uterine benign neoplasm Urge incontinence Urgency incontinence Arthritis Cerebral palsy Family History Family History Father No problems noted. Mother No problems noted. Surgical History Surgical History History of colonoscopy (~03/07/11) History of hysterectomy Social History Social History Household Members: Family Housing: House Do you presently have visiting nurse or other home services: No Alcohol intake: current Alcohol intake frequency: holidays/special occasions only Patient Tobacco Use Status: Never used Tobacco Have you been hit, kicked, punched, or otherwise hurt by someone within the past year? If so, by whom?: No Are you DNR?: No Advance Directives: No Advance Directives Information Provided: Yes Advance Directives Date on File: 06/05/20 Poor oral hygiene: No service: No Current occupational status: retired Cognitive needs: Yes (wheelchair) Hearing needs: No Vision needs: Yes (rx glasses) Meds Allergies Allergy/AdvReac Type Severity Reaction Status Date / Time tetracycline (TETRACYCLINE) Allergy Intermediate Altered Verified 12/14/24 10:43 Mental Status polyester fibers Allergy Unknown Contact Verified 12/14/24 10:43 Dermatitis erythromycin base AdvReac Unknown Nausea and Verified 12/14/24 10:43 Vomiting Home Medications ?Medication ?Instructions ?Recorded ?Confirmed ?Last Taken ?Type omeprazole 20 mg capsule,delayed 20 mg PO BID@0630,1630 04/13/20 12/14/24 01/30/24 History release ascorbic acid (vitamin C) 500 mg 500 mg PO DAILY@06/05/20 12/14/24 01/29/24 History tablet cholecalciferol (vitamin D3) 10 10 mcg PO DAILY@06/05/20 12/14/24 01/29/24 History mcg (400 unit) tablet pyridoxine (vitamin B6) 50 mg 50 mg PO DAILY@06/05/20 12/14/24 01/29/24 History capsule (Vitamin B-6) acetaminophen 325 mg tablet 325 mg PO TID PRN Pain/Headaches 01/30/24 12/14/24 01/29/24 History docusate sodium 100 mg tablet 100 mg PO DAILY@1200 01/30/24 12/14/24 01/29/24 History loratadine 10 mg tablet (Claritin) 10 mg PO DAILY 01/30/24 12/14/24 01/29/24 History Assessment and Plan Assessment Anesthesia Assessment: Chart Reviewed Documented by User: Wero Wright MD 12/14/24 11:44 [facility] Past Medical History Medical History Right otitis externa Acute right otitis media Hiatal hernia Uterine benign neoplasm Urge incontinence Urgency incontinence Arthritis Cerebral palsy Functional capacity: wheelchair bound Family History Family History Father No problems noted. Mother No problems noted. Family history of problems with anesthesia: No Surgical History Surgical History History of colonoscopy (~03/07/11) History of hysterectomy History of Problems with Anesthesia: No Social History Social History Household Members: Family Housing: House Do you presently have visiting nurse or other home services: No Alcohol intake: current Alcohol intake frequency: holidays/special occasions only Patient Tobacco Use Status: Never used Tobacco Have you been hit, kicked, punched, or otherwise hurt by someone within the past year? If so, by whom?: No Are you DNR?: No Advance Directives: No Advance Directives Information Provided: Yes Advance Directives Date on File: 06/05/20 Poor oral hygiene: No service: No Current occupational status: retired Cognitive needs: Yes (wheelchair) Hearing needs: No Vision needs: Yes (rx glasses) Meds Allergies Allergy/AdvReac Type Severity Reaction Status Date / Time tetracycline (TETRACYCLINE) Allergy Intermediate Altered Verified 12/14/24 10:43 Mental Status polyester fibers Allergy Unknown Contact Verified 12/14/24 10:43 Dermatitis erythromycin base AdvReac Unknown Nausea and Verified 12/14/24 10:43 Vomiting Home Medications ?Medication ?Instructions ?Recorded ?Confirmed ?Last Taken ?Type omeprazole 20 mg capsule,delayed 20 mg PO BID@0630,1630 04/13/20 12/14/24 01/30/24 History release ascorbic acid (vitamin C) 500 mg 500 mg PO DAILY@06/05/20 12/14/24 01/29/24 History tablet cholecalciferol (vitamin D3) 10 10 mcg PO DAILY@06/05/20 12/14/24 01/29/24 History mcg (400 unit) tablet pyridoxine (vitamin B6) 50 mg 50 mg PO DAILY@06/05/20 12/14/24 01/29/24 History capsule (Vitamin B-6) acetaminophen 325 mg tablet 325 mg PO TID PRN Pain/Headaches 01/30/24 12/14/24 01/29/24 History docusate sodium 100 mg tablet 100 mg PO DAILY@1200 01/30/24 12/14/24 01/29/24 History loratadine 10 mg tablet (Claritin) 10 mg PO DAILY 01/30/24 12/14/24 01/29/24 History Exam Exam Date and Time: 12/14/24 Airway Mallampati Class: II TM Dist: >3cm Heart: rrr Lungs: cta Other: normal Assessment and Plan Assessment Anesthesia Assessment: Anesthesia Plan Discussed Final Anesthetic Review Family History of Problems with Anesthesia: No History of Problems with Anesthesia: No NPO: Yes ASA Class: II and III Final Preanesthetic Review: No Changes in Pt Med Stat, Meds/Allgs Chart Reviewed and Anes Risks/Benef Reviewed Patient Risk: Low Anesthetic Plan Anesthetic Plan: MAC: Disposition: Standard PACU
[2024-12-14] MEDS: Lactated Ringers 1,000 ML 100 ML IVCONT (10:57)
[2024-12-14 11:15] VITALS: BMI 25.2
[2024-12-14 11:21] VITALS: BP 138/83; PULSE 76; RESP 18; TEMP 37; O2SAT 97
--- NOTE | 2024-12-14 11:36 | MHC.SHP ---
Pre-Procedural Eval Section A - 24 Hr Update-Section A only Date of Service: 12/14/24 The patient is an INPATIENT: No Changes since office visit: No Cold of Flu in the past 2 weeks, No New Medical Problems, No Changes in Medication and No Patient answered all questions The patient has been examined within 24 hours of the surgical procedure. The History & Physical has been completed within 30 days and I have reviewed it.: Yes Section B - Complete if H&P > 30 days Chief Complaint: Diaphragmatic hernia without obstruction or gangre Allergies: Allergies Allergy/AdvReac Type Severity Reaction Status Date / Time tetracycline (TETRACYCLINE) Allergy Intermediate Altered Verified 12/14/24 10:43 Mental Status polyester fibers Allergy Unknown Contact Verified 12/14/24 10:43 Dermatitis erythromycin base AdvReac Unknown Nausea and Verified 12/14/24 10:43 Vomiting Plan I have reviewed the history and physical and performed a pertinent physical examination on my patient. No changes have occurred unless specified. Time Spent With Patient Time: Total time managing care of this patient today ____ minutes.
--- NOTE | 2024-12-14 11:39 | PC.NURSE ---
dr. garrett and dr. reddy aware that patient's sister is at bedside and signing consents today. patient is being treated for an ear infection since last friday but cannot wear hearing aids comfortably yet and cannot hear anything at all without them.
[2024-12-14 12:10] VITALS: BP 121/72; PULSE 68; RESP 14; TEMP 36.7; O2SAT 94
[2024-12-14 12:28] VITALS: BP 126/77; PULSE 76; RESP 16; O2SAT 98
[2024-12-14 12:43] VITALS: BP 139/80; PULSE 75; RESP 16; TEMP 36.7; O2SAT 92
--- NOTE | 2024-12-15 07:20 | OP_ITS ---
DATE OF SERVICE: 12/14/2024 SURGEON: Idris De La Fuente MD INDICATIONS: Hiatal hernia. COMPLICATIONS: ANESTHESIA: Monitored anesthesia care. DESCRIPTION OF PROCEDURE: A history and physical was performed. The risks and benefits of the procedure were explained to the patient, and informed consent was obtained. The patient was placed in the left lateral decubitus position. The Olympus video gastroscope was introduced into the esophagus, stomach, and duodenum. Examination was performed. The scope was removed. She tolerated the procedure well and was returned to the recovery area in stable condition. FINDINGS: Esophagus: The esophagus was normal with some foreshortening. There was some mild distal esophagitis. There was a 10 cm hiatal hernia. Stomach: Stomach showed no evidence of masses or ulcers. There were some linear streaks of erythema consistent with gastritis. Biopsies were obtained from the antrum. Duodenum: The bulb and 2nd portion were normal. IMPRESSION: 1. Hiatal hernia. 2. Gastritis. 3. Mild esophagitis. RECOMMENDATION: Follow up the biopsy results. MD KENROY Morin/MODL / [id number] MTDD
== END 2024-12-14 13:18 | disposition home or self-care (01) ==
PROVIDERS: PCP Physician Assistant Medical; Visit Provider Internal Medicine Gastroenterology
PROC: 0DJ08ZZ Inspection of Upper Intestinal Tract, Via Natural or Artificial Opening Endoscopic (ICD-10-PCS; CPT 43235; principal; 2024-12-14 11:50)
DX: K44.9 Diaphragmatic hernia without obstruction or gangrene (principal); K29.50 Unspecified chronic gastritis without bleeding; K20.80 Other esophagitis without bleeding; K21.9 Gastro-esophageal reflux disease without esophagitis; G80.1 Spastic diplegic cerebral palsy; M19.90 Unspecified osteoarthritis, unspecified site; H40.9 Unspecified glaucoma; Z79.899 Other long term (current) drug therapy
CPT/HCPCS: 43239; 88305; 88313; 88342; J2003; J2704

== ENCOUNTER 2024-12-21 12:54 | Outpatient (AMB) | payer MEDICARE, MEDICAID, SELFPAY ==
--- OUTSIDE RECORDS SUMMARY | 2024-12-20 13:21 | XMS_ITS | Encounter Summary ---
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 Procedures CT Chest wo Contrast Gregg Oleary MD [address] [address] Phone: tel: fax: [address] [phone] Phone: tel: Referral ID Status Reason Start Date Expiration Date V isits Requested Visits Authorized [id number] Authorized 12/07/2024 12/07/2025 1 1 Reason for Visit * Imaging (Routine) - Authorized Specialty Diagnoses / Procedures Referred By Contac t Referred To Contact Radiology Diagnoses 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 Procedures CT Chest wo Contrast Gregg Oleary MD [address] [address] Phone: tel: fax: [address] [address] Phone: tel: Referral ID Status Reason Start Date Expiration Date V isits Requested Visits Authorized [id number] Authorized 12/07/2024 12/07/2025 1 1 Encounter Details Date Type Department Care Team (Latest Contact Info) Description 12/20/2024 1:21 PM EDT - 12/20/2024 11:59 PM EDT Hospital Encounter [facility] CT Scan [address] [place] [id number] 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 11/11/2024 baclofen (LIORESAL) 10 mg tablet Take 1 tablet (10 mg total) by mouth 3 (three) times a day. 10 am and 12noon takes 5mg and 10 at night 12/02/2024 hydroCHLOROthiazi de (HYDRODIURIL) 25 mg tablet Take 1 tablet (25 mg total) by mouth 1 (one) time each day. 11/29/2024 losartan (COZAAR) 25 mg tablet Take 1 tablet (25 mg total) by mouth 1 (one) time each day. 11/11/2024 Myrbetriq 25 mg 24 hr tablet 1 tablet (25 mg total) 1 (one) time each day. 12/01/2024 omeprazole (PriLOSEC) [address] capsule 1 capsule (20 mg total) 2 (two) times a day. 11/11/2024 solifenacin (VESICARE) 10 mg tablet 1 tablet (10 mg total) 1 (one) time each day after dinner. 09/13/2024 documented as of this encounter Discharge Disposition Disposition Code Departure Means Destination Home or Self Care documented in this encounter Plan of Treatment Upcoming Encounters Date Type Department Care Team (Late st Contact Info) Description 12/22/2024 10:00 AM EDT Pre-Admission Testing [facility] Pre-Admission Testing [address] [place] [phone] 12/27/2024 8:15 AM EDT Appointment [facility] Xray [address] [place] [phone] 01/05/2025 11:00 AM EDT Hospital Encounter [facility] Main OR [address] [place] [phone] Gregg Oleary MD [address] [address] 01/05/2025 11:00 AM EDT - 01/05/2025 2:30 PM EDT Surgery [facility] Main OR [address] [place] [address] Gregg Oleary MD [address] [address] DaVinci paraesophageal hernia repair w/mesh & fundoplication [11369 (CPT ) +2 more] 01/19/2025 10:30 AM EST Office Visit Thor[facility] - [place] [address] [phone] Wilbert March PA [address] [address] 02/02/2025 8:45 AM EST Appointment [facility] Xray [address] [place] [address] 02/02/2025 10:15 AM EST Office Visit Thor[facility] [place] [address] [phone] Wilbert March PA [address] [address] Pending Results Name Type Priority Associated Diagnoses Date /Time CT Chest wo Contrast Imaging Routine 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
--- NOTE | 2024-12-21 12:57 | A.OFFPC_ITS ---
Vital Signs 12/21/24 13:01 BMI Reason not done Patient refused/unable BP 151/84 H Blood Pressure Location Lt brachial Position Sitting Respiration 14 Pulse 74 Pulse Source Pulse Oximeter Temp 97.9 F Temp Source Temporal Artery Scan Pulse Oximetry (%) 96 Oxygen Delivery Method Room Air Comment pt in wheelchair Intake Visit Reasons: 2 week follow up Hazardous Substances Scientist Required: No Accompanied by: caregiver Allergies tetracycline (TETRACYCLINE) Allergy (Intermediate, Verified 12/21/24 17:16) Altered Mental Status polyester fibers Allergy (Unknown, Verified 12/21/24 17:16) Contact Dermatitis erythromycin base Adverse Reaction (Unknown, Verified 12/21/24 17:16) Nausea and Vomiting Medication List - Last Reconciled 12/21/24 by Yuni Justice PA-C acetaminophen 325 mg PO TID PRN amantadine HCl 100 mg PO TID 90 days ascorbic acid (vitamin C) 500 mg PO DAILY@12 baclofen 5 mg PO DAILY baclofen 10 mg PO BID 90 days cholecalciferol (vitamin D3) 10 mcg PO DAILY@12 ciprofloxacin HCl 500 mg PO BID 7 days clotrimazole 1% 1 appl topical BID 2 weeks docusate sodium 100 mg PO DAILY@1200 hydrochlorothiazide 25 mg PO QAM loratadine (Claritin) 10 mg PO DAILY loratadine-pseudoephedrine 5-120 mg ER (Claritin-D 12 Hour) 1 tab PO Q12H losartan 25 mg PO DAILY mirabegron ER (Myrbetriq) 25 mg PO DAILY 30 days ofloxacin 0.3% 10 drps otic (ear) left DAILY 7 days omeprazole 20 mg PO BID@0630,1630 pyridoxine (vitamin B6) (Vitamin B-6) 50 mg PO DAILY@12 solifenacin (Vesicare) 10 mg PO BEDTIME 90 days Tobacco use date assessed: 12/21/24 Dental Screening Dental Screen Date: 11/16/24 HPI 2 week follow up HPI Details The patient is a 69-year-old female presenting with a persistent outer ear infection and hearing loss to the right ear. The ear infection began prior to the initiation of antibiotic therapy, which alleviated the pain but did not resolve the blockage or hearing impairment. The patient relies on her right ear due to chronic left ear hearing loss. And over the past 2 weeks she has had decreased hearing and pain to the right ear despite being on the antibiotics that were prescribed on 12/08/2024 which included Augmentin and ofloxacin. She completed the course and still experiences discomfort and congestion. The patient developed a congestive cough after starting antibiotics at her last visit on 12/08/2024, which has improved since discontinuation of the medication. She has been using a 3% solution in the affected ear, avoiding the use of Q- tips, and applying drops with a cotton ball to manage the condition. The patient is also scheduled for surgery for a hiatal hernia on the of this month, which may require a stay in a facility for recovery. [facility] Medical History (Updated 12/21/24 @ 17:21 by Yuni Justice PA-C) Hearing loss Right otitis externa Acute right otitis media Hiatal hernia Uterine benign neoplasm Urge incontinence Urgency incontinence Arthritis Cerebral palsy Surgical History History of colonoscopy (~03/07/11) History of hysterectomy Family History Father No problems noted. Mother No problems noted. Social History Household Members: Family Housing: House Do you presently have visiting nurse or other home services: No Alcohol intake: current Alcohol intake frequency: holidays/special occasions only Patient Tobacco Use Status: Never used Tobacco Advance Directives Date on File: 06/05/20 service: No Current occupational status: retired Cognitive needs: Yes (wheelchair) Hearing needs: No Vision needs: Yes (rx glasses) Questionnaire PHQ-9 Over the last 2 weeks, how often have you been bothered by any of the following problems? 1. Little interest or pleasure in doing things: not at all 2. Feeling down, depressed, or hopeless: not at all 3. Trouble falling or staying asleep, or sleeping too much: not at all 4. Feeling tired or having little energy: not at all 5. Poor appetite or overeating: not at all 6. Feeling bad about yourself - or that you are a failure or have let yourself or your family down: not at all 7. Trouble concentrating on things, such as reading the newspaper or watching television: not at all 8. Moving or speaking so slowly that other people could have noticed. Or the opposite - being so fidgety or restless that you have been moving around a lot more than usual: not at all 9. Thoughts that you would be better off or of hurting yourself in some way: not at all Total score: 0 Depression Screening Interpretation: Negative Depression Screening Done: Yes 21142 - PHQ-9 Billing: Yes Source: Developed by Drs. Esau Martinez, Bryanna Linton, Charles Garcia and colleagues, with an educational reg from [employer]. Thrive Questionnaire Date Thrive assessed: 12/08/24 I am a: Patient What is your living situation today?: I have a steady place to live Within the past 12 months, did the food you bought not last and you didn't have the money to get more?: Never true Within the past 12 months, did you worry whether your food would run out before you got money to buy more?: Never true Do you have trouble paying for medicines?: No Do you have trouble getting transportation to medical appointments?: No Do you have trouble paying your heating and electricity bill?: No Do you have trouble taking care of your child, family member or friend?: No Do you have trouble with day-to-day activities such as bathing, preparing meals, shopping, managing finances, etc.?: Yes Are you currently unemployed and looking for a job?: No Are you interested in more education?: No Please select the resources that you would like help with: None THRIVE Score: 0 AUDIT C Alcohol Use Questionnaire (AUDIT-C) 1. How often do you have a drink containing alcohol?: Monthly or less 2. How many drinks containing alcohol do you have on a typical day when you are drinking?: 1 or 2 3. How often do you have six or more drinks on one occasion?: Never Total Score: 1 Score Reviewed/Action Taken: No POOJA-7 AMB Questionnaire POOJA-7 Date POOJA - 7 assessed: 12/08/24 Feeling nervous, anxious, or on edge: 0 = Not at all Not being able to stop or control worryin = Not at all Worrying too much about different things: 0 = Not at all Trouble relaxin = Not at all Being so restless that it is hard to sit still: 0 = Not at all Becoming easily annoyed or irritable: 0 = Not at all Feeling afraid as if something awful might happen: 0 = Not at all Total POOJA-7 score (0-4 normal; 5-9 mild; 10-14 moderate; 15-21 severe): 0 Source: Developed by Drs. Esau Martinez, Bryanna Linton, Charles Garcia and colleagues, with an educational reg from [employer]. POOJA-7 Assessment Billing POOJA-7 Assessment Tool: POOJA-7 Assessment 23955 Review of Systems Const Details: - Ears: Reports hearing loss in the left ear, congestion, and discomfort. Denies use of Q-tips. - Respiratory: Reports congestive cough after antibiotic use, improved post- discontinuation. All systems reviewed & are unremarkable except as noted in HPI and below Physical exam (Primary Care) Vital Signs: Last Vital Signs Temp 97.9 F 12/21/24 13:01 Pulse 74 12/21/24 13:01 Resp 14 12/21/24 13:01 BP 151/84 H 12/21/24 13:01 Pulse Ox 96 12/21/24 13:01 Oxygen Delivery Method Room Air 12/21/24 13:01 Care Plan Goal for BP management: <140/90 patient was in pain today will reassess on 12/28/2024 Tobacco/Smoking Status: Tobacco use Status Tobacco use date assessed 12/21/24 12/21/24 13:00 Patient Tobacco Use Status Never used Tobacco 12/21/24 13:00 PHQ-9: PHQ-9 Score PHQ-9: Total score 0 12/21/24 13:08 Depression Screening Interpretation: Negative Thrive Assessment: Date of Thrive Assessment Date Thrive assessed 12/08/24 12/21/24 13:00 Const Other: Appearance: Alert. Oriented X3. No acute distress. Head: Normal external exam. Normocephalic. Atraumatic. Eyes: Pupils are equal, round, and reactive to light. Extraocular movements intact. Conjunctiva and sclera normal. Eyelids normal. Ears: Patient has chronic left ear hearing difficulty the left ear canal and tympanic membrane are within normal limits. The patient's right ear canal revealed fluffy white exudate tympanic membrane appears to be intact from what is visualized. There is no mastoid tenderness, swelling or erythema over the mastoid. Throat: Pharynx normal. Uvula midline. Moist mucous membranes. Neck: Normal inspection. Neck supple. Full range of motion. No adenopathy. Thyroid Normal. No meningeal signs. No neck mass noted. Cardiovascular: Normal heart rate and rhythm. Respiratory: No respiratory distress. Painless inspiration. Back:Full range of motion noted. Skin: Skin warm and dry. Normal skin color. Coding Level of Care Code Est Pt Level 4 (18131) Complex EM visit Add On G2211 Diagnoses Right otitis externa H60.91 Acute right otitis media H66.91 Hearing loss H91.90 Hiatal hernia K44.9 Additional Codes POOJA-7 Assessment Billing - POOJA-7 Assessment Tool: POOJA-7 Assessment 06373 ([id number]) PHQ-9 - 93635 - PHQ-9 Billing: Yes ([id number]) Assessment & Plan Assessment & Plan (1) Right otitis externa: Code(s): H60.91 - Unspecified otitis externa, right ear Category: Medical Plan: The patient will continue with ofloxacin ear drops and start ciprofloxacin 500 mg orally twice a day for seven days to address the bacterial component of the infection. Additionally, clotrimazole ear drops will be used to treat the suspected fungal infection, with instructions to apply three to four drops twice daily. A follow-up appointment is scheduled in one week to assess the treatment's effectiveness, and a referral to an ENT specialist is planned for further evaluation. (2) Acute right otitis media: Code(s): H66.91 - Otitis media, unspecified, right ear Category: Medical Plan: The patient will continue with ofloxacin ear drops and start ciprofloxacin 500 mg orally twice a day for seven days to address the bacterial component of the infection. Additionally, clotrimazole ear drops will be used to treat the suspected fungal infection, with instructions to apply three to four drops twice daily. A follow-up appointment is scheduled in one week to assess the treatment's effectiveness, and a referral to an ENT specialist is planned for further evaluation. (3) Hearing loss: Code(s): H91.90 - Unspecified hearing loss, unspecified ear Category: Medical Plan: The hearing loss is primarily associated with the outer ear infection, and treatment of the infection is expected to improve auditory function. The patient is advised to avoid inserting objects into the ear canal and to continue using prescribed ear drops. (4) Hiatal hernia: Code(s): K44.9 - Diaphragmatic hernia without obstruction or gangrene Category: Medical Plan: The patient is scheduled for surgical intervention on the of this month to address the hiatal hernia. Post-operative care will likely involve a stay in a facility for recovery, and coordination with the surgical team is ongoing. Plan Plan Patient was informed and verbally consented to the use of an ambient scribe for clinic note documentation during this visit. 1. Outer Ear Infection The patient will continue with ofloxacin ear drops and start ciprofloxacin 500 mg orally twice a day for seven days to address the bacterial component of the infection. Additionally, clotrimazole ear drops will be used to treat the suspected fungal infection, with instructions to apply three to four drops twice daily. A follow-up appointment is scheduled in one week to assess the treatment's effectiveness, and a referral to an ENT specialist is planned for further evaluation. 2. Hearing Loss The hearing loss is primarily associated with the outer ear infection, and treatment of the infection is expected to improve auditory function. The patient is advised to avoid inserting objects into the ear canal and to continue using prescribed ear drops. 3. Hiatal Hernia The patient is scheduled for surgical intervention on the of this month to address the hiatal hernia. Post-operative care will likely involve a stay in a facility for recovery, and coordination with the surgical team is ongoing. I discussed with the patient the plan to continue with ofloxacin ear drops and initiate ciprofloxacin for the bacterial infection. We also talked about using clotrimazole ear drops for the fungal component and the importance of follow-up in one week to evaluate progress. The patient was informed about the upcoming surgery for her hiatal hernia and the potential need for post-operative care in a facility. Orders: Referrals Ear/Nose/Throat Referral H60.91 - Unspecified otitis externa, right ear, H66.91 - Otitis media, unspecified, right ear Medications: New clotrimazole 1% place 3-4 drops in the affected ear BID 1 appl topical BID 10 mL 1RF 2 weeks ciprofloxacin HCl 500 mg PO BID 14 tabs 0RF 7 days loratadine-pseudoephedrine 5-120 mg ER (Claritin-D 12 Hour) 1 tab PO Q12H 30 tabs 0RF Refilled ofloxacin 0.3% 10 drps otic (ear) left DAILY 10 mL 1RF 7 days Patient Instructions: - Continue using ofloxacin ear drops as prescribed. - Take ciprofloxacin 500 mg orally twice a day for seven days. - Use clotrimazole ear drops, three to four drops twice daily. - Avoid inserting objects into the ear canal. - Follow up in one week for reassessment. - Prepare for hiatal hernia surgery on the of this month.
[2024-12-21 13:01] VITALS: BP 151/84; PULSE 74; RESP 14; TEMP 36.6; O2SAT 96
--- OUTSIDE RECORDS SUMMARY | 2024-12-21 15:46 | XMS_ITS | Data Portability ---
Author Organization [facility], Main Office Address [address] , [address] [place] [address] Care Team Providers Care Telesales Advisor Name Role Phone [facility] OTHER Assessment No assessment recorded. Plan [...] Address Organization Details Recorded Time Hiatal hernia 94669098 Active 2023 Cisco White [address] , [address], [place], [address], [facility] Click Contact [facility] 4 10:12:27 Benign neoplasm of uterus 55020643 Active 2023 Cisco White [address], [address], [place], [address], [facility] Click Contact [facility] 4 10:12:35 Urge incontinence of urine 50509266 Active 2023 A_Salbadora guero-Aroldo [address], [address], [place], [address], [facility] Mgv 4 10:12:41 Arthritis 9232014 Active 2023 A_Salbadora y-Aroldo [address], [address], [place], [address], [facility] 4 10:12:49 Cerebral palsy 016351950 Active [address] [facility], [address], [place], [address], [facility] 4 10:12:59 Glaucoma 24127306 Active [address] [facility], [address], [place], [address], [facility] 4 12:10:34 Essential hypertension 04832305 Active 2023 Jarek Valenzuela MD [address] [place] [address], [address], [place], [address], [facility] 4 13:57:05 Problem Notes None recorded. Procedures Surgical History Date Name Laterality Status Provider Name and Address Organization Details Recorded Time total hysterectomy with removal of both tubes and ovaries completed [facility]Da vis [address] [place] [address], [address], [place], [address], [facility] 02/04/2024 12:14:37 Imaging Results None recorded. Procedure Notes None recorded. Medical Equipment None Reported. Allergies Allergen ID Allergen Name Allergen Category Reaction Reaction Severity Criticality Documentation Date Start Date Code Code System Note Provider Name and Address Organization Details Recorded Time 90392 polyester fibers Not available Not available Not available Not available 02/04/2024 Cisco White [address] [place] [address], [address], [place], [address], [facility] 4 10:13:09 36112 tetracycl ine medicatio n Not available Not available Not available 02/04/2024 35661 RxNorm Cisco White [address] [facility], [address], [place], [address], [facility] 4 10:13:15 17726 erythromy sonia medicatio n Not available Not available Not available 02/04/2024 4053 RxNorm Cisco White [address] [facility], [address], [place], [address], [facility] 4 10:13:23 Medications Not known to be on any medication Vitals None Recorded Social History Question Answer Notes LastModified by Organizat ion Details LastModified Time Tobacco Smoking Status Never Smoker Shaun [address] [facility], [address], [place], [address], [facility] 02/04/2024 12:14:11 What Is Your Level Of Caffeine Consumption? None Information not available 02/04/2024 What Was The Date Of Your Most Recent Tobacco Screening? 02/04/2024 Information not available 02/04/2024 Sex: Unknown Functional Status Question Answer Note LastModified by Organizat ion Details LastModified Time Do you use any illicit or recreational drugs? No Information not available 02/04/2024 What is your level of alcohol consumption? None Information not available 02/04/2024 Mental Status None recorded. Family History Nothing Reported Notes:N/C Medical History No medical history recorded. Gynecological HistoryNo gynecological history recorded. Obstetrics History GPAL:G 0 P 0 0 0 0 Immunizations Vaccine Type Date Status Note Provider Nam e and Address Organization Details Recorded Time SARS-COV-2 (COVID-19) vaccine, UNSPECIFIED 06/22/[address] [facility] 02/04/2024 12:23:21 SARS-COV-2 (COVID-19) vaccine, UNSPECIFIED 01/23/2021 [facility] 12:23:28 Past Encounters Encounter ID Performer Location Encounter Start Date Encounter Closed Date Diagnosis/Indication Diagnosis SNOMED-CT Code Diagnosis ICD10 Code Diagnosis IMO Codes Diagnosis Note [id number] [facility] [address] [place] [address] 02/04/2024 10:11:58 02/05/2024 14:13:21 Urge incontinence of urine 13919788 N39.41 continue solifenaci n 10mg qHS Cerebral palsy 627262607 G80.9 very deconditio nedcontinu e baclofen 5mg QID and amantadine 100mg qd and 200mg qHSAdmit to services for PT/OT for strengthen ing, balance, gait training, safety and function.C ontinue fall precaution s.Monitor for safety. 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 Moderate c ognitive impairment 447902704 R41.9 BIMS 10monitor insight and need to invoke HCP [id number] Jarek Valenzuela MD [place] [facility] [address] [address] 02/05/2024 13:51:35 02/06/2024 10:41:38 Asthenia 63955905 R53.1 PT OT eval and treatmonit or fall risk and need for increased support in community Essential hypertension 99719298 I10 HCTZ 25 mg qdlosartan 25 mg qdmonitor bp and need to titrate Urge incon tinence of urine 06422289 N39.41 vesicare 10 mg qdmonitor for sx relief Cerebral palsy 719495928 G80.9 maintained onbaclofen and amantadine monitor for change in conditioni ng with above therapy Hiatal hernia 13118133 K 44.9 see HPIN/V secondary to hiatal herniato f/u with surgery out patient to consider surgical repairmoni tor for sxomeprazo le 20 mg bid Hypertensive disorder 38 752300 I10 continue losartan 25mg qd and HCTZ 25mg qdmonitor BP and labs Arthritis 6954306 M19.90 Continue APAP 325mg TID prn Benign dona plasm of uterus 20586457 D26.9 carrying dx Nausea and vomiting 1691999 R11.2 start zofran 4mg q6h prn Glaucoma 03061693 H40.9 Continue latanopros t 0.005% both eyes qhs 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 Moderate c ognitive impairment 033341538 R41.9 BIMS 10monitor insight and need to invoke HCP [id number] Gucci [facility] AT [address] [address] 02/09/2024 07:27:03 02/10/2024 10:19:01 Hiatal hernia 82815012 K44.9 no need for EGD inpatientf /u thoracic today to discuss elective repaircont inue omeprazole 20mg BIDmonitor for recurrent N/V Cerebral palsy 222334501 G80.9 very deconditio nedcontinu e baclofen 5mg QID and amantadine 100mg qd and 200mg qHSContinu e PT/OT for strengthen ing, balance, gait training, safety and function.C ontinue fall precaution s.Monitor for safety. [id number] Gucci [facility] AT [address] [address] 02/11/2024 07:20:07 02/16/2024 14:42:52 Hiatal hernia 28540012 K44.9 no need for EGD inpatients ister to reschedule thoracic surgery f/ucontinu e omeprazole 20mg BIDmonitor for recurrent N/V Cerebral palsy 583600187 G80.9 very deconditio nedcontinu e baclofen 5mg QID and amantadine 100mg qd and 200mg qHSschedul e APAP 975mg TIDContinu e PT/OT for strengthen ing, balance, gait training, safety and function.C ontinue fall precaution s.Monitor for safety. Near syncope 235972669 R 55 high risk of orthostati c intoleranc e, which can begin to appear within 3-4 days of commencing bed rest and is likely to appear more rapidly in individual s with underlying cardiovasc ular disease and in the elderlyAdv ising rising from seated position slowly and report any recurrent sxs to staff [id number] Gucci [facility] AT [address] [address] 02/17/2024 07:18:09 02/18/2024 11:11:46 Hiatal hernia 09830560 K44.9 no N/Vsister to reschedule thoracic surgery f/ucontinu e omeprazole 20mg BID Cerebral palsy 168886218 G80.9 very deconditio nedcontinu e baclofen 5mg QID and amantadine 100mg qd and 200mg qhs, APAP 975mg TIDContinu e PT/OT for strengthen ing, balance, gait training, safety and function.C ontinue fall precaution s.Monitor for safety. Near syncope 640668972 R 55 no acute sxsAdvisin g rising from seated position slowly and report any recurrent sxs to staff Constipation 08112184 K5 9.00 LBM 02/06start miralax 17g BID and senna 8.6mg qdgive MOM x 1 nowmonitor bowels [id number] Gucci [facility] AT [address] [address] 02/19/2024 07:36:51 02/20/2024 11:20:35 Constipation 52710533 K59.00 LBM 124Contin ue miralax 17g BID and senna 8.6mg qdmonitor bowels Hiatal hernia 30324740 K 44.9 no N/Vsister to reschedule thoracic surgery f/ucontinu e omeprazole 20mg BID [id number] Gucci SALGADO AT [address] [address] 02/24/2024 07:33:59 02/25/2024 12:23:01 Constipation 45076142 K59.00 LBM 129Contin ue miralax 17g BID and senna 8.6mg qdmonitor bowels Hiatal hernia 67427201 K 44.9 no N/V reportedsi ster to reschedule thoracic surgery f/u once discharged continue omeprazole 20mg BID Cerebral palsy 309473573 G80.9 very deconditio nedcontinu e baclofen 5mg QID and amantadine 100mg qd and 200mg qhs, APAP 975mg TIDContinu e PT/OT for strengthen ing, balance, gait training, safety and function.C ontinue fall precaution s.Monitor for safety. Near syncope 908690861 R 55 no acute sxsAdvisin g rising from seated position slowly and report any recurrent sxs to staff Urge incon tinence of urine 26811342 N39.41 continue solifenaci n 10mg qHS Hypertensive disorder 38 390773 I10 Well-contr olledconti nue losartan 25mg qd and HCTZ 25mg qdmonitor BP and labs Arthritis 3721006 M19.90 Continue APAP 325mg TID prn Nausea and vomiting 1693 2000 R11.2 no reported episodesco ntinue zofran 4mg q6h prn Glaucoma 75774551 H40.9 Continue latanopros t 0.005% both eyes qhs [id number] Gucci Alarcon [place] AT [address] [address] 02/27/2024 07:31:04 03/01/2024 14:17:51 Constipation 69582457 K59.00 IMprovedCo ntinue miralax 17g BID and senna 8.6mg qdmonitor bowels Hiatal hernia 93468928 K 44.9 no N/V reportedsi ster to reschedule thoracic surgery f/u once discharged continue omeprazole 20mg BID Cerebral palsy 382851065 G80.9 very deconditio nedcontinu e baclofen 5mg QID and amantadine 100mg qd and 200mg qhs, APAP 975mg TIDContinu e PT/OT for strengthen ing, balance, gait training, safety and function.C prateekinue fall precaution s.Monitor for safety. [id number] Gucci Alarcon [facility] [address] [address] 03/08/2024 07:34:44 03/09/2024 10:28:50 Constipation 93870669 K59.00 Continue miralax 17g BID and senna 8.6mg qdmonitor bowels Hiatal hernia 64222148 K 44.9 no N/V reportedsi ster to reschedule thoracic surgery f/u once discharged continue omeprazole 20mg BID Cerebral palsy 260980505 G80.9 Continue baclofen 5mg QID and amantadine 100mg qd and 200mg qhs, APAP 975mg TIDComplet ed PT/OT for strengthen ing, balance, gait training, safety and function.C ontinue fall precaution s.Monitor for safety. Near syncope 489380378 R 55 resolved Urge incon tinence of urine 79450915 N39.41 continue solifenaci n 10mg qHS Hypertensive disorder 38 046219 I10 Well-contr olledconti nue losartan 25mg qd and HCTZ 25mg qdmonitor BP and labs Arthritis 5474247 M19.90 Continue APAP 325mg TID prn Nausea and vomiting 1693 2000 R11.2 no reported episodesco ntinue zofran 4mg q6h prn Glaucoma 97359882 H40.9 Continue latanopros t 0.005% both eyes qhs Health Concerns Section Related Observation LastModified by Organization Detai ls LastModified Time None Recorded Concern Status LastModified by Organization Details LastModified Time None Recorded Advance Directives Directive None Recorded Payers Insurance Date Sequence Insurance Name Policy Number Policy Rod Covered Member ID Rod Member ID Guarantor Name 02/17/2024 1 MEDICARE B-[place]: [employer] Nereyda Escalera [id number] Nereyda Escalera 02/17/2024 2 [place]: [facility] Nereyda Escalera [id number] Nereyda Escalera Notes Date Note Type Note [...] help her to go A_Tremblay-Da vis [address] [facility], [address], [place], [address], [facility] 02/17/2024 11:14:56 02/19/2024 text/html Patient is a 68 yo female who presents for telehealth acute rounding visit PMH remarkable for hiatal hernia, cerebral palsy, urge incontinence, arthritis and benign uterine neoplasm Bowel regimen started this week for no documented BM in 11 dayseffective with medium stool yesterday AMarco A-Da vis [address] [facility], [address], [place], [address], [facility] 02/19/2024 13:18:19 02/24/2024 text/html Patient is a 68 yo female who presents for BRICK MAKER 30 day routine rounding visit PMH remarkable [...] sitting in w/c working with therapy in [facility]. She denies any complaints today A_Makayla-Da vis [address] [facility], [address], [place], [address], [facility] 02/24/2024 10:16:50 02/27/2024 text/html Patient is a 68 yo female who presents for acute rounding visit PMH remarkable for hiatal hernia, cerebral palsy, urge incontinence, arthritis and benign uterine neoplasm Actively participating in therapyIMprovement in bowels with med adjustmentNursing denies any acute concerns Patient seen sitting in w/c in room in [facility]. She denies any concerns today A_Salbadoray-Da vis [address] [facility], [address], [place], [address], [facility] 02/27/2024 11:15:20 03/08/2024 text/html Patient is [...] services Patient seen lying in bed in [facility]. She tells me she is excited to be going home today. She denies any concerns or complaints today A_Makayla-Da vis [address] [facility], [address], [place], [address], [facility] 03/08/2024 09:42:08 OBGyn Episode No OBEpisode recorded.
--- OUTSIDE RECORDS SUMMARY | 2024-12-21 15:46 | XMS_ITS | Clinical Summary ---
Author Organization [facility] [address] [facility] Address [address] [place] [address] Phone Care Team Providers Care Traffic Rate Computer Name Role Phone Thaddeus Gamboa MD Primary Care Provider [phone] Allergies Active Allergy Reactions Criticality Noted Date Comments Erythromycin 12/06/2024 Polyester Fibers 12/06/2024 Tetracycline 12/06/2024 Medications amantadine (SYMMETREL) 100 mg capsule 1 capsule (100 mg total) 3 (three) times a day. 11/11/2024 Active baclofen (LIORESAL) 10 mg tablet Take 1 tablet (10 mg total) by mouth 3 (three) times a day. 10 am and 12noon takes 5mg and 10 at night 12/02/2024 Active hydroCHLOROthia zide (HYDRODIURIL) 25 mg tablet Take 1 tablet (25 mg total) by mouth 1 (one) time each day. 11/29/2024 Active losartan (COZAAR) 25 mg tablet Take 1 tablet (25 mg total) by mouth 1 (one) time each day. 11/11/2024 Active Myrbetriq 25 mg 24 hr tablet 1 tablet (25 mg total) 1 (one) time each day. 12/01/2024 Active omeprazole (PriLOSEC) [address] capsule 1 capsule (20 mg total) 2 (two) times a day. 11/11/2024 Active solifenacin (VESICARE) 10 mg tablet 1 tablet (10 mg total) 1 (one) time each day after dinner. 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 Discharge Disposition: Home or Self Care 12/06/2024 3:00 PM EDT Consult Thoracic Surgery - [place] [address] [facility] [address] [place] [address] Gregg Oleary MD 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 (Primary Dx); Cerebral palsy, unspecified type ([facility] V24, [facility] V28); Neoplasm from Last 3 Months Surgical History Surgery Date Site/Laterality Comments COLONOSCOPY HYSTERECTOMY OTHER SURGICAL HISTORY LEG TENDON SURGERY Medical History Medical History Date Comments Hiatal hernia Uterine benign neoplasm Urge incontinence Arthritis Cerebral palsy ([facility] V24, [facility] V28) HL (hearing loss) B Dysphagia GERD (gastroesophageal reflux disease) History of transfusion 3 pints Joint pain Chronic pain disorder Cancer ([facility] V24, [facility] V28) uterine Family History Relation Name Status Comments Father [...] - - Weight 58.5 kg (129 lb) 12/14/2024 1:00 PM EDT Height 152.4 cm (5') 12/14/2024 1:00 PM EDT Body Mass Index 25.19 12/14/2024 1:00 PM EDT Plan of Treatment Upcoming Encounters Date Type Department Care Team (Late st Contact Info) Description 12/22/2024 10:00 AM EDT Pre-Admission Testing [facility] Pre-Admission Testing [address] [place] [address] 12/27/2024 8:15 AM EDT Appointment [facility] Xray [address] [place] [address] 01/05/2025 11:00 AM EDT Hospital Encounter [facility] Main OR [address] [place] [phone] Gregg Oleary MD [address] [address] 01/05/2025 11:00 AM EDT - 01/05/2025 2:30 PM EDT Surgery [facility] Main OR [address] [place] [address] Gregg Oleary MD [address] [address] DaVinci paraesophageal hernia repair w/mesh & fundoplication [61034 (CPT ) +2 more] 01/19/2025 10:30 AM EST Office Visit [facility] [place] [address] [phone] Wilbert March PA [address] [address] 02/02/2025 8:45 AM EST Appointment [facility] Xray [address] [place] [address] 02/02/2025 10:15 AM EST Office Visit Thoracic Surgery 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 01/05/2025 11:00 AM EDT Health Maintenance Due Date Last Done Comments Breast Cancer Screening 1955 Colorectal Cancer Screening: Colonoscopy 1955 DTaP,Tdap,and Td Vaccines (1 - Tdap) 1973 Pneumococcal Vaccine: 50+ Years (1 of 1 - PCV) 2004 Zoster Vaccines (1 of 2) 2004 Depression Screening 03/17/2024 COVID-19 Vaccine (3 - 2024-2 6 season) 2024 01/23/2021, 06/22/2020 Influenza Vaccine (#1) 2024 Cholesterol Screening (Lipid Panel) 11/29/2024 Falls Risk Assessment 11/29/2024 Hepatitis C Screening 11/29/2024 Medicare Annual Wellness Visit 11/29/2024 Osteoporosis Screening (Bone Density Screening) 11/29/2024 Social Influencers of Health Screening 11/29/2024 Hypertension/CHF/CAD Annual BMP Blood Test 12/20/2024 RSV Immunization Adult Patients (1 - 1-dose 75+ series) 2029 HIB [...] to complete this topic RSV Immunization Patients Under 20 months Aged Out No longer eligible b ased on patient's age to complete this topic Varicella Vaccines Aged Out No longer eligible based on patient's age to complete this topic Goals Goal Patient Goal Type Associated Problems Recent Progress Patient-Stated? Author Autogenerat ed Goal Care Plan Autogenerated Problem No Gregg Oleary MD Additional Health Concerns Active Problems Noted Date Diagnosed Date Autogenerated Problem 12/13/2024 Insurance MEDICARE [place]ICA[place] - [place] Care Teams Traffic Rate Computer Relationship Specialty Start Date End Date Thaddeus Gamboa MD [address] [place] [address] PCP - General Internal Medicine 11/30/24
--- OUTSIDE RECORDS SUMMARY | 2024-12-21 15:46 | XMS_ITS | Clinical Summary ---
Author Organization [employer] [facility] Address [address] [place], [place] [phone] Phone Care Team Providers Care Wastewater Project Manager Name Role Phone Shahzad Esau Elias MARKS Primary Care Provider [phone] Social History Tobacco Use Types Packs/Day Years [...] file Medical Devices Not on file Insurance [employer] MEDICARE PART A & B [place] MEDICARE PART A & B HEALTH MEDICARE PART A & B [facility] MEDICARE PART A & B Care Teams Wastewater Project Manager Relationship Specialty Start Date End Date Esau Pike DO [address] [place] [address] PCP - General Internal Medicine 03/05/24 Additional Source Comments The information contained in this document represents components of the legal health record. It is not the complete legal health record.[facility]
== END 2024-12-21 13:31 | disposition home or self-care (01) ==
LOC: HO.HMCSH 12:54
PROVIDERS: PCP Physician Assistant Medical; Visit Provider Physician Assistant Medical
DX: H60.91 Unspecified otitis externa, right ear (principal); H66.91 Otitis media, unspecified, right ear; H91.90 Unspecified hearing loss, unspecified ear; K44.9 Diaphragmatic hernia without obstruction or gangrene

== ENCOUNTER → 2024-12-21 12:54 | Outpatient (BNVA) | payer MEDICARE, MEDICAID, SELFPAY | PROVIDERS: PCP Physician Assistant Medical; Visit Provider Physician Assistant Medical | DX: H60.91 Unspecified otitis externa, right ear (principal); H92.01 Otalgia, right ear; K44.9 Diaphragmatic hernia without obstruction or gangrene; H66.91 Otitis media, unspecified, right ear; H91.93 Unspecified hearing loss, bilateral | CPT/HCPCS: 96127; 99212 ==

== ENCOUNTER 2024-12-28 10:18 | Outpatient (AMB) | payer MEDICARE, MEDICAID, SELFPAY ==
--- OUTSIDE RECORDS SUMMARY | 2024-12-27 07:40 | XMS_ITS | Encounter Summary ---
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 Procedures XR Esophagram Gregg Oviedo MD [address] [address] Phone: tel: fax: [address] [phone] Phone: tel: Referral ID Status Reason Start Date Expiration Date V isits Requested Visits Authorized [id number] Authorized 12/07/2024 12/07/2025 1 1 Reason for Visit * Imaging (Routine) - Authorized Specialty Diagnoses / Procedures Referred By Contac t Referred To Contact Radiology Diagnoses 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 Procedures XR Esophagram Gregg Oviedo MD [address] [address] Phone: tel: fax: [address] [address] Phone: tel: Referral ID Status Reason Start Date Expiration Date V isits Requested Visits Authorized [id number] Authorized 12/07/2024 12/07/2025 1 1 Encounter Details Date Type Department Care Team (Latest Contact Info) Description 12/27/2024 7:40 AM EDT - 12/27/2024 11:59 PM EDT Hospital Encounter [facility] [address] [place] [phone] 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 [...] Care Team (Late st Contact Info) Description 01/05/2025 11:00 AM EDT Hospital Encounter [facility] [address] [place] [phone] Gregg Oviedo MD [address] [address] 01/05/2025 11:00 AM EDT - 01/05/2025 2:30 PM EDT Surgery [facility] OR [address] [place] [phone] Gregg Oviedo MD [address] [place] [address] DaVinci paraesophageal hernia repair w/mesh & fundoplication [49422 (CPT ) +2 more] 01/19/2025 10:30 AM EST Office Visit Thoracic Surgery - [address] [phone] Wilbert March PA [address] [place] [address] 02/02/2025 8:45 AM EST Appointment [facility] [address] [place] [phone] 02/09/2025 10:15 AM EST Office Visit Thoracic Surgery - [address] [phone] Wilbert March PA [address] [place] [phone] Scheduled Procedures Name Priority Associated Diagnoses Date/Ti me REPAIR HERNIA HIATAL ROBOT TWO 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 There is a very large hiatal hernia with both axial and paraesophageal features. Nearly the entire stomach is within the thorax. 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 2. No contrast exited the stomach with the patient in supine position. When the patient was turned prone, contrast passed rapidly out of the stomach and through the duodenum into the jejunum. There is therefore a functional, but not anatomic, gastric outlet obstruction with the patient supine. 3. Severe esophageal and gastric dysmotility with nearly complete absence of peristaltic activity. 4. A large amount of spontaneous gastroesophageal reflux occurred. 5. Limited visualization of the hypopharynx demonstrates no evidence of aspiration or of laryngeal penetration. Code 27209 The dose-area product for this procedure was 1367.80 uGy*. RI CPT II G9500 A Expedited message has been communicated to the office of GREGG OVIEDO via the [employer] on 12/27/2024 9:19 AM, Message ID [id number]. -------- FINAL REPORT -------- Dictated By: Rohit Silva Dictated Date: 12/27/2024 08:55 ET Assigned Physician: Rohit Silva Reviewed and Electronically Signed By: Rohit Silva Signed Date: 12/27/2024 09:19 ET Workstation ID: [id number] Transcribed By: Self Edit Transcribed Date: 12/27/2024 09:13 ET Narrative 12/27/2024 9:19 AM EDT HISTORY: The patient is a 69-year-old female with a known large paraesophageal hiatal hernia as well as provided diagnosis of obstruction without gangrene. Esophagram was requested to obtain additional anatomic information for anticipated hiatal hernia repair surgery. FINDINGS: SITTING AP radiograph of the chest demonstrates osteoarthritis of the shoulders bilaterally and a chronic rotator cuff tear of the left shoulder. A calcification overlying the right scapula is suspected to represent a loose joint body. There are levoscoliosis as well as degenerative changes of the thoracic spine. The cardiac silhouette is within normal limits. There is a large air and fluid containing structure in the retrocardiac area representing the patient's known hiatal hernia. Bibasilar discoid atelectasis is present. This is a suboptimal study due to the patient's limited mobility. Effervescent crystals were administered orally. Thick and thin barium was then administered orally under fluoroscopic control. The study demonstrates severe esophageal dysmotility as evidenced by slow passage of barium down the esophagus and a nearly complete absence of peristaltic activity. The esophagus also has a patulous appearance. A large amount of spontaneous gastroesophageal reflux occurred. There is a very large hiatal hernia with both axial and paraesophageal features, with nearly the entire stomach being within the thorax. 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 The duodenal bulb is located just below the diaphragmatic hiatus. No peristaltic activity in the stomach was seen. No contrast exited the stomach until the patient was placed prone. When this was done, contrast passed rapidly out of the stomach and through the duodenum into the proximal jejunum. Therefore, there appears to be functional, but not anatomic, gastric outlet obstruction with the patient supine. Rapid sequence imaging of the hypopharynx in lateral projection during swallowing of thin barium demonstrates prompt initiation of swallowing. There is no aspiration or laryngeal penetration, although visualization of the hypopharynx was limited. Procedure Note Rohit Silva MD - 12/27/2024 HISTORY: The patient is a 69-year-old female with a known largeparaesophageal hiatal hernia as well as provided diagnosis of obstructionwithout gangrene. Esophagram was requested to obtain additional anatomicinformation for anticipated hiatal hernia repair surgery. FINDINGS: SITTING AP radiograph of the chest demonstrates osteoarthritisof the shoulders bilaterally and a chronic rotator cuff tear of the leftshoulder. A calcification overlying the right scapula is suspected torepresent a loose joint body. There are levoscoliosis as well asdegenerative changes of the thoracic spine. The cardiac silhouette iswithin normal limits. There is a large air and fluid containing structurein the retrocardiac area representing the patient's known hiatal hernia.Bibasilar discoid atelectasis is present. This is a suboptimal study due to the patient's limited mobility. Effervescent crystals were administered orally. Thick and thin barium wasthen administered orally under fluoroscopic control. The studydemonstrates severe esophageal dysmotility as evidenced by slow passage ofbarium down the esophagus and a nearly complete absence of peristalticactivity. The esophagus also has a patulous appearance. A large amount ofspontaneous gastroesophageal reflux occurred. There is a very large hiatalhernia with both axial and paraesophageal features, with nearly the entirestomach being within the thorax. Mesenteroaxial gastric volvulus isstrongly suspected. The duodenal bulb is located just below thediaphragmatic hiatus. No peristaltic activity in the stomach was seen. Nocontrast exited the stomach until the patient was placed prone. When thiswas done, contrast passed rapidly out of the stomach and through theduodenum into the proximal jejunum. Therefore, there appears to befunctional, but not anatomic, gastric outlet obstruction with the patient supine. Rapid sequence imaging of the hypopharynx in lateral projectionduring swallowing of thin barium demonstrates prompt initiation ofswallowing. There is no aspiration or laryngeal penetration, althoughvisualization of the hypopharynx was limited. IMPRESSION: 1. There is a very large hiatal hernia with both axial and paraesophagealfeatures. Nearly the entire stomach is within the thorax. Mesenteroaxialgastric volvulus is strongly suspected. 2. No contrast exited the stomach with the patient in supine position.When the patient was turned prone, contrast passed rapidly out of thestomach and through the duodenum into the jejunum. There is therefore afunctional, but not anatomic, gastric outlet obstruction with the patientsupine. 3. Severe esophageal and gastric dysmotility with nearly complete absenceof peristaltic activity. 4. A large amount of spontaneous gastroesophageal reflux occurred. 5. Limited visualization of the hypopharynx demonstrates no evidence ofaspiration or of laryngeal penetration. Code 44515 The dose-area product for this procedure was 1367.80 uGy*. PQRI CPT II G9500 A Expedited message has been communicated to the office of GREGG OVIEDO [employer] on 12/27/2024 9:19 AM, MessageID [id number]. 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 Diaphragmatic hernia with obstruction 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 Diaphragmatic hernia with obstruction documented in this encounter Administered Medications Inactive Administered Medications - up to 3 most recent administrations Medication Order MAR Action Action Date Dose Rate Site barium sulfate (E-Z-HD) 98 % suspension 100 mL 100 mL, oral, Once in imaging, Starting on Fri12/27/24 at 0850, For 1 dose Given 12/27/2024 8:50 AM EDT 100 mL barium sulfate (E-Z-PAQUE) 96 % (w/w) suspension 100 mL 100 mL, oral, Once in imaging, Starting on Fri12/27/24 at 0850, For 1 dose Given 12/27/2024 8:50 AM EDT 100 mL sod bicarb-citric ac-simeth 2.21-1.53 gram/4 gram packet 1 packet 1 packet, oral, Once, On Fri12/27/24 at 0915, For 1 dose, Dissolve the contents of a half of a packet on the back of the tongue, wash down with 15 mL of water or juice and repeat with remaining contents. Given 12/27/2024 8:50 AM EDT 1 packet documented in this encounter Additional Health Concerns Active Problems Noted Date Diagnosed Date Autogenerated Problem 12/13/2024 documented as of this encounter Care Teams Refrigerator Repair Technician Relationship Specialty Start Date End Date Thaddeus Gamboa MD [facility] [address] [place] [address] PCP - General Internal Medicine 11/30/24 documented as of this encounter
[2024-12-28 10:16] VITALS: BP 126/76; PULSE 76; RESP 16; TEMP 36.4; O2SAT 93
--- NOTE | 2024-12-28 10:16 | MHC.PC.OV ---
Vital Signs 12/28/24 10:16 Weight 128 lb 4 oz BMI Reason not done Patient refused/unable BP 126/76 Blood Pressure Location Lt brachial Position Sitting Respiration 16 Pulse 76 Pulse Source Pulse Oximeter Temp 97.6 F Temp Source Temporal Artery Scan Pulse Oximetry (%) 93 Oxygen Delivery Method Room Air Comment patient in wheelchair Intake Visit Reasons: 1 Week Follow Up Medical Transcription Supervisor Required: No Allergies tetracycline (TETRACYCLINE) Allergy (Intermediate, Verified 12/28/24 11:03) Altered Mental Status pantoprazole Allergy (Mild, Verified 12/28/24 11:03) upset stomach polyester fibers Allergy (Unknown, Verified 12/28/24 11:03) Contact Dermatitis aspirin Adverse Reaction (Severe, Verified 12/28/24 11:03) stomach bleed erythromycin base Adverse Reaction (Unknown, Verified 12/28/24 11:03) Nausea and Vomiting Medication List - Last Reconciled 12/28/24 by Yuni Justice PA-C acetaminophen 325 mg PO TID PRN amantadine HCl 100 mg PO TID 90 days ascorbic acid (vitamin C) 500 mg PO DAILY@12 baclofen 5 mg PO DAILY baclofen 10 mg PO BID 90 days cholecalciferol (vitamin D3) 10 mcg PO DAILY@12 ciprofloxacin HCl 500 mg PO BID 7 days clotrimazole 1% 1 appl topical BID 2 weeks docusate sodium 100 mg PO DAILY@1200 hydrochlorothiazide 25 mg PO QAM loratadine (Claritin) 10 mg PO DAILY loratadine-pseudoephedrine 5-120 mg ER (Claritin-D 12 Hour) 1 tab PO Q12H losartan 25 mg PO DAILY mirabegron ER (Myrbetriq) 25 mg PO DAILY 30 days ofloxacin 0.3% 10 drps otic (ear) left DAILY 7 days omeprazole 20 mg PO BID@0630,1630 pyridoxine (vitamin B6) (Vitamin B-6) 50 mg PO DAILY@12 solifenacin (Vesicare) 10 mg PO BEDTIME 90 days Tobacco use date assessed: 12/21/24 Dental Screening Dental Screen Date: 12/28/24 Did you have a dental visit in the last 12 months?: Yes Did you have a dental problem in the last 6 months where you did not have access to dental care?: No Was dental information given to patient?: Patient has dentist HPI 1 Week Follow Up HPI Details The patient is a 69-year-old female presenting with ear infections. The patient had been experiencing symptoms of ear infections, including congestion and hearing difficulties, which were severe enough to cause significant discomfort and emotional distress. The infections were identified as both inner and outer ear infections, which have now resolved following treatment with oral antibiotics medications, including Claritin D. [facility] Medical History Hearing loss Right otitis externa Acute right otitis media Hiatal hernia Uterine benign neoplasm Urge incontinence Urgency incontinence Arthritis Cerebral palsy Surgical History History of colonoscopy (~03/07/11) History of hysterectomy Family History Father No problems noted. Mother No problems noted. Social History Household Members: Family Housing: House Do you presently have visiting nurse or other home services: No Alcohol intake: current Alcohol intake frequency: holidays/special occasions only Patient Tobacco Use Status: Never used Tobacco Advance Directives Date on File: 06/05/20 service: No Current occupational status: retired Cognitive needs: Yes (wheelchair) Hearing needs: Yes Vision needs: Yes (rx glasses) Questionnaire PHQ-9 Over the last 2 weeks, how often have you been bothered by any of the following problems? 1. Little interest or pleasure in doing things: not at all 2. Feeling down, depressed, or hopeless: not at all 3. Trouble falling or staying asleep, or sleeping too much: not at all 4. Feeling tired or having little energy: not at all 5. Poor appetite or overeating: not at all 6. Feeling bad about yourself - or that you are a failure or have let yourself or your family down: not at all 7. Trouble concentrating on things, such as reading the newspaper or watching television: not at all 8. Moving or speaking so slowly that other people could have noticed. Or the opposite - being so fidgety or restless that you have been moving around a lot more than usual: not at all 9. Thoughts that you would be better off or of hurting yourself in some way: not at all Total score: 0 Depression Screening Interpretation: Negative Depression Screening Done: Yes 19699 - PHQ-9 Billing: Yes Source: Developed by Drs. Esau Martinez, Bryanna Linton, Charles Garcia and colleagues, with an educational reg from [employer]. Thrive Questionnaire Date Thrive assessed: 12/28/24 I am a: Patient What is your living situation today?: I have a steady place to live Within the past 12 months, did the food you bought not last and you didn't have the money to get more?: Never true Within the past 12 months, did you worry whether your food would run out before you got money to buy more?: Never true Do you have trouble paying for medicines?: No Do you have trouble getting transportation to medical appointments?: No Do you have trouble paying your heating and electricity bill?: No Do you have trouble taking care of your child, family member or friend?: No Do you have trouble with day-to-day activities such as bathing, preparing meals, shopping, managing finances, etc.?: Yes Are you currently unemployed and looking for a job?: No Are you interested in more education?: No Please select the resources that you would like help with: None THRIVE Score: 0 AUDIT C Alcohol Use Questionnaire (AUDIT-C) 1. How often do you have a drink containing alcohol?: Monthly or less 2. How many drinks containing alcohol do you have on a typical day when you are drinking?: 1 or 2 3. How often do you have six or more drinks on one occasion?: Never Total Score: 1 Score Reviewed/Action Taken: No POOJA-7 AMB Questionnaire POOJA-7 Date POOJA - 7 assessed: 12/28/24 Feeling nervous, anxious, or on edge: 0 = Not at all Not being able to stop or control worryin = Not at all Worrying too much about different things: 0 = Not at all Trouble relaxin = Not at all Being so restless that it is hard to sit still: 0 = Not at all Becoming easily annoyed or irritable: 0 = Not at all Feeling afraid as if something awful might happen: 0 = Not at all Total POOJA-7 score (0-4 normal; 5-9 mild; 10-14 moderate; 15-21 severe): 0 Source: Developed by Drs. Esau Martinez, Bryanna Linton, Charles Garcia and colleagues, with an educational reg from [employer]. POOJA-7 Assessment Billing POOJA-7 Assessment Tool: POOJA-7 Assessment 81567 Review of Systems Const Details: - Ears: Reports resolution of congestion and hearing difficulties. Denies current ear pain or discharge. - Neurological: Reports past episodes of dizziness and nausea associated with ear infections. Denies current symptoms. All systems reviewed & are unremarkable except as noted in HPI and below Physical exam (Primary Care) Vital Signs: Last Vital Signs Temp 97.6 F 12/28/24 10:16 Pulse 76 12/28/24 10:16 Resp 16 12/28/24 10:16 BP 126/76 12/28/24 10:16 Pulse Ox 93 12/28/24 10:16 Oxygen Delivery Method Room Air 12/28/24 10:16 Care Plan Goal for BP management: <140/90 at Goal BMI Assessment/Plan discussion: High BMI High, discussed plan: lifestyle, weight reduction, dietary, physical activity and alcohol moderation Tobacco/Smoking Status: Tobacco use Status Tobacco use date assessed 12/21/24 12/28/24 10:19 Patient Tobacco Use Status Never used Tobacco 12/28/24 10:19 PHQ-9: PHQ-9 Score PHQ-9: Total score 0 12/28/24 10:19 Depression Screening Interpretation: Negative Thrive Assessment: Date of Thrive Assessment Date Thrive assessed 12/28/24 12/28/24 10:19 Const Other: Appearance: Alert. Oriented X3. No acute distress. Head: Normal external exam. Normocephalic. Atraumatic. Eyes: Pupils are equal, round, and reactive to light. Extraocular movements intact. Conjunctiva and sclera normal. Eyelids normal. Ears: Inner ear and outer ear infection completely healed. Right ear was previously infected, but now normal. External auditory canal normal. Tympanic membranes normal. Throat: Pharynx normal. Uvula midline. Moist mucous membranes. Neck: Normal inspection. Neck supple. Full range of motion. Cardiovascular: Normal heart rate and rhythm. Respiratory: No respiratory distress. Painless inspiration. Back: Full range of motion noted. Skin: Skin warm and dry. Normal skin color. Extremities: Extremities exhibit normal range of motion. Coding Level of Care Code Est Pt Level 3 (99027) Complex EM visit Add On G2211 Diagnoses Right otitis externa H60.91 Acute right otitis media H66.91 Additional Codes POOJA-7 Assessment Billing - POOJA-7 Assessment Tool: POOJA-7 Assessment 65055 ([id number]) PHQ-9 - 31961 - PHQ-9 Billing: Yes ([id number]) Assessment & Plan Assessment & Plan (1) Right otitis externa: Code(s): H60.91 - Unspecified otitis externa, right ear Category: Medical Plan: The inner ear infection has resolved with the use of prescribed medications, including antibiotics and Claritin D, which helped alleviate congestion and improve hearing. The patient is advised to monitor for any recurrence of symptoms and to follow up as needed. (2) Acute right otitis media: Code(s): H66.91 - Otitis media, unspecified, right ear Category: Medical Plan: The outer ear infection has also resolved with treatment, and the patient reports significant improvement in symptoms. Continued monitoring for any signs of recurrence is recommended, and the patient should maintain regular follow-up appointments. Plan Plan Patient was informed and verbally consented to the use of an ambient scribe for clinic note documentation during this visit. 1. Inner Ear Infection The inner ear infection has resolved with the use of prescribed medications, including Claritin D, which helped alleviate congestion and improve hearing. The patient is advised to monitor for any recurrence of symptoms and to follow up as needed. 2. Outer Ear Infection The outer ear infection has also resolved with treatment, and the patient reports significant improvement in symptoms. Continued monitoring for any signs of recurrence is recommended, and the patient should maintain regular follow-up appointments. During the visit, we discussed the resolution of the patient's ear infections with the current treatment regimen, including the use of Claritin D. I advised the patient to monitor for any recurrence of symptoms and to maintain regular follow-up appointments. Patient Instructions: - Continue taking prescribed medications as directed. - Monitor for any recurrence of ear infection symptoms. - Attend follow-up appointments as scheduled.
--- OUTSIDE RECORDS SUMMARY | 2024-12-28 12:06 | XMS_ITS | Clinical Summary ---
Author Organization [facility] Address [address] [place], [place] [id number] Phone Care Team Providers Care Lead Burner Helper Name Role Phone Shahzad Esau Elias MARKS Primary Care Provider Social History Tobacco Use [...] file Medical Devices Not on file Insurance [employer] MEDICARE PART A & B [place] & [place] MEDICARE PART A & B HEALTH MEDICARE PART A & B [facility] MEDICARE PART A & B Care Teams Lead Burner Helper Relationship Specialty Start Date End Date Esau Pike DO [address] [place] [id number] PCP - General Internal Medicine 03/05/24 Additional Source Comments The information contained in this document represents components of the legal health record. It is not the complete legal health record.[facility]
--- OUTSIDE RECORDS SUMMARY | 2024-12-28 12:07 | XMS_ITS | Clinical Summary ---
Author Organization [facility] Address [address] [place] [address] Phone Care Team Providers Care Superintendent Custodian Janitor Name Role Phone Thaddeus Gamboa MD Primary Care Provider [phone]- [phone] Allergies Active Allergy Reactions Criticality Noted Date [...] but no ga ngrene 12/06/2024 Cerebral palsy ([facility], [facility] V28) 2024 Encounters Date Type Department Care Team Description 12/27/2024 7:40 AM EDT - 12/27/2024 11:59 PM EDT Hospital Encounter [facility] Xray [address] [place] [phone] 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 Discharge Disposition: Home or Self Care 12/20/2024 1:21 PM EDT - 12/20/2024 11:59 PM EDT Hospital Encounter [facility] CT Scan [address] [place] [phone] 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 Discharge Disposition: Home or Self Care 12/06/2024 3:00 PM EDT Consult [facility] [place] [address] [facility] [address] [place] [phone] Gregg Oviedo MD 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 (Primary Dx); Cerebral palsy, unspecified type ([facility] V24, [facility] V28); Neoplasm from Last 3 Months Surgical History Surgery Date Site/Laterality Comments COLONOSCOPY HYSTERECTOMY OTHER SURGICAL HISTORY LEG TENDON SURGERY Medical History Medical History Date Comments Hiatal hernia Uterine benign neoplasm Urge incontinence Arthritis Cerebral palsy ([facility] V24, [facility] V28) HL (hearing loss) B Dysphagia GERD (gastroesophageal reflux disease) History of transfusion 3 pints Joint pain Chronic pain disorder Cancer ([facility] V[facility], [facility] V28) uterine Family History Relation Name Status [...] Description 01/05/2025 11:00 AM EDT Hospital Encounter [facility] Main OR [address] [place] [phone] Gregg Oviedo MD [address] [address] 01/05/2025 11:00 AM EDT - 01/05/2025 2:30 PM EDT Surgery [facility] Main OR [address] [place] [phone] Gregg Oviedo MD [address] [address] DaVinci paraesophageal hernia repair w/mesh & fundoplication [58479 (CPT ) +2 more] 01/19/2025 10:30 AM EST Office Visit [facility] [place] [address] [phone] Wilbert March PA [address] [address] 02/02/2025 8:45 AM EST Appointment [facility] Xray [address] [place] [phone] 02/09/2025 10:15 AM EST Office Visit Thoracic Surgery [facility] [address] [phone] Wilbert March PA [address] [address] Scheduled Procedures Name Priority Associated Diagnoses Date/Ti [...] Screening 11/29/2024 Hypertension/CHF/CAD Annual BMP Blood Test 12/22/2025 12/22/2024 RSV Immunization Adult Patients (1 - 1-dose [...] Plan Autogenerated Problem No Gregg Oviedo MD Procedures Procedure Name Priority Date/Time Associated Diagnosis Comments XR ESOPHAGRAM Routine 12/27/2024 8:51 AM EDT 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 PROCEDURAL ECG Routine 12/22/2024 10:02 AM EDT 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 CBC WITH AUTO DIFFERENTIAL Routine 12/22/2024 9:38 AM EDT 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 BASIC METABOLIC PANEL Routine 12/22/2024 9:38 AM EDT 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 Code 68433 The dose-area product for this procedure was 1367.80 uGy*. PQRI CPT II G9500 A Expedited message has been communicated to the office of GREGG OVIEDO via the pic5 System on 12/27/2024 9:19 AM, Message ID [id number]. -------- FINAL REPORT -------- Dictated By: Rohit Silva Dictated Date: 12/27/2024 08:55 ET Assigned Physician: Rohit Silva Reviewed and Electronically Signed By: Rohit Silva Signed Date: 12/27/2024 09:19 ET Workstation ID: [id number] Transcribed By: Self Edit Transcribed Date: 12/27/2024 [...] evidence ofaspiration or of laryngeal penetration. Code 18409 The dose-area product for this procedure was 1367.80 uGy*. PQRI CPT II G9500 A Expedited message has been communicated to the office of GREGG OVIEDO via[employer] System on 12/27/2024 9:19 AM, MessageID [id number]. -------- FINAL REPORT -------- Dictated By: Rohit Silva Dictated Date: 12/27/2024 08:55 ET Assigned Physician: Rohit Silva Reviewed and Electronically Signed By: Rohit Silva Signed Date: 12/27/2024 09:19 ET Workstation ID: [id number] Transcribed By: Self Edit Transcribed Date: 12/27/2024 09:13 ET us Gregg Oviedo MD [facility] FLUOROSCOPY PROCEDURES Final Result * ECG 12 lead - Procedural (No Charge) (12/22/2024 10:02 AM EDT) Ventricular Rate ECG 76 BPM GEMUSE Atrial Rate 76 BPM GEMUSE P-R Interval 146 ms GEMUSE QRS Duration 88 ms GEMUSE Q-T Interval 372 ms GEMUSE QTc 418 ms GEMUSE P Wave [place] 51 degrees GEMUSE R [place] 14 degrees GEMUSE T [place] 37 degrees GEMUSE ECG Interpretation Normal sinus rhythm Poor R wave progression Abnormal ECG No previous ECGs available Confirmed by Manuel HUNTLEY JAMES ([id number]) on 12/22/2024 12:39:24 PM GEMUSE 12/22/2024 10:0 2 AM EDT 12/22/2024 12:39 PM EDT us Gregg Oviedo MD ECG ORDERABLES Final Result GEMUSE * CBC auto differential (12/22/2024 9:38 AM EDT) WBC 8.2 4.8 - 10.8 K/mcL LAB HEMETOLOGY METHOD 12/22/2024 10:33 AM [facility] RBC 4.80 3.80 - 4.80 M/mcL LAB HEMETOLOGY METHOD 12/22/2024 10:33 AM [facility] Hemoglobin 13.7 11.5 - 16.0 g/dL LAB HEMETOLOGY METHOD 12/22/2024 10:33 AM [facility] Hematocrit 41.7 35.0 - 47.0 % LAB HEMETOLOGY METHOD 12/22/2024 10:33 AM [facility] MCV 86.9 79.0 - 98.0 FL LAB HEMETOLOGY METHOD 12/22/2024 10:33 AM [facility] MCH 28.5 27.0 - 32.0 pcg LAB HEMETOLOGY METHOD 12/22/2024 10:33 AM [facility] MCHC 32.9 32.0 - 37.0 g/dL LAB HEMETOLOGY METHOD 12/22/2024 10:33 AM [facility] RDW 12.4 11.0 - 15.0 % LAB HEMETOLOGY METHOD 12/22/2024 10:33 AM [facility] Platelets 262 130 - 400 K/mcL LAB HEMETOLOGY METHOD 12/22/2024 10:33 AM [facility] MPV 10.4 7.0 - 11.0 FL LAB HEMETOLOGY METHOD 12/22/2024 10:33 AM [facility] NRBC 0.0 <1.0 % LAB HEMETOLOGY METHOD 12/22/2024 10:33 AM [facility] NRBC Absolute 0.00 <0.10 K/[facility] LAB HEMETOLOGY METHOD 12/22/2024 10:33 AM [facility] Neutrophils Relative 78.6 % LAB HEMETOLOGY METHOD 12/22/2024 10:33 AM [facility] Lymphocytes Relative 12.9 % LAB HEMETOLOGY METHOD 12/22/2024 10:33 AM [facility] Monocytes Relative 6.1 % LAB HEMETOLOGY METHOD 12/22/2024 10:33 AM [facility] Eosinophils Relative 1.6 % LAB HEMETOLOGY METHOD 12/22/2024 10:33 AM [facility] Basophils Relative 0.6 % LAB HEMETOLOGY METHOD 12/22/2024 10:33 AM [facility] Immature Granulocytes Relative 0.2 % LAB HEMETOLOGY METHOD 12/22/2024 10:33 AM [facility] Neutrophils Absolute 6.41 1.50 - 7.00 K/mcL LAB HEMETOLOGY METHOD 12/22/2024 10:33 AM [facility] Lymphocytes Absolute 1.05 1.00 - 5.00 K/mcL LAB HEMETOLOGY METHOD 12/22/2024 10:33 AM EDT [facility] Monocytes Absolute 0.50 0.20 - 1.00 K/mcL LAB HEMETOLOGY METHOD 12/22/2024 10:33 AM EDT [facility] Eosinophils Absolute 0.13 0.00 - 0.50 K/mcL LAB HEMETOLOGY METHOD 12/22/2024 10:33 AM EDT [facility] Basophils Absolute 0.05 0.00 - 0.20 K/mcL LAB HEMETOLOGY METHOD 12/22/2024 10:33 AM EDT [facility] Immature Granulocytes Absolute 0.02 0.00 - 0.03 K/mcL LAB HEMETOLOGY METHOD 12/22/2024 10:33 AM EDT [facility] Blood Venous blood specimen / Unknown Venipuncture / Unknown 12/22/2024 9:38 AM EDT 12/22/2024 10:14 AM EDT us Gregg Oviedo MD LAB BLOOD ORDERABLES Final Resul t Performing Organization Address [facility]/ZIP Co de Phone Number [facility] [address] [place] [address], [place] [phone] * Activated partial thromboplastin time (12/22/2024 9:38 AM EDT) aPTT 36.8 24.1 - 39.3 sec LAB COAGULATION METHOD 12/22/2024 10:38 AM EDT [facility] Blood Venous blood specimen / Unknown Venipuncture / Unknown 12/22/2024 9:38 AM EDT 12/22/2024 10:14 AM EDT us Gregg Oviedo MD LAB BLOOD ORDERABLES Final Resul t Performing Organization Address City/[facility]/ZIP Co de Phone Number [facility] [address] [place] [address], [place] [phone] * Prothrombin time with INR (12/22/2024 9:38 AM EDT) Pathologist [facility] [place] Protime 13.0 10.6 - 13.9 sec LAB COAGULATION METHOD 12/22/2024 10:38 AM EDT [facility] INR 1.0 LAB COAGULATION METHOD 12/22/2024 10:38 AM EDT [facility] Blood Venous blood specimen / Unknown Venipuncture / Unknown 12/22/2024 9:38 AM EDT 12/22/2024 10:14 AM EDT us Gregg Oviedo MD LAB BLOOD ORDERABLES Final Resul t Performing Organization Address [facility]/ZIP Co de Phone Number [facility] [address] [place] [address], [place] [phone] * Type and screen (12/22/2024 9:38 AM EDT) Pathologist [facility] [place] ABO Group O 12/22/2024 12:23 PM EDT [facility] Rh Type Negative 12/22/2024 12:23 PM EDT [facility] Antibody Screen Negative 12/22/2024 12:23 PM EDT [facility] Blood Venous blood specimen / Unknown Venipuncture / Unknown 12/22/2024 9:38 AM EDT 12/22/2024 10:14 AM EDT us Gregg Oviedo MD LAB BLOOD BANK TEST ORDERABLES F inal Result [facility] [address] [place] [address], [place] [phone] * (ABNORMAL) Basic metabolic panel (12/22/2024 9:38 AM EDT) Pathologist [facility] [place] Sodium 134 133 - 145 mmol/L LAB CHEMISTRY METHOD 12/22/2024 11:26 AM EDT [facility] Potassium 4.1 3.5 - 5.5 mmol/L LAB CHEMISTRY METHOD 12/22/2024 11:26 AM [facility] Chloride 98 96 - 110 mmol/L LAB CHEMISTRY METHOD 12/22/2024 11:26 AM [facility] CO2 27 21 - 32 mmol/L LAB CHEMISTRY METHOD 12/22/2024 11:26 AM [facility] Anion Gap 9 3 - 11 LAB CHEMISTRY METHOD 12/22/2024 11:26 AM [facility] Glucose 108(H) 70 - 100 mg/dL LAB CHEMISTRY METHOD 12/22/2024 11:26 AM [facility] BUN 15 5 - 25 mg/dL LAB CHEMISTRY METHOD 12/22/2024 11:26 AM [facility] Creatinine 0.63 0.50 - 1.10 mg/dL LAB CHEMISTRY METHOD 12/22/2024 11:26 AM [facility] eGFR 96 >=60 mL/min/1. 73m2 LAB CHEMISTRY METHOD 12/22/2024 11:26 AM [facility] Comment:Calculation based on the Chronic Kidney Disease Epidemiology Collaboration (CKD-EPI) equation refit without adjustment for race. BUN/Creatinine Ratio 23.8 LAB CHEMISTRY METHOD 12/22/2024 11:26 AM [facility] Calcium 9.7 8.5 - 10.5 mg/dL LAB CHEMISTRY METHOD 12/22/2024 11:26 AM [facility] Blood Venous blood specimen / Unknown Venipuncture / Unknown 12/22/2024 9:38 AM EDT 12/22/2024 10:14 AM EDT us Gregg Oviedo MD LAB BLOOD ORDERABLES Final Resul t [facility] [address] [place] [address], [place] [phone] from Last 3 Months Additional Health Concerns Active Problems Noted Date Diagnosed Date Autogenerated Problem 12/13/2024 Insurance MEDICARE MEDICAID - [place] Care Teams Superintendent Custodian Janitor Relationship Specialty Start Date End Date Thaddeus Gamboa MD [facility] [address] [place] [address] [address] [place] [address] PCP - General Internal Medicine 11/30/24
== END 2024-12-28 10:53 | disposition home or self-care (01) ==
LOC: HO.HMCSH 10:18
PROVIDERS: PCP Physician Assistant Medical; Visit Provider Physician Assistant Medical
DX: H60.91 Unspecified otitis externa, right ear (principal); H66.91 Otitis media, unspecified, right ear

== ENCOUNTER → 2024-12-28 10:18 | Outpatient (BNVA) | payer MEDICARE, MEDICAID, SELFPAY | PROVIDERS: PCP Physician Assistant Medical; Visit Provider Physician Assistant Medical | DX: H60.91 Unspecified otitis externa, right ear (principal); H66.91 Otitis media, unspecified, right ear | CPT/HCPCS: 96127; 99212 ==